=== PATIENT | female | born 1955 | race Caucasian/White ===

== ENCOUNTER 2019-01-05 09:36 | Inpatient (IN) ==
[2019-01-05] MEDS ORDERED: Naloxone 0.4 MG/ML INJ IVP PRN (15:04)
[2019-01-05] MEDS ORDERED: *HR* HYDROcodone/Acet 5/325 mg TABLET PO PRN (15:04)
[2019-01-05] MEDS ORDERED: Ondansetron 4 MG/2 ML VIAL IVP PRN (15:04)
[2019-01-05] MEDS ORDERED: Acetaminophen 325 MG TABLET PO PRN (15:04)
[2019-01-05] MEDS ORDERED: *HR* OxyCODONE Immed Rel 5 MG TABLET PO PRN (15:04)
[2019-01-05] MEDS ORDERED: *HR* Dextrose 50 % in Water (Syg) 50 ML SYRINGE IVP PRN (15:11)
[2019-01-05] MEDS ORDERED: D5% in Water 1,000 ML IVC PRN (15:11)
[2019-01-05] MEDS ORDERED: Dextrose Gel 15 GM/37.5 ML TUBE PO PRN ×2 (15:11)
[2019-01-05] MEDS ORDERED: NON-FORMULARY MEDICATION 1 EACH EACH (Alendronate Sodium 70 MG) PO SCH (15:15)
[2019-01-05] MEDS ORDERED: levoFLOXacin 750 MG/150 ML 750 MG/150 ML BAG IVPB SCH (15:15)
[2019-01-05] MEDS: Ipratropium/Albuterol Neb 3 ML IH SCH ×3 (15:49→23:47)
--- NOTE | 2019-01-05 16:02 | Internal Med History&Physical ---
Date of Encounter: 01/05/19 Time of Encounter: 15:56 Internal Medicine - H&P: HPI Chief complaint: Shortness of breath, cough with expectoration Admitted From: Home Plans for Post Hospital Care: Home History of present illness: Ms. Vicente is a 63 year old female with a known past medical history of COPD, chronic hypoxic respiratory failure on 2 lit home oxygen, hypertension, hyperlipidemia, diabetes type II and chronic tobacco dependence patient who has been having lung issues for a while follows with Dr. العراقي, now she was sent to our hospital as direct admission from pumonology office since pt has been having progressively worsening shortness of breath and cough with expectoration. Her CT scan of the chest showed small loculated right pleural effusion, consolidation in the right upper lobe. Right middle lobe lung nodule. Small to moderate pericardial effusion. Patient was sent to our hospital for further evaluation by aircraft tool maker for possible bronchoscope and Patient stated she has been having progressively worsening shortness of breath last couple of weeks. She visited ER 2-3 times so far. She denied any chest pain. She does have cough with greenish expectoration. Off note: Pt stated , she is afraid of needles and she does not want her blood to be drawn and does not want any IV medication. Past Med Surg Social Fam HX - Past Medical History Medical history: arthritis, asthma, COPD, diabetes, hyperlipidemia, hypertension, other Additional medical history: NEUROPATHY Psychiatric history: depression - Past Surgical History Surgical History: , hysterectomy Additional surgical history: Brain aneurysm removed; lung surgery; Bladder Surgery - Social History Smoking Status: Current every day smoker Smokeless Tobacco Status: No Alcohol use: none Drug use: none - Family History Mother Hx Family Cardiac Disorders: Yes Father Hx Family Cardiac Disorders: Yes Hx Family Respiratory Disorders: Yes Internal Medicine - H&P: Meds Albuterol Sulfate [Albuterol Inhaler] 2 puff IH Q4HR 02/21/15 [History] Gabapentin [Neurontin] 300 mg PO QID 02/21/15 [History] Sitagliptin Phos/Metformin HCl [Janumet 50-1,000 mg Tablet] 1 tab PO BID [History] Albuterol Sulfate [Proventil Inhaler] 2 puff IH Q6H #1 puff 04/16/15 [Rx] Aspirin [Ecotrin] 325 mg PO DAILY 04/26/18 [History] Alendronate Sodium 70 mg PO QWEEK 05/31/18 [History] Diclofenac Sodium [Voltaren] 50 mg PO TID 05/31/18 [History] Insulin Glargine,Hum.rec.anlog [Basaglar Kwikpen U-100] 20 unit SQ 05/31/18 [History] Montelukast [Singulair] 10 mg PO DAILY 05/31/18 [History] Oxybutynin [Ditropan] 5 mg PO BID 05/31/18 [History] Pioglitazone [Actos] mg PO DAILY 05/31/18 [History] predniSONE [Prednisone] 10 mg PO DAILY 06/14/18 [History] Acetaminophen [Tylenol] 650 mg PO Q6HR tablet 06/28/18 [Rx] Atorvastatin [Lipitor] 80 mg PO HS #60 tablet 06/28/18 [Rx] Azithromycin [Zithromax] 250 mg PO DAILY #3 tablet 06/28/18 [Rx] Budesonide/Formoterol 160/4.5 [Symbicort 160/4.5] 2 puff IH BIDR #1 inh 06/28/18 [Rx] Cefuroxime PO [Ceftin] 500 mg PO Q12HR #6 tablet 06/28/18 [Rx] DULoxetine [Cymbalta] 60 mg PO DAILY #60 capsule. 06/28/18 [Rx] GlipiZIDE [Glipizide Xl] 5 mg PO BID #60 tab.er.24 06/28/18 [Rx] Lactobacillus [Culturelle] 1 each PO BID #6 cap.sprink 06/28/18 [Rx] Lidocaine Patch [Lidoderm 5% patch] 1 each TP DAILY #7 adh..patch 06/28/18 [Rx] Methyl Salicylate/Menthol [Bengay] 1 appl TP DAILY tube 06/28/18 [Rx] Tiotropium [Spiriva] 18 mcg IH DAILY@0700 #30 inh 06/28/18 [Rx] levoFLOXacin [Levaquin] 750 mg PO ONCE #5 tablet 12/22/18 [Rx] Allergy/AdvReac Type Severity Reaction Status Date / Time codeine Allergy Hives Verified 06/25/18 17:05 propoxyphene [From Darvon] Allergy Hives Verified 06/25/18 17:05 All Systems PM: A 10-system review of systems was performed and is negative for pertinent findings except as documented above in the HPI. Review of systems: All the systems are reviewed everything is benign except the systems and symptoms I mentioned in the history of present illness - Constitutional Vitals: Temp Pulse Resp BP Pulse Ox 98.7 F 104 16 123/86 96 01/05/19 15:03 01/05/19 15:03 01/05/19 15:50 01/05/19 15:03 01/05/19 15:50 General appearance: Present: cooperative, A&O X 3, no acute distress, answers questions appropriately Exam: a - Head Head exam: Present: atraumatic, normal inspection - Neck Neck exam general surgery: Present: supple - Respiratory Respiratory exam: Present: decreased breath sounds, rhonchi (ronchi+), wheezes (moderate). Absent: rales, respiratory distress - Cardiovascular Cardiovascular exam: Present: RRR, +S1, +S2. Absent: tachycardia - GI/Abdominal GI/Abdominal exam: Present: normal bowel sounds, soft. Absent: rebound, rigid, tenderness - Extremities Exam Extremities exam: Present: normal inspection. Absent: calf tenderness, pedal edema, tenderness - Back Exam Back exam: Absent: CVA tenderness (L), CVA tenderness (R) - Neurological Exam Neurological exam: Present: alert, oriented X3 - Psychiatric Psychiatric exam: Present: normal affect, normal mood - Skin Skin exam: Absent: rash - Assessment and Plan (1) COPD exacerbation Current Visit: Yes Status: Acute Assessment and plan: Place the pt into tele for observation started her on systemic steroids Also placed her on frequent bronchodilator therapy cont O2 started her on empirical abx Levaquin (2) Pneumonia Current Visit: Yes Status: Acute Assessment and plan: Mostly bacterial will check step pneumonia, Legionella, respiratory viral panel and sputum culture started her on empirical abx Levaquin for now Qualifiers: Pneumonia type: due to unspecified organism Laterality: right Lung location: upper lobe of lung Qualified Code(s): J18.1 - Lobar pneumonia, unspecified organism (3) Pleural effusion Current Visit: No Status: Acute Assessment and plan: Consulted pulmonary possible throacocentesis in AM NPO after mid night since she does have moderate pericardial effusion, will check 2 D Echo too (4) Lung nodule Current Visit: Yes Status: Acute Assessment and plan: RML nodule noticed on CT of Chest Pulmonary on board counseled to quit smoking (5) Chronic respiratory failure with hypoxia Current Visit: Yes Status: Acute Assessment and plan: at baseline (6) DM type 2 (diabetes mellitus, type 2) Current Visit: No Status: Chronic Assessment and plan: on ADA diet on ISS @ medium Qualifiers: Diabetes mellitus vermin exterminator insulin use: with vermin exterminator use Diabetes mellitus complication status: with neurologic complications Diabetes mellitus complication detail: with polyneuropathy Qualified Code(s): 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 diabetes mellitus with diabetic polyneuropathy; Z79.4 - [facility] (current) use of insulin (7) Hyperlipidemia Current Visit: No Status: Chronic Assessment and plan: Continue home medication Qualifiers: Hyperlipidemia type: unspecified Qualified Code(s): E78.5 - Hyperlipidemia, unspecified (8) Hypertension Current Visit: No Status: Chronic Assessment and plan: Resumed all home medications Qualifiers: Hypertension type: essential hypertension Qualified Code(s): I10 - Essential (primary) hypertension (9) Tobacco dependence Current Visit: Yes Status: Chronic Assessment and plan: Counseled to quit smoking placed on nicotine patch - Time Spent With Patient Total time spent is greater than 50% in coordination of care (as documented) at patient's floor/unit and/or counseling patient:
[2019-01-05] MEDS: Gabapentin 300 MG CAPSULE PO SCH ×2 (16:31→21:28)
[2019-01-05] MEDS: levoFLOXacin 750 MG TABLET PO SCH (16:31)
[2019-01-05] MEDS: Insulin LISPRO 300 UNITS/3 ML VIAL SQ SCH (16:32)
[2019-01-05] MEDS: predniSONE 20 MG TABLET PO SCH (17:55)
[2019-01-05 18:44] LABS: Adenovirus Not Detected (Not Detect); Bordetella Pertussis Not Detected (Not Detect); Chlamydophila pneumoniae Not Detected (Not Detect); Coronavirus 229E Not Detected (Not Detect); Coronavirus HKU1 Not Detected (Not Detect); Coronavirus NL63 Not Detected (Not Detect); Coronavirus OC43 Not Detected (Not Detect); Human Metapneumovirus Not Detected (Not Detect); Human Rhinovirus/Enterovirus Not Detected (Not Detect); Influenza A Subtype 2009 H1 Not Detected (Not Detect); Influenza A Untypeable Not Detected (Not Detect); Influenza B Not Detected (Not Detect); Mycoplasma pneumoniae Not Detected (Not Detect); Parainfluenza Virus 1 Not Detected (Not Detect); Parainfluenza Virus 2 Not Detected (Not Detect); Parainfluenza Virus 3 Not Detected (Not Detect); Parainfluenza Virus 4 Not Detected (Not Detect); Respiratory Syncytial Virus Not Detected (Not Detect)
[2019-01-05] MEDS: Budesonide/Formoterol 160/4.5 1 PUFF INH IH SCH (20:23)
[2019-01-05] MEDS ORDERED: Insulin LISPRO 300 UNITS/3 ML VIAL SQ SCH (21:00)
[2019-01-06] MEDS: Ipratropium/Albuterol Neb 3 ML IH SCH ×6 (04:47→23:04)
[2019-01-06] MEDS ORDERED: *HR* Propofol 200 MG/20 ML VIAL IVP ONE (07:49)
[2019-01-06] MEDS ORDERED: Propofol 500 MG/50 ML INFUS..BTL ONE (07:50)
[2019-01-06] MEDS ORDERED: Lidocaine -MPF 2% 2 ML VIAL ONE (07:53)
[2019-01-06] MEDS ORDERED: Dexamethasone 4 MG/ML VIAL ONE (07:53)
[2019-01-06] MEDS ORDERED: Ondansetron 4 MG/2 ML VIAL ONE (07:53)
[2019-01-06] MEDS ORDERED: *HR* Succinylcholine 200 MG/10 ML VIAL IVP ONE (07:53)
[2019-01-06] MEDS: Insulin LISPRO 300 UNITS/3 ML VIAL SQ SCH ×4 (08:08→23:29)
[2019-01-06] MEDS: levoFLOXacin 750 MG TABLET PO SCH (08:08)
[2019-01-06] MEDS: Aspirin Enteric Coated 325 MG Tablet PO SCH (08:08)
[2019-01-06] MEDS: predniSONE 20 MG TABLET PO SCH (08:08)
[2019-01-06] MEDS: Gabapentin 300 MG CAPSULE PO SCH ×4 (08:09→21:14)
--- NOTE | 2019-01-06 08:13 | Pulmonology Consult Note ---
<DioLisdenys M - Last Filed: 01/06/19 16:00> Date of Encounter: 01/06/19 Medications and Allergies Aspirin [Ecotrin] 325 mg PO DAILY 04/26/18 [History] Pioglitazone [Actos] 30 mg PO DAILY 05/31/18 [History] Albuterol Sulfate 5 mg PO TID PRN 01/06/19 [History] Alendronate Sodium [Fosamax] 70 mg PO TH 01/06/19 [History] Calcium Carbonate/Vitamin D3 [Calcium 500 + Vit D Caplet] 1 tab PO DAILY 01/06/19 [History] Fluticasone/Salmeterol [Airduo Respiclick 232-14 Mcg] 1 puff PO BID 01/06/19 [History] Loratadine/Pseudoephedrine [Allergy Relief D-24Hr Tablet] 1 tab PO DAILY PRN 01/06/19 [History] Metformin HCl 500 mg PO BID 01/06/19 [History] Pregabalin [Lyrica] 150 mg PO DAILY 01/06/19 [History] Tramadol HCl [Ultram] 50 mg PO BID PRN 01/06/19 [History] Allergy/AdvReac Type Severity Reaction Status Date / Time codeine Allergy Hives Verified 01/06/19 13:41 propoxyphene [From Darvon] Allergy Hives Verified 01/06/19 13:41 All Systems: The remainder of the systems were reviewed and are negative Physical Examination Vital Signs: Vital Signs, Last 4 Hours Temp Pulse Resp BP Pulse Ox 01/06/19 15:45 17 91 01/06/19 15:20 97.9 F 118 17 109/70 91 Results - Laboratory Findings CBC and BMP: 01/06/19 09:25 01/06/19 09:25 Abnormal lab findings: Abnormal lab results MCH 27.7 pg (28.0-33.3) L 01/06/19 09:25 MPV 12.5 fL (9.4-12.4) H 01/06/19 09:25 Sodium 133 mEq/L (136-145) L 01/06/19 09:25 Chloride 95 mEq/L (98-107) L 01/06/19 09:25 Est GFR (Non-Af Amer) 56 (> 60) L 01/06/19 09:25 Glucose 553 mg/dL (70-105) H* 01/06/19 09:25 Hemoglobin A1c 14.6 % (-5.6) H 01/06/19 09:25 Calculated Osmolality 303 (280-300) H 01/06/19 09:25 Magnesium 1.5 mg/dL (1.6-2.6) L 01/06/19 09:25 - Microbiology Findings Microbiology Findings: Microbiology, Last 48 Hours 01/05/19 17:56 Legionella Antigen - Final Urine,Clean Catch Streptococcus pneumoniae Antigen (M - Final - Clinical Findings Intake & Output: Intake & Output 01/06/19 01/06/19 01/06/19 07:59 15:59 23:59 Intake Total 0 / 240 240 / 240 Output Total 300 / 300 Balance -300 / -60 240 / -60 Weight 61.5 kg Consult Discharge Plan - Plan Referrals: NONE,PCP [Primary Care Provider] - - Attending Attestation I examined this patient and my medical decision-making was reviewed with the Resident Physician. I agree with the documented findings, disposition and treatment plan as described except to the extent set forth below. Patient seen and examined. Labs, radiology, chart personally reviewed. 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 Extensive discussion with the patient regarding her CT chest finding and the fact that she continued to smoke tobacco that is making her underlying disease worsen and I have told her she absolutely has to quit smoking to feeling better and refer her to [place] if needed after pulmonary rehabilitation for evaluation of lung transplant. I have explained that all the risks, alternative benefits of bronchoscopy and there is some improvement in the right middle lobe. Patient will be treated for COPD exacerbation what makes it more complicated that patient cannot tolerate or she is very scared of needles. I have explained to her that pleural effusion is very small and loculated and no need for any thoracentesis. A bronchoscopy is recommended. The procedure , risks, benefits, complications, and expected outcomes have been reviewed. Benefits of diagnosis, as well as risks to include bleeding, infection, pneumothorax which may require surgical intervention, and in a small population. The patient is aware that sometimes test is nondiagnostic. Discussed with patient and agrees to proceed. Cardiovascular: stable GI: Nutrition per dietary and GI prophylaxis per routine Heme: DVT prophylaxis per routine ID: Continue antibiotics and plan to de-escalation Renal; urine out put and renal function reviewed Endorcine: blood glucose is monitored Lines: all lines checked and no evidence of infections Skin: skin care to prevent pressure ulcers per nursing routine care Dispo: 3B and hopefully can be discharged home in next 1-2 days. Code: Full. Prognosis. Poor if continues smoking <Leroy Atkins Shyann - Last Filed: 01/06/19 23:00> Date of Encounter: 01/06/19 Time of Encounter: 10:30 Assessment and Plan (1) Pneumonia Current Visit: Yes Status: Acute Presented complaining of increased productive cough with green sputum Pt has been afebrile, and with normal WBC Currently only requiring 2lpm O2 which is the patient's home script Treatment is complicated by patient's fear of needles Continue po glucocorticoids and Levaquin Continue scheduled Duonebs Recommend bronchoscopy. Dr Wharton discussed with patient and plan for bronchoscopy later today Qualifiers: Pneumonia type: due to unspecified organism Laterality: right Lung location: upper lobe of lung Qualified Code(s): J18.1 - Lobar pneumonia, unspecified organism (2) COPD exacerbation Current Visit: Yes Status: Acute Complicated by pt's fear of needles Plan as above with continuing po glucocorticoids, po Levaquin, and scheduled bronchodilators Also stressed the importance of smoking cessation (3) Pleural effusion Current Visit: Yes Status: Acute Small right loculated effusion noted on CT No need for thoracentesis at this time (4) Lung nodule Current Visit: Yes Status: Acute A nodular opacity in the right middle lobe measuring approximately 7mm in diameter was seen on chest CT Pt will require outpatient followup after discharge (5) Chronic respiratory failure with hypoxia Current Visit: Yes Status: Chronic As above Continue supplemental O2 which is currently at pt's baseline of 2lpm (6) Tobacco dependence Current Visit: Yes Status: Chronic Discussed the importance of smoking cessation Continue nicotine patch History of Present Illness Consult date: 01/06/19 Reason for consult: dyspnea, cough, COPD Chief complaint: SOB History of present illness: Ms Vicente is a 63F with PMH of arthritis, COPD on 2lpm home O2, diabetes, HLD, HTN, tobacco abuse, and depression. She was admitted on 01/05/19 from the pulmonology office for complaints of worsening shortness of breath and productive cough which has been worsening over the past 2-3 weeks. Reports she is producing green sputum. A CT of the chest was obtained which showed a small loculated right pleural effusion, severe emphysema, and a nodular opacity in the right middle lobe measuring approximately 7mm in diameter. She was started on po steroids and empiric Levaquin. Pulmonology was consulted for COPD exacerbation and evaluation for possible bronchoscopy. Pt seen and examined at bedside. Pt reports she is very afraid of needles and wants to avoid them at all costs. Past Med Surg Social Fam HX - Past Medical History Medical history: arthritis, asthma, COPD, diabetes, hyperlipidemia, hypertension, other Additional medical history: NEUROPATHY Psychiatric history: depression - Past Surgical History Surgical History: , hysterectomy Additional surgical history: Brain aneurysm removed; lung surgery; Bladder Surgery - Social History Smoking Status: Current every day smoker Smokeless Tobacco Status: No Alcohol use: none Drug use: none - Family History Mother Hx Family Cardiac Disorders: Yes Father Hx Family Cardiac Disorders: Yes Hx Family Respiratory Disorders: Yes All Systems: The remainder of the systems were reviewed and are negative - Constitutional Constitutional: no chills, no fever(s) - Cardiovascular Cardiovascular: dyspnea, no chest pain - Respiratory Respiratory: cough, dyspnea, chest congestion, excessive phlegm production, change in phlegm color, no hemoptysis Physical Examination Vital Signs: Vital Signs, Last 4 Hours Temp Pulse Resp BP Pulse Ox 01/06/19 07:15 98.4 F 115 16 130/75 92 01/06/19 05:03 18 88 General appearance: no acute distress, alert Eyes: nonicteric Effort: normal Inspection: normal Auscultation: bilateral: diminished breath sounds, wheezes (scattered ) Cardiovascular: regular rate and rhythm Gastrointestinal: soft, non-tender, non-distended Integumentary: normal Extremities: no cyanosis, no edema, no clubbing, pink and warm, pulses normal, no ischemia or petechiae Musculoskeletal: no deformities normal mental status, non-focal exam, pupils equal and round mood appropriate, affect normal Results - Laboratory Findings CBC and BMP: 01/06/19 09:25 01/06/19 09:25 - Microbiology Findings Microbiology Findings: Microbiology, Last 48 Hours 01/05/19 17:56 Legionella Antigen - Final Urine,Clean Catch Streptococcus pneumoniae Antigen (M - Final - Diagnostic Findings CT scan - chest: report reviewed, image reviewed - Clinical Findings Intake & Output: Intake & Output 01/05/19 01/06/19 01/06/19 23:59 07:59 15:59 Intake Total 240 / 240 0 / 0 Output Total 240 / 640 300 / 300 Balance 0 / -400 -300 / -300 Weight 61.235 kg 61.5 kg
[2019-01-06] MEDS ORDERED: Lidocaine -MPF 4% 5 ML AMPUL ONE (08:29)
[2019-01-06] MEDS ORDERED: Lidocaine Viscous Oral Soln 15 ML SOLUTION ONE (08:34)
--- NOTE | 2019-01-06 08:35 | Anesthesia Evaluation PreOp ---
Date of Encounter: 01/06/19 Time of Encounter: 08:33 - Past History Planned Operation: Bronchoscopy Cardiac History: HTN, Hyperlipidemia Pulmonary History: Smoker (49 years), Asthma, COPD (home O2 at 2L continuously) CLINICAL RESOURCE MANAGER History: Other (brain aneurysm) Other Medical History: Diabetes Type II, GERD Anesthesia History: Past Anesthesia, Problems (Patient with intense fear of needles. Prior anesthesia consisted of PO anxiolytic and inhalation induction. Will proceed with inhalation induction and start peripheral IV after induction.) Alcohol Use: none Drug use: none Medications and Allergies Albuterol Sulfate [Albuterol Inhaler] 2 puff IH Q4HR 02/21/15 [History] Gabapentin [Neurontin] 300 mg PO QID 02/21/15 [History] Sitagliptin Phos/Metformin HCl [Janumet 50-1,000 mg Tablet] 1 tab PO BID 02/21/15 [History] Albuterol Sulfate [Proventil Inhaler] 2 puff IH Q6H #1 puff 04/16/15 [Rx] Aspirin [Ecotrin] 325 mg PO DAILY 04/26/18 [History] Alendronate Sodium 70 mg PO QWEEK 05/31/18 [History] Diclofenac Sodium [Voltaren] 50 mg PO TID 05/31/18 [History] Insulin Glargine,Hum.rec.anlog [Basaglar Kwikpen U-100] 20 unit SQ 05/31/18 [History] Montelukast [Singulair] 10 mg PO DAILY 05/31/18 [History] Oxybutynin [Ditropan] 5 mg PO BID 05/31/18 [History] Pioglitazone [Actos] mg PO DAILY 05/31/18 [History] predniSONE [Prednisone] 10 mg PO DAILY 06/14/18 [History] Acetaminophen [Tylenol] 650 mg PO Q6HR tablet 06/28/18 [Rx] Atorvastatin [Lipitor] 80 mg PO HS #60 tablet 06/28/18 [Rx] Azithromycin [Zithromax] 250 mg PO DAILY #3 tablet 06/28/18 [Rx] Budesonide/Formoterol 160/4.5 [Symbicort 160/4.5] 2 puff IH BIDR #1 inh 06/28/18 [Rx] Cefuroxime PO [Ceftin] 500 mg PO Q12HR #6 tablet 06/28/18 [Rx] DULoxetine [Cymbalta] 60 mg PO DAILY #60 capsule.dr 06/28/18 [Rx] GlipiZIDE [Glipizide Xl] 5 mg PO BID #60 tab.er.24 06/28/18 [Rx] Lactobacillus [Culturelle] 1 each PO BID #6 cap.sprink 06/28/18 [Rx] Lidocaine Patch [Lidoderm 5% patch] 1 each TP DAILY #7 adh..patch 06/28/18 [Rx] Methyl Salicylate/Menthol [Bengay] 1 appl TP DAILY tube 06/28/18 [Rx] Tiotropium [Spiriva] 18 mcg IH DAILY@0700 #30 inh 06/28/18 [Rx] levoFLOXacin [Levaquin] 750 mg PO ONCE #5 tablet 12/22/18 [Rx] Allergy/AdvReac Type Severity Reaction Status Date / Time codeine Allergy Hives Verified 06/25/18 17:05 propoxyphene [From Darvon] Allergy Hives Verified 06/25/18 17:05 - Meds/Allergy Pre-op Review Medications Reviewed: Yes Allergies Reviewed: Yes Beta Blockers on Current Med List: No Anesthesia Results - Labs Laboratory Tests 04/26/18 01/01/19 01/01/19 17:51 11:59 11:59 WBC 8.8 Hgb 14.5 Hct 45.4 H Plt Count 220 PT 13.3 H INR 1.2 APTT 35.6 Sodium 135 L Potassium 4.5 BUN 10 Creatinine 0.81 - Imaging EKG: report reviewed (01/01/2019 Sinus tachycardia Ventricular premature complex Consider right atrial enlargement Borderline right axis deviation) Chest x-ray: report reviewed (01/01/2019 IMPRESSION: Small to moderate right pleural effusion with interstitial pulmonary edema and mild cardiomegaly suggesting CHF. Right basilar opacity may represent atelectasis although underlying consolidation cannot be completely excluded.) Additional studies: 09/16/2018 Echo Impressions: LVEF 45-50%. Not all the LV segments were well visualized. Recommend limited study with imaging enchancement Mild concentric left ventricular hypertrophy. Normal left ventricular diastolic function. Normal right ventricular structure and function. Unable to estimate RVSP due to lack of TR jet. There is a trivial to small pericardial effusion present.There is no echocardiographic evidence of tamponade. Anesthesia Exam Vital Signs/O2 Sat, Most Current Temp Pulse Resp BP Pulse Ox 99 F 118 20 129/85 97 01/06/19 08:24 01/06/19 08:24 01/06/19 08:24 01/06/19 08:24 01/06/19 08:24 Height: 5'2''/1.57m Weight: 135 lbs/61.5 kg NPO (# of Hours): 8 Pain Scale: 0 Pain Scale Used: Numeric (1 - 10) - HEENT Pupil (Motor): EOMI Mallampati: II Teeth: Edentulous Oral Opening: Greater than 3 - CLINICAL RESOURCE MANAGER LOC: Oriented CLINICAL RESOURCE MANAGER Motor: Normal RUE, Normal LUE, Normal RLE, Normal LLE, Normal Face CLINICAL RESOURCE MANAGER Sensory: Normal: RUE, LUE, RLE, LLE, Face - Cardiac Rhythm: Regular Murmur: None - Pulmonary Breath Sounds: bilateral Rhonchi Respiratory Effort: Symmetrical Anesthesia Assess/Plan ASA Score: 3 Level of consciousness: Cooperative, Oriented, Tranquil Anesthetic Plan: General Monitoring Plan: Standard Monitors Recovery Plan: PACU
[2019-01-06 09:45] LABS: Basophils % 0.2 %; Eosinophils % 0.1 %; Hematocrit 39.2 % (35.3-44.9); Immature Granulocytes % 0.4 % (0-4); Lymphocytes # 0.9 K/mcL (0.6-4.6); Lymphocytes % 10.7 %; Mean Corpuscular HGB Conc 31.9 g/dL (31.6-35.5); Mean Corpuscular Hemoglobin 27.7 pg (28.0-33.3); Mean Corpuscular Volume 86.9 fL (83.0-100.0); Mean Platelet Volume 12.5 fL (9.4-12.4); Monocytes # 0.4 K/mcL (0.0-1.3); Monocytes % 5.2 %; Neutrophils # 7.1 K/mcL (1.6-8.9); Platelet Count 199 K/mcL (140-400); Red Blood Count 4.51 M/mcL (3.82-4.97); Red Cell Distribution Width 13.6 % (11.5-14.5); Segmented Neutrophils % 83.4 %; White Blood Count 8.5 K/mcL (4.3-11.1)
[2019-01-06 09:47] LABS: Hemoglobin 12.5 g/dL (11.5-15.4)
[2019-01-06 09:52] LABS: Estimated Average Glucose 372 mg/dl
[2019-01-06 10:14] LABS: BUN/Creatinine Ratio 18 (6-26); Blood Urea Nitrogen 18 mg/dL (8-23); Carbon Dioxide 28 mEq/L (23-29); Chloride 95 mEq/L (98-107); Glucose 553 mg/dL (70-105); Magnesium 1.5 mg/dL (1.6-2.6); Osmolality,Calculated 303 (280-300); Sodium 133 mEq/L (136-145); eGFR For African Americans > 60 (> 60); eGFR For Non-African Americans 56 (> 60)
[2019-01-06] MEDS: Budesonide/Formoterol 160/4.5 1 PUFF INH IH SCH ×2 (11:21→20:51)
[2019-01-06] MEDS ORDERED: Insulin Regular, Human 100 UNIT/ML SQ ONE (11:35)
[2019-01-06] MEDS ORDERED: Insulin LISPRO 300 UNITS/3 ML VIAL SQ ONE ×2 (11:40→14:41)
--- NOTE | 2019-01-06 12:11 | Internal Med Progress Note ---
Hospitalist Progress Note - Encounter Date of Encounter: 01/06/19 Time of Encounter: 12:09 - Subjective Interval History: Ms. Vicente is a 63 year old female with a known past medical history of COPD, chronic hypoxic respiratory failure on 2 lit home oxygen, hypertension, hyperlipidemia, diabetes type II and chronic tobacco dependence patient who has been having lung issues for a while follows with Dr. العراقي, now she was sent to our hospital as direct admission from pumonology office since pt has been having progressively worsening shortness of breath and cough with expectoration. Her CT scan of the chest showed small loculated right pleural effusion, consolidation in the right upper lobe. Right middle lobe lung nodule. Small to moderate pericardial effusion. Patient was sent to our hospital for further evaluation by real estate investor for possible bronchoscope and Patient stated she has been having progressively worsening shortness of breath last couple of weeks. She visited ER 2-3 times so far. She denied any chest pain. She does have cough with greenish expectoration. She was admitted in the hospital and placed her on PO steroids and empirical abx Levaquin. Pt was seen by Pulmonary who did bronchoscope this morning. Currently pt is on 2 lit O2.. Denied any CP. Her sugars are not well controlled. - Exam Vitals: Temp Pulse Resp BP Pulse Ox 97.9 F 75 21 131/80 93 01/06/19 11:15 01/06/19 11:15 01/06/19 11:24 01/06/19 11:15 01/06/19 11:24 Exam: Gen: Alert, awake, Oriented to time,place and person Chest: Diminished breath sounds B/L, Moderate wheezing, No crackles, No rales Heart: S1S2+ RRR No murmurs Abd: Soft, NT, BS +, No organomegaly Ext: No edema, pulses are palpable, No calf tenderness Neuro : No acute focal neuro deficits noticed Skin: No rash. - Assessment and Plan (1) COPD exacerbation Current Visit: Yes Status: Acute Assessment and Plan: Improving start tapering systemic steroids cont frequent broncho dilator therapy cont on o2 cont symbicort (2) Pneumonia Current Visit: Yes Status: Acute Assessment and Plan: Mostly bacterial Strep pneumonia, Legionella, and respiratory viral panel were negative cont on empirical abx Levaquin s/p bronchoscope will f/u on BAL fluid Gram staining and cx appreciate pulmonary recommendations (3) Pleural effusion Current Visit: No Status: Acute Assessment and Plan: Lasix PRN 2D Echo - P (4) Lung nodule Current Visit: Yes Status: Acute Assessment and Plan: RML nodule noticed on CT of Chest Pulmonary on board counseled to quit smoking (5) Chronic respiratory failure with hypoxia Current Visit: Yes Status: Acute Assessment and Plan: at baseline (6) DM type 2 (diabetes mellitus, type 2) Current Visit: No Status: Chronic Assessment and Plan: on ADA diet HbA1C 14.6 Uncontrolled BS, since pt refused to take insulin since y/d I educated the pt and counseled her about the importance of Insulin to control her severe hyperglycemia resumed home PO meds Metformin + Added Glipizide changed ISS @ high (7) Hyperlipidemia Current Visit: No Status: Chronic Assessment and Plan: Continue home medication (8) Hypertension Current Visit: No Status: Chronic Assessment and Plan: Resumed all home medications (9) Tobacco dependence Current Visit: Yes Status: Chronic Assessment and Plan: Counseled to quit smoking placed on nicotine patch - Time Spent with Patient Total time spent is greater than 50% in coordination of care (as documented) at patient's floor/unit and/or counseling patient: Internal Medicine: Result - Labs CBC & Chem 7: 01/06/19 09:25 01/06/19 09:25 Labs: Short CBC 01/06/19 Range/Units 09:25 WBC 8.5 (4.3-11.1) K/mcL Hgb 12.5 D (11.5-15.4) g/dL Hct 39.2 (35.3-44.9) % Plt Count 199 (140-400) K/mcL Neutrophils # 7.1 (1.6-8.9) K/mcL BMP 01/06/19 09:25 Sodium 133 L Potassium 5.0 Chloride 95 L Carbon Dioxide 28 BUN 18 Creatinine 1.01 Glucose 553 H* Calcium 9.0 Consult Discharge Plan - Plan Referrals: NONE,PCP [Primary Care Provider] - (2) Pneumonia Qualifiers: Pneumonia type: due to unspecified organism Laterality: right Lung location: upper lobe of lung Qualified Code(s): J18.1 - Lobar pneumonia, unspecified organism (6) DM type 2 (diabetes mellitus, type 2) Qualifiers: Diabetes mellitus halfway insulin use: with extermination inspector use Diabetes mellitus complication status: with neurologic complications Diabetes mellitus complication detail: with polyneuropathy Qualified Code(s): 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 diabetes mellitus with diabetic polyneuropathy; Z79.4 - custodial (current) use of insulin (7) Hyperlipidemia Qualifiers: Hyperlipidemia type: unspecified Qualified Code(s): E78.5 - Hyperlipidemia, unspecified (8) Hypertension Qualifiers: Hypertension type: essential hypertension Qualified Code(s): I10 - Essential (primary) hypertension
[2019-01-06] MEDS: *HR* Pioglitazone 30 MG TABLET PO SCH ×2 (13:47→15:47)
[2019-01-06] MEDS ORDERED: Insulin DETEMIR 100 UNIT/ML X5UNITS SQ ONE (14:40)
[2019-01-06] MEDS ORDERED: *HR* LORazepam 2 MG/ML VIAL IVP PRN (16:49)
[2019-01-06 17:19] LABS: Appearance of Body Fluid Slightly Hazy (Clear)
[2019-01-06 17:20] LABS: Volume of Body Fluid 11 mL
[2019-01-06 17:24] LABS: Appearance of Body Fluid Hazy (Clear); Volume of Body Fluid 21 mL
[2019-01-06] MEDS: *HR* SitaGLIPtin 25 MG TABLET PO SCH (21:14)
[2019-01-06] MEDS: *HR* GlipiZIDE XL (24 HR) 2.5 MG TABLET PO SCH (21:14)
[2019-01-06] MEDS: *HR* Metformin 500 MG TABLET PO SCH (21:15)
[2019-01-06] MEDS: Insulin DETEMIR 100 UNIT/ML X5UNITS SQ SCH (23:30)
[2019-01-07] MEDS: Ipratropium/Albuterol Neb 3 ML IH SCH ×2 (03:52→07:18)
--- NOTE | 2019-01-07 06:43 | Event Note ---
Date of Encounter: 01/06/19 Time of Encounter: 21:51 Alerted by patient's nurse OLEKSANDR Yun that patient had a blood sugar of 5 6618:48. Patient refusing to be "poked anymore" , including labs. Patient stated she only took her by mouth pills and was not wanting Accu-Cheks done or insulin. Nurse tried to educate patient that metformin would not control her high glucose at this time. Patient also requesting her tramadol and Lyrica. Went to see patient who is resting in bed and appeared anxious. Current BG 576. I explained to the pt. that her BG had to be brought down with insulin. Pt. began to cry and stated she wanted to go home over and over. Pt. stated her BG had been much higher than this. I stated this was not normal. I stated that she would not be going home with BG this high. I stated that unless she allowed us to administer the needed insulin and continue checking her BG levels, she would continue to be here. Pt. agreed. 20 units of Levemir administered along w/HS SS coverage. Nurse instructed to monitor BG Q2HR. Alerted at 01:51 that BG was now 441. Will continue to monitor closely.
[2019-01-07] MEDS: Budesonide/Formoterol 160/4.5 1 PUFF INH IH SCH ×2 (07:19→22:11)
[2019-01-07] MEDS ORDERED: Insulin LISPRO 300 UNITS/3 ML VIAL SQ SCH (08:00)
--- NOTE | 2019-01-07 08:13 | Pulmonology Progress Note ---
<Leroy Atkins - Last Filed: 01/07/19 10:30> Date of Encounter: 01/07/19 Time of Encounter: 09:30 Assessment and Plan (1) Pneumonia Current Visit: Yes Status: Acute Presented complaining of increased productive cough with green sputum Pt has been afebrile, and with normal WBC Currently only requiring 2lpm O2 which is the patient's home script Underwent bronchoscopy on 01/06/19 which showed mucus plugging in the right upper lobe, right middle lobe, and left lower lobe. Urine strep and legionella antigens are negative Treatment is complicated by patient's fear of needles Continue po glucocorticoids and Levaquin Continue scheduled Duonebs Await BAL cultures - preliminary growth of Gram + cocci seen in the right middle lobe sample Qualifiers: Pneumonia type: due to unspecified organism Laterality: right Lung location: upper lobe of lung Qualified Code(s): J18.1 - Lobar pneumonia, unspecified organism (2) COPD exacerbation Current Visit: Yes Status: Acute Complicated by pt's fear of needles Plan as above with continuing po glucocorticoids, po Levaquin, and scheduled bronchodilators Also stressed the importance of smoking cessation (3) Pleural effusion Current Visit: Yes Status: Acute Small right loculated effusion noted on CT No need for thoracentesis at this time (4) Lung nodule Current Visit: Yes Status: Acute A nodular opacity in the right middle lobe measuring approximately 7mm in diameter was seen on chest CT Pt will require outpatient followup after discharge (5) Chronic respiratory failure with hypoxia Current Visit: Yes Status: Chronic As above Continue supplemental O2 which is currently at pt's baseline of 2lpm (6) Tobacco dependence Current Visit: Yes Status: Chronic Discussed the importance of smoking cessation Continue nicotine patch (7) DM type 2 (diabetes mellitus, type 2) Current Visit: Yes Status: Chronic Hyperglycemic exacerbated by glucocorticoids SSI per primary team Qualifiers: Diabetes mellitus senior care insulin use: with watermaster use Diabetes mellitus complication status: with neurologic complications Diabetes mellitus complication detail: with polyneuropathy Qualified Code(s): 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 diabetes mellitus with diabetic polyneuropathy; Z79.4 - intermediate accountant (current) use of insulin Subjective Principal diagnosis: COPD exacerbation Interval history: Pt seen and examined at bedside. States her shortness of breath is grossly unchanged. Does report decreased cough and no further sputum production. Reports she does not feel well enough to be discharged today. Objective PUL Vital signs: Last Vital Signs Temp 97.8 F 01/07/19 07:28 Pulse 112 01/07/19 07:28 Resp 18 01/07/19 07:28 BP 125/86 01/07/19 07:28 Pulse Ox 95 01/07/19 07:28 General appearance: no acute distress, alert Eyes: nonicteric ENT: oropharynx moist Neck: supple, no JVD Effort: normal Auscultation: bilateral: wheezes (diffuse expiratory ) Cardiovascular: regular rate and rhythm Gastrointestinal: soft, non-tender, non-distended Integumentary: normal Extremities: no cyanosis, no edema, no clubbing, pink and warm, pulses normal, no ischemia or petechiae Musculoskeletal: no deformities normal mental status, non-focal exam, pupils equal and round anxious, tearful Results - Laboratory Findings CBC and BMP: 01/06/19 09:25 01/06/19 09:25 Abnormal lab findings: Abnormal lab results MCH 27.7 pg (28.0-33.3) L 01/06/19 09:25 MPV 12.5 fL (9.4-12.4) H 01/06/19 09:25 Sodium 133 mEq/L (136-145) L 01/06/19 09:25 Chloride 95 mEq/L (98-107) L 01/06/19 09:25 Est GFR (Non-Af Amer) 56 (> 60) L 01/06/19 09:25 Glucose 553 mg/dL (70-105) H* 01/06/19 09:25 POC Glucose 441 mg/dL (70-99) H* 01/07/19 01:31 Hemoglobin A1c 14.6 % (-5.6) H 01/06/19 09:25 Calculated Osmolality 303 (280-300) H 01/06/19 09:25 Magnesium 1.5 mg/dL (1.6-2.6) L 01/06/19 09:25 Fluid Appearance Hazy (Clear) A 01/06/19 09:17 Fluid Appearance Slightly Hazy (Clear) A 01/06/19 09:17 - Microbiology Findings Microbiology Findings: Microbiology, Last 48 Hours 01/06/19 09:17 Respiratory Culture - Preliminary Right Middle Lobe Lung 01/06/19 09:17 Respiratory Culture - Preliminary Right Middle Lobe Lung 01/06/19 09:17 Respiratory Culture - Preliminary Right Upper Lobe Lung 01/05/19 17:56 Legionella Antigen - Final Urine,Clean Catch Streptococcus pneumoniae Antigen (M - Final - Clinical Findings Intake & Output: Intake & Output 01/06/19 01/07/19 01/07/19 23:59 07:59 15:59 Output Total 0 / 0 Balance 0 / 0 Weight 62.3 kg Consult Discharge Plan - Plan Referrals: Yara Murphy CNP [Advanced Practice Nurse] - 01/12/19 1:15 pm <Aaron Wharton M - Last Filed: 01/09/19 01:13> Date of Encounter: 01/07/19 Objective PUL Vital signs: Last Vital Signs Temp 97.7 F 01/07/19 17:00 Pulse 112 01/07/19 17:00 Resp 21 01/07/19 17:00 BP 117/72 01/07/19 17:00 Pulse Ox 95 01/07/19 17:00 Results - Laboratory Findings CBC and BMP: 01/06/19 09:25 01/06/19 09:25 Abnormal lab findings: Abnormal lab results MCH 27.7 pg (28.0-33.3) L 01/06/19 09:25 MPV 12.5 fL (9.4-12.4) H 01/06/19 09:25 Sodium 133 mEq/L (136-145) L 01/06/19 09:25 Chloride 95 mEq/L (98-107) L 01/06/19 09:25 Est GFR (Non-Af Amer) 56 (> 60) L 01/06/19 09:25 Glucose 553 mg/dL (70-105) H* 01/06/19 09:25 POC Glucose 340 mg/dL (70-99) H 01/07/19 05:47 Hemoglobin A1c 14.6 % (-5.6) H 01/06/19 09:25 Calculated Osmolality 303 (280-300) H 01/06/19 09:25 Magnesium 1.5 mg/dL (1.6-2.6) L 01/06/19 09:25 Fluid Appearance Hazy (Clear) A 01/06/19 09:17 Fluid Appearance Slightly Hazy (Clear) A 01/06/19 09:17 - Microbiology Findings Microbiology Findings: Microbiology, Last 48 Hours 01/06/19 09:17 Fungal Culture - Preliminary Right Middle Lobe Lung Culture is incubating. 01/06/19 09:17 Fungal Culture - Preliminary Right Upper Lobe Lung Culture is incubating. 01/06/19 09:17 Fungal Culture - Preliminary Right Middle Lobe Lung Culture is incubating. 01/06/19 09:17 Respiratory Culture - Preliminary Right Middle Lobe Lung 01/06/19 09:17 Respiratory Culture - Preliminary Right Middle Lobe Lung 01/06/19 09:17 Respiratory Culture - Preliminary Right Upper Lobe Lung 01/05/19 17:56 Legionella Antigen - Final Urine,Clean Catch Streptococcus pneumoniae Antigen (M - Final - Clinical Findings Intake & Output: Intake & Output 01/07/19 01/07/19 01/07/19 07:59 15:59 23:59 Intake Total 360 / 360 Output Total 0 / 350 350 / 350 Balance 0 / 10 10 Weight 62.3 kg - Attending Attestation I examined this patient and my medical decision-making was reviewed with the Resident Physician. I agree with the documented findings, disposition and treatment plan as described except to the extent set forth below. Patient seen and examined. Labs, radiology, chart personally reviewed. 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 Patient feels if she can stay for treatment, that will help her and that is reasonable because my concern she will go home and start smoking and her condition will worsen. I have explained to her that she needs to quit smoking completely for at least 6 months and if she still having problems, then she can be referred for lung transplant evaluation. Cardiovascular: stable Dispo: 3B and hopefully home in 1-2 days Code: Full. Prognosis.If she doesn't quit smoking, it is poor.
[2019-01-07] MEDS ORDERED: Ipratropium/Albuterol Neb 3 ML IH PRN (08:49)
[2019-01-07] MEDS ORDERED: predniSONE 20 MG TABLET PO SCH (09:00)
[2019-01-07] MEDS: *HR* Metformin 500 MG TABLET PO SCH ×2 (09:06→22:51)
[2019-01-07] MEDS: *HR* GlipiZIDE XL (24 HR) 2.5 MG TABLET PO SCH ×2 (09:06→22:52)
[2019-01-07] MEDS: Aspirin Enteric Coated 325 MG Tablet PO SCH (09:06)
[2019-01-07] MEDS: levoFLOXacin 750 MG TABLET PO SCH (09:07)
[2019-01-07] MEDS: *HR* Pioglitazone 30 MG TABLET PO SCH (09:07)
[2019-01-07] MEDS: Gabapentin 300 MG CAPSULE PO SCH ×4 (09:07→22:52)
[2019-01-07] MEDS: *HR* SitaGLIPtin 25 MG TABLET PO SCH ×2 (09:07→22:52)
[2019-01-07] MEDS: Insulin LISPRO 300 UNITS/3 ML VIAL SQ SCH ×4 (09:10→21:40)
[2019-01-07] MEDS: Insulin DETEMIR 100 UNIT/ML X5UNITS SQ SCH ×2 (09:11→21:40)
--- NOTE | 2019-01-07 11:31 | Internal Med Progress Note ---
Hospitalist Progress Note - Encounter Date of Encounter: 01/07/19 Time of Encounter: 09:30 - Subjective Interval History: Pt was seen and exmained at bed side. Pt stated she is not feeling well. She is c.o worsening SOB and MARTINEZ today.. She does have worsening , diffuse wheezing.. Y/d all day her blood sugars were uncontrolled due to her non compliance with Insulin - Exam Vitals: Temp Pulse Resp BP Pulse Ox 97.8 F 112 18 125/86 95 01/07/19 07:28 01/07/19 07:28 01/07/19 07:28 01/07/19 07:28 01/07/19 07:28 Exam: Gen: Alert, awake, Oriented to time,place and person Chest: Diminished breath sounds B/L, Moderate to severe audible wheezing, No crackles, No rales Heart: S1S2+ RRR No murmurs Abd: Soft, NT, BS +, No organomegaly Ext: No edema, pulses are palpable, No calf tenderness Neuro : No acute focal neuro deficits noticed Skin: No rash. - Assessment and Plan (1) COPD exacerbation Current Visit: Yes Status: Acute Assessment and Plan: Worsening Inc her steroids dose and frequency to Prednisone 40 mg TID cont frequent broncho dilator therapy cont on o2 cont symbicort Patient does need to stay in the hospital more than 2 midnights due to her complex medical problems with COPD exacerbation, uncontrolled BS and resp distress. So we will change her to full admission today. I did review my H & P including HPI, PMH, PSH, FH, SH, and ROS no changes noticed (2) Pneumonia Current Visit: Yes Status: Acute Assessment and Plan: Mostly bacterial Strep pneumonia, Legionella, and respiratory viral panel were negative cont on empirical abx Levaquin s/p bronchoscope will f/u on BAL fluid Gram staining and cx appreciate pulmonary recommendations (3) Systolic CHF, acute on chronic Current Visit: Yes Status: Acute Assessment and Plan: She does have mild exacerbation pt refused to take IV meds Will try with PO Lasix for now (4) DM type 2 (diabetes mellitus, type 2) Current Visit: Yes Status: Chronic Assessment and Plan: on ADA diet HbA1C 14.6 Uncontrolled BS, since pt refused to take insulin since y/d Her blood sugars seems to be little better this morning Resumed all her home PO meds + Cont Levemir ( changed the dose to 30 U BID ) + ISS d/c Lispro TID with each meal I educated the pt and counseled her about the importance of Insulin to control her severe hyperglycemia (5) Pleural effusion Current Visit: Yes Status: Acute Assessment and Plan: Started on scheduled Lasix PO now Pt is refusing IV medications Her 2 D Echo from 09/08 showed LVEF 45-50% (6) Lung nodule Current Visit: Yes Status: Acute Assessment and Plan: RML nodule noticed on CT of Chest Pulmonary on board counseled to quit smoking (7) Chronic respiratory failure with hypoxia Current Visit: Yes Status: Chronic Assessment and Plan: at baseline (8) Tobacco dependence Current Visit: Yes Status: Chronic Assessment and Plan: Counseled to quit smoking placed on nicotine patch - Time Spent with Patient Total time spent is greater than 50% in coordination of care (as documented) at patient's floor/unit and/or counseling patient: Internal Medicine: Result - Labs CBC & Chem 7: 01/06/19 09:25 01/06/19 09:25 Consult Discharge Plan - Plan Referrals: Yara Murphy CNP [Advanced Practice Nurse] - 01/12/19 1:15 pm (2) Pneumonia Qualifiers: Pneumonia type: due to unspecified organism Laterality: right Lung location: upper lobe of lung Qualified Code(s): J18.1 - Lobar pneumonia, unspecified organism (4) DM type 2 (diabetes mellitus, type 2) Qualifiers: Diabetes mellitus instrument designer insulin use: with senior living use Diabetes mellitus complication status: with neurologic complications Diabetes mellitus complication detail: with polyneuropathy Qualified Code(s): 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
[2019-01-07] MEDS: Furosemide 20 MG/2 ML VIAL IVP SCH ×2 (14:45→16:02)
[2019-01-07] MEDS: *HR* Heparin 5,000 UNIT/ML VIAL SQ SCH (16:02)
[2019-01-07] MEDS: MethylPREDNISolone 40 MG/ML VIAL IVP SCH ×2 (16:39→22:52)
[2019-01-07] MEDS ORDERED: *HR* Promethazine 25 MG/ML VIAL IVP PRN (21:17)
[2019-01-08] MEDS: *HR* Heparin 5,000 UNIT/ML VIAL SQ SCH ×2 (04:09→17:29)
[2019-01-08] MEDS: Budesonide/Formoterol 160/4.5 1 PUFF INH IH SCH ×2 (08:01→19:50)
[2019-01-08] MEDS: *HR* SitaGLIPtin 25 MG TABLET PO SCH ×2 (08:27→21:39)
[2019-01-08] MEDS: *HR* Metformin 500 MG TABLET PO SCH ×2 (08:28→21:39)
[2019-01-08] MEDS: *HR* Pioglitazone 30 MG TABLET PO SCH (08:28)
[2019-01-08] MEDS: Gabapentin 300 MG CAPSULE PO SCH ×4 (08:28→21:39)
[2019-01-08] MEDS: *HR* GlipiZIDE XL (24 HR) 2.5 MG TABLET PO SCH ×2 (08:28→21:40)
[2019-01-08] MEDS: Aspirin Enteric Coated 325 MG Tablet PO SCH (08:28)
[2019-01-08] MEDS: levoFLOXacin 750 MG TABLET PO SCH (08:28)
[2019-01-08] MEDS: MethylPREDNISolone 40 MG/ML VIAL IVP SCH ×2 (08:30→17:34)
[2019-01-08] MEDS: Furosemide 20 MG/2 ML VIAL IVP SCH (08:30)
[2019-01-08] MEDS: Insulin DETEMIR 100 UNIT/ML X5UNITS SQ SCH ×2 (08:34→21:41)
[2019-01-08] MEDS: Insulin LISPRO 300 UNITS/3 ML VIAL SQ SCH ×4 (08:35→21:40)
--- NOTE | 2019-01-08 12:55 | Internal Med Progress Note ---
Hospitalist Progress Note - Encounter Date of Encounter: 01/08/19 Time of Encounter: 09:00 - Subjective Interval History: Ms. Vicente is a 63 year old female with a known past medical history of COPD, chronic hypoxic respiratory failure on 2 lit home oxygen, hypertension, hyperlipidemia, diabetes type II and chronic tobacco dependence patient who has been having lung issues for a while follows with Dr. العراقي, now she was sent to our hospital as direct admission from pumonology office since pt has been having progressively worsening shortness of breath and cough with expectoration. Her CT scan of the chest showed small loculated right pleural effusion, consolidation in the right upper lobe. Right middle lobe lung nodule. Small to moderate pericardial effusion. Patient was sent to our hospital for further evaluation by event representative for possible bronchoscope and Patient stated she has been having progressively worsening shortness of breath last couple of weeks. She visited ER 2-3 times so far. She denied any chest pain. She does have cough with greenish expectoration. She was admitted in the hospital and placed her on PO steroids and empirical abx Levaquin. Pt was seen by Pulmonary who did bronchoscope. Currently pt is on 2 lit O2.. Denied any CP. Pt stated she is still feeling very sick, lethargic and SOB. She did c/o moderate to severe MARTINEZ. She is still refusing to have blood work drawn. - Exam Vitals: Temp Pulse Resp BP Pulse Ox 97.9 F 114 20 101/62 98 01/08/19 11:58 01/08/19 11:58 01/08/19 11:58 01/08/19 11:58 01/08/19 11:58 Exam: Gen: Alert, awake, Oriented to time,place and person Chest: Diminished breath sounds B/L, Moderate audible wheezing, No crackles, No rales Heart: S1S2+ RRR No murmurs Abd: Soft, NT, BS +, No organomegaly Ext: No edema, pulses are palpable, No calf tenderness Neuro : No acute focal neuro deficits noticed Skin: No rash. - Assessment and Plan (1) COPD exacerbation Current Visit: Yes Status: Acute Assessment and Plan: slowly improving still has diffuse wheezing Cont Steroids IV solumedrol 40mg Q8H cont frequent broncho dilator therapy cont on o2 cont symbicort (2) Pneumonia Current Visit: Yes Status: Acute Assessment and Plan: Mostly bacterial Strep pneumonia, Legionella, and respiratory viral panel were negative cont on empirical abx Levaquin s/p bronchoscope will f/u on BAL fluid Gram staining and cx - still pending appreciate pulmonary recommendations (3) Systolic CHF, acute on chronic Current Visit: Yes Status: Acute Assessment and Plan: She does have mild exacerbation She did receive 3 doses of Iv lasix.. Since pt is refusing for her lab work, I am unable to monitor her electrolytes so will switch to PO Lasix for now (4) DM type 2 (diabetes mellitus, type 2) Current Visit: Yes Status: Chronic Assessment and Plan: on ADA diet HbA1C 14.6 Her blood sugars seems to be little better no Resumed all her home PO meds + Cont Levemir ( changed the dose to 20 U BID ) + ISS d/c Lispro TID with each meal I educated the pt and counseled her about the importance of Insulin to control her severe hyperglycemia (5) Pleural effusion Current Visit: Yes Status: Acute Assessment and Plan: Her 2 D Echo from 09/08 showed LVEF 45-50% Cont Lasix (6) Lung nodule Current Visit: Yes Status: Acute Assessment and Plan: RML nodule noticed on CT of Chest Pulmonary on board counseled to quit smoking (7) Chronic respiratory failure with hypoxia Current Visit: Yes Status: Chronic Assessment and Plan: at baseline (8) Tobacco dependence Current Visit: Yes Status: Chronic Assessment and Plan: Counseled to quit smoking placed on nicotine patch - Time Spent with Patient Total time spent is greater than 50% in coordination of care (as documented) at patient's floor/unit and/or counseling patient: Internal Medicine: Result - Labs CBC & Chem 7: 01/06/19 09:25 01/06/19 09:25 Consult Discharge Plan - Plan Referrals: Yara Murphy, ANDREAS [Advanced Practice Nurse] - 01/12/19 1:15 pm (2) Pneumonia Qualifiers: Pneumonia type: due to unspecified organism Laterality: right Lung location: upper lobe of lung Qualified Code(s): J18.1 - Lobar pneumonia, unspecified organism (4) DM type 2 (diabetes mellitus, type 2) Qualifiers: Diabetes mellitus manager terminal insulin use: with manager terminal use Diabetes mellitus complication status: with neurologic complications Diabetes mellitus complication detail: with polyneuropathy Qualified Code(s): 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 diabetes mellitus with diabetic polyneuropathy; Z79.4 - assisted (current) use of insulin
[2019-01-09] MEDS ORDERED: Insulin DETEMIR 100 UNIT/ML X5UNITS SQ ONE (00:51)
[2019-01-09] MEDS: *HR* Heparin 5,000 UNIT/ML VIAL SQ SCH (04:32)
[2019-01-09 07:12] LABS: Hematocrit 44.2 % (35.3-44.9); Mean Corpuscular HGB Conc 32.4 g/dL (31.6-35.5); Mean Corpuscular Hemoglobin 28.3 pg (28.0-33.3); Mean Corpuscular Volume 87.5 fL (83.0-100.0); Platelet Count 188 K/mcL (140-400); Red Blood Count 5.05 M/mcL (3.82-4.97); Red Cell Distribution Width 14.2 % (11.5-14.5)
[2019-01-09 07:15] LABS: Hemoglobin 14.3 g/dL (11.5-15.4); White Blood Count 12.9 K/mcL (4.3-11.1)
[2019-01-09 07:22] LABS: BUN/Creatinine Ratio 30 (6-26); Blood Urea Nitrogen 28 mg/dL (8-23); Calcium 9.2 mg/dL (8.6-10.3); Carbon Dioxide 27 mEq/L (23-29); Chloride 99 mEq/L (98-107); Glucose 247 mg/dL (70-105); Potassium 4.3 mEq/L (3.5-5.1); eGFR For African Americans > 60 (> 60); eGFR For Non-African Americans > 60 (> 60)
[2019-01-09 07:47] LABS: Osmolality,Calculated 300 (280-300); Sodium 138 mEq/L (136-145)
[2019-01-09] MEDS ORDERED: predniSONE 10 MG TABLET PO SCH (08:00)
[2019-01-09] MEDS: Budesonide/Formoterol 160/4.5 1 PUFF INH IH SCH (08:19)
[2019-01-09] MEDS ORDERED: Furosemide 20 MG TABLET PO SCH (09:00)
[2019-01-09] MEDS: Aspirin Enteric Coated 325 MG Tablet PO SCH (09:02)
[2019-01-09] MEDS: *HR* Metformin 500 MG TABLET PO SCH (09:02)
[2019-01-09] MEDS: *HR* GlipiZIDE XL (24 HR) 2.5 MG TABLET PO SCH (09:02)
[2019-01-09] MEDS: Insulin DETEMIR 100 UNIT/ML X5UNITS SQ SCH (09:02)
[2019-01-09] MEDS: *HR* SitaGLIPtin 25 MG TABLET PO SCH (09:02)
[2019-01-09] MEDS: Gabapentin 300 MG CAPSULE PO SCH ×2 (09:02→14:06)
[2019-01-09] MEDS: Insulin LISPRO 300 UNITS/3 ML VIAL SQ SCH ×2 (09:03→12:39)
[2019-01-09] MEDS: levoFLOXacin 750 MG TABLET PO SCH (09:03)
[2019-01-09] MEDS: *HR* Pioglitazone 30 MG TABLET PO SCH (09:03)
--- NOTE | 2019-01-09 11:19 | Discharge Summary ---
Date of Encounter: 01/09/19 Time of Encounter: 09:00 - Discharge Diagnosis (1) COPD exacerbation Priority: Primary Status: Acute Assessment and Plan: 63 year old female with a known past medical history of COPD, chronic hypoxic respiratory failure on 2 lit home oxygen, hypertension, hyperlipidemia, diabetes type II and chronic tobacco dependence patient who has been having lung issues for a while follows with Dr. العراقي, now she was sent to our hospital as direct admission from pumonology office since pt has been having progressively worsening shortness of breath and cough with expectoration. Her CT scan of the chest showed small loculated right pleural effusion, consolidation in the right upper lobe. Right middle lobe lung nodule. Small to moderate pericardial effusion. Patient was sent to our hospital for further evaluation by developmental electronics assembler for possible bronchoscope and Patient stated she has been having progressively worsening shortness of breath last couple of weeks. She visited ER 2-3 times so far. She denied any chest pain. She does have cough with greenish expectoration. She was assessed with acute on chrnic respiratory failure likely secondary to acute COPd exacerbation and acute worseing of chronic systolic and diastolic CHF. She was noted to have right middle lobe atelectasis on chest CT and had a bronchsocopy done by pulmonary showing mucous plugging. Prelim BAL per pulmonary growing gram positive cocci. She has improved on diuresis with lasix, nebs, steroids and antibiotics. She will complete a 5 day course of prednisone and levaquin and follow up outpatient with pulmonary Her A1c was also noted to be 14 and she is being discharged on short and long acting insulin. 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 helper termite insulin use: with fci use Diabetes mellitus complication status: with neurologic complications Diabetes mellitus complication detail: with polyneuropathy Qualified Code(s): 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 diabetes mellitus with diabetic polyneuropathy; Z79.4 - termite inspector (current) use of insulin (4) Pleural effusion Priority: Primary Status: Inactive (5) Pneumonia Priority: Primary Status: Acute Qualifiers: Pneumonia type: due to unspecified organism Laterality: right Lung location: upper lobe of lung Qualified Code(s): J18.1 - Lobar pneumonia, unspecified organism (6) Chronic respiratory failure with hypoxia Priority: Primary Status: Chronic (7) Tobacco dependence Priority: Primary Status: Chronic (8) Systolic CHF, acute on chronic Priority: Primary Status: Acute Assessment and Plan: She does have mild exacerbation She did receive 3 doses of Iv lasix.. Since pt is refusing for her lab work, I am unable to monitor her electrolytes so will switch to PO Lasix for now Hospital course: Ms. Vicente is a 63 year old female - Time Spent with Patient Total time spent providing and/or coordinating discharge services: - Discharge Medications Prescriptions: New levoFLOXacin [Levaquin] 750 mg PO DAILY #5 tablet Furosemide [Lasix] 20 mg PO DAILY #30 tablet Insulin DETEMIR [Levemir] 25 unit SQ HS 30 Days #30 [id number] Insulin LISPRO [HumaLOG] 7 units SQ TIDWM 30 Days #300 vial predniSONE [PredniSONE] 40 mg PO DAILY 5 Days #20 tablet Continued Albuterol Sulfate 5 mg PO TID PRN PRN Reason: Shortness Of Breath Alendronate Sodium [Fosamax] 70 mg PO TH Calcium Carbonate/Vitamin D3 [Calcium 500 + Vit D Caplet] 1 tab PO DAILY Fluticasone/Salmeterol [Airduo Respiclick 232-14 Mcg] 1 puff PO BID Loratadine/Pseudoephedrine [Allergy Relief D-24Hr Tablet] 1 tab PO DAILY PRN PRN Reason: Congestion Metformin HCl 500 mg PO BID Tramadol HCl [Ultram] 50 mg PO BID PRN PRN Reason: Pain Pregabalin [Lyrica] 150 mg PO DAILY Aspirin [Ecotrin] 325 mg PO DAILY Discontinued Pioglitazone [Actos] 30 mg PO DAILY Home Medications: Aspirin [Ecotrin] 325 mg PO DAILY 04/26/18 [History] Albuterol Sulfate 5 mg PO TID PRN 01/06/19 [History] Alendronate Sodium [Fosamax] 70 mg PO TH 01/06/19 [History] Calcium Carbonate/Vitamin D3 [Calcium 500 + Vit D Caplet] 1 tab PO DAILY 01/06/19 [History] Fluticasone/Salmeterol [Airduo Respiclick 232-14 Mcg] 1 puff PO BID 01/06/19 [History] Loratadine/Pseudoephedrine [Allergy Relief D-24Hr Tablet] 1 tab PO DAILY PRN 01/06/19 [History] Metformin HCl 500 mg PO BID 01/06/19 [History] Pregabalin [Lyrica] 150 mg PO DAILY 01/06/19 [History] Tramadol HCl [Ultram] 50 mg PO BID PRN 01/06/19 [History] Furosemide [Lasix] 20 mg PO DAILY #30 tablet 01/09/19 [Rx] Insulin DETEMIR [Levemir] 25 unit SQ HS 30 Days #30 [id number] 01/09/19 [Rx] Insulin LISPRO [HumaLOG] 7 units SQ TIDWM 30 Days #300 vial 01/09/19 [Rx] levoFLOXacin [Levaquin] 750 mg PO DAILY #5 tablet 01/09/19 [Rx] predniSONE [PredniSONE] 40 mg PO DAILY 5 Days #20 tablet 01/09/19 [Rx] Allergies/Adverse Reactions: Allergy/AdvReac Type Severity Reaction Status Date / Time codeine Allergy Hives Verified 01/06/19 13:41 propoxyphene [From Darvon] Allergy Hives Verified 01/06/19 13:41 Date of admission: 01/07/19 13:34 Primary care physician: PCP NONE Consults: 01/05/19 15:48 Consult to Pulmonology [CONS] Routine Consulting Provider: [facility] Reason for Consult: pleural effusion Time Notified: 15:48 Call Completed: Yes 01/06/19 12:44 Consult to Nurse Navigator [CONS] Routine Comment: COPD, PN - Constitutional Vitals: Temp Pulse Resp BP Pulse Ox 98.6 F 115 20 116/86 95 01/09/19 07:18 01/09/19 07:18 01/09/19 08:23 01/09/19 07:18 01/09/19 08:23 General appearance: Present: cooperative, A&O X 3, no acute distress, answers questions appropriately Exam: Gen: Alert, awake, Oriented to time,place and person Chest: Diminished breath sounds B/L, Mild wheezes, No crackles, No rales Heart: S1S2+ RRR No murmurs Abd: Soft, NT, BS +, No organomegaly Ext: No edema, pulses are palpable, No calf tenderness Neuro : No acute focal neuro deficits noticed Skin: No rash. - Patient Status Disposition: Home, Self-Care Condition: Good - Discharge Instructions Follow Up With: Yara Murphy CNP [Advanced Practice Nurse] - 01/12/19 1:15 pm
[2019-01-09 11:50] VITALS: BP 106/70
--- NOTE | 2019-01-11 09:40 | Physician Discharge Referral ---
Home Health/Hosp Referral Info Transfer to: Home Health - Diagnosis (1) COPD exacerbation Priority: Primary Status: Acute (2) Lung nodule Priority: Primary Status: Acute (3) DM type 2 (diabetes mellitus, type 2) Priority: Primary Status: Chronic (4) Pneumonia Status: Acute (5) Pleural effusion Priority: Primary Status: Inactive (6) Chronic respiratory failure with hypoxia Priority: Primary Status: Chronic (7) Tobacco dependence Priority: Primary Status: Chronic (8) Systolic CHF, acute on chronic Status: Acute - Respiratory Orders Smoking Cessation: Smoking cessation has been advised. For more information, call the [place] Tobacco Quit Line at 9-953-ZDLQ-NOW. - Activity Activity Orders: Ambulate - Services Needed Following services are medically necessary services: Nursing, Home Health Aide, Physical Therapy - Transfer Medications Prescriptions: Insulin LISPRO [HumaLOG] 7 units SQ TIDWM 30 Days #300 vial Furosemide [Lasix] 20 mg PO DAILY #30 tablet levoFLOXacin [Levaquin] 750 mg PO DAILY #5 tablet Insulin DETEMIR [Levemir] 25 unit SQ HS 30 Days #30 [id number] predniSONE [PredniSONE] 40 mg PO DAILY 5 Days #20 tablet Home Medications: Aspirin [Ecotrin] 325 mg PO DAILY 04/26/18 [History] Albuterol Sulfate 5 mg PO TID PRN 01/06/19 [History] Alendronate Sodium [Fosamax] 70 mg PO TH 01/06/19 [History] Calcium Carbonate/Vitamin D3 [Calcium 500 + Vit D Caplet] 1 tab PO DAILY 01/06/19 [History] Fluticasone/Salmeterol [Airduo Respiclick 232-14 Mcg] 1 puff PO BID 01/06/19 [History] Loratadine/Pseudoephedrine [Allergy Relief D-24Hr Tablet] 1 tab PO DAILY PRN 01/06/19 [History] Metformin HCl 500 mg PO BID 01/06/19 [History] Pregabalin [Lyrica] 150 mg PO DAILY 01/06/19 [History] Tramadol HCl [Ultram] 50 mg PO BID PRN 01/06/19 [History] Furosemide [Lasix] 20 mg PO DAILY #30 tablet 01/09/19 [Rx] Insulin DETEMIR [Levemir] 25 unit SQ HS 30 Days #30 [id number] 01/09/19 [Rx] Insulin LISPRO [HumaLOG] 7 units SQ TIDWM 30 Days #300 vial 01/09/19 [Rx] levoFLOXacin [Levaquin] 750 mg PO DAILY #5 tablet 01/09/19 [Rx] predniSONE [PredniSONE] 40 mg PO DAILY 5 Days #20 tablet 01/09/19 [Rx] Allergies/Adverse Reactions: Allergy/AdvReac Type Severity Reaction Status Date / Time codeine Allergy Hives Verified 01/06/19 13:41 propoxyphene [From Darvon] Allergy Hives Verified 01/06/19 13:41 Certification: Further, I certify that my clinical findings support that this patient is h omebound (i.e. absences from home require considerable and taxing effort and are for medical reasons or roman catholic services or infrequently or short duration when for other reasons) because: Homebound Reason: Patient requires assistance of a person or device to safely leave home Attestation: My signature below is to certify that this patient is under my care and that I, or nurse practitioner, or a physician's membership assistant working with me, has a [id number] encounter with this patient.
== END 2019-01-09 15:10 | disposition home or self-care (01) | DRG 194 ==
LOC: 3BNU → SUATTDRO 14:28
PROVIDERS: ADMIT Internal Medicine; ATTEND Family Medicine

== ENCOUNTER 2019-01-14 13:49 | Inpatient (IN) ==
[2019-01-14] MEDS ORDERED: Ipratropium/Albuterol Neb 3 ML IH ONE (13:56)
--- NOTE | 2019-01-14 14:18 | Emergency Department Note ---
Disposition Clinical Impression: Acute exacerbation of chronic obstructive airways disease Congestive heart failure Qualifiers: Heart failure type: unspecified Heart failure chronicity: acute on chronic Qualified Code(s): I50.9 - Heart failure, unspecified Disposition: Admitted As Inpatient Condition: Fair Time of Disposition: 21:36 General Adult HPI - General Chief complaint: ED Shortness of Breath/Dyspnea Stated complaint: SOB Time Seen by Provider: 01/14/19 13:56 Source: patient, EMS Limitations: no limitations Nursing Notes Reviewed: Yes Vital Signs Reviewed: Yes - History of Present Illness Pain Scale: 0 - Related Data Home Medications Medication Instructions Recorded Confirmed Tramadol HCl [Ultram] 100 mg PO Q6HR PRN 01/06/19 01/14/19 Albuterol Sulfate [Proair Hfa] 2 puff IH Q4HR PRN 01/14/19 01/14/19 Alendronate Sodium [Fosamax] 70 mg PO QWEEK 01/14/19 01/14/19 Aspirin [Lo-Dose Aspirin EC] 81 mg PO DAILY 01/14/19 01/14/19 Canagliflozin [Invokana] 300 mg PO DAILY 01/14/19 01/14/19 DULoxetine [Cymbalta] 30 mg PO DAILY 01/14/19 01/14/19 Diclofenac Sodium [Voltaren] 50 mg PO TID PRN 01/14/19 01/14/19 Fluticasone/Salmeterol [Airduo 1 each IH BID 01/14/19 01/14/19 Respiclick 55-14 Mcg] Gabapentin [Neurontin] 600 mg PO TID 01/14/19 01/14/19 Insulin DETEMIR [Levemir] 20 unit SQ HS 01/14/19 01/14/19 Metformin HCl [Fortamet] 2,000 mg PO DAILY 01/14/19 01/14/19 Montelukast [Singulair] 10 mg PO DAILY 01/14/19 01/14/19 Roflumilast [Daliresp] 500 mcg PO DAILY 01/14/19 01/14/19 Simvastatin [Zocor] 40 mg PO HS 01/14/19 01/14/19 Umeclidinium [place] [Incruse 62.5 mcg IH DAILY 01/14/19 01/14/19 Ellipta] buPROPion HCl [Zyban] 150 mg PO DAILY 01/14/19 01/14/19 Previous Rx's Medication Instructions Recorded Insulin LISPRO [HumaLOG] 7 units SQ TIDWM 30 Days #300 vial 01/09/19 Allergies Allergy/AdvReac Type Severity Reaction Status Date / Time codeine Allergy Hives Verified 01/06/19 13:41 propoxyphene [From Darvon] Allergy Hives Verified 01/06/19 13:41 Past Medical History - Past Medical History Medical history: Reports: arthritis, asthma, COPD, diabetes, hyperlipidemia, hyp ertension, other Surgical history: Reports: , hysterectomy Psychiatric history: Reports: depression 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 history - Social History Smoking Status: Current every day smoker Smokeless Tobacco Status: No Alcohol use: Reports: none Drug use: Reports: none Physical Exam - General Limitations: no limitations General appearance: alert, in no apparent distress Course Vital Signs Temperature 98.5 F 01/14/19 13:53 Pulse Rate 110 01/14/19 13:53 Respiratory Rate 18 01/14/19 13:53 Blood Pressure 170/118 01/14/19 13:53 O2 Sat by Pulse Oximetry 97 01/14/19 13:53 Temperature 98.5 F 01/14/19 13:53 Pulse Rate 117 01/14/19 21:31 Respiratory Rate 17 01/14/19 21:31 Blood Pressure 113/74 01/14/19 21:31 O2 Sat by Pulse Oximetry 97 01/14/19 21:31 Oxygen Delivery Oxygen Delivery Nasal Cannula Medical Decision Making - [facility] Narrative Medical decision making narrative: 1600 hrs.: After speaking with family and her she is agreed to have lab work drawn. Chest X-Ray 01/14/19 13:57 IMPRESSION: Findings of interstitial pulmonary edema. Trace pleural effusions. D/ / 01/14/2019 14:41:47 Kareem Pink MD / [facility] Interpreting Provider: Kareem Pink MD 1 hrs.: Patient's BNP is also elevated with her chest x-ray finding of pulmonary edema were in a bring her into the hospital. 2135 hrs.: Patient is admitted to the hospitalist as accepted. - Lab Data Result diagrams: 01/14/19 17:37 01/14/19 17:37 Lab Results 01/14/19 01/14/19 01/14/19 Range/Units 17:37 17:37 17:37 WBC 10.7 (4.3-11.1) K/mcL RBC 4.67 (3.82-4.97) M/mcL Hgb 13.0 (11.5-15.4) g/dL Hct 42.1 (35.3-44.9) % MCV 90.1 (83.0-100.0) fL MCH 27.8 L (28.0-33.3) pg MCHC 30.9 L (31.6-35.5) g/dL RDW 13.8 (11.5-14.5) % Plt Count 150 (140-400) K/mcL MPV 11.8 (9.4-12.4) fL Immature Gran % 0.4 (0-4) % Seg Neutrophils % 74.0 % Lymphocytes % 14.1 % Monocytes % 7.9 % Eosinophils % 3.1 % Basophils % 0.5 % Neutrophils # 7.9 (1.6-8.9) K/mcL Lymphocytes # 1.5 (0.6-4.6) K/mcL Monocytes # 0.8 (0.0-1.3) K/mcL Eosinophils # 0.3 (0.0-0.6) K/mcL Basophils # 0.1 (0.0-0.2) K/mcL Sodium 143 (136-145) mEq/L Potassium 4.0 (3.5-5.1) mEq/L Chloride 101 (98-107) mEq/L Carbon Dioxide 31 H (23-29) mEq/L BUN 13 (8-23) mg/dL Creatinine 0.76 (0.60-1.20) mg/dL Est GFR ( Amer) > 60 (> 60) Est GFR (Non-Af Amer) > 60 (> 60) BUN/Creatinine Ratio 17 (6-26) Glucose 277 H (70-105) mg/dL Calculated Osmolality 306 H (280-300) Calcium 8.8 (8.6-10.3) mg/dL Magnesium 1.5 L (1.6-2.6) mg/dL Troponin I < 0.03 (< 0.04) ng/mL B-Natriuretic Peptide 1484 H (Less than 100) pg/mL Attestation Statement - Attestation Attestation: This documentation is done with the assistance of Dragon dictation. Despite efforts made to ensure accuracy, there may be inaccuracies in armed security officer or spelling and typographical errors. I examined this patient and my medical decision-making was reviewed with the Resident Physician. I agree with the documented findings, disposition and treatment plan as described except to the extent set forth below. Patient was seen and evaluated by Dr. Arnold, I agree with their evaluation and management plan, I supervised care the patient's stay. Patient presents with EMS due to dyspnea and COPD. Patient has a long history of this in the past. She is on oxygen at home. But has been off her oxygen today due to walking on the hospital bathroom. She denies any chest pain. She has a deep fear of needles and refused any needles by squad and also does that here. She has had the same thing happened in the past. And has had a sign out AMA before. Here she is talking in full sentences she does appear anxious. She has some wheezing in her chest. She is on oxygen her sats are 96%. Rented a breathing treatment chest x-ray EKG and some prednisone and then we will reassess. She is adamantly refusing any lab work or IVs. At this time. And she understands reason we want to do these and the risks and benefits of doing testing versus not. I reviewed the residents documentation and agree with the residents assessment and plan of care. I have personally had face to face time with the patient. (Brief History, Brief Exam, and MDM) I personally supervised and was present for the greco/critical portions of the following procedures completed by the resident: EKG was interpreted by the resident under my supervision, I agree with their interpretation.
--- NOTE | 2019-01-14 15:00 | Emergency Department Note ---
Disposition Clinical Impression: Acute exacerbation of chronic obstructive airways disease Congestive heart failure Qualifiers: Heart failure type: unspecified Heart failure chronicity: acute on chronic Qualified Code(s): I50.9 - Heart failure, unspecified Disposition: Admitted As Inpatient Condition: Fair Time of Disposition: 21:57 General Adult HPI - General Stated complaint: SOB Time Seen by Provider: 01/14/19 13:56 Source: patient, EMS Mode of arrival: EMS Limitations: no limitations Nursing Notes Reviewed: Yes Vital Signs Reviewed: Yes - History of Present Illness HPI Narrative: 63-year-old female with past medical history of COPD, currently smoking, is deadly afraid of needles and will not allow any labs to be drawn. Patient is reporting shortness of breath that began today, states that she cannot get any air in. When patient is distracted she is able to talk in full sentences. - Related Data Home Medications Medication Instructions Recorded Confirmed Tramadol HCl [Ultram] 100 mg PO Q6HR PRN 01/06/19 01/14/19 Albuterol Sulfate [Proair Hfa] 2 puff IH Q4HR PRN 01/14/19 01/14/19 Alendronate Sodium [Fosamax] 70 mg PO QWEEK 01/14/19 01/14/19 Aspirin [Lo-Dose Aspirin EC] 81 mg PO DAILY 01/14/19 01/14/19 Canagliflozin [Invokana] 300 mg PO DAILY 01/14/19 01/14/19 DULoxetine [Cymbalta] 30 mg PO DAILY 01/14/19 01/14/19 Diclofenac Sodium [Voltaren] 50 mg PO TID PRN 01/14/19 01/14/19 Fluticasone/Salmeterol [Airduo 1 each IH BID 01/14/19 01/14/19 Respiclick 55-14 Mcg] Gabapentin [Neurontin] 600 mg PO TID 01/14/19 01/14/19 Insulin DETEMIR [Levemir] 20 unit SQ HS 01/14/19 01/14/19 Metformin HCl [Fortamet] 2,000 mg PO DAILY 01/14/19 01/14/19 Montelukast [Singulair] 10 mg PO DAILY 01/14/19 01/14/19 Roflumilast [Daliresp] 500 mcg PO DAILY 01/14/19 01/14/19 Simvastatin [Zocor] 40 mg PO HS 01/14/19 01/14/19 Umeclidinium [place] [Incruse 62.5 mcg IH DAILY 01/14/19 01/14/19 Ellipta] buPROPion HCl [Zyban] 150 mg PO DAILY 01/14/19 01/14/19 Previous Rx's Medication Instructions Recorded Insulin LISPRO [HumaLOG] 7 units SQ TIDWM 30 Days #300 vial 01/09/19 Allergies Allergy/AdvReac Type Severity Reaction Status Date / Time codeine Allergy Hives Verified 01/06/19 13:41 propoxyphene [From Darvon] Allergy Hives Verified 01/06/19 13:41 Past Medical History - Past Medical History Medical history: Reports: arthritis, asthma, COPD, diabetes, hyperlipidemia, hypertension, other Surgical history: Reports: , hysterectomy Psychiatric history: Reports: depression 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 Chest X-Ray 01/14/19 13:57 IMPRESSION: Findings of interstitial pulmonary edema. Trace pleural effusions. D/ / 01/14/2019 14:41:47 Kareem Pink MD / [facility] Interpreting Provider: Kareem Pink MD - EKG Data EKG #1 EKG attestation: Yes I reviewed and interpreted this EKG. EKG results narrative: Heart rate 108, rhythm sinus, axis normal. ND <.2, QRS 93, Qtc 452. No ST segment elevation or depression, but baseline wander in leads V5-V6 limit interpretation. When compared to study dated 01/01/19 there are no significant changes. Despite machine interpretation of atrial flutter, I do not believe this is the underlying rhythm.
[2019-01-14] MEDS ORDERED: *HR* LORazepam 1 MG TABLET PO ONE (15:24)
[2019-01-14 17:59] LABS: Basophils # 0.1 K/mcL (0.0-0.2); Basophils % 0.5 %; Eosinophils # 0.3 K/mcL (0.0-0.6); Eosinophils % 3.1 %; Hematocrit 42.1 % (35.3-44.9); Immature Granulocytes % 0.4 % (0-4); Lymphocytes # 1.5 K/mcL (0.6-4.6); Lymphocytes % 14.1 %; Mean Corpuscular HGB Conc 30.9 g/dL (31.6-35.5); Mean Corpuscular Hemoglobin 27.8 pg (28.0-33.3); Mean Corpuscular Volume 90.1 fL (83.0-100.0); Mean Platelet Volume 11.8 fL (9.4-12.4); Monocytes # 0.8 K/mcL (0.0-1.3); Monocytes % 7.9 %; Neutrophils # 7.9 K/mcL (1.6-8.9); Platelet Count 150 K/mcL (140-400); Red Blood Count 4.67 M/mcL (3.82-4.97); Red Cell Distribution Width 13.8 % (11.5-14.5); White Blood Count 10.7 K/mcL (4.3-11.1)
[2019-01-14 18:20] LABS: BUN/Creatinine Ratio 17 (6-26); Blood Urea Nitrogen 13 mg/dL (8-23); Calcium 8.8 mg/dL (8.6-10.3); Carbon Dioxide 31 mEq/L (23-29); Chloride 101 mEq/L (98-107); Glucose 277 mg/dL (70-105); Magnesium 1.5 mg/dL (1.6-2.6); Osmolality,Calculated 306 (280-300); Sodium 143 mEq/L (136-145); Troponin I < 0.03 ng/mL (< 0.04); eGFR For African Americans > 60 (> 60); eGFR For Non-African Americans > 60 (> 60)
[2019-01-14] MEDS ORDERED: Furosemide 20 MG/2 ML VIAL IVP ONE (19:13)
[2019-01-14] MEDS ORDERED: Insulin Regular, Human 100 UNIT/ML SQ ONE (19:26)
[2019-01-15] MEDS ORDERED: Dextrose Gel 15 GM/37.5 ML TUBE PO PRN ×2 (01:35)
[2019-01-15] MEDS ORDERED: D5% in Water 1,000 ML IVC PRN (01:35)
[2019-01-15] MEDS ORDERED: *HR* Dextrose 50 % in Water (Syg) 50 ML SYRINGE IVP PRN (01:35)
[2019-01-15] MEDS ORDERED: Naloxone 0.4 MG/ML INJ IVP PRN (03:24)
--- NOTE | 2019-01-15 03:48 | Internal Med History&Physical ---
Date of Encounter: 01/15/19 Time of Encounter: 03:12 Internal Medicine - H&P: HPI Chief complaint: CHF exacerbation Admitted From: Emergency Dept Plans for Post Hospital Care: Home History of present illness: Ms. Vicente is a 63 year old female Patient presented to the emergency department with shortness of breath. She is not cooperative with exam and while at the emergency department initially would not allow any labs to be drawn. She would not answer my questions, but would follow some commands. She is resting comfortably in the hospital bed in no acute distress. She has a history of COPD, nicotine use, diabetes and congestive heart failure. In the emergency department patient's vital signs: Temperature 98.5, pulse 110, respiratory rate 18, blood pressure 119/84, O2 saturation 98% on 2 L. She initially would not allow labs to be drawn however she was later convinced. CBC: Within normal limits BMP: Notable for a glucose of 277 Magnesium 1.5 Troponin undetectable BNP 1484 Chest x-ray was performed that showed interstitial pulmonary edema and trace pleural effusions. EKG: Sinus tach with a rate of 108. QTC 452. No ischemic changes. In the emergency department patient received 20 mg of Lasix, 7 units of subcutaneous insulin, breathing treatments and Ativan 1 mg. She was admitted to the hospital for CHF exacerbation. Upon my evaluation, patient is resting comfortably in hospital bed in no acute distress. She would not answer my questions and would follow some of my commands. Prior to my arrival, patient's blood sugar did drop upon arrival to the floor to 33. She was given orange juice and other food. Her blood sugar improved to 108, she also became hypothermic with a rectal temperature of 95.8. This also improved with the application of several warm blankets to 97.9. I did ask her about her CODE STATUS, she stated she would not want to be resuscitated and would not want to be intubated if required. She is DNR/DNI. Past Med Surg Social Fam HX - Past Medical History Medical history: arthritis, asthma, COPD, diabetes, hyperlipidemia, hypertension, other Additional medical history: NEUROPATHY Psychiatric history: depression - Past Surgical History Surgical History: , hysterectomy Additional surgical history: Brain aneurysm removed; lung surgery; Bladder Surgery - Social History Smoking Status: Former smoker Smokeless Tobacco Status: No Alcohol use: none Drug use: none - Family History Mother Hx Family Cardiac Disorders: Yes Father Hx Family Cardiac Disorders: Yes Hx Family Respiratory Disorders: Yes Internal Medicine - H&P: Meds Tramadol HCl [Ultram] 100 mg PO Q6HR PRN 01/06/19 [History] Insulin LISPRO [HumaLOG] 7 units SQ TIDWM 30 Days #300 vial 01/09/19 [Rx] Albuterol Sulfate [Proair Hfa] 2 puff IH Q4HR PRN 01/14/19 [History] Alendronate Sodium [Fosamax] 70 mg PO QWEEK 01/14/19 [History] Aspirin [Lo-Dose Aspirin EC] 81 mg PO DAILY 01/14/19 [History] Canagliflozin [Invokana] 300 mg PO DAILY 01/14/19 [History] DULoxetine [Cymbalta] 30 mg PO DAILY 01/14/19 [History] Diclofenac Sodium [Voltaren] 50 mg PO TID PRN 01/14/19 [History] Fluticasone/Salmeterol [Airduo Respiclick 55-14 Mcg] 1 each IH BID 01/14/19 [History] Gabapentin [Neurontin] 600 mg PO TID 01/14/19 [History] Insulin DETEMIR [Levemir] 20 unit SQ HS 01/14/19 [History] Metformin HCl [Fortamet] 2,000 mg PO DAILY 01/14/19 [History] Montelukast [Singulair] 10 mg PO DAILY 01/14/19 [History] Roflumilast [Daliresp] 500 mcg PO DAILY 01/14/19 [History] Simvastatin [Zocor] 40 mg PO HS 01/14/19 [History] Umeclidinium [place] [Incruse Ellipta] 62.5 mcg IH DAILY 01/14/19 [History] buPROPion HCl [Zyban] 150 mg PO DAILY 01/14/19 [History] Allergy/AdvReac Type Severity Reaction Status Date / Time codeine Allergy Hives Verified 01/06/19 13:41 propoxyphene [From Darvon] Allergy Hives Verified 01/06/19 13:41 ROS unobtainable: due to mental status All Systems PM: A 10-system review of systems was performed and is negative for pertinent findings except as documented above in the HPI. - Constitutional Vitals: Temp Pulse Resp BP Pulse Ox 97.9 F 108 16 103/49 98 01/15/19 03:15 01/15/19 03:15 01/15/19 03:15 01/15/19 03:15 01/15/19 03:15 General appearance: Absent: cooperative, answers questions appropriately Exam: - - Head Head exam: Present: normal inspection - Eye Additional comments: Would not open eyes - Respiratory Respiratory exam: Present: rales. Absent: decreased breath sounds, CTAB, respiratory distress, wheezes - Cardiovascular Cardiovascular exam: Present: RRR. Absent: diastolic murmur, systolic murmur - GI/Abdominal GI/Abdominal exam: Present: normal bowel sounds, soft. Absent: tenderness - Extremities Exam Extremities exam: Present: warm, radial pulses palpable and symmetrical. Absent: pedal edema, tenderness - Neurological Exam Additional comments: Unable to assess - Skin Skin exam: Present: dry, normal color, warm Internal Med - H&P Results - Labs CBC & Chem 7: 01/14/19 17:37 01/14/19 17:37 Labs: Short CBC 01/14/19 Range/Units 17:37 WBC 10.7 (4.3-11.1) K/mcL Hgb 13.0 (11.5-15.4) g/dL Hct 42.1 (35.3-44.9) % Plt Count 150 (140-400) K/mcL Neutrophils # 7.9 (1.6-8.9) K/mcL BMP 01/14/19 17:37 Sodium 143 Potassium 4.0 Chloride 101 Carbon Dioxide 31 H BUN 13 Creatinine 0.76 Glucose 277 H Calcium 8.8 Cardiac Enzymes 01/14/19 Range/Units 17:37 Troponin I < 0.03 (< 0.04) ng/mL - Impressions ITS Impressions Chest X-Ray 01/14/19 13:57 IMPRESSION: Findings of interstitial pulmonary edema. Trace pleural effusions. D/ : / 01/14/2019 14:41:47 Kareem Pink MD / earnold Interpreting Provider: Kareem Pink MD - Assessment and Plan (1) Congestive heart failure Current Visit: Yes Status: Acute Assessment and plan: Patient had an echocardiogram performed earlier this year: Impressions: LVEF 45-50%. Not all the LV segments were well visualized. Recommend limited study with imaging enchancement Mild concentric left ventricular hypertrophy. Normal left ventricular diastolic function. Normal right ventricular structure and function. Unable to estimate RVSP due to lack of TR jet. There is a trivial to small pericardial effusion present.There is no echocardiographic evidence of tamponade. She received 20 milligrams of Lasix in the emergency department. Repeat limited echocardiogram Continue IV Lasix Strict I's and O's Daily weights Oxygen supplementation as needed Diabetic diet with fluid restriction Qualifiers: Heart failure type: unspecified Heart failure chronicity: acute on chronic Qualified Code(s): I50.9 - Heart failure, unspecified (2) Shortness of breath Current Visit: Yes Status: Acute Assessment and plan: Secondary to CHF, as seen on chest x-ray. Management as above (3) DM type 2 (diabetes mellitus, type 2) Current Visit: No Status: Chronic Assessment and plan: Patient is an insulin dependent diabetic. Did go hypoglycemic upon arrival to the floor after getting 7 units of insulin in the emergency department. Blood sugars have now improved. Monitor sugars ACHS Diabetic diet Low dose insulin sliding scale as needed Hold home meds. Qualifiers: Diabetes mellitus tank terminal gauger insulin use: with tank terminal gauger use Diabetes mellitus complication status: with neurologic complications Diabetes mellitus complication detail: with polyneuropathy Qualified Code(s): 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 diabetes mellitus with diabetic polyneuropathy; Z79.4 - long term care phlebotomist (current) use of insulin (4) Hypomagnesemia Current Visit: Yes Status: Acute Assessment and plan: Magnesium 1.5 in the emergency department. Oral supplementation Repeat labs in the morning (5) Hypothermia Current Visit: Yes Status: Acute Assessment and plan: Likely secondary to hypoglycemia secondary to receiving 7 units of subcutaneous insulin in the emergency department. Blood sugar and body temperature have since returned to normal. Continue to monitor vitals Monitoring blood sugars as above Qualifiers: Encounter type: initial encounter Qualified Code(s): T68.XXXA - Hypothermia, initial encounter (6) DVT prophylaxis Current Visit: Yes Status: Acute Assessment and plan: Subcutaneous heparin - Time Spent With Patient Total time spent is greater than 50% in coordination of care (as documented) at patient's floor/unit and/or counseling patient: Greater than 35 minutes
[2019-01-15] MEDS: Magnesium Oxide 400 MG TABLET PO SCH (04:37)
[2019-01-15] MEDS: *HR* Heparin 5,000 UNIT/ML VIAL SQ SCH ×2 (04:37→17:02)
[2019-01-15] MEDS: Insulin LISPRO 300 UNITS/3 ML VIAL SQ SCH ×3 (07:30→16:53)
[2019-01-15 08:39] LABS: Hematocrit 42.5 % (35.3-44.9); Hemoglobin 13.4 g/dL (11.5-15.4); Mean Corpuscular HGB Conc 31.5 g/dL (31.6-35.5); Mean Corpuscular Hemoglobin 27.7 pg (28.0-33.3); Mean Corpuscular Volume 87.8 fL (83.0-100.0); Platelet Count 162 K/mcL (140-400); Red Blood Count 4.84 M/mcL (3.82-4.97); Red Cell Distribution Width 13.9 % (11.5-14.5); White Blood Count 10.3 K/mcL (4.3-11.1)
[2019-01-15] MEDS ORDERED: Furosemide 20 MG/2 ML VIAL IVP SCH (09:00)
[2019-01-15] MEDS ORDERED: Magnesium Oxide 400 MG TABLET PO SCH (09:00)
[2019-01-15 09:02] LABS: BUN/Creatinine Ratio 17 (6-26); Blood Urea Nitrogen 13 mg/dL (8-23); Calcium 9.1 mg/dL (8.6-10.3); Carbon Dioxide 32 mEq/L (23-29); Chloride 102 mEq/L (98-107); Glucose 221 mg/dL (70-105); Magnesium 1.5 mg/dL (1.6-2.6); Osmolality,Calculated 301 (280-300); Potassium 3.9 mEq/L (3.5-5.1); Sodium 142 mEq/L (136-145); eGFR For African Americans > 60 (> 60); eGFR For Non-African Americans > 60 (> 60)
[2019-01-15 11:11] LABS: Estimated Average Glucose 361 mg/dl
--- NOTE | 2019-01-15 12:40 | Electrocardiograph Report ---
[place] [facility] Test Date: 2019-01-14 Pat Name: Mildred Vicente Department: [id number] Room: 2A13 Gender: F Virtualization Consultant: : [id number] Requested By: Josefina Giraldo Order Number: [id number] Reading MD: Nando Lock Measurements Intervals [place] Rate: 108 P: [place]: QRS: 65 QRSD: 93 T: 117 QT: 337 QTc: 452 Interpretive Statements sinus tachycardia, Anteroseptal infarct, old Nonspecific T abnormalities, lateral leads Electronically Signed On 01-15-2019 12:38:53 EDT by Nando Lock
[2019-01-15] MEDS ORDERED: Azithromycin 500 MG in D5% in Water 250 ML IVPB SCH (14:00)
--- NOTE | 2019-01-15 14:00 | Event Note ---
Date of Encounter: 01/15/19 Time of Encounter: 13:58 I have seen and evaluated the patient at bedside. H&P, labs, image studies and vitals reviewed. Patient clinically stable. Medications adjusted. will continue monitoring.
[2019-01-15] MEDS: MethylPREDNISolone 40 MG/ML VIAL IVP SCH ×2 (15:06→17:02)
[2019-01-15] MEDS: Ipratropium/Albuterol Neb 3 ML IH SCH ×2 (15:25→19:58)
[2019-01-15] MEDS: Furosemide 20 MG/2 ML VIAL IVP SCH (17:01)
[2019-01-15] MEDS ORDERED: Insulin LISPRO 300 UNITS/3 ML VIAL SQ SCH (21:00)
[2019-01-16] MEDS: Ipratropium/Albuterol Neb 3 ML IH SCH ×7 (00:07→23:44)
[2019-01-16] MEDS: *HR* Heparin 5,000 UNIT/ML VIAL SQ SCH ×2 (05:36→16:50)
[2019-01-16] MEDS: Insulin LISPRO 300 UNITS/3 ML VIAL SQ SCH ×5 (07:37→20:48)
[2019-01-16] MEDS: Magnesium Oxide 400 MG TABLET PO SCH (07:42)
[2019-01-16] MEDS: Aspirin Enteric Coated 81 MG Tablet PO SCH (07:42)
[2019-01-16] MEDS: BuPROPion SR (12 HR) 150 MG TABLET PO SCH (07:42)
[2019-01-16] MEDS ORDERED: predniSONE 20 MG TABLET PO SCH (08:00)
[2019-01-16] MEDS: predniSONE 20 MG TABLET PO SCH (08:33)
[2019-01-16] MEDS: Furosemide 20 MG/2 ML VIAL IVP SCH ×2 (09:43→16:50)
[2019-01-16] MEDS ORDERED: Perflutren Lipid Microsphere 1.3 ML in 0.9 % Sodium Chloride 8.7 ML IVP ONE (10:06)
--- NOTE | 2019-01-16 10:35 | Internal Med Progress Note ---
Hospitalist Progress Note - Encounter Date of Encounter: 01/16/19 Time of Encounter: 10:33 - Subjective Interval History: I have seen and evaluated the patient at bedside. Patient reported improvement in her shortness of breath, denied chest pain, nausea or vomiting. Denies abdominal pain. - Exam Vitals: Temp Pulse Resp BP Pulse Ox 98.4 F 96 18 115/81 98 01/16/19 06:54 01/16/19 06:54 01/16/19 06:54 01/16/19 06:54 01/16/19 06:54 Exam: Vitals: Reviewed. General: Alert and oriented 4. In mild distress due to shortness of breath. Cardiovascular: RRR, normal S1 & S2, no rubs, murmurs or gallops. Lungs: Mild scattered bilateral expiratory wheezes, crackles at the base R>L. Abdomen: Soft, non-tender, no rigidity. Extremities: No edema Neurological: No focal neurological abnormalities Rest of the physical exam is non contributory - - Assessment and Plan (1) Congestive heart failure Current Visit: Yes Status: Acute Assessment and Plan: Patient may crackles at the bases bilaterally. Negative fluid balance of 1.2 L Plan: Continue furosemide 20 mg IV twice a day. On a beta oksana. Lisinopril 2.5 mg added. Continue fluid restrictive strategies to 1.5 L a day. (2) DM type 2 (diabetes mellitus, type 2) Current Visit: No Status: Chronic Assessment and Plan: Blood sugars suboptimally controlled. Possible secondary to steroids. Continue carbs controlled diet, plus low-dose lispro before meals sliding scale. Levemir 5 units twice a day added. will monitor and adjust if needed. (3) Hypomagnesemia Current Visit: Yes Status: Resolved (4) COPD (chronic obstructive pulmonary disease) Current Visit: No Status: Acute Assessment and Plan: Patient with mild bilateral expiratory wheezing. Plan: Continue prednisone milligram by mouth daily, plus azithromycin found to milligram by mouth daily. On bronchodilators and Singulair. Incentive spirometry. DVT Prophylaxis: On heparin subcutaneous. - Summary of Assessment and Plan Summary of Assessment and Plan: Patient to remain in the hospital due to CHF exacerbation, on IV diuresis.. - Time Spent with Patient Total time spent is greater than 50% in coordination of care (as documented) at patient's floor/unit and/or counseling patient: Greater than 35 minutes (40) Plan of Care Discussed with: patient (and the nurse.) Internal Medicine: Result - Labs CBC & Chem 7: 01/15/19 08:25 01/15/19 08:25 - Impressions Impressions Chest X-Ray 01/14/19 13:57 IMPRESSION: Findings of interstitial pulmonary edema. Trace pleural effusions. D/ / 01/14/2019 14:41:47 Kareem Pink MD / [email or web address] Interpreting Provider: Kareem Pink MD Consult Discharge Plan - Plan Referrals: Court Stoner CNP [Primary Care Provider] - (1) Congestive heart failure Qualifiers: Heart failure type: unspecified Heart failure chronicity: acute on chronic Qualified Code(s): I50.9 - Heart failure, unspecified (2) DM type 2 (diabetes mellitus, type 2) Qualifiers: Diabetes mellitus vermin exterminator insulin use: with vermin exterminator use Diabetes mellitus complication status: with neurologic complications Diabetes mellitus complication detail: with polyneuropathy Qualified Code(s): 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 diabetes mellitus with diabetic polyneuropathy; Z79.4 - detention (current) use of insulin (4) COPD (chronic obstructive pulmonary disease) Qualifiers: COPD type: COPD with acute exacerbation Qualified Code(s): J44.1 - Chronic obstructive pulmonary disease with (acute) exacerbation
[2019-01-16] MEDS ORDERED: Insulin LISPRO 300 UNITS/3 ML VIAL SQ SCH (16:35)
[2019-01-16] MEDS: Azithromycin 250 MG TABLET PO SCH (20:47)
[2019-01-16] MEDS: Insulin DETEMIR 100 UNIT/ML X5UNITS SQ SCH (20:48)
[2019-01-17] MEDS: *HR* Heparin 5,000 UNIT/ML VIAL SQ SCH ×2 (03:05→17:13)
[2019-01-17] MEDS: Ipratropium/Albuterol Neb 3 ML IH SCH ×6 (03:45→23:19)
[2019-01-17] MEDS: BuPROPion SR (12 HR) 150 MG TABLET PO SCH (08:45)
[2019-01-17] MEDS: predniSONE 20 MG TABLET PO SCH (08:45)
[2019-01-17] MEDS: Aspirin Enteric Coated 81 MG Tablet PO SCH (08:45)
[2019-01-17] MEDS: Magnesium Oxide 400 MG TABLET PO SCH (08:45)
[2019-01-17] MEDS: Insulin LISPRO 300 UNITS/3 ML VIAL SQ SCH ×6 (08:46→19:30)
[2019-01-17] MEDS: Insulin DETEMIR 100 UNIT/ML X5UNITS SQ SCH ×2 (08:46→19:42)
[2019-01-17] MEDS: Furosemide 20 MG/2 ML VIAL IVP SCH ×2 (08:47→17:12)
--- NOTE | 2019-01-17 10:24 | Internal Med Progress Note ---
Hospitalist Progress Note - Encounter Date of Encounter: 01/17/19 Time of Encounter: 10:22 - Subjective Interval History: I have seen and evaluated the patient at bedside. patient reports her breathing continues to improve. denies chest pain, nausea, vomiting of abdominal pain. patient refused morning labs. - Exam Vitals: Temp Pulse Resp BP Pulse Ox 97.8 F 100 20 112/75 97 01/17/19 07:34 01/17/19 07:34 01/17/19 07:34 01/17/19 07:34 01/17/19 07:34 Exam: Vitals: Reviewed. General: Alert and oriented 4. In no distress Cardiovascular: RRR, normal S1 & S2, no rubs, murmurs or gallops. Lungs: scattered bilateral expiratory wheezes, no crackles. Abdomen: Soft, non-tender, no rigidity. NABS in all 4 quadrants Extremities: No edema Neurological: No focal neurological abnormalities Rest of the physical exam is non contributory - - Assessment and Plan (1) Congestive heart failure Current Visit: Yes Status: Acute Assessment and Plan: HFrEF chest with scattered expiratory wheezing on auscultation Negative fluid balance of 3.4 L Limited 2-D Echo LVEF 35%. Moderate global LV systolic dysfunction with possible basal-mid inferior wall hypokinesis. Mildly dilated left ventricle. Definity echo contrast was used. There is no LV thrombus. Mitral leaflets are apically displaced. Normal right ventricular structure and function. Plan: on furosemide 20 mg IV twice a day. continue carvedilol 12.5mg/PO BID Lisinopril 2.5 mg Continue fluid restrictive strategies to 1.5 L a day. daily weight and strict intake and output (2) DM type 2 (diabetes mellitus, type 2) Current Visit: No Status: Chronic Assessment and Plan: Blood sugars suboptimally controlled. Plan: - increase levemir to 10 units BID - Lispro 4 units ac added - continue lispro medium dose sliding scale ac - carbs controlled diet (3) COPD (chronic obstructive pulmonary disease) Current Visit: No Status: Acute Assessment and Plan: patient with scattered b/l expiratory wheezing. in no distress. Plan - on bronchodilators Q4RT scheduled - empirically on azithromycin 500mg/PO daily - on singular - incentive spirometry - patient on her home dose of O2 by nasal cannula - Prednisone 40 mg by mouth daily. DVT Prophylaxis: On heparin subq - Summary of Assessment and Plan Summary of Assessment and Plan: Patient to remain in the hospital for the next 24 hours to continue IV diuresis. potential discharge tomorrow - Time Spent with Patient Total time spent is greater than 50% in coordination of care (as documented) at patient's floor/unit and/or counseling patient: Greater than 35 minutes (45) Plan of Care Discussed with: patient (and the nurse.) Internal Medicine: Result - Labs CBC & Chem 7: 01/15/19 08:25 01/15/19 08:25 Consult Discharge Plan - Plan Referrals: Court Stoner CNP [Primary Care Provider] - (1) Congestive heart failure Qualifiers: Heart failure type: systolic Heart failure chronicity: acute Qualified Code(s): I50.21 - Acute systolic (congestive) heart failure (2) DM type 2 (diabetes mellitus, type 2) Qualifiers: Diabetes mellitus nursing home insulin use: with nursing home use Diabetes mellitus complication status: with neurologic complications Diabetes mellitus complication detail: with polyneuropathy Qualified Code(s): 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 diabetes mellitus with diabetic polyneuropathy; Z79.4 - shuttle filler (current) use of insulin (3) COPD (chronic obstructive pulmonary disease) Qualifiers: COPD type: COPD with acute exacerbation Qualified Code(s): J44.1 - Chronic obstructive pulmonary disease with (acute) exacerbation
[2019-01-17] MEDS: Azithromycin 250 MG TABLET PO SCH (19:30)
[2019-01-18] MEDS: *HR* Heparin 5,000 UNIT/ML VIAL SQ SCH (04:03)
[2019-01-18] MEDS: Ipratropium/Albuterol Neb 3 ML IH SCH ×3 (04:04→11:28)
[2019-01-18 07:15] VITALS: BP 99/72
[2019-01-18] MEDS: Magnesium Oxide 400 MG TABLET PO SCH (07:53)
[2019-01-18] MEDS: Aspirin Enteric Coated 81 MG Tablet PO SCH (07:53)
[2019-01-18] MEDS: predniSONE 20 MG TABLET PO SCH (07:54)
[2019-01-18] MEDS: Furosemide 20 MG/2 ML VIAL IVP SCH (07:54)
[2019-01-18] MEDS: Insulin LISPRO 300 UNITS/3 ML VIAL SQ SCH ×2 (07:54)
[2019-01-18] MEDS: BuPROPion SR (12 HR) 150 MG TABLET PO SCH (07:54)
[2019-01-18] MEDS: Insulin DETEMIR 100 UNIT/ML X5UNITS SQ SCH (07:55)
--- NOTE | 2019-01-18 09:27 | Discharge Summary ---
Date of Encounter: 01/18/19 Time of Encounter: 09:21 - Discharge Diagnosis (1) Congestive heart failure Priority: Primary Status: Resolved Qualifiers: Heart failure type: systolic Heart failure chronicity: acute Qualified Code(s): I50.21 - Acute systolic (congestive) heart failure (2) DM type 2 (diabetes mellitus, type 2) Priority: Secondary Status: Chronic Qualifiers: Diabetes mellitus fci insulin use: with intermodal truck driver use Diabetes mellitus complication status: with neurologic complications Diabetes mellitus complication detail: with polyneuropathy Qualified Code(s): 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 diabetes mellitus with diabetic polyneuropathy; Z79.4 - residential (current) use of insulin (3) COPD (chronic obstructive pulmonary disease) Priority: Secondary Status: Acute Qualifiers: COPD type: COPD with acute exacerbation Qualified Code(s): J44.1 - Chronic obstructive pulmonary disease with (acute) exacerbation Hospital course: Ms. Vicente is a 63 year old female PMH of Arthritis, asthma, COPD, diabetes, hyperlipidemia, hypertension and HFrEF. Patient presented to the ED due to shortness of breath. Patient admitted to the hospital due to Acute HFrEF, COPD exacerbation. patient was managed with IV steroids and IV diuretics with resolution of her acute symptoms. TTE done: LVEF 35%. Moderate global LV systolic dysfunction with possible basal-mid inferior wall hypokinesis. Mildly dilated left ventricle. Definity echo contrast was used. There is no LV thrombus. Mitral leaflets are apically displaced. Normal right ventricular structure and function. Patient is hemodynamically stable to be discharged home. Recommended to follow-up with a pressure test operator within a week of hospital discharge. - Time Spent with Patient Total time spent providing and/or coordinating discharge services: Time spent: Greater than 30 minutes (40) - Discharge Medications Prescriptions: New Carvedilol [Coreg] 12.5 mg PO BIDWM 30 Days #60 tablet Lisinopril [Zestril] 2.5 mg PO DAILY 30 Days #30 tablet Azithromycin [Zithromax] 500 mg PO DAILY@2100 5 Days #5 tablet Continued Alendronate Sodium [Fosamax] 70 mg PO QWEEK Aspirin [Lo-Dose Aspirin EC] 81 mg PO DAILY Umeclidinium [place] [Incruse Ellipta] 62.5 mcg IH DAILY Fluticasone/Salmeterol [Airduo Respiclick 55-14 Mcg] 1 each IH BID Albuterol Sulfate [Proair Hfa] 2 puff IH Q4HR PRN PRN Reason: Shortness Of Breath Albuterol Sulfate 5 mg PO TID PRN PRN Reason: Shortness Of Breath Calcium Carbonate/Vitamin D3 [Calcium 500 + Vit D Caplet] 1 tab PO DAILY Furosemide [Lasix] 20 mg PO DAILY Insulin Glargine,Hum.rec.anlog [Basaglar Kwikpen U-100] 20 units SQ HS Insulin LISPRO [Admelog Solostar] 7 units SQ TIDWM Loratadine/Pseudoephedrine [Allergy Relief D-24Hr Tablet] 1 tab PO DAILY Metformin HCl 1,000 mg PO BID Home Medications: Albuterol Sulfate [Proair Hfa] 2 puff IH Q4HR PRN 01/14/19 [History] Alendronate Sodium [Fosamax] 70 mg PO QWEEK 01/14/19 [History] Aspirin [Lo-Dose Aspirin EC] 81 mg PO DAILY 01/14/19 [History] Fluticasone/Salmeterol [Airduo Respiclick 55-14 Mcg] 1 each IH BID 01/14/19 [History] Umeclidinium [place] [Incruse Ellipta] 62.5 mcg IH DAILY 01/14/19 [History] Albuterol Sulfate 5 mg PO TID PRN 01/15/19 [History] Calcium Carbonate/Vitamin D3 [Calcium 500 + Vit D Caplet] 1 tab PO DAILY 01/15/19 [History] Furosemide [Lasix] 20 mg PO DAILY 01/15/19 [History] Insulin Glargine,Hum.rec.anlog [Basaglar Kwikpen U-100] 20 units SQ HS 01/15/19 [History] Insulin LISPRO [Admelog Solostar] 7 units SQ TIDWM 01/15/19 [History] Loratadine/Pseudoephedrine [Allergy Relief D-24Hr Tablet] 1 tab PO DAILY 01/15/19 [History] Metformin HCl 1,000 mg PO BID 01/15/19 [History] Azithromycin [Zithromax] 500 mg PO DAILY@2100 5 Days #5 tablet 01/18/19 [Rx] Carvedilol [Coreg] 12.5 mg PO BIDWM 30 Days #60 tablet 01/18/19 [Rx] Lisinopril [Zestril] 2.5 mg PO DAILY 30 Days #30 tablet 01/18/19 [Rx] Allergies/Adverse Reactions: Allergy/AdvReac Type Severity Reaction Status Date / Time codeine Allergy Hives Verified 01/15/19 19:12 propoxyphene [From Darvon] Allergy Hives Verified 01/15/19 19:12 Date of admission: 01/17/19 17:52 Primary care physician: Court Stoner Consults: 01/15/19 14:45 Consult to Nurse Navigator [CONS] Routine Comment: chf - Constitutional Vitals: Temp Pulse Resp BP Pulse Ox 97.8 F 93 18 99/72 90 01/18/19 07:07 01/18/19 07:07 01/18/19 07:07 01/18/19 07:07 01/18/19 07:40 General appearance: Absent: cooperative, answers questions appropriately Exam: Vitals: Reviewed. General: Alert and oriented 4. In no distress Cardiovascular: RRR, normal S1 & S2, no rubs, murmurs or gallops. Lungs: Clear to auscultation bilaterally, no crackles. Abdomen: Soft, non-tender, no rigidity. NABS in all 4 quadrants Extremities: No edema Neurological: No focal neurological abnormalities Rest of the physical exam is non contributory - - Patient Status Disposition: Home, Self-Care Condition: Good Functional capacity at discharge: independent ambulation Overall status at discharge: patient is back to baseline - Discharge Instructions Follow Up With: Court Stoner, ANDREAS [Primary Care Provider] - - Diet and Activity Activity: resume usual activities as tolerated, wear oxygen at all times (2 litter) Diet: diabetic diet
== END 2019-01-18 11:37 | disposition home or self-care (01) | DRG 194 ==
LOC: 2ANU 13:49 → EMEROOARM 13:49 → SUATTDRO 21:31 → 2ANU 21:47
PROVIDERS: ADMIT Family Medicine; ATTEND Internal Medicine

== ENCOUNTER 2019-02-06 13:03 | Inpatient (IN) ==
[2019-02-06] MEDS ORDERED: Ipratropium/Albuterol Neb 3 ML IH ONE (13:33)
[2019-02-06] MEDS ORDERED: predniSONE 20 MG TABLET PO ONE (13:34)
--- NOTE | 2019-02-06 13:58 | Emergency Department Note ---
Disposition Clinical Impression: Hospital acquired PNA COPD (chronic obstructive pulmonary disease) Qualifiers: COPD type: COPD with acute exacerbation Qualified Code(s): J44.1 - Chronic obstructive pulmonary disease with (acute) exacerbation Right middle lobe pneumonia Qualifiers: Pneumonia type: due to unspecified organism Qualified Code(s): J18.1 - Lobar pneumonia, unspecified organism Disposition: Admitted As Inpatient Condition: Fair Referrals: Court Stoner CNP [Primary Care Provider] - Forms: ED Satisfaction Letter Time of Disposition: 17:23 SOB HPI - General Chief Complaint: ED Shortness of Breath/Dyspnea Stated Complaint: JANI/pneumonia Time Seen by Provider: 02/06/19 13:07 Source: patient Limitations: no limitations - History of Present Illness Ms. Levy is a 63 y/o female with a past medical history of COPD dependent on 2 L, asthma, anxiety, and diabetes who presented to the ED with for shortness of breath who was previously seen at urgent care earlier today and diagnosed with pneumonia. Patient states that she was hospitalized 3 weeks ago for pneumonia at [facility]. She is found to have a right loculated pleural effusion and bronchoscopy was performed by Dr. Rangel which did not show any malignancy but did show a mucus plug. Patient states that after she left the hospital she began having shortness of breath 2 weeks ago. She states that she has increased her oxygen up to 3 L a couple times. She has been using her nebulizer every 4 hours since hospital discharge and previously was only using her nebulizer twice a day. She states that yesterday she has some chest pain that resolved and is currently not having chest pain. Patient states that she has not had any fevers, coughing, dizziness, nausea, vomiting. She does admit to urinary incontinence that began 2 weeks ago. She quit smoking 2.5 months ago. Patient presented to urgent care earlier today, and chest x-ray showed right middle lobe pneumonia with bilateral pleural effusions. - Related Data Home Medications Medication Instructions Recorded Confirmed Albuterol Sulfate [Proair Hfa] 2 puff IH Q4HR PRN 01/14/19 02/06/19 Alendronate Sodium [Fosamax] 70 mg PO QWEEK 01/14/19 02/06/19 Aspirin [Lo-Dose Aspirin EC] 81 mg PO DAILY 01/14/19 02/06/19 Umeclidinium [place] [Incruse 62.5 mcg IH DAILY 01/14/19 02/06/19 Ellipta] Calcium Carbonate/Vitamin D3 1 tab PO DAILY 01/15/19 02/06/19 [Calcium 500 + Vit D Caplet] Furosemide [Lasix] 20 mg PO DAILY 01/15/19 02/06/19 Loratadine/Pseudoephedrine 1 tab PO DAILY 01/15/19 02/06/19 [Allergy Relief D-24Hr Tablet] Metformin HCl 1,000 mg PO BID 01/15/19 02/06/19 Albuterol Neb [Proventil Neb] 2.5 mg IH TID PRN 02/06/19 02/06/19 Fluticasone/Salmeterol [Airduo 1 each IH BID 02/06/19 02/06/19 Respiclick 232-14 Mcg] Insulin Glargine,Hum.rec.anlog 10 unit SQ HS 02/06/19 02/06/19 [Basaglar Kwikpen U-100] Insulin LISPRO [Admelog] 7 unit SQ TIDWM 02/06/19 02/06/19 Tramadol HCl [Ultram] 100 mg PO QID PRN 02/06/19 02/06/19 Previous Rx's Medication Instructions Recorded Carvedilol [Coreg] 12.5 mg PO BIDWM 30 Days #60 tablet 01/18/19 Lisinopril [Zestril] 2.5 mg PO DAILY 30 Days #30 tablet 01/18/19 Allergies Allergy/AdvReac Type Severity Reaction Status Date / Time codeine Allergy Hives Verified 01/15/19 19:12 propoxyphene [From Darvon] Allergy Hives Verified 01/15/19 19:12 All systems ED: reviewed and negative except as stated. 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 Extremities: Edema + 2, capillary refill <2sec. Skin: Skin warm and dry, no lesions, no rashes, no jaundice Psych: Cooperative with exam, good eye contact, cognitive function intact - General Limitations: no limitations General appearance: alert Course Course Narrative: Upon initial evaluation, patient has increased work of breathing but is able to converse and is without confusion. She states that that would like non-needle interventions as she has an extreme fear of needles. She would not let the nurse get labs. We will start with triple DuoNeb treatment and steroids to help with shortness of breath. Discussed with patient that we will hold off on labs until we see how she responds to treatment. Her CURB-65 Score = 0-1, therefore she is low risk. Due to recent hospitalization 3 weeks ago patient was diagnosed with hospital acquired pneumonia. - Reevaluation(s) Reevaluation #1: Upon evaluation of patient after triple DuoNeb treatment she has not had subjective improvement of symptoms. She states it is still difficult for her to breathe. She still has increase work of breathing. In reviewing medical records, patient's last echo showed an EF of 35%. Patient has bilateral lower extremity edema that she states that is similar to baseline. Patient states that she does not walk at baseline she has a bedside commode and her sister brings her food. She states that this is due to shortness of breath whenever she walks. Due to continued increase work of breathing and no improvement from DuoNeb will discuss admission with hospitalist. Will obtain BMP, CBC and give 1 dose of Zosyn and vancomycin for hospital-acquired pneumonia. EKG showed sinus tachycardia T-wave abnormalities seen in previous EKG from 01/14/19. Qtc and CA interval normal. [place] normal. UA showed elevated specific gravity and glucose therefore will give a 500ml bolus of NS. Time: 15:19 Reevaluation #2: Labs showed elevated glucose, calcium, and creatinine. Calcium previously normal 1 year ago. Creatinine previously elevated but worsened. Discussed case with hospitalist Dr. Hugo who accepted the patient for COPD exacerbation secondary to hospital acquired pneumonia, KAILEY and hypercalemia. Vital Signs Temperature 97.5 F L 08/17/19 13:06 Pulse Rate 121 02/06/19 13:06 Respiratory Rate 22 02/06/19 13:06 Blood Pressure 120/82 02/06/19 13:06 O2 Sat by Pulse Oximetry 92 02/06/19 13:06 Temperature 97.5 F L 02/06/19 13:13 Pulse Rate 119 02/06/19 14:19 Respiratory Rate 24 02/06/19 14:19 Blood Pressure 134/86 02/06/19 14:19 O2 Sat by Pulse Oximetry 96 02/06/19 14:19 Oxygen Delivery Oxygen Delivery Nasal Cannula Shortness of Breath/Dyspnea - Medical Records Medical records reviewed: Yes I reviewed the patient's medical records. - Lab Data Lab results reviewed: Yes I reviewed the patient's lab results. Lab Results 02/06/19 Range/Units 14:00 Urine Color Yellow (Yellow) Urine Clarity Clear (Clear) Urine pH 5.5 (5.0-8.0) pH Units Ur Specific [place] > 1.030 H (1.010-1.025) Urine Protein Negative (Neg-Trace) mg/dL Urine Glucose (UA) >=1000 H (Normal) mg/dL Urine Ketones Trace H (Negative) mg/dL Urine Blood Negative (Negative) Urine Nitrite Negative (Negative) Urine Bilirubin Negative (Negative) Urine Urobilinogen Normal (Normal) mg/dL Ur Leukocyte Esterase Negative (Negative) Ur Culture Indicated? NO (NO) - Radiology Data Radiology results reviewed: Yes I reviewed the patient's radiology results. - EKG Data EKG attestation: Yes I reviewed and interpreted this EKG.
[2019-02-06] MEDS ORDERED: *HR* LORazepam 0.5 MG TABLET PO ONE (14:01)
--- NOTE | 2019-02-06 14:02 | Emergency Department Note ---
Disposition Clinical Impression: COPD (chronic obstructive pulmonary disease) Qualifiers: COPD type: COPD with acute exacerbation Qualified Code(s): J44.1 - Chronic obstructive pulmonary disease with (acute) exacerbation Right middle lobe pneumonia Qualifiers: Pneumonia type: due to unspecified organism Qualified Code(s): J18.1 - Lobar pneumonia, unspecified organism Disposition: Still a Patient Referrals: Court Stoner CNP [Primary Care Provider] - Time of Disposition: 14:09 General Adult HPI - General Chief complaint: ED Shortness of Breath/Dyspnea Stated complaint: JANI/pneumonia Time Seen by Provider: 02/06/19 13:07 Source: patient Mode of arrival: wheelchair Limitations: no limitations Nursing Notes Reviewed: Yes Vital Signs Reviewed: Yes - History of Present Illness HPI Narrative: Attestation note: Patient was seen with the family practice resident: Dr. Elif Holloway. I was present for the significant portions of the performance and interpretation of procedures and EKGs. I have personally performed a face to face evaluation on this patient. I have reviewed and agree with history and physical examination patient management and disposition. Briefly: 63-year-old female end-stage COPD under the care of the [facility] pulmonology Dr. BRYAN. Patient has received 5 bronchoscopies due to mucus plugging and other conditions since May. last one was in October. She was recently admitted to the hospital 2 weeks ago with pneumonia and discharge home. About a week or so of increasing shortness breath cough and weakness she was seen at a local urgent care center chest x-ray was read by radiology as right middle lobe pneumonia. And was sent here for further evaluation. Patient is very averse to getting needles, IVs and blood draws. She wanted EMLA cream used which is being applied. Patient sepsis screen came up positive because for heart rate of 122 and respiratory rate of 22 satting 92% on supplemental oxygen she uses an oxygen concentrator at home. This been no recent Ill contacts exotic food or recent travel. She does have some mild rhonchi when she coughs especially on the right we said that we will be noninvasive initially and we will do triple DuoNeb and 60 mg of oral steroids. We will then reassess and road test her. If the patient is feeling better and wishes to go home we will do risk-benefit chair decision analysis and discussion with her and we can make up her mind. I told the patient that if at any time prior to her finishing her breathing treatment and getting road tested if she feels that she really needs to stay in the hospital she is not feeling well enough we will proceed with the IVs blood draws IV antibiotics and admission for healthcare acquired pneumonia. Patient is agreeable to this plan. Providing 45 minutes critical care service with this patient. Of note patient is being referred to the [facility] for pulmonology evaluation for the purpose of being put on the lung transplant list. Currently she is NOT on the lung transplant list. Pain Scale: 0 - Related Data Home Medications Medication Instructions Recorded Confirmed Albuterol Sulfate [Proair Hfa] 2 puff IH Q4HR PRN 01/14/19 01/15/19 Alendronate Sodium [Fosamax] 70 mg PO QWEEK 01/14/19 01/15/19 Aspirin [Lo-Dose Aspirin EC] 81 mg PO DAILY 01/14/19 01/15/19 Fluticasone/Salmeterol [Airduo 1 each IH BID 01/14/19 01/15/19 Respiclick 55-14 Mcg] Umeclidinium [place] [Incruse 62.5 mcg IH DAILY 01/14/19 01/15/19 Ellipta] Albuterol Sulfate 5 mg PO TID PRN 01/15/19 01/15/19 Calcium Carbonate/Vitamin D3 1 tab PO DAILY 01/15/19 01/15/19 [Calcium 500 + Vit D Caplet] Furosemide [Lasix] 20 mg PO DAILY 01/15/19 01/15/19 Insulin Glargine,Hum.rec.anlog 20 units SQ HS 01/15/19 01/15/19 [Basaglar Kwikpen U-100] Insulin LISPRO [Admelog Solostar] 7 units SQ TIDWM 01/15/19 01/15/19 Loratadine/Pseudoephedrine 1 tab PO DAILY 01/15/19 01/15/19 [Allergy Relief D-24Hr Tablet] Metformin HCl 1,000 mg PO BID 01/15/19 01/15/19 Previous Rx's Medication Instructions Recorded Azithromycin [Zithromax] 500 mg PO DAILY@2100 5 Days #5 01/18/19 tablet Carvedilol [Coreg] 12.5 mg PO BIDWM 30 Days #60 tablet 01/18/19 Lisinopril [Zestril] 2.5 mg PO DAILY 30 Days #30 tablet 01/18/19 Allergies Allergy/AdvReac Type Severity Reaction Status Date / Time codeine Allergy Hives Verified 01/15/19 19:12 propoxyphene [From Darvon] Allergy Hives Verified 01/15/19 19:12 Past Medical History - Past Medical History Medical history: Reports: arthritis, asthma, COPD, diabetes, hyperlipidemia, hypertension, other Surgical history: Reports: , hysterectomy Psychiatric history: Reports: depression 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 history - Social History Smoking Status: Former smoker Smokeless Tobacco Status: No Alcohol use: Reports: none Drug use: Reports: none Physical Exam - General Limitations: no limitations General appearance: alert Course Vital Signs Temperature 97.5 F L 02/06/19 13:06 Pulse Rate 121 02/06/19 13:06 Respiratory Rate 22 02/06/19 13:06 Blood Pressure 120/82 02/06/19 13:06 O2 Sat by Pulse Oximetry 92 02/06/19 13:06 Temperature 97.5 F L 02/06/19 13:13 Pulse Rate 116 02/06/19 13:40 Respiratory Rate 20 02/06/19 13:40 Blood Pressure 123/83 02/06/19 13:40 O2 Sat by Pulse Oximetry 97 02/06/19 13:40 Oxygen Delivery Oxygen Delivery Nasal Cannula
[2019-02-06 14:17] LABS: Bilirubin,Urine Negative (Negative); Blood,Urine Negative (Negative); Clarity,Urine Clear (Clear); Color,Urine Yellow (Yellow); Glucose,Urine (UA) >=1000 mg/dL (Normal); Ketones,Urine Trace mg/dL (Negative); Leukocyte Esterase,Urine Negative (Negative); Nitrite,Urine Negative (Negative); PH,Urine 5.5 pH Units (5.0-8.0); Protein,Urine Negative (Neg-Trace); Specific Gravity,Urine > 1.030 (1.010-1.025); Urobilinogen,Urine Normal (Normal)
[2019-02-06] MEDS ORDERED: Piperacillin/Tazobactam 3.375 GM in 0.9 % Sodium Chloride Mini Bag 100 ML IVPB ONE (15:14)
[2019-02-06] MEDS ORDERED: 0.9 % Sodium Chloride 500 ML IVC ONE (15:25)
[2019-02-06 15:50] LABS: Basophils % 0.3 %; Eosinophils # 0.2 K/mcL (0.0-0.6); Eosinophils % 2.4 %; Hematocrit 41.9 % (35.3-44.9); Hemoglobin 13.5 g/dL (11.5-15.4); Immature Granulocytes % 0.4 % (0-4); Lymphocytes # 1.1 K/mcL (0.6-4.6); Lymphocytes % 14.2 %; Mean Corpuscular HGB Conc 32.2 g/dL (31.6-35.5); Mean Corpuscular Hemoglobin 28.1 pg (28.0-33.3); Mean Corpuscular Volume 87.1 fL (83.0-100.0); Mean Platelet Volume 11.5 fL (9.4-12.4); Monocytes # 0.3 K/mcL (0.0-1.3); Monocytes % 4.5 %; Neutrophils # 5.8 K/mcL (1.6-8.9); Platelet Count 203 K/mcL (140-400); Red Blood Count 4.81 M/mcL (3.82-4.97); Red Cell Distribution Width 14.7 % (11.5-14.5); Segmented Neutrophils % 78.2 %; White Blood Count 7.4 K/mcL (4.3-11.1)
[2019-02-06 16:10] LABS: BUN/Creatinine Ratio 21 (6-26); Blood Urea Nitrogen 15 mg/dL (8-23); Calcium 9.4 mg/dL (8.6-10.3); Carbon Dioxide 26 mEq/L (23-29); Chloride 99 mEq/L (98-107); Glucose 425 mg/dL (70-105); Osmolality,Calculated 301 (280-300); Potassium 4.4 mEq/L (3.5-5.1); Sodium 136 mEq/L (136-145); eGFR For African Americans > 60 (> 60); eGFR For Non-African Americans > 60 (> 60)
[2019-02-06] MEDS ORDERED: Fluconazole 400 MG/200 ML 400 MG/200 ML BAG IVPB SCH (18:00)
[2019-02-06] MEDS ORDERED: traMADol 50 MG TABLET PO PRN (18:08)
[2019-02-06] MEDS ORDERED: Acetaminophen 325 MG TABLET PO PRN (18:08)
[2019-02-06] MEDS ORDERED: Naloxone 0.4 MG/ML INJ IVP PRN (18:08)
[2019-02-06] MEDS ORDERED: *HR* Dextrose 50 % in Water (Syg) 50 ML SYRINGE IVP PRN (18:13)
[2019-02-06] MEDS ORDERED: D5% in Water 1,000 ML IVC PRN (18:13)
[2019-02-06] MEDS ORDERED: Dextrose Gel 15 GM/37.5 ML TUBE PO PRN ×2 (18:13)
--- NOTE | 2019-02-06 18:21 | Internal Med History&Physical ---
Date of Encounter: 02/06/19 Time of Encounter: 17:35 Internal Medicine - H&P: HPI Chief complaint: Shortness of breath Admitted From: Emergency Dept Plans for Post Hospital Care: Home History of present illness: Ms. Vicente is a 63 year old female with history of COPD asthma chronic respiratory failure on 2 liters of nasal cannula oxygen diabetes hypertension and osteoarthritis. She stated that she recently was hospitalized about 3 weeks ago for pneumonia and was sent home on antibiotics, oral corticosteroids and she took the medication as prescribed but never felt really better. She does admit to be compliant with her COPD medications including her nebulizer medications and chronic inhalers. She reports continued shortness of breath and cough which she describes as dry. She said also that she was told to reduce her water intake as she does admit to be dehydrated. She finally sought care at the urgent care and was diagnosed with pneumonia. According to the x-ray dated 02/06/2019 from the urgent care right middle lobe pneumonia with bilateral pleural effusion was noted. Echocardiogram reports from January 16 2019 patient's EF is 35%. Upon review of her microbiology reports from prior hospitalization respiratory culture was negative for any bacteria including acid-fast stain and Gram stain however both the right middle lobe culture and a right upper lobe culture both revealed Lizabeth albicans. She denies any sick contacts, or ever been told she was immunocompromised although she does admit to chronic intermittent steroid therapy Past Med Surg Social Fam HX - Past Medical History Medical history: arthritis, asthma, COPD, diabetes, hyperlipidemia, hypertension, other Additional medical history: NEUROPATHY Psychiatric history: depression - Past Surgical History Surgical History: , hysterectomy Additional surgical history: Brain aneurysm removed; lung surgery; Bladder Surgery - Social History Smoking Status: Former smoker Smokeless Tobacco Status: No Alcohol use: none Drug use: none - Family History Mother Hx Family Cardiac Disorders: Yes Father Hx Family Cardiac Disorders: Yes Hx Family Respiratory Disorders: Yes Internal Medicine - H&P: Meds Albuterol Sulfate [Proair Hfa] 2 puff IH Q4HR PRN 01/14/19 [History] Alendronate Sodium [Fosamax] 70 mg PO QWEEK 01/14/19 [History] Aspirin [Lo-Dose Aspirin EC] 81 mg PO DAILY 01/14/19 [History] Umeclidinium [place] [Incruse Ellipta] 62.5 mcg IH DAILY 01/14/19 [History] Calcium Carbonate/Vitamin D3 [Calcium 500 + Vit D Caplet] 1 tab PO DAILY 01/15/19 [History] Furosemide [Lasix] 20 mg PO DAILY 01/15/19 [History] Loratadine/Pseudoephedrine [Allergy Relief D-24Hr Tablet] 1 tab PO DAILY 01/15/19 [History] Metformin HCl 1,000 mg PO BID 01/15/19 [History] Carvedilol [Coreg] 12.5 mg PO BIDWM 30 Days #60 tablet 01/18/19 [Rx] Lisinopril [Zestril] 2.5 mg PO DAILY 30 Days #30 tablet 01/18/19 [Rx] Albuterol Neb [Proventil Neb] 2.5 mg IH TID PRN 02/06/19 [History] Fluticasone/Salmeterol [Airduo Respiclick 232-14 Mcg] 1 each IH BID 02/06/19 [History] Insulin Glargine,Hum.rec.anlog [Basaglar Kwikpen U-100] 10 unit SQ HS 02/06/19 [History] Insulin LISPRO [Admelog] 7 unit SQ TIDWM 02/06/19 [History] Tramadol HCl [Ultram] 100 mg PO QID PRN 02/06/19 [History] Allergy/AdvReac Type Severity Reaction Status Date / Time codeine Allergy Hives Verified 01/15/19 19:12 propoxyphene [From Darvon] Allergy Hives Verified 01/15/19 19:12 All Systems PM: A 10-system review of systems was performed and is negative for pertinent f indings except as documented above in the HPI. Review of systems: GENERAL: Denies fever, chills, reports generalized malaise and fatigue DERMATOLOGIC: Denies itch, rash or lesions HEENT: Denies headache, blurriness, diplopia or decreased visual acuity, ear pain, tinnitus, rhinorrhea, sinus tenderness or sore throat RESPIRATORY: Reports SOB, cough, and pleuritic chest pain with denies hemoptysis CARDIOVASCULAR: Denies chest pain, LE edema, palpitation or syncope GASTRO INTESTINAL: Denies cramps, nausea/vomiting, diarrhea or constipation, melena MUSCULOSKELATAL: Denies muscle pain/weakness, joint tenderness/pain or swelling PSYCH: Denies worsening anxiety, or depression NEURO: Denies vertigo, dizziness, or ataxia GENITURINARY: Denies dysuria, nocturia or urinary incontinence - Constitutional Vitals: Temp Pulse Resp BP Pulse Ox 97.5 F L 121 24 110/84 94 02/06/19 13:13 02/06/19 17:07 02/06/19 17:07 02/06/19 17:07 02/06/19 17:07 Exam: GENERAL: NAD, A&O x3, pleasant and conversant, although noted to have conversational dyspnea SKIN: No skin lesions or rashes, non-jaundiced EYES: EOMI, PERRLA, no sclera icterus HENT: Head atraumatic, no facial asymmetry, frontal and maxillary sinus non- tender, normal hearing, oropharynx and mucosa dry and without any exudates NECK: No cervical lymphadenopathy, trachea midline, thyroid is palpable does not appear enlarged LUNGS: Diminished with coarse breath sounds minimal wheeze fine crackles, slightly labored HEART: Normal rate and rhythm but tachycardic no murmurs or rubs ABDOMEN: soft, non-tender, non-distended, bowel sounds x 4 normoactive EXTRMITIES: No LE asymmetry, No LE edema, pedal pulses 1+ and radial pulses 2 + and equal bilaterally NEURO: Speech and comprehension appears intact. PSYCH: Cooperative, mood and affect is appropriate Internal Med - H&P Results - Labs CBC & Chem 7: 02/06/19 15:35 02/06/19 15:35 Labs: Short CBC 02/06/19 Range/Units 15:35 WBC 7.4 (4.3-11.1) K/mcL Hgb 13.5 (11.5-15.4) g/dL Hct 41.9 (35.3-44.9) % Plt Count 203 (140-400) K/mcL Neutrophils # 5.8 (1.6-8.9) K/mcL BMP 02/06/19 15:35 Sodium 136 Potassium 4.4 Chloride 99 Carbon Dioxide 26 BUN 15 Creatinine 0.71 Glucose 425 H Calcium 9.4 Urine 02/06/19 Range/Units 14:00 Urine Color Yellow (Yellow) Urine Clarity Clear (Clear) Urine pH 5.5 (5.0-8.0) pH Units Ur Specific [place] > 1.030 H (1.010-1.025) Urine Protein Negative (Neg-Trace) mg/dL Urine Glucose (UA) >=1000 H (Normal) mg/dL - Assessment and Plan (1) Sepsis Current Visit: Yes Status: Acute Assessment and plan: Blood cultures are pending likely secondary to pneumonia see plan below. We will limited with volume resuscitation given a recent EF of 35% noted on limited echo from December 2018 clinically correlate Qualifiers: Sepsis type: sepsis due to unspecified organism Severe sepsis shock status: without septic shock Qualified Code(s): A41.9 - Sepsis, unspecified organism; R65.20 - Severe sepsis without septic shock (2) Right middle lobe pneumonia Current Visit: Yes Status: Acute Assessment and plan: recent hospitalization for pneumonia, loculated pleural effusion status post bronchoscopy-in December 2018 cultures were negative however both right upper and middle lobe did grow Lizabeth albicans likely contamination however given the rec urrent nature and persistent pneumonia will empirically treat for presumed Lizabeth albicans pneumonia although rare given the persistent nature would like to cover for that organism. We will also empirically cover with vancomycin and Zosyn. We will attempt to obtain a sputum culture, check procalcitonin Qualifiers: Pneumonia type: due to unspecified organism Qualified Code(s): J18.1 - Lobar pneumonia, unspecified organism (3) Acute exacerbation of chronic obstructive airways disease Current Visit: Yes Status: Acute Assessment and plan: due to pneumonia will treat with DuoNeb and intravenous Solu Medrol (4) DM type 2 (diabetes mellitus, type 2) Current Visit: Yes Status: Chronic Assessment and plan: UA does reveal glucosuria will check A1c insulin per protocol and hold her antidiabetic medications Qualifiers: Diabetes mellitus manager intermediate insulin use: with manager intermediate use Diabetes mellitus complication status: with neurologic complications Diabetes mellitus complication detail: with polyneuropathy Qualified Code(s): 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 diabetes mellitus with diabetic polyneuropathy; Z79.4 - MCC (current) use of insulin (5) Hypertension Current Visit: Yes Status: Chronic Assessment and plan: Given that she is meeting criteria for sepsis, she may become hypotensive, will monitor closely Qualifiers: Hypertension type: essential hypertension Qualified Code(s): I10 - Es sential (primary) hypertension (6) Congestive heart failure Current Visit: Yes Status: Resolved Assessment and plan: The limited echo from December EF 35%, she does not be to be CHF exacerbation, but rather dehydrated, evident on exam and UA with specific gravity greater than 1.03. has received 0.85 L, will monitor clinically correlate with hold Lasix for now Qualifiers: Heart failure type: systolic Heart failure chronicity: acute Qualified Code(s): I50.21 - Acute systolic (congestive) heart failure (7) DVT prophylaxis Current Visit: Yes Status: Acute Assessment and plan: Heparin per protocol - Time Spent With Patient Total time spent is greater than 50% in coordination of care (as documented) at patient's floor/unit and/or counseling patient:
[2019-02-06] MEDS: Fluconazole 400 MG/200 ML 400 MG/200 ML BAG IVPB SCH ×2 (18:32→22:41)
[2019-02-06] MEDS: Insulin LISPRO 300 UNITS/3 ML VIAL SQ SCH (21:41)
[2019-02-06] MEDS: Lidocaine 4% CREAM (LMX) 5 GM TP PRN (21:50)
[2019-02-06] MEDS: Ipratropium/Albuterol Neb 3 ML IH SCH (22:12)
[2019-02-06] MEDS ORDERED: Insulin DETEMIR 100 UNIT/ML X5UNITS SQ ONE (22:26)
[2019-02-06] MEDS ORDERED: *HR* LORazepam 2 MG/ML VIAL IVP ONE (22:41)
[2019-02-06] MEDS: *HR* Heparin 5,000 UNIT/ML VIAL SQ SCH (22:42)
[2019-02-07] MEDS: Piperacillin/Tazobactam 3.375 GM in 0.9 % Sodium Chloride Mini Bag 100 ML IVPB SCH ×3 (00:59→16:48)
[2019-02-07] MEDS ORDERED: Insulin DETEMIR 100 UNIT/ML X5UNITS SQ ONE (03:43)
[2019-02-07] MEDS ORDERED: *HR* LORazepam 2 MG/ML VIAL IVP ONE (03:44)
[2019-02-07] MEDS: Ipratropium/Albuterol Neb 3 ML IH SCH ×4 (03:46→22:38)
--- NOTE | 2019-02-07 04:09 | Event Note ---
Date of Encounter: 02/06/19 Time of Encounter: 22:03 Alerted by patient's nurse Uzma that patient had no when necessary orders for anxiety but is increasingly anxious and becoming short of breath. Went to see patient who was refusing IV access due to not wanting to be stuck with needles. I explained that patient needed IV access for medications. Patient agreed if we can apply lidocaine prior to having IV started. Patient is admitted with COPD and is clearly dyspneic on exam. One-time order of IVP Ativan ordered. Patient's glucose continues to run high as well. Alerted 22:23 the patient's glucose was 558. 20 units of Levemir ordered with instructions to check BG hourly. Nurse instructed to change NC to Oxymask. SpO2 low 90s. Nurse instructed to continue monitoring pt. very closely and alert me immediately of adverse changes. Alerted at 01:34 that pt. was again anxious and stating she could not breathe. Stat ABG ordered which the patient refused due to needlestick. RT consulted to place BiPAP on patient which they did. Nurse instructed to page me if patient took BiPAP off. Alerted 03:16 the patient's glucose was now 589. Additional one-time order of Levemir 20 units ordered as well as one-time dose of Ativan 1 mg IV push. Nurse instructed to continue monitoring the patient very closely and alert me immediately of any adverse changes or noncompliance.
[2019-02-07] MEDS: *HR* Heparin 5,000 UNIT/ML VIAL SQ SCH ×3 (05:32→21:48)
[2019-02-07] MEDS ORDERED: MethylPREDNISolone 40 MG/ML VIAL IVP SCH (06:00)
[2019-02-07] MEDS ORDERED: methylPREDNISolone 125 MG/2 ML VIAL IVP STA (06:16)
[2019-02-07] MEDS ORDERED: MethylPREDNISolone 40 MG/ML VIAL ONE (06:33)
[2019-02-07 06:37] LABS: Basophils % 0.2 %; Eosinophils # 0.1 K/mcL (0.0-0.6); Eosinophils % 0.8 %; Hematocrit 44.2 % (35.3-44.9); Immature Granulocytes % 0.4 % (0-4); Lymphocytes # 1.3 K/mcL (0.6-4.6); Mean Corpuscular HGB Conc 31.7 g/dL (31.6-35.5); Mean Corpuscular Hemoglobin 28.3 pg (28.0-33.3); Mean Corpuscular Volume 89.3 fL (83.0-100.0); Mean Platelet Volume 11.6 fL (9.4-12.4); Monocytes # 0.5 K/mcL (0.0-1.3); Monocytes % 4.9 %; Neutrophils # 8.2 K/mcL (1.6-8.9); Platelet Count 241 K/mcL (140-400); Red Blood Count 4.95 M/mcL (3.82-4.97); Red Cell Distribution Width 14.9 % (11.5-14.5); Segmented Neutrophils % 80.7 %; White Blood Count 10.1 K/mcL (4.3-11.1)
[2019-02-07 06:45] LABS: Estimated Average Glucose 335 mg/dl
[2019-02-07 07:02] LABS: BUN/Creatinine Ratio 27 (6-26); Blood Urea Nitrogen 22 mg/dL (8-23); Calcium 8.9 mg/dL (8.6-10.3); Carbon Dioxide 26 mEq/L (23-29); Chloride 101 mEq/L (98-107); Glucose 399 mg/dL (70-105); Osmolality,Calculated 302 (280-300); Potassium 4.4 mEq/L (3.5-5.1); Sodium 136 mEq/L (136-145); eGFR For African Americans > 60 (> 60); eGFR For Non-African Americans > 60 (> 60)
[2019-02-07 07:11] LABS: Thyroid Stimulating Hormone 1.648 mcIU/mL (0.340-5.600)
[2019-02-07] MEDS ORDERED: *HR* Metoprolol 5 MG/5 ML VIAL IVP ONE (07:39)
[2019-02-07] MEDS ORDERED: Insulin DETEMIR 100 UNIT/ML X5UNITS SQ STA (08:20)
[2019-02-07] MEDS: Insulin LISPRO 300 UNITS/3 ML VIAL SQ SCH ×4 (08:39→22:01)
[2019-02-07] MEDS: Aspirin 81 MG TAB.CHEW PO SCH (08:40)
[2019-02-07] MEDS ORDERED: NON-FORMULARY MEDICATION 1 EACH EACH (Alendronate Sodium [Fosamax] 70 MG) PO SCH (09:30)
--- NOTE | 2019-02-07 09:33 | Internal Med Progress Note ---
Hospitalist Progress Note - Encounter Date of Encounter: 02/07/19 Time of Encounter: 07:41 - Subjective Interval History: Was notified by nursing staff to come evaluate patient for acute respiratory distress. She stated the patient has been refusing care overnight-insulin despite blood sugar in the 400s, refusing her oxygenation therapy as well as BiPAP despite complaining of sob. According to the event note from last night patient wants extremely agitated and was noted by the night team to be anxious as such IV lorazepam was ordered for the patient. She also received additional dose of 60 mg of IV Solu Medrol due to her complaints of worsening shortness of breath. During my encounter with the patient she complained of not able to breathe she said "I am suffocating", bedside pulse oximetry initially was not recording due to her agitation and restlessness. A finger probe pulse ox reduced at 76% on nasal oxygen but improved with nonrebreather to 100%. As such the nonrebreather was subsequently discontinued given the patient's likely have advance COPD as such higher levels of PO2 would suppress respiratory drive. Notified staff that the goal pulse ox is 92-94%. Patient was also noted to be acute cardiac with heart rate as high as 144 as such she was administered 5 mg of metoprolol IV which brought her down to low 100s. A stat EKG and chest x-ray was ordered as well as repeat VBG. Of note her am labs were unremarkable except for blood glucose of 492 and A1c of 13.3-indicative of her noncompliance to diabetic regimen. Her EKG reveals sinus tachycardia, poor R-wave progression, stat chest x-ray reveals pulmonary edema. One-time dose of Lasix has been ordered. Patient did receive fluid boluses at the ED because she appeared dehydrated evident and a specific gravity of greater than 1. 03, she is +1.6 L we will monitor I's and O's Goals of care discussion was had with her sister at her bedside and her nurse. Sister can be reached at cell phone [phone], and HOME PHONE [phone], she stated that the patient does not have a POA and she does have children. Updated sister Ira about the treatment plan and patient's request of being left alone. Discussed with patient at palliative care as an option however in her current state of mind with hypoxia she is not deemed fit or medically competent to make these decisions, also explained to the patient and his sister that she has a treatable infection although in the setting of advanced likely end-stage COPD that she might need if you days of antimicrobial therapy and conservative treatment measures if she does not improve then we can reconsider palliative care discussion. Patient maintains that she does not want to be on life support she does not want to be intubated and giving her likely advanced COPD this is a reasonable choice because chances of her getting off the vent might be slim. Given that patient does not want to be intubated educated patient and her sister that the use of benzodiazepines could suppress her respiratory drive, as such might not be the ideal treatment for high restlessness and agitation which is likely secondary to combination of advanced COPD air hungar, and high-dose steroids which are known to cause agitation. On the interim discussed with nurse that we could try some Seroquel low dose, that patient on buspirone 5 mg 3 times a day and mid dose SSRI sertraline 50 mg for presumed anxiety - Exam Vitals: Temp Pulse Resp BP Pulse Ox 97.8 F 124 24 129/85 98 02/07/19 07:00 02/07/19 07:00 02/07/19 07:00 02/07/19 07:00 02/07/19 07:00 Exam: GEN: Distress female-sitting on her bed mouth breathing but with nasal cannula oxygen, restless A&Ox3, SKIN: Pale, cool acyanotic not jaundice HEART: RRR but tachycardic, no murmurs LUNGS: Diminished with minimal wheezing diffuse crackles labored respiration pulse lip breathing, no appreciable use of respiratory muscles of inspiration ABDOMEN; Soft, non tender or distended, BS x 4 normactive EXT: No LE edema, Pedal pulses 1+, radial pulses 2+ PSYCH: Mood anxious affect labile - Assessment and Plan (1) Acute respiratory distress Current Visit: Yes Status: Acute Assessment and Plan: Patient was having acute respiratory distress due to agitation she refused oxygen therapy which could have helped, likely exacerbated by underlying a dvanced COPD, pneumonia and high-dose steroids which made her agitated. During the encounter oxygenation improved with a nonrebreather mask although due to concerns for respiratory depression with high oxygenation, she was transitioned back to face mask. Of note patient is a mouth breather with pulse breathing as such not really a candidate for nasal cannula oxygenation. Goals of care discussion was made with the patient's sister Ira Cage she can be reached at [phone] cell phone; and her home phone [phone]. Please see the interval or history subjective info section above as per our conversation. (2) Sepsis Current Visit: Yes Status: Acute Assessment and Plan: Blood cultures are pending likely secondary to pneumonia see plan below. Overall she does not appear to be acutely ill riather chronically ill-she has no leukocytosis is afebrile and had tachycardia could be explained by agitation from high-dose steroid therapy in comanagement with her anxiety and air hunger. We will continue antibiotics as well as antifungal treatment for her recurrent pneumonia. limited with volume resuscitation given a recent EF of 35% noted on limited echo from December 2018 clinically correlate (3) Right middle lobe pneumonia Current Visit: Yes Status: Acute Assessment and Plan: recent hospitalization for pneumonia, loculated pleural effusion status post bronchoscopy-in December 2018 cultures were negative however both right upper and middle lobe did grow Lizabeth albicans likely contamination however given the recurrent nature and persistent pneumonia will empirically treat for presumed Lizabeth albicans pneumonia although rare given the persistent nature would like to cover for that organism. We will also empirically cover with vancomycin and Zosyn. We will attempt to obtain a sputum culture, check procalcitonin-was <0.02 really indicative of no pneumonia we will keep antimicrobial therapy for now given her worsening dyspnea today however stat CXR reveal pulmonary edema as such we will treat with Lasix and once she is can tolerate being supine we will order the CT scan chest. (4) Acute exacerbation of chronic obstructive airways disease Current Visit: Yes Status: Acute Assessment and Plan: due to pneumonia will treat with DuoNeb and intravenous Solu Medrol, however stat chest x-ray during her respiratory distress is suggestive of pulmonary edema would initiate diuresis with Lasix (5) DM type 2 (diabetes mellitus, type 2) Current Visit: Yes Status: Chronic Assessment and Plan: UA does reveal glucosuria will check A1c -13.3 indicative of a poorly controlled diabetic. wiil at basal insulin in addition to short acting insulin and hold her antidiabetic medications (6) Hypertension Current Visit: Yes Status: Chronic Assessment and Plan: Given that she is meeting criteria for sepsis, she may become hypotensive, will monitor closely (7) Congestive heart failure Current Visit: Yes Status: Resolved Assessment and Plan: The limited echo from December EF 35%, she does not be to be CHF exacerbation, but rather dehydrated, evident on exam and UA with specific gravity greater than 1.03. has received 0.85 L, will monitor clinically correlate with hold Lasix for now, however this morning patient became respiratory distress chest x-rays that revealed pulmonary edema would give one-time dose of Lasix IV and monitor strict I's and O's (8) DVT prophylaxis Current Visit: Yes Status: Acute - Time Spent with Patient Total time spent is greater than 50% in coordination of care (as documented) at patient's floor/unit and/or counseling patient: Internal Medicine: Result - Labs CBC & Chem 7: 02/07/19 06:22 02/07/19 06:22 Labs: Short CBC 02/06/19 02/07/19 Range/Units 15:35 06:22 WBC 7.4 10.1 (4.3-11.1) K/mcL Hgb 13.5 14.0 (11.5-15.4) g/dL Hct 41.9 44.2 (35.3-44.9) % Plt Count 203 241 (140-400) K/mcL Neutrophils # 5.8 8.2 (1.6-8.9) K/mcL BMP 02/06/19 02/07/19 15:35 06:22 Sodium 136 136 Potassium 4.4 4.4 Chloride 99 101 Carbon Dioxide 26 26 BUN 15 22 Creatinine 0.71 0.82 Glucose 425 H 399 H Calcium 9.4 8.9 Urine 02/06/19 Range/Units 14:00 Urine Color Yellow (Yellow) Urine Clarity Clear (Clear) Urine pH 5.5 (5.0-8.0) pH Units Ur Specific [place] > 1.030 H (1.010-1.025) Urine Protein Negative (Neg-Trace) mg/dL Urine Glucose (UA) >=1000 H (Normal) mg/dL - Impressions Impressions Chest X-Ray 02/07/19 07:46 IMPRESSION: Mild worsening of CHF/pulmonary edema. 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
[2019-02-07] MEDS ORDERED: Furosemide 40 MG/4 ML VIAL IVP ONE (09:49)
[2019-02-07] MEDS ORDERED: Furosemide 40 MG/4 ML VIAL ONE (09:53)
[2019-02-07] MEDS: Fluconazole 400 MG/200 ML 400 MG/200 ML BAG IVPB SCH (18:29)
[2019-02-07] MEDS ORDERED: Insulin DETEMIR 100 UNIT/ML X5UNITS SQ SCH (21:00)
[2019-02-07] MEDS: Pregabalin 50 MG CAPSULE PO SCH (21:48)
[2019-02-08] MEDS: Piperacillin/Tazobactam 3.375 GM in 0.9 % Sodium Chloride Mini Bag 100 ML IVPB SCH ×2 (00:33→13:43)
[2019-02-08 04:02] LABS: Basophils % 0.1 %; Hematocrit 40.6 % (35.3-44.9); Immature Granulocytes % 0.4 % (0-4); Lymphocytes # 0.9 K/mcL (0.6-4.6); Lymphocytes % 7.7 %; Mean Corpuscular Hemoglobin 28.2 pg (28.0-33.3); Mean Corpuscular Volume 88.1 fL (83.0-100.0); Mean Platelet Volume 11.7 fL (9.4-12.4); Monocytes # 0.5 K/mcL (0.0-1.3); Monocytes % 4.4 %; Neutrophils # 10.7 K/mcL (1.6-8.9); Platelet Count 208 K/mcL (140-400); Red Blood Count 4.61 M/mcL (3.82-4.97); Red Cell Distribution Width 15.2 % (11.5-14.5); Segmented Neutrophils % 87.4 %; White Blood Count 12.2 K/mcL (4.3-11.1)
[2019-02-08 04:03] LABS: VBG HCO3 32 mEq/L (21-27); VBG PCO2 64 mmHg (41-51); VBG PO2 55 mmHg (25-50)
[2019-02-08] MEDS: Ipratropium/Albuterol Neb 3 ML IH SCH ×4 (04:14→21:45)
[2019-02-08] MEDS: Lidocaine 4% CREAM (LMX) 5 GM TP PRN (04:21)
[2019-02-08 04:24] LABS: BUN/Creatinine Ratio 28 (6-26); Blood Urea Nitrogen 22 mg/dL (8-23); Calcium 8.7 mg/dL (8.6-10.3); Carbon Dioxide 32 mEq/L (23-29); Chloride 106 mEq/L (98-107); Glucose 78 mg/dL (70-105); Magnesium 1.8 mg/dL (1.6-2.6); Osmolality,Calculated 302 (280-300); Potassium 4.2 mEq/L (3.5-5.1); Sodium 145 mEq/L (136-145); eGFR For African Americans > 60 (> 60); eGFR For Non-African Americans > 60 (> 60)
[2019-02-08] MEDS: Ondansetron 4 MG/2 ML VIAL IVP PRN (05:32)
[2019-02-08] MEDS: *HR* Heparin 5,000 UNIT/ML VIAL SQ SCH ×3 (05:35→21:29)
[2019-02-08] MEDS ORDERED: Aminoglycoside Consult 1 EACH MC ONE (07:54)
[2019-02-08] MEDS ORDERED: Furosemide 20 MG TABLET PO SCH (09:00)
--- NOTE | 2019-02-08 09:05 | Internal Med Progress Note ---
Hospitalist Progress Note - Encounter Date of Encounter: 02/08/19 Time of Encounter: 08:00 - Subjective Interval History: Mrs. Vicente slept mostly yesterday after her acute respiratory distress which was estimated to primary edema. She is more awake and alert this morning she has no recollection of the events that occurred yesterday. Her daughter Yudi can be reached at [phone] was at the bedside. She does admit quitting tobacco use GEN: Denies fever, chills or malaise HEENT: Denies headache blurriness, or dysphagia RESP: reports slight improved SOB and persisted cough CV: Denies chest pain or palpitations GI: Reports Nausea, denies vomiting, diarrhea or constipation Reviewed current in hospital medications with modifications see orders Reviewed Routine labs - Exam Vitals: Temp Pulse Resp BP Pulse Ox 97.4 F L 92 18 103/72 96 02/08/19 07:41 02/08/19 07:41 02/08/19 07:41 02/08/19 07:41 02/08/19 07:41 Exam: GEN: No acute distress sitting comfortably in bed, A&O 3, daughter at bedside SKIN: [place], warm acyanotic not jaundice HEART: RRR but tachycardic, no murmurs LUNGS: Diminished with diffuse crackles mild wheeze ABDOMEN; Soft, non tender or distended, BS x 4 normactive EXT: No LE edema, Pedal pulses 1+, radial pulses 2+ PSYCH: Mood and affect is appropriate - Assessment and Plan (1) Acute respiratory distress Current Visit: Yes Status: Acute Assessment and Plan: Resolved although still guarded would obtain CT of the chest without contrast today to better delinate lung pathology Patient yesterday had acute respiratory distress due to agitation she refused oxygen therapy which could have helped, likely exacerbated by underlying advanced COPD, pneumonia and high-dose steroids which made her agitated. During the encounter oxygenation improved with a nonrebreather mask although due to concerns for respiratory depression with high oxygenation, she was transitioned back to face mask. Of note patient is a mouth breather with pulse breathing as such not really a candidate for nasal cannula oxygenation. Goals of care discussion was made with the patient's sister Ira Cage she can be reached at [phone] cell phone; and her home phone [phone]. Please see the interval or history subjective info section above as per our conversation. (2) Sepsis Current Visit: Yes Status: Acute Assessment and Plan: questionable if she was septic on presentation, was sent from urgent care due to pneumonia diagnosis was tachycardic and tachypneic but never had any leukocytosis on presentation. Leukocytosis today could be secondary to high- dose steroids. Continue to monitor clinically correlate. She is on empiric antimicrobial therapy with vancomycin, Zosyn and fluconazole was added on admission due to prior bronchoscopy BAL culture report revealed Lizabeth albicans. Although rare cause of pneumonia patient will be considered immunocompromised given her chronic history of prednisone use (3) Right middle lobe pneumonia Current Visit: Yes Status: Acute Assessment and Plan: recent hospitalization for pneumonia, loculated pleural effusion status post bronchoscopy-in December 2018 cultures were negative however both right upper and middle lobe did grow Lizabeth albicans likely contamination however given the recurrent nature and persistent pneumonia will empirically treat for presumed Lizabeth albicans pneumonia although rare given the persistent nature would like to cover for that organism. We will also empirically cover with vancomycin and Zosyn. We will attempt to obtain a sputum culture, check procalcitonin-was <0.02 really indicative of no pneumonia we will keep antimicrobial therapy for now given her worsening dyspnea today however stat CXR reveal pulmonary edema as such we will treat with Lasix. she can tolerate being supine we will order the CT scan chest today (4) Acute exacerbation of chronic obstructive airways disease Current Visit: Yes Status: Acute Assessment and Plan: likely secondary to pneumonia will treat with DuoNeb. She became quite agitated with intravenous Solu Medrol, would treat with prednisone 20 mg orally (5) DM type 2 (diabetes mellitus, type 2) Current Visit: Yes Status: Chronic Assessment and Plan: UA does reveal glucosuria on admission A1c -13.3 indicative of a poorly controlled diabetic, Although this am she claims she is compliant with her insulin regimen, her hx of intermittent chronic steroid therapy does complicate her glycemic control. We will need both basal insulin in addition to short act ing insulin and hold her antidiabetic medications (6) Hypertension Current Visit: Yes Status: Chronic Assessment and Plan: Normotensive (7) Congestive heart failure Current Visit: Yes Status: Resolved Assessment and Plan: The limited echo from December EF 35%, she does not be to be CHF exacerbation, but rather dehydrated, evident on exam and UA with specific gravity greater than 1.03. has received 0.85 L, although after receiving 1.6 L of fluid patient went into acute pulmonary edema she was treated with one-time dose of IV Lasix which improved acute respiratory distress. Of note patient has HFrEF which places her at increased risk for pulmonary edema would not consider her to be acute decompensated heart failure but rather chronic (8) DVT prophylaxis Current Visit: Yes Status: Acute Assessment and Plan: Heparin per protocol - Time Spent with Patient Total time spent is greater than 50% in coordination of care (as documented) at patient's floor/unit and/or counseling patient: Internal Medicine: Result - Labs CBC & Chem 7: 02/08/19 03:46 02/08/19 03:46 Labs: Short CBC 02/08/19 Range/Units 03:46 WBC 12.2 H (4.3-11.1) K/mcL Hgb 13.0 (11.5-15.4) g/dL Hct 40.6 (35.3-44.9) % Plt Count 208 (140-400) K/mcL Neutrophils # 10.7 H (1.6-8.9) K/mcL BMP 02/08/19 03:46 Sodium 145 D Potassium 4.2 Chloride 106 Carbon Dioxide 32 H BUN 22 Creatinine 0.79 Glucose 78 Calcium 8.7 Consult Discharge Plan - Plan Referrals: Court Stoner, VIDEO TECHNICIAN [Primary Care Provider] - (2) Sepsis Qualifiers: Sepsis type: sepsis due to unspecified organism Severe sepsis shock status: without septic shock (3) Right middle lobe pneumonia Qualifiers: Pneumonia type: due to unspecified organism Qualified Code(s): J18.1 - Lobar pneumonia, unspecified organism (5) DM type 2 (diabetes mellitus, type 2) Qualifiers: Diabetes mellitus terminal gauger supervisor insulin use: with detention use Diabetes mellitus complication status: with neurologic complications Diabetes mellitus complication detail: with polyneuropathy Qualified Code(s): 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 diabetes mellitus with diabetic polyneuropathy; Z79.4 - intermodal truck driver (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
[2019-02-08] MEDS ORDERED: Insulin DETEMIR 100 UNIT/ML X5UNITS SQ SCH (09:15)
[2019-02-08] MEDS: Insulin LISPRO 300 UNITS/3 ML VIAL SQ SCH ×3 (09:48→16:50)
[2019-02-08] MEDS: Pregabalin 50 MG CAPSULE PO SCH ×2 (10:01→21:29)
[2019-02-08] MEDS: Cholecalciferol (D-3) 1,000 UNIT (25MCG) TABLET PO SCH (10:01)
[2019-02-08] MEDS: Aspirin 81 MG TAB.CHEW PO SCH (10:02)
[2019-02-08] MEDS: predniSONE 20 MG TABLET PO SCH (10:02)
[2019-02-08] MEDS: Furosemide 40 MG TABLET PO SCH (10:02)
[2019-02-08] MEDS ORDERED: Piperacillin/Tazobactam 3.375 GM in 0.9 % Sodium Chloride Mini Bag 100 ML IVPB SCH (12:00)
--- NOTE | 2019-02-08 17:34 | Electrocardiograph Report ---
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
[2019-02-08] MEDS: Fluconazole 400 MG/200 ML 400 MG/200 ML BAG IVPB SCH (17:53)
[2019-02-08] MEDS: Budesonide Neb 0.5 MG/2 ML IH SCH ×2 (20:56→21:45)
[2019-02-09] MEDS: Piperacillin/Tazobactam 3.375 GM in 0.9 % Sodium Chloride Mini Bag 100 ML IVPB SCH ×2 (00:07→08:30)
[2019-02-09] MEDS: Ondansetron 4 MG/2 ML VIAL IVP PRN ×2 (03:28→08:30)
[2019-02-09 03:50] LABS: Basophils % 0.2 %; Eosinophils # 0.1 K/mcL (0.0-0.6); Eosinophils % 0.7 %; Hematocrit 41.9 % (35.3-44.9); Hemoglobin 12.8 g/dL (11.5-15.4); Immature Granulocytes % 0.4 % (0-4); Lymphocytes # 1.9 K/mcL (0.6-4.6); Lymphocytes % 17.4 %; Mean Corpuscular HGB Conc 30.5 g/dL (31.6-35.5); Mean Corpuscular Hemoglobin 28.7 pg (28.0-33.3); Mean Corpuscular Volume 93.9 fL (83.0-100.0); Mean Platelet Volume 12.1 fL (9.4-12.4); Monocytes # 0.6 K/mcL (0.0-1.3); Monocytes % 5.9 %; Neutrophils # 8.1 K/mcL (1.6-8.9); Platelet Count 190 K/mcL (140-400); Red Blood Count 4.46 M/mcL (3.82-4.97); Red Cell Distribution Width 15.6 % (11.5-14.5); Segmented Neutrophils % 75.4 %; White Blood Count 10.7 K/mcL (4.3-11.1)
[2019-02-09] MEDS: Ipratropium/Albuterol Neb 3 ML IH SCH ×4 (04:08→21:28)
[2019-02-09] MEDS: *HR* Heparin 5,000 UNIT/ML VIAL SQ SCH ×3 (04:51→21:02)
[2019-02-09 05:06] LABS: BUN/Creatinine Ratio 30 (6-26); Blood Urea Nitrogen 30 mg/dL (8-23); Calcium 8.4 mg/dL (8.6-10.3); Carbon Dioxide 32 mEq/L (23-29); Chloride 105 mEq/L (98-107); Glucose 286 mg/dL (70-105); Magnesium 1.7 mg/dL (1.6-2.6); Osmolality,Calculated 307 (280-300); Potassium 4.3 mEq/L (3.5-5.1); Sodium 140 mEq/L (136-145); eGFR For African Americans > 60 (> 60); eGFR For Non-African Americans 56 (> 60)
[2019-02-09] MEDS: Aspirin 81 MG TAB.CHEW PO SCH (08:32)
[2019-02-09] MEDS: Cholecalciferol (D-3) 1,000 UNIT (25MCG) TABLET PO SCH (08:32)
[2019-02-09] MEDS: Pregabalin 50 MG CAPSULE PO SCH ×2 (08:32→21:02)
[2019-02-09] MEDS: predniSONE 20 MG TABLET PO SCH (08:32)
[2019-02-09] MEDS: Insulin DETEMIR 100 UNIT/ML X5UNITS SQ SCH (08:33)
[2019-02-09] MEDS: Insulin LISPRO 300 UNITS/3 ML VIAL SQ SCH ×3 (08:34→16:54)
[2019-02-09] MEDS: Budesonide Neb 0.5 MG/2 ML IH SCH ×2 (09:59→21:28)
--- NOTE | 2019-02-09 12:54 | Internal Med Progress Note ---
Hospitalist Progress Note - Encounter Date of Encounter: 02/09/19 Time of Encounter: 10:00 - Subjective Interval History: Ms. Vicente continues to complain of dyspnea. Per nursing staff she was hypotensive as such we held her oral Lasix. Patient continues to complain of dyspnea despite saturating at 95% on 4 L explained to her sense of dyspnea is likely from her poor cardiac output with an EF of 35% based on last echo month ago. Discussed with her that her medical management has been optimized and that this does not appear to be bacterial pneumonia given that she has no leukocytosis afebrile and procal was normal. He does appear to have also a dvanced COPD as such she is exhibiting shunt physiology. On option will be lung volume reduction surgery which she might not considered a candidate for given extensive ischemic cardio myopathy. We will continue to optimize airway clearance she is maximized her medical management with regard to not able to tolerate diuresis likely not a candidate for spironolactone either. Discussed with patient she might benefit from digoxin GEN: Denies fever, chills or malaise HEENT: Denies headache blurriness, or dysphagia RESP: Admits to persistent dyspnea and SOB CV: Denies chest pain or palpitations GI: Denies Nausea, vomiting, diarrhea or constipation Reviewed current in hospital medications with modifications see orders Reviewed Routine labs - Exam Vitals: Temp Pulse Resp BP Pulse Ox 98.0 F 92 19 96/61 95 02/09/19 11:46 02/09/19 11:46 02/09/19 11:46 02/09/19 11:46 02/09/19 10:01 Exam: GEN: No acute distress sitting comfortably in bed, A&O 3, SKIN: [place], warm acyanotic not jaundice HEART: RRR no murmurs LUNGS: Diminished with diffuse crackles mild wheeze, nonlabored respiration ABDOMEN; Soft, non tender or distended, BS x 4 normactive EXT: No LE edema, Pedal pulses 1+, radial pulses 2+ PSYCH: Mood and affect is appropriate given the circumstance - Assessment and Plan (1) Acute respiratory distress Current Visit: Yes Status: Acute Assessment and Plan: CT of the chest without contrast revealed interstitial pulmonary edema and small bilateral pleural effusion passive atelectasis and bilateral lower lobe, new partial collapsed right middle lobe but similar to prior studies from December 2018. Discussed with patient that her sense of dyspnea stems from her extensive COPD coupled with her ischemic cardiomyopathy with an EF of 35% based on last echo. She reports being dyspneic but noted to be satting 95% on 4 L. Discussed possible options with the patient including long volume reduction surgery although she is approximately physical candidate given her ischemic cardio myopathy. Low threshold for these being bacterial pneumonia but rather atelectasis and physical deconditioning. We have maximized her respiratory management from a medication standpoint we have included air way clearance management. Budesonide neb was added, at this point would likely benefit from addition of digoxin to help with ischemic cardiomyopathy-heart failure with reduced ejection fraction. Patient yesterday had acute respiratory distress due to agitation she refused oxygen therapy which could have helped, likely exacerbated by underlying advanced COPD, pneumonia and high-dose steroids which made her agitated. During the encounter oxygenation improved with a nonrebreather mask although due to concerns for respiratory depression with high oxygenation, she was transitioned back to face mask. Of note patient is a mouth breather with pulse breathing as such not really a candidate for nasal cannula oxygenation. Goals of care discussion was made with the patient's sister Ira Cage she can be reached at [phone] cell phone; and her home phone [phone]. Please see the interval or history subjective info section above as per our conversation. (2) Sepsis Current Visit: Yes Status: Acute Assessment and Plan: See aforementioned plan of respiratory distress, patient likely not septic but rather decompensated heart failure and advanced likely end-stage COPD questionable if she was septic on presentation, was sent from urgent care due to pneumonia diagnosis was tachycardic and tachypneic but never had any leukocytosis on presentation. Leukocytosis today could be secondary to high- dose steroids. Continue to monitor clinically correlate. She is on empiric antimicrobial therapy with vancomycin, Zosyn and fluconazole was added on admission due to prior bronchoscopy BAL culture report revealed Lizabeth albicans. Although rare cause of pneumonia patient will be considered immunocompromised given her chronic history of prednisone use (3) Right middle lobe pneumonia Current Visit: Yes Status: Acute Assessment and Plan: Very unlikely to be bacterial pneumonia procal was negative. She is afebrile amaya s no leukocytosis was likely advanced slightly end-stage COPD. Will keep fluconazole for now and treat for a total of 7 days and DC Zosyn, vancomycin was DC'd yesterday. CT of the chest without contrast revealed interstitial pulmonary edema and small bilateral pleural effusion passive atelectasis and bilateral lower lobe, new partial collapsed right middle lobe but similar to prior studies from December 2018. Discussed with patient that her sense of dyspnea stems from her extensive COPD coupled with her ischemic cardiomyopathy with an EF of 35% based on last echo. She reports being dyspneic but noted to be satting 95% on 4 L. Discussed possible options with the patient including long volume reduction surgery although she is approximately physical candidate given her ischemic cardio myopathy. Low threshold for these being bacterial pneumonia but rather atelectasis and physical deconditioning. We have maximized her respiratory management from a medication standpoint we have included air way clearance management. Budesonide neb was added, at this point would likely benefit from addition of digoxin to help with ischemic cardiomyopathy-heart failure with reduced ejection fraction. recent hospitalization for pneumonia, loculated pleural effusion status post bronchoscopy-in December 2018 cultures were negative however both right upper and middle lobe did grow Lizabeth albicans likely contamination however given the recurrent nature and persistent pneumonia will empirically treat for presumed Lizabeth albicans pneumonia although rare given the persistent nature would like to cover for that organism. We will also empirically cover with vancomycin and Zosyn. We will attempt to obtain a sputum culture, check procalcitonin-was <0.02 really indicative of no pneumonia we will keep antimicrobial therapy for now given her worsening dyspnea today however stat CXR reveal pulmonary edema as such we will treat with Lasix. (4) Acute exacerbation of chronic obstructive airways disease Current Visit: Yes Status: Acute Assessment and Plan: patient's exacerbation is likely stems from her cardiac standpoint, pulmonary edema coupled with some anxiety and air hunger (5) DM type 2 (diabetes mellitus, type 2) Current Visit: Yes Status: Chronic Assessment and Plan: UA does reveal glucosuria on admission A1c -13.3 indicative of a poorly controlled diabetic, Although this am she claims she is compliant with her insulin regimen, her hx of intermittent chronic steroid therapy does complicate her glycemic control. We will need both basal insulin in addition to short acting insulin and hold her antidiabetic medications, POC is today ranges from 75-243 continue insulin therapy she is a poor diabetic and May have elements of brittle diabetes too (6) Hypertension Current Visit: Yes Status: Chronic Assessment and Plan: Patient was hypotensive today as such Lasix was held, Coreg twice a day but was also tachycardic yesterday as such will be hesitant in reducing Coreg dose (7) Congestive heart failure Current Visit: Yes Status: Resolved Assessment and Plan: The limited echo from December EF 35%, she does not be to be CHF exacerbation, but rather dehydrated, evident on exam and UA with specific gravity greater than 1.03. has received 0.85 L, although after receiving 1.6 L of fluid patient went into acute pulmonary edema she was treated with one-time dose of IV Lasix which improved acute respiratory distress. Of note patient has HFrEF which places her at increased risk for pulmonary edema would not consider her to be acute decompensated heart failure but rather chronic. Patient is unable to tolerate diuresis today and is very likely that her dyspnea is from poor cardiac output we cannot initiate spironolactone neither can we maximize her cardiovascular medications. She is an ideal candidate for digoxin to help with quality of life and a sense of being dyspneic, serum creatinine has been 0.71-1.0, we will initiate digoxin low-dose (8) DVT prophylaxis Current Visit: Yes Status: Acute Assessment and Plan: Heparin per protocol - Time Spent with Patient Total time spent is greater than 50% in coordination of care (as documented) at patient's floor/unit and/or counseling patient: Internal Medicine: Result - Labs CBC & Chem 7: 02/09/19 03:30 02/09/19 04:27 Labs: Short CBC 02/09/19 Range/Units 03:30 WBC 10.7 (4.3-11.1) K/mcL Hgb 12.8 (11.5-15.4) g/dL Hct 41.9 (35.3-44.9) % Plt Count 190 (140-400) K/mcL Neutrophils # 8.1 (1.6-8.9) K/mcL BMP 02/09/19 04:27 Sodium 140 Potassium 4.3 Chloride 105 Carbon Dioxide 32 H BUN 30 H Creatinine 1.00 Glucose 286 H Calcium 8.4 L Consult Discharge Plan - Plan Referrals: Court Stoner, ANDREAS [Primary Care Provider] - (2) Sepsis Qualifiers: Sepsis type: sepsis due to unspecified organism Severe sepsis shock status: without septic shock (3) Right middle lobe pneumonia Qualifiers: Pneumonia type: due to unspecified organism Qualified Code(s): J18.1 - Lobar pneumonia, unspecified organism (5) DM type 2 (diabetes mellitus, type 2) Qualifiers: Diabetes mellitus knitted cloth examiner insulin use: with retirement use Diabetes mellitus complication status: with neurologic complications Diabetes mellitus complication detail: with polyneuropathy Qualified Code(s): 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 diabetes mellitus with diabetic polyneuropathy; Z79.4 - outside sales executive (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
[2019-02-09] MEDS: *HR* Digoxin 0.125 MG TABLET PO SCH (14:06)
[2019-02-09] MEDS: Fluconazole 100 MG TABLET PO SCH (16:54)
[2019-02-09] MEDS ORDERED: Fluconazole 100 MG TABLET PO SCH ×4 (17:00)
[2019-02-10] MEDS: Ipratropium/Albuterol Neb 3 ML IH SCH ×4 (03:56→22:13)
[2019-02-10] MEDS: *HR* Heparin 5,000 UNIT/ML VIAL SQ SCH ×3 (06:07→20:10)
[2019-02-10 06:25] LABS: Basophils % 0.2 %; Eosinophils # 0.1 K/mcL (0.0-0.6); Eosinophils % 1.6 %; Hematocrit 41.6 % (35.3-44.9); Hemoglobin 12.4 g/dL (11.5-15.4); Immature Granulocytes % 0.4 % (0-4); Lymphocytes # 2.1 K/mcL (0.6-4.6); Lymphocytes % 24.6 %; Mean Corpuscular HGB Conc 29.8 g/dL (31.6-35.5); Mean Corpuscular Hemoglobin 28.6 pg (28.0-33.3); Mean Corpuscular Volume 95.9 fL (83.0-100.0); Mean Platelet Volume 11.7 fL (9.4-12.4); Monocytes # 0.7 K/mcL (0.0-1.3); Neutrophils # 5.5 K/mcL (1.6-8.9); Platelet Count 203 K/mcL (140-400); Red Blood Count 4.34 M/mcL (3.82-4.97); Red Cell Distribution Width 15.3 % (11.5-14.5); Segmented Neutrophils % 65.2 %; White Blood Count 8.4 K/mcL (4.3-11.1)
[2019-02-10 06:53] LABS: Calcium 9.2 mg/dL (8.6-10.3); Potassium 4.9 mEq/L (3.5-5.1)
--- NOTE | 2019-02-10 08:36 | Electrocardiograph Report ---
[place] [facility] Test Date: 2019-02-06 Pat Name: Mildred Vicente Department: EXAM12 Room: 2A34 Gender: F Production Floater: : 1955 Requested By: Bj Connor Order Number: [id number] Reading MD: Ceferino Cole Measurements Intervals [place] Rate: 120 P: 65 NH: 159 QRS: 84 QRSD: 98 T: 148 QT: 331 QTc: 468 Interpretive Statements Sinus tachycardia Consider right atrial enlargement Borderline right axis deviation Nonspecific T abnormalities, lateral leads Electronically Signed On 02-10-2019 8:35:13 EDT by Ceferino Cole
[2019-02-10] MEDS: predniSONE 20 MG TABLET PO SCH (08:56)
[2019-02-10] MEDS: Aspirin 81 MG TAB.CHEW PO SCH (08:56)
[2019-02-10] MEDS: Cholecalciferol (D-3) 1,000 UNIT (25MCG) TABLET PO SCH (08:56)
[2019-02-10] MEDS: Pregabalin 50 MG CAPSULE PO SCH ×2 (08:56→20:09)
[2019-02-10] MEDS: Fluconazole 100 MG TABLET PO SCH (08:56)
[2019-02-10] MEDS: *HR* Digoxin 0.125 MG TABLET PO SCH (08:57)
[2019-02-10] MEDS: Insulin LISPRO 300 UNITS/3 ML VIAL SQ SCH ×7 (08:58→20:10)
[2019-02-10] MEDS: Budesonide Neb 0.5 MG/2 ML IH SCH ×2 (09:51→22:13)
[2019-02-10] MEDS: Insulin DETEMIR 100 UNIT/ML X5UNITS SQ SCH (10:06)
--- NOTE | 2019-02-10 14:39 | Internal Med Progress Note ---
Hospitalist Progress Note - Encounter Date of Encounter: 02/10/19 Time of Encounter: 14:27 - Subjective Interval History: Patient continues to have shortness of breath. Remains on 4 L O2 supplementation via nasal cannula. Denies any chest pain. No fever reported overnight. No nausea or vomiting. Tolerating diet well. - Exam Vitals: Temp Pulse Resp BP Pulse Ox 97.9 F 98 19 105/69 99 02/10/19 11:32 02/10/19 11:32 02/10/19 11:32 02/10/19 11:32 02/10/19 09:51 Exam: General: Patient is alert, moderate distress, oriented x 3 Respiratory: Patient using accessory muscles. Diminished breath sounds bilaterally. End expiratory wheezing present Cardiovascular: Regular rate and rhythm. s1 and s2 normal No clicks, rubs, gallops, or murmurs. No pedal edema Abdomen: Abdomen is soft, nontender. Bowel sounds are present Musculoskeletal: Spontaneously moving all extremities Skin: warm, dry, intact. Neuro: Alert oriented x 3 normal cranial nerves, no focal deficits - Assessment and Plan (1) Acute exacerbation of chronic obstructive airways disease Current Visit: Yes Status: Acute (2) Hypertension Current Visit: Yes Status: Chronic (3) DM type 2 (diabetes mellitus, type 2) Current Visit: Yes Status: Chronic (4) Congestive heart failure Current Visit: Yes Status: Chronic (5) Right middle lobe pneumonia Current Visit: Yes Status: Acute (6) Sepsis Current Visit: Yes Status: Acute (7) DVT prophylaxis Current Visit: Yes Status: Acute (8) Acute respiratory distress Current Visit: Yes Status: Acute (9) Chronic respiratory failure with hypoxia Current Visit: Yes Status: Chronic DVT Prophylaxis: On subcutaneous heparin - Summary of Assessment and Plan Summary of Assessment and Plan: Acute on chronic hypoxic respiratory failure: Continue O2 supplementation. Continue to treat underlying COPD and pneumonia. Sepsis and right middle lobe Pneumonia: Likely fungal etiology based on prior BAL. On fluconazole. COPD exacerbation: Continue prednisone taper, bronchodilators and O2 supplementation. Chronic systolic congestive heart failure: Not in acute exacerbation. Creatinine worsened today. We will hold Lasix. Diabetes mellitus type 2: Blood sugars are uncontrolled. Will increase insulin regimen. Essential hypertension: Blood pressure is well controlled. Goals of care: Patient is DNR/DNI. Discussed palliative care and possible hospice with patient and family. Not considering hospice at this time. - Time Spent with Patient Total time spent is greater than 50% in coordination of care (as documented) at patient's floor/unit and/or counseling patient: Internal Medicine: Result - Labs CBC & Chem 7: 02/10/19 06:00 02/10/19 06:00 Labs: Short CBC 02/10/19 Range/Units 06:00 WBC 8.4 (4.3-11.1) K/mcL Hgb 12.4 (11.5-15.4) g/dL Hct 41.6 (35.3-44.9) % Plt Count 203 (140-400) K/mcL Neutrophils # 5.5 (1.6-8.9) K/mcL BMP 02/10/19 06:00 Sodium 142 Potassium 4.9 Chloride 102 Carbon Dioxide 36 H BUN 28 H Creatinine 1.23 H Glucose 383 H Calcium 9.2 Consult Discharge Plan - Plan Referrals: Court Stoner, SPINDLE SETTER [Primary Care Provider] - ____ (2) Hypertension Qualifiers: Hypertension type: essential hypertension Qualified Code(s): I10 - Essential (primary) hypertension (3) DM type 2 (diabetes mellitus, type 2) Qualifiers: Diabetes mellitus terminal press operator insulin use: with group home use Diabetes mellitus complication status: with neurologic complications Diabetes mellitus complication detail: with polyneuropathy Qualified Code(s): 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 diabetes mellitus with diabetic polyneuropathy; Z79.4 - halfway (current) use of insulin (4) Congestive heart failure Qualifiers: Heart failure type: systolic Heart failure chronicity: acute Qualified Code(s): I50.21 - Acute systolic (congestive) heart failure (5) Right middle lobe pneumonia Qualifiers: Pneumonia type: due to unspecified organism Qualified Code(s): J18.1 - Lobar pneumonia, unspecified organism (6) Sepsis Qualifiers: Sepsis type: sepsis due to unspecified organism Severe sepsis shock status: w ithout septic shock
[2019-02-11] MEDS: Ipratropium/Albuterol Neb 3 ML IH SCH ×4 (04:05→23:04)
[2019-02-11] MEDS: *HR* Heparin 5,000 UNIT/ML VIAL SQ SCH ×3 (05:04→21:06)
[2019-02-11 06:35] LABS: BUN/Creatinine Ratio 29 (6-26); Blood Urea Nitrogen 25 mg/dL (8-23); Carbon Dioxide 37 mEq/L (23-29); Chloride 99 mEq/L (98-107); Glucose 313 mg/dL (70-105); Osmolality,Calculated 308 (280-300); Potassium 4.9 mEq/L (3.5-5.1); Sodium 141 mEq/L (136-145); eGFR For African Americans > 60 (> 60); eGFR For Non-African Americans > 60 (> 60)
[2019-02-11] MEDS: Insulin LISPRO 300 UNITS/3 ML VIAL SQ SCH ×7 (09:13→21:11)
[2019-02-11] MEDS: *HR* Digoxin 0.125 MG TABLET PO SCH (09:15)
[2019-02-11] MEDS: Fluconazole 100 MG TABLET PO SCH (09:15)
[2019-02-11] MEDS: predniSONE 20 MG TABLET PO SCH (09:15)
[2019-02-11] MEDS: Pregabalin 50 MG CAPSULE PO SCH ×2 (09:16→21:05)
[2019-02-11] MEDS: Cholecalciferol (D-3) 1,000 UNIT (25MCG) TABLET PO SCH (09:16)
[2019-02-11] MEDS: Aspirin 81 MG TAB.CHEW PO SCH (09:16)
[2019-02-11] MEDS: Budesonide Neb 0.5 MG/2 ML IH SCH ×2 (09:59→23:04)
[2019-02-11] MEDS: Insulin DETEMIR 100 UNIT/ML X5UNITS SQ SCH ×2 (12:44→21:05)
--- NOTE | 2019-02-11 14:37 | Internal Med Progress Note ---
Hospitalist Progress Note - Encounter Date of Encounter: 02/11/19 Time of Encounter: 10:50 - Subjective Interval History: Patient lying down in bed. Remained stable. Complaints of nausea today. No fevers or chills reported overnight. No chest pain. Shortness of breath is stable. - Exam Vitals: Temp Pulse Resp BP Pulse Ox 97.9 F 88 18 105/71 93 02/11/19 11:26 02/11/19 11:26 02/11/19 11:26 02/11/19 11:26 02/11/19 11:26 Exam: General: Patient is alert, mild distress, oriented x 3 Respiratory: Bilateral end expiratory wheezing and prolonged expiratory phase Cardiovascular: Regular rate and rhythm. s1 and s2 normal No clicks, rubs, gallops, or murmurs. No pedal edema Abdomen: Abdomen is soft, nontender. Bowel sounds are present Musculoskeletal: Spontaneously moving all extremities Skin: warm, dry, intact. Neuro: Alert oriented x 3 normal cranial nerves, no focal deficits - Assessment and Plan (1) Acute exacerbation of chronic obstructive airways disease Current Visit: Yes Status: Acute (2) Hypertension Current Visit: Yes Status: Chronic (3) DM type 2 (diabetes mellitus, type 2) Current Visit: Yes Status: Chronic (4) Congestive heart failure Current Visit: Yes Status: Chronic (5) Right middle lobe pneumonia Current Visit: Yes Status: Acute (6) Sepsis Current Visit: Yes Status: Acute (7) DVT prophylaxis Current Visit: Yes Status: Acute (8) Acute respiratory distress Current Visit: Yes Status: Acute (9) Chronic respiratory failure with hypoxia Current Visit: Yes Status: Chronic DVT Prophylaxis: On subcutaneous heparin - Summary of Assessment and Plan Summary of Assessment and Plan: Acute on chronic hypoxic respiratory failure: Continue O2 supplementation. Patient requiring between 2-4 L O2 supplementation. Continue to treat un derlying COPD and pneumonia. Sepsis and right middle lobe Pneumonia: Continue fluconazole. Will transition to oral dose COPD exacerbation: Continue prednisone taper, bronchodilators and O2 suppleme ntation. Chronic systolic congestive heart failure: Not in acute exacerbation. Continue to hold Lasix. Creatinine normalized now. Acute kidney injury: Improved. Creatinine normal Diabetes mellitus type 2: Improved control. But remain elevated. Will increase Levemir to 10 units twice a day. Essential hypertension: Blood pressure remains well controlled. Goals of care: Patient is DNR/DNI. Discussed palliative care and possible hospice with patient and family. Not considering hospice at this time. - Time Spent with Patient Total time spent is greater than 50% in coordination of care (as documented) at patient's floor/unit and/or counseling patient: Internal Medicine: Result - Labs CBC & Chem 7: 02/10/19 06:00 02/11/19 05:05 Labs: BMP 02/11/19 05:05 Sodium 141 Potassium 4.9 Chloride 99 Carbon Dioxide 37 H BUN 25 H Creatinine 0.85 Glucose 313 H Calcium 9.0 Consult Discharge Plan - Plan Referrals: Court Stoner CNP [Primary Care Provider] - (2) Hypertension Qualifiers: Hypertension type: essential hypertension Qualified Code(s): I10 - Essential (primary) hypertension (3) DM type 2 (diabetes mellitus, type 2) Qualifiers: Diabetes mellitus termite exterminator insulin use: with termite exterminator use Diabetes mellitus complication status: with neurologic complications Diabetes mellitus complication detail: with polyneuropathy Qualified Code(s): 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 diabetes mellitus with diabetic polyneuropathy; Z79.4 - intermediate (current) use of insulin (4) Congestive heart failure Qualifiers: Heart failure type: systolic Heart failure chronicity: acute Qualified Code(s): I50.21 - Acute systolic (congestive) heart failure (5) Right middle lobe pneumonia Qualifiers: Pneumonia type: due to unspecified organism Qualified Code(s): J18.1 - Lobar pneumonia, unspecified organism (6) Sepsis Qualifiers: Sepsis type: sepsis due to unspecified organism Severe sepsis shock status: without septic shock
[2019-02-12] MEDS: Ipratropium/Albuterol Neb 3 ML IH SCH ×4 (04:13→22:07)
[2019-02-12] MEDS: *HR* Heparin 5,000 UNIT/ML VIAL SQ SCH ×3 (04:55→21:22)
[2019-02-12 05:10] LABS: Hematocrit 41.4 % (35.3-44.9); Hemoglobin 12.7 g/dL (11.5-15.4); Mean Corpuscular HGB Conc 30.7 g/dL (31.6-35.5); Mean Corpuscular Hemoglobin 28.3 pg (28.0-33.3); Mean Corpuscular Volume 92.2 fL (83.0-100.0); Mean Platelet Volume 11.8 fL (9.4-12.4); Platelet Count 184 K/mcL (140-400); Red Blood Count 4.49 M/mcL (3.82-4.97); Red Cell Distribution Width 14.8 % (11.5-14.5); White Blood Count 7.5 K/mcL (4.3-11.1)
[2019-02-12 05:35] LABS: BUN/Creatinine Ratio 26 (6-26); Blood Urea Nitrogen 20 mg/dL (8-23); Calcium 9.3 mg/dL (8.6-10.3); Carbon Dioxide 42 mEq/L (23-29); Chloride 97 mEq/L (98-107); Glucose 226 mg/dL (70-105); Osmolality,Calculated 302 (280-300); Potassium 4.8 mEq/L (3.5-5.1); Sodium 141 mEq/L (136-145); eGFR For African Americans > 60 (> 60); eGFR For Non-African Americans > 60 (> 60)
[2019-02-12] MEDS: Budesonide Neb 0.5 MG/2 ML IH SCH ×2 (09:36→22:07)
[2019-02-12] MEDS: Insulin LISPRO 300 UNITS/3 ML VIAL SQ SCH ×6 (09:41→23:02)
[2019-02-12] MEDS: Fluconazole 100 MG TABLET PO SCH (09:42)
[2019-02-12] MEDS: Pregabalin 50 MG CAPSULE PO SCH ×2 (09:42→21:21)
[2019-02-12] MEDS: Cholecalciferol (D-3) 1,000 UNIT (25MCG) TABLET PO SCH (09:42)
[2019-02-12] MEDS: predniSONE 20 MG TABLET PO SCH (09:42)
[2019-02-12] MEDS: *HR* Digoxin 0.125 MG TABLET PO SCH (09:42)
[2019-02-12] MEDS: Aspirin 81 MG TAB.CHEW PO SCH (09:43)
[2019-02-12] MEDS: Insulin DETEMIR 100 UNIT/ML X5UNITS SQ SCH ×2 (09:47→21:22)
--- NOTE | 2019-02-12 14:08 | Internal Med Progress Note ---
Hospitalist Progress Note - Encounter Date of Encounter: 02/12/19 Time of Encounter: 14:06 - Subjective Interval History: Evaluated patient earlier today. Lying down in bed. Comfortable denies any chest pain or palpitations. Nausea improved. Shortness of breath is stable. - Exam Vitals: Temp Pulse Resp BP Pulse Ox 97.4 F L 73 16 102/62 93 02/12/19 12:28 02/12/19 12:28 02/12/19 12:28 02/12/19 12:28 02/12/19 12:28 Exam: General: Patient is alert, mild distress, oriented x 3 Respiratory: Improved air entry bilaterally. Minimal wheezing Cardiovascular: Regular rate and rhythm. s1 and s2 normal No clicks, rubs, gallops, or murmurs. No pedal edema Abdomen: Abdomen is soft, nontender. Bowel sounds are present Musculoskeletal: Spontaneously moving all extremities Skin: warm, dry, intact. Neuro: Alert oriented x 3 normal cranial nerves, no focal deficits - Assessment and Plan (1) Acute exacerbation of chronic obstructive airways disease Current Visit: Yes Status: Acute (2) Hypertension Current Visit: Yes Status: Chronic (3) DM type 2 (diabetes mellitus, type 2) Current Visit: Yes Status: Chronic (4) Congestive heart failure Current Visit: Yes Status: Chronic (5) Right middle lobe pneumonia Current Visit: Yes Status: Acute (6) Sepsis Current Visit: Yes Status: Acute (7) DVT prophylaxis Current Visit: Yes Status: Acute (8) Acute respiratory distress Current Visit: Yes Status: Acute (9) Chronic respiratory failure with hypoxia Current Visit: Yes Status: Chronic DVT Prophylaxis: On subcutaneous heparin - Summary of Assessment and Plan Summary of Assessment and Plan: Acute on chronic hypoxic/hypercapnic respiratory failure: Continue O2 s upplementation. Stable. On 3 L nasal cannulae tolerating well. Sepsis and right middle lobe Pneumonia: Most likely fungal based on prior BAL cultures. Completed course of fluconazole today. COPD exacerbation: Continue bronchodilators and O2 supplementation. Prednisone course completed. Chronic systolic congestive heart failure: Will resume Lasix as creatinine normal. Metabolic alkalosis: Likely chronic due to underlying COPD and hypercapnia Acute kidney injury: Resolved. Diabetes mellitus type 2: Improved but patient had a blood glucose of 66 this afternoon. Will decrease long-acting insulin dosage and also stop additional nutritional coverage. Continue sliding scale coverage. Essential hypertension: Blood pressure remains well controlled. Goals of care: Patient is DNR/DNI. Awaiting placement. - Time Spent with Patient Total time spent is greater than 50% in coordination of care (as documented) at patient's floor/unit and/or counseling patient: Internal Medicine: Result - Labs CBC & Chem 7: 02/12/19 04:50 02/12/19 04:50 Labs: Short CBC 02/12/19 Range/Units 04:50 WBC 7.5 (4.3-11.1) K/mcL Hgb 12.7 (11.5-15.4) g/dL Hct 41.4 (35.3-44.9) % Plt Count 184 (140-400) K/mcL BMP 02/12/19 04:50 Sodium 141 Potassium 4.8 Chloride 97 L Carbon Dioxide 42 H* BUN 20 Creatinine 0.77 Glucose 226 H Calcium 9.3 Consult Discharge Plan - Plan Referrals: Court Stoner, MAIL PROCESSOR [Primary Care Provider] - (2) Hypertension Qualifiers: Hypertension type: essential hypertension Qualified Code(s): I10 - Essential (primary) hypertension (3) DM type 2 (diabetes mellitus, type 2) Qualifiers: Diabetes mellitus exterminator helper termite insulin use: with exterminator helper termite use Diabetes mellitus complication status: with neurologic complications Diabetes mellitus complication detail: with polyneuropathy Qualified Code(s): 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 diabetes mellitus with diabetic polyneuropathy; Z79.4 - residential (current) use of insulin (4) Congestive heart failure Qualifiers: Heart failure type: systolic Heart failure chronicity: acute Qualified Code(s): I50.21 - Acute systolic (congestive) heart failure (5) Right middle lobe pneumonia Qualifiers: Pneumonia type: due to unspecified organism Qualified Code(s): J18.1 - Lobar pneumonia, unspecified organism (6) Sepsis Qualifiers: Sepsis type: sepsis due to unspecified organism Severe sepsis shock status: without septic shock
[2019-02-13] MEDS: Ipratropium/Albuterol Neb 3 ML IH SCH ×4 (04:07→22:26)
[2019-02-13 05:32] LABS: Hematocrit 40.7 % (35.3-44.9); Hemoglobin 12.6 g/dL (11.5-15.4); Mean Corpuscular Volume 90.4 fL (83.0-100.0); Mean Platelet Volume 11.6 fL (9.4-12.4); Platelet Count 191 K/mcL (140-400); Red Cell Distribution Width 14.8 % (11.5-14.5); White Blood Count 7.4 K/mcL (4.3-11.1)
[2019-02-13] MEDS: *HR* Heparin 5,000 UNIT/ML VIAL SQ SCH ×3 (05:45→21:10)
[2019-02-13 05:52] LABS: BUN/Creatinine Ratio 28 (6-26); Blood Urea Nitrogen 24 mg/dL (8-23); Carbon Dioxide 41 mEq/L (23-29); Chloride 97 mEq/L (98-107); Glucose 270 mg/dL (70-105); Osmolality,Calculated 308 (280-300); Potassium 4.5 mEq/L (3.5-5.1); Sodium 142 mEq/L (136-145); eGFR For African Americans > 60 (> 60); eGFR For Non-African Americans > 60 (> 60)
[2019-02-13] MEDS: Insulin LISPRO 300 UNITS/3 ML VIAL SQ SCH ×4 (08:22→20:51)
[2019-02-13] MEDS: Furosemide 40 MG TABLET PO SCH (08:22)
[2019-02-13] MEDS: Cholecalciferol (D-3) 1,000 UNIT (25MCG) TABLET PO SCH (08:22)
[2019-02-13] MEDS: predniSONE 20 MG TABLET PO SCH (08:22)
[2019-02-13] MEDS: Pregabalin 50 MG CAPSULE PO SCH ×2 (08:23→20:50)
[2019-02-13] MEDS: *HR* Digoxin 0.125 MG TABLET PO SCH (08:23)
[2019-02-13] MEDS: Aspirin 81 MG TAB.CHEW PO SCH (08:23)
[2019-02-13] MEDS: Insulin DETEMIR 100 UNIT/ML X5UNITS SQ SCH ×2 (08:31→20:51)
[2019-02-13] MEDS: Budesonide Neb 0.5 MG/2 ML IH SCH ×2 (10:41→22:26)
--- NOTE | 2019-02-13 11:23 | Internal Med Progress Note ---
Hospitalist Progress Note - Encounter Date of Encounter: 02/13/19 Time of Encounter: 11:20 - Subjective Interval History: Patient is awake and alert. Comfortable. Denies any new complaints. She states that she would like to take a walk on the unit with help he had no chest pain or palpitations. No significant shortness of breath - Exam Vitals: Temp Pulse Resp BP Pulse Ox 97.9 F 78 16 119/77 92 02/13/19 07:34 02/13/19 07:34 02/13/19 10:42 02/13/19 07:34 02/13/19 10:42 Exam: General: Patient is alert, mild distress, oriented x 3 Respiratory: Prolonged expiratory phase, mild bilateral wheezing Cardiovascular: Regular rate and rhythm. s1 and s2 normal No clicks, rubs, gallops, or murmurs. No pedal edema Abdomen: Abdomen is soft, nontender. Bowel sounds are present Musculoskeletal: Spontaneously moving all extremities Skin: warm, dry, intact. Neuro: Alert oriented x 3 normal cranial nerves, no focal deficits - Assessment and Plan (1) Acute exacerbation of chronic obstructive airways disease Current Visit: Yes Status: Acute (2) Hypertension Current Visit: Yes Status: Chronic (3) DM type 2 (diabetes mellitus, type 2) Current Visit: Yes Status: Chronic (4) Congestive heart failure Current Visit: Yes Status: Chronic (5) Right middle lobe pneumonia Current Visit: Yes Status: Acute (6) Sepsis Current Visit: Yes Status: Acute (7) DVT prophylaxis Current Visit: Yes Status: Acute (8) Acute respiratory distress Current Visit: Yes Status: Resolved (9) Chronic respiratory failure with hypoxia Current Visit: Yes Status: Chronic DVT Prophylaxis: On subcutaneous heparin - Summary of Assessment and Plan Summary of Assessment and Plan: Acute on chronic hypoxic/hypercapnic respiratory failure: Stable. Doing well overall. Continue 3 L O2 supplementation. Sepsis and right middle lobe Pneumonia: Patient has completed course of fluconazole. COPD exacerbation: Continue bronchodilators and O2 supplementation. Exacerbation appears to have resolved now. Chronic systolic congestive heart failure: Resume Lasix. Metabolic alkalosis: Likely chronic due to underlying COPD and hypercapnia Acute kidney injury: Resolved. Diabetes mellitus type 2: No further episodes of hypoglycemia. Blood sugars are elevated today. Continue current insulin regimen for now. We will reevaluate later today and adjust insulin regimen further. Essential hypertension: Blood pressure remains well controlled. Goals of care: Patient is DNR/DNI. Awaiting placement. - Time Spent with Patient Total time spent is greater than 50% in coordination of care (as documented) at patient's floor/unit and/or counseling patient: Internal Medicine: Result - Labs CBC & Chem 7: 02/13/19 05:10 02/13/19 05:10 Labs: Short CBC 02/13/19 Range/Units 05:10 WBC 7.4 (4.3-11.1) K/mcL Hgb 12.6 (11.5-15.4) g/dL Hct 40.7 (35.3-44.9) % Plt Count 191 (140-400) K/mcL BMP 02/13/19 05:10 Sodium 142 Potassium 4.5 Chloride 97 L Carbon Dioxide 41 H* BUN 24 H Creatinine 0.85 Glucose 270 H Calcium 9.0 Consult Discharge Plan - Plan Referrals: Court Stoner, [employer] [Primary Care Provider] - (2) Hypertension Qualifiers: Hypertension type: essential hypertension Qualified Code(s): I10 - Essential (primary) hypertension (3) DM type 2 (diabetes mellitus, type 2) Qualifiers: Diabetes mellitus custodial insulin use: with custodial use Diabetes mellitus complication status: with neurologic complications Diabetes mellitus complication detail: with polyneuropathy Qualified Code(s): 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 diabetes mellitus with diabetic polyneuropathy; Z79.4 - nursing home (current) use of 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
[2019-02-14] MEDS: Ipratropium/Albuterol Neb 3 ML IH SCH ×4 (04:05→22:10)
[2019-02-14] MEDS: *HR* Heparin 5,000 UNIT/ML VIAL SQ SCH ×3 (06:33→22:56)
[2019-02-14 06:34] LABS: Hematocrit 41.6 % (35.3-44.9); Hemoglobin 13.3 g/dL (11.5-15.4); Mean Corpuscular Hemoglobin 28.8 pg (28.0-33.3); Mean Platelet Volume 11.7 fL (9.4-12.4); Platelet Count 197 K/mcL (140-400); Red Blood Count 4.62 M/mcL (3.82-4.97); White Blood Count 7.9 K/mcL (4.3-11.1)
[2019-02-14 07:02] LABS: BUN/Creatinine Ratio 29 (6-26); Blood Urea Nitrogen 22 mg/dL (8-23); Calcium 8.9 mg/dL (8.6-10.3); Carbon Dioxide 42 mEq/L (23-29); Chloride 95 mEq/L (98-107); Glucose 234 mg/dL (70-105); Osmolality,Calculated 307 (280-300); Sodium 143 mEq/L (136-145); eGFR For African Americans > 60 (> 60); eGFR For Non-African Americans > 60 (> 60)
[2019-02-14] MEDS: Cholecalciferol (D-3) 1,000 UNIT (25MCG) TABLET PO SCH (09:34)
[2019-02-14] MEDS: predniSONE 20 MG TABLET PO SCH (09:34)
[2019-02-14] MEDS: Pregabalin 50 MG CAPSULE PO SCH ×2 (09:35→22:56)
[2019-02-14] MEDS: Aspirin 81 MG TAB.CHEW PO SCH (09:35)
[2019-02-14] MEDS: Furosemide 40 MG TABLET PO SCH (09:35)
[2019-02-14] MEDS: *HR* Digoxin 0.125 MG TABLET PO SCH (09:35)
[2019-02-14] MEDS: Insulin DETEMIR 100 UNIT/ML X5UNITS SQ SCH ×2 (09:36→22:56)
[2019-02-14] MEDS: Insulin LISPRO 300 UNITS/3 ML VIAL SQ SCH ×4 (09:37→22:55)
[2019-02-14] MEDS: Budesonide Neb 0.5 MG/2 ML IH SCH ×2 (11:12→22:10)
--- NOTE | 2019-02-14 13:20 | Internal Med Progress Note ---
Hospitalist Progress Note - Encounter Date of Encounter: 02/14/19 Time of Encounter: 10:30 - Subjective Interval History: Patient is awake and alert. Denies any new complaints. No acute issues overnight. No chest pain or palpitations. Shortness of breath improved. - Exam Vitals: Temp Pulse Resp BP Pulse Ox 98.6 F 83 16 101/65 91 02/14/19 12:00 02/14/19 12:00 02/14/19 12:00 02/14/19 12:00 02/14/19 12:00 Exam: General: Patient is alert, no acute distress, oriented x 3 Respiratory: Improved air entry bilaterally. Minimal bilateral wheezing. Prolonged expiratory phase Cardiovascular: Regular rate and rhythm. s1 and s2 normal No clicks, rubs, gallops, or murmurs. No pedal edema Abdomen: Abdomen is soft, nontender. Bowel sounds are present Musculoskeletal: Spontaneously moving all extremities Skin: warm, dry, intact. Neuro: Alert oriented x 3 normal cranial nerves, no focal deficits - Assessment and Plan (1) Acute exacerbation of chronic obstructive airways disease Current Visit: Yes Status: Acute (2) Hypertension Current Visit: Yes Status: Chronic (3) DM type 2 (diabetes mellitus, type 2) Current Visit: Yes Status: Chronic (4) Congestive heart failure Current Visit: Yes Status: Chronic (5) Right middle lobe pneumonia Current Visit: Yes Status: Acute (6) Sepsis Current Visit: Yes Status: Acute (7) DVT prophylaxis Current Visit: Yes Status: Acute (8) Acute respiratory distress Current Visit: Yes Status: Resolved (9) Chronic respiratory failure with hypoxia Current Visit: Yes Status: Chronic DVT Prophylaxis: On subcutaneous heparin - Summary of Assessment and Plan Summary of Assessment and Plan: Acute on chronic hypoxic/hypercapnic respiratory failure: Stable. Doing well overall. Continue 3 L O2 supplementation. Awaiting placement. Sepsis and right middle lobe Pneumonia: Possibly candidal pneumonia. Completed fluconazole course. COPD exacerbation: Continue bronchodilators and O2 supplementation. Exacerbation appears to have resolved now. Prednisone course completed. Chronic systolic congestive heart failure: Resume Lasix. Not in acute exacerbation. Metabolic alkalosis: Likely chronic due to underlying COPD and hypercapnia Acute kidney injury: Resolved. Diabetes mellitus type 2: Blood sugars remain elevated. We will increase long- acting insulin coverage. Continue current sliding scale. Essential hypertension: Blood pressure remains well controlled. Goals of care: Patient is DNR/DNI. Awaiting placement. - Time Spent with Patient Total time spent is greater than 50% in coordination of care (as documented) at patient's floor/unit and/or counseling patient: Internal Medicine: Result - Labs CBC & Chem 7: 02/14/19 04:00 02/14/19 04:00 Labs: Short CBC 02/14/19 Range/Units 04:00 WBC 7.9 (4.3-11.1) K/mcL Hgb 13.3 (11.5-15.4) g/dL Hct 41.6 (35.3-44.9) % Plt Count 197 (140-400) K/mcL BMP 02/14/19 04:00 Sodium 143 Potassium 4.0 Chloride 95 L Carbon Dioxide 42 H* BUN 22 Creatinine 0.76 Glucose 234 H Calcium 8.9 Consult Discharge Plan - Plan Referrals: Court Stoner CNP [Primary Care Provider] - __ (2) Hypertension Qualifiers: Hypertension type: essential hypertension Qualified Code(s): I10 - Essential (primary) hypertension (3) DM type 2 (diabetes mellitus, type 2) Qualifiers: 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 insulin use: with jail use Diabetes mellitus complication status: with neurologic complications Diabetes mellitus complication detail: with polyneuropathy Qualified Code(s): 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 diabetes mellitus with diabetic polyneuropathy; 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
[2019-02-15] MEDS: Ipratropium/Albuterol Neb 3 ML IH SCH ×4 (03:37→21:45)
[2019-02-15] MEDS: Insulin DETEMIR 100 UNIT/ML X5UNITS SQ SCH ×2 (08:42→22:18)
[2019-02-15] MEDS: Cholecalciferol (D-3) 1,000 UNIT (25MCG) TABLET PO SCH (08:42)
[2019-02-15] MEDS: Aspirin 81 MG TAB.CHEW PO SCH (08:42)
[2019-02-15] MEDS: predniSONE 20 MG TABLET PO SCH (08:42)
[2019-02-15] MEDS: Furosemide 40 MG TABLET PO SCH (08:43)
[2019-02-15] MEDS: Pregabalin 50 MG CAPSULE PO SCH ×2 (08:43→22:19)
[2019-02-15] MEDS: *HR* Digoxin 0.125 MG TABLET PO SCH (08:43)
[2019-02-15] MEDS: *HR* Heparin 5,000 UNIT/ML VIAL SQ SCH ×3 (08:44→22:19)
[2019-02-15] MEDS: Insulin LISPRO 300 UNITS/3 ML VIAL SQ SCH ×6 (08:45→22:18)
[2019-02-15] MEDS: Budesonide Neb 0.5 MG/2 ML IH SCH ×2 (10:09→21:45)
--- NOTE | 2019-02-15 10:58 | Internal Med Progress Note ---
<[email or web address] - Last Filed: 02/15/19 13:48> Hospitalist Progress Note - Encounter Date of Encounter: 02/15/19 Time of Encounter: 13:50 - Exam Vitals: Temp Pulse Resp BP Pulse Ox 97.7 F 80 17 93/57 90 02/15/19 11:38 02/15/19 11:38 02/15/19 11:38 02/15/19 11:38 02/15/19 04:21 - Assessment and Plan (1) Acute exacerbation of chronic obstructive airways disease Current Visit: Yes Status: Acute (2) Hypertension Current Visit: Yes Status: Chronic (3) DM type 2 (diabetes mellitus, type 2) Current Visit: Yes Status: Chronic (4) Congestive heart failure Current Visit: Yes Status: Chronic (5) Right middle lobe pneumonia Current Visit: Yes Status: Acute (6) Sepsis Current Visit: Yes Status: Acute (7) DVT prophylaxis Current Visit: Yes Status: Acute (8) Acute respiratory distress Current Visit: Yes Status: Resolved (9) Chronic respiratory failure with hypoxia Current Visit: Yes Status: Chronic - Time Spent with Patient Total time spent is greater than 50% in coordination of care (as documented) at patient's floor/unit and/or counseling patient: Internal Medicine: Result - Labs CBC & Chem 7: 02/14/19 04:00 02/14/19 04:00 Consult Discharge Plan - Plan Referrals: Court Stoner CNP [Primary Care Provider] - - Attending Attestation I saw evaluated and examined this patient and reviewed objective data including labs and my medical decision-making was reviewed with the Resident Physician, Yu Cote. I agree with the documented findings, disposition and treatment plan as described except to any changes set forth below. We independently had [id number] contact with the patient. Patient remains stable. Shortness of breath is improved. Denies any chest pain or palpitations. Awaiting placement. Blood sugars are still elevated. We will increase insulin regimen further. Stable for discharge from medical standpoint. boning room worker working on placement. <Yu Cote - Last Filed: 02/15/19 14:14> Hospitalist Progress Note - Encounter Date of Encounter: 02/15/19 - Subjective Interval History: [place] 63-year-old female initially admitted for pneumonia as well as sepsis. Recent hospital sensation around 3 weeks ago for pneumonia chest x-ray on February 06 showed right middle lobe pneumonia with bilateral pleural effusions, echocardiogram on January 16 showed EF 35%. Previous microbiology showed a negative respiratory panel with right middle lobe and right upper lobe merritt albicans. Patient suspected history of COPD, asthma, panic respiratory failure on 2 L oxygen at home, diabetes, hypertension. Today patient was seen and examined at bedside and is in no acute distress. We are waiting placement at skilled facility. - Exam Vitals: Temp Pulse Resp BP Pulse Ox 98.1 F 82 18 127/76 90 02/15/19 07:17 02/15/19 07:17 02/15/19 04:21 02/15/19 07:17 02/15/19 04:21 Exam: General: Alert awake and oriented, no acute distress Head: normocephalic, atraumatic Eyes: FIONA, no icterus Cardio: RRR, no murmurs, rubs, or gallops Respiratory: Decreased breath sounds right lower lobe, no wheezing, rhonchi, rales Abd: normal bowel sounds, no gaurding or rigidity Extremties: no pedal edema, pulses equal bilaterally, warm Skin: warm, dry, intact - Assessment and Plan (1) Acute exacerbation of chronic obstructive airways disease Current Visit: Yes Status: Acute Assessment and Plan: Likely secondary to candidal pneumonia Patient has completed a round of fluconazole as well as prednisone course Patient is still needing 3 L of oxygen is set up her baseline 2 Patient is to be discharged for further physical therapy as well as skilled medical needs (2) Acute respiratory distress Current Visit: Yes Status: Resolved Assessment and Plan: Acute respiratory distress is resolved Likely secondary to COPD exacerbation as well as right middle lobe pneumonia Patient is still currently needing 3 L of oxygen set at her baseline 2 L but is doing well at this time. (3) Hypertension Current Visit: Yes Status: Chronic Assessment and Plan: Currently well controlled on current medications Continue current medication regimen (4) DM type 2 (diabetes mellitus, type 2) Current Visit: Yes Status: Chronic Assessment and Plan: Patient continues to have glucose levels in excess of 200 Increase Levemir to 14 units twice a day 4 units 3 times a day with meals of Humalog before meal coverage Continue to monitor blood glucose levels (5) Chronic respiratory failure with hypoxia Current Visit: Yes Status: Chronic Assessment and Plan: Patient has chronic use of 2 L at home Patient continues to use 3 L of oxygen here Continue to monitor (6) Congestive heart failure Current Visit: Yes Status: Chronic Assessment and Plan: Resume home dose of Lasix Currently not in acute exacerbation of CHF (7) Right middle lobe pneumonia Current Visit: Yes Status: Acute Assessment and Plan: Likely secondary to merritt albicans Patient is completed around fluconazole Patient is now on 3 L of oxygen and stable on this, patient was on 2 L at home. Continue to monitor for further signs of infection (8) Sepsis Current Visit: Yes Status: Resolved Assessment and Plan: Sirs criteria met with respiratory rate 22, pulse rate 119, source of infection pneumonia Likely secondary to merritt albicans pneumonia Patient has finished fluconazole course Resolved (9) DVT prophylaxis Current Visit: Yes Status: Acute Assessment and Plan: Subcutaneous heparin DVT Prophylaxis: On subcutaneous heparin - Time Spent with Patient Total time spent is greater than 50% in coordination of care (as documented) at patient's floor/unit and/or counseling patient: Plan of Care Discussed with: patient Internal Medicine: Result - Labs CBC & Chem 7: 02/14/19 04:00 02/14/19 04:00 <Vicki Madison - Last Filed: 02/15/19 13:48> (2) Hypertension Qualifiers: Hypertension type: essential hypertension Qualified Code(s): I10 - Essential (primary) hypertension (3) DM type 2 (diabetes mellitus, type 2) Qualifiers: Diabetes mellitus 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 headgate 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 insulin use: with group home use Diabetes mellitus complication status: with neurologic complications Diabetes mellitus complication detail: with polyneuropathy Qualified Code(s): 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 diabetes mellitus with diabetic polyneuropathy; Z79.4 - assisted (current) use of 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 <RocaelYu E - Last Filed: 02/15/19 14:14> (3) Hypertension Qualifiers: Hypertension type: essential hypertension Qualified Code(s): I10 - Essential (primary) hypertension (4) DM type 2 (diabetes mellitus, type 2) Qualifiers: Diabetes mellitus group home insulin use: with longwall headgate operator use Diabetes mellitus complication status: with neurologic complications Diabetes mellitus complicat ion detail: with polyneuropathy Qualified Code(s): 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 diabetes mellitus with diabetic polyneuropathy; 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
[2019-02-15] MEDS ORDERED: Dextrose Gel 15 GM/37.5 ML TUBE PO PRN ×2 (11:41)
[2019-02-15] MEDS ORDERED: *HR* Dextrose 50 % in Water (Syg) 50 ML SYRINGE IVP PRN (11:41)
[2019-02-15] MEDS ORDERED: D5% in Water 1,000 ML IVC PRN (11:41)
[2019-02-16] MEDS: Ipratropium/Albuterol Neb 3 ML IH SCH ×4 (03:56→21:53)
[2019-02-16] MEDS: *HR* Heparin 5,000 UNIT/ML VIAL SQ SCH ×3 (07:51→21:11)
[2019-02-16] MEDS: Cholecalciferol (D-3) 1,000 UNIT (25MCG) TABLET PO SCH (08:58)
[2019-02-16] MEDS: *HR* Digoxin 0.125 MG TABLET PO SCH (08:58)
[2019-02-16] MEDS: Pregabalin 50 MG CAPSULE PO SCH ×2 (08:58→21:10)
[2019-02-16] MEDS: Insulin DETEMIR 100 UNIT/ML X5UNITS SQ SCH ×2 (08:59→21:04)
[2019-02-16] MEDS: Furosemide 40 MG TABLET PO SCH (08:59)
[2019-02-16] MEDS: Aspirin 81 MG TAB.CHEW PO SCH (08:59)
[2019-02-16] MEDS: Insulin LISPRO 300 UNITS/3 ML VIAL SQ SCH ×7 (09:00→21:02)
[2019-02-16 09:23] LABS: Hematocrit 42.8 % (35.3-44.9); Hemoglobin 13.7 g/dL (11.5-15.4); Mean Corpuscular Hemoglobin 28.4 pg (28.0-33.3); Mean Corpuscular Volume 88.6 fL (83.0-100.0); Mean Platelet Volume 11.5 fL (9.4-12.4); Platelet Count 193 K/mcL (140-400); Red Blood Count 4.83 M/mcL (3.82-4.97); Red Cell Distribution Width 15.2 % (11.5-14.5); White Blood Count 9.7 K/mcL (4.3-11.1)
[2019-02-16 09:32] LABS: BUN/Creatinine Ratio 39 (6-26); Blood Urea Nitrogen 33 mg/dL (8-23); Calcium 8.9 mg/dL (8.6-10.3); Carbon Dioxide 39 mEq/L (23-29); Chloride 95 mEq/L (98-107); Glucose 268 mg/dL (70-105); Osmolality,Calculated 307 (280-300); Potassium 4.2 mEq/L (3.5-5.1); Sodium 140 mEq/L (136-145); eGFR For African Americans > 60 (> 60); eGFR For Non-African Americans > 60 (> 60)
[2019-02-16] MEDS: Budesonide Neb 0.5 MG/2 ML IH SCH ×2 (09:58→21:53)
--- NOTE | 2019-02-16 11:41 | Internal Med Progress Note ---
<RocaelYu E - Last Filed: 02/16/19 11:39> Hospitalist Progress Note - Encounter Date of Encounter: 02/16/19 Time of Encounter: 09:00 - Subjective Interval History: Ms. Vicetne 63-year-old female initially admitted for pneumonia as well as sepsis. Recent hospital sensation around 3 weeks ago for pneumonia chest x-ray on February 06 showed right middle lobe pneumonia with bilateral pleural effusions, echocardiogram on January 16 showed EF 35%. Previous microbiology showed a negative respiratory panel with right middle lobe and right upper lobe merritt albicans. Patient suspected history of COPD, asthma, panic respiratory failure on 2 L oxygen at home, diabetes, hypertension. Today patient was seen and examined at bedside and is in no acute distress. We are waiting placement at skilled facility. Patient denies any chest pain, shortness of breath, abdominal pain, n/v/d, weakness. - Exam Vitals: Temp Pulse Resp BP Pulse Ox 97.4 F L 80 20 91/57 92 02/16/19 10:57 02/16/19 10:57 02/16/19 10:57 02/16/19 10:57 02/16/19 10:57 Exam: General: Alert awake and oriented, no acute distress Head: normocephalic, atraumatic Eyes: FIONA, no icterus Cardio: RRR, no murmurs, rubs, or gallops Respiratory: Decreased breath sounds right lower lobe, no wheezing, rhonchi, rales Abd: normal bowel sounds, no guarding or rigidity Extremities: no pedal edema, pulses equal bilaterally, warm Skin: warm, dry, intact - Assessment and Plan (1) Acute exacerbation of chronic obstructive airways disease Current Visit: Yes Status: Acute Assessment and Plan: Likely secondary to candidal pneumonia Patient has completed a round of fluconazole as well as prednisone course Patient is still needing 3 L of oxygen is set up her baseline 2 Patient is to be discharged for further physical therapy as well as skilled medical needs (2) Acute respiratory distress Current Visit: Yes Status: Resolved Assessment and Plan: Acute respiratory distress is resolved Likely secondary to COPD exacerbation as well as right middle lobe pneumonia Patient is still currently needing 3 L of oxygen set at her baseline 2 L but is doing well at this time. (3) Hypertension Current Visit: Yes Status: Chronic Assessment and Plan: Currently well controlled on current medications Continue current medication regimen (4) DM type 2 (diabetes mellitus, type 2) Current Visit: Yes Status: Chronic Assessment and Plan: Patient's monring blood glucose 150's continue Levemir to 14 units twice a day 4 units 3 times a day with meals of Humalog before meal coverage Continue to monitor blood glucose levels and adjust as necessary (5) Chronic respiratory failure with hypoxia Current Visit: Yes Status: Chronic Assessment and Plan: Patient has chronic use of 2 L at home Patient continues to use 3 L of oxygen here Continue to monitor (6) Congestive heart failure Current Visit: Yes Status: Chronic Assessment and Plan: Resume home dose of Lasix Currently not in acute exacerbation of CHF (7) Right middle lobe pneumonia Current Visit: Yes Status: Acute Assessment and Plan: Likely secondary to merritt albicans Patient is completed a round fluconazole while here in hospital Patient is now on 3 L of oxygen and stable on this, patient was on 2 L at home. Continue to monitor for further signs of infection (8) Sepsis Current Visit: Yes Status: Resolved Assessment and Plan: Sirs criteria met with respiratory rate 22, pulse rate 119, source of infection pneumonia Now respiratory rate and heart rate within normal limits Likely secondary to merritt albicans pneumonia Patient has finished fluconazole course Resolved (9) DVT prophylaxis Current Visit: Yes Status: Acute Assessment and Plan: subcutaneous heparin DVT Prophylaxis: On subcutaneous heparin - Time Spent with Patient Total time spent is greater than 50% in coordination of care (as documented) at patient's floor/unit and/or counseling patient: Internal Medicine: Result - Labs CBC & Chem 7: 02/16/19 08:56 02/16/19 08:56 Labs: Short CBC 02/16/19 Range/Units 08:56 WBC 9.7 (4.3-11.1) K/mcL Hgb 13.7 (11.5-15.4) g/dL Hct 42.8 (35.3-44.9) % Plt Count 193 (140-400) K/mcL BMP 02/16/19 08:56 Sodium 140 Potassium 4.2 Chloride 95 L Carbon Dioxide 39 H BUN 33 H Creatinine 0.84 Glucose 268 H Calcium 8.9 Consult Discharge Plan - Plan Referrals: Court Stoner, ANDREAS [Primary Care Provider] - <Vicki Madison - Last Filed: 02/16/19 12:39> Hospitalist Progress Note - Encounter Date of Encounter: 02/16/19 Time of Encounter: 10:15 - Exam Vitals: Temp Pulse Resp BP Pulse Ox 97.4 F L 80 20 91/57 92 02/16/19 10:57 02/16/19 10:57 02/16/19 10:57 02/16/19 10:57 02/16/19 10:57 - Assessment and Plan (1) Acute exacerbation of chronic obstructive airways disease Current Visit: Yes Status: Acute (2) Hypertension Current Visit: Yes Status: Chronic (3) DM type 2 (diabetes mellitus, type 2) Current Visit: Yes Status: Chronic (4) Congestive heart failure Current Visit: Yes Status: Chronic (5) Right middle lobe pneumonia Current Visit: Yes Status: Acute (6) Sepsis Current Visit: Yes Status: Resolved (7) DVT prophylaxis Current Visit: Yes Status: Acute (8) Acute respiratory distress Current Visit: Yes Status: Resolved (9) Chronic respiratory failure with hypoxia Current Visit: Yes Status: Chronic - Time Spent with Patient Total time spent is greater than 50% in coordination of care (as documented) at patient's floor/unit and/or counseling patient: Internal Medicine: Result - Labs CBC & Chem 7: 02/16/19 08:56 02/16/19 08:56 Labs: Short CBC 02/16/19 Range/Units 08:56 WBC 9.7 (4.3-11.1) K/mcL Hgb 13.7 (11.5-15.4) g/dL Hct 42.8 (35.3-44.9) % Plt Count 193 (140-400) K/mcL BMP 02/16/19 08:56 Sodium 140 Potassium 4.2 Chloride 95 L Carbon Dioxide 39 H BUN 33 H Creatinine 0.84 Glucose 268 H Calcium 8.9 - Attending Attestation I saw evaluated and examined this patient and reviewed objective data including labs and my medical decision-making was reviewed with the Resident Physician, Yu Cote. I agree with the documented findings, disposition and treatment plan as described except to any changes set forth below. We independently had [id number] contact with the patient. No acute issues reported overnight. Doing well. Blood sugars are better controlled today. Continue current insulin regimen. Awaiting placement to skilled rehabilitation. embroidery worker working on this. Continue O2 supplementation. Steroid course and fluconazole course have been completed. <RocaelYu Jazmine - Last Filed: 02/16/19 11:39> (3) Hypertension Qualifiers: Hypertension type: essential hypertension Qualified Code(s): I10 - Essential (primary) hypertension (4) DM type 2 (diabetes mellitus, type 2) Qualifiers: Diabetes mellitus jail insulin use: with technician terminal and repeater use Diabetes mellitus complication status: with neurologic complications Diabetes mellitus comp lication detail: with polyneuropathy Qualified Code(s): 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 diabetes mellitus with diabetic polyneuropathy; Z79.4 - intermediate project manager (current) use of insulin (6) Congestive heart failure Qualifiers: Heart failure type: systolic Heart failure chronicity: acute Qualified Code(s): I50.21 - Acute systolic (congestive) heart failure (7) Right middle lobe pneumonia Qualifiers: Pneumonia type: due to unspecified organism Qualified Code(s): J18.1 - Lobar pneumonia, unspecified organism (8) Sepsis Qualifiers: Sepsis type: sepsis due to unspecified organism Sepsis acute organ dysfunction status: without acute organ dysfunction Qualified Code(s): A41.9 - Sepsis, unspecified organism <Vicki Madison - Last Filed: 02/16/19 12:39> (2) Hypertension Qualifiers: Hypertension type: essential hypertension Qualified Code(s): I10 - Essential (primary) hypertension (3) DM type 2 (diabetes mellitus, type 2) Qualifiers: Diabetes mellitus jail insulin use: with jail use Diabetes mellitus complication status: with neurologic complications Diabetes mellitus complication detail: with polyneuropathy Qualified Code(s): 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 diabetes mellitus with diabetic polyneuropathy; Z79.4 - intermediate project manager (current) use of 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
[2019-02-17] MEDS: Ipratropium/Albuterol Neb 3 ML IH SCH ×4 (04:03→21:48)
[2019-02-17] MEDS: *HR* Heparin 5,000 UNIT/ML VIAL SQ SCH ×3 (05:21→21:00)
--- NOTE | 2019-02-17 08:35 | Internal Med Progress Note ---
<Leroy Atkins - Last Filed: 02/17/19 15:11> Hospitalist Progress Note - Encounter Date of Encounter: 02/17/19 Time of Encounter: 09:15 - Subjective Interval History: Pt seen and examined at bedside. Denies any new or acute complaints. Stable shortness of breath. Denies any fever, chills, chest pain, abdominal pain, nausea, or vomiting. - Exam Vitals: Temp Pulse Resp BP Pulse Ox 98.4 F 82 17 118/69 98 02/17/19 07:20 02/17/19 07:20 02/17/19 07:20 02/17/19 07:20 02/17/19 05:27 Exam: General: well developed female in no acute distress Head: NCAT Eyes: PERRL, EOMI, sclera anicteric Neck: supple, trachea midline Lungs: grossly diminished breath sounds with faint wheezes in the upper lobes. No rales or rhonchi. Non-labored breathing Heart: RRR +s1 +s2 No murmurs, clicks, or rubs GI: abdomen soft, non-tender, non-distended Extremities: warm, peripheral pulses palpable and symmetrical. No edema, cyanosis, or calf tenderness Neuro: A&Ox3. no focal deficits. no speech difficulty or abnormality Skin: warm, dry, intact - Assessment and Plan (1) Right middle lobe pneumonia Current Visit: Yes Status: Acute Assessment and Plan: Likely secondary to merritt albicans Patient is completed a round fluconazole while here in hospital Patient is now on 3 L of oxygen and stable on this, patient was on 2 L at home. Continue to monitor for further signs of infection (2) Acute exacerbation of chronic obstructive airways disease Current Visit: Yes Status: Acute Assessment and Plan: Likely secondary to candidal pneumonia Patient has completed a round of fluconazole as well as prednisone course Patient is still needing 3 L of oxygen is set up her baseline 2 Patient is to be discharged for further physical therapy as well as skilled medical needs (3) Hypertension Current Visit: Yes Status: Chronic Assessment and Plan: Currently well controlled on current medications Continue current medication regimen (4) DM type 2 (diabetes mellitus, type 2) Current Visit: Yes Status: Chronic Assessment and Plan: continue Levemir to 14 units twice a day 4 units 3 times a day with meals of Humalog before meal coverage Continue to monitor blood glucose levels and adjust as necessary (5) Congestive heart failure Current Visit: Yes Status: Chronic Assessment and Plan: Resume home dose of Lasix Currently not in acute exacerbation of CHF (6) Sepsis Current Visit: Yes Status: Resolved Assessment and Plan: Sirs criteria met with respiratory rate 22, pulse rate 119, source of infection pneumonia Now respiratory rate and heart rate within normal limits Likely secondary to merritt albicans pneumonia Patient has finished fluconazole course Resolved DVT Prophylaxis: subcutaneous heparin - Summary of Assessment and Plan Summary of Assessment and Plan: Awaiting placement to skilled rehabilitation. emergency worker working on this. - Time Spent with Patient Total time spent is greater than 50% in coordination of care (as documented) at patient's floor/unit and/or counseling patient: Internal Medicine: Result - Labs CBC & Chem 7: 02/16/19 08:56 02/16/19 08:56 Labs: Short CBC 02/16/19 Range/Units 08:56 WBC 9.7 (4.3-11.1) K/mcL Hgb 13.7 (11.5-15.4) g/dL Hct 42.8 (35.3-44.9) % Plt Count 193 (140-400) K/mcL BMP 02/16/19 08:56 Sodium 140 Potassium 4.2 Chloride 95 L Carbon Dioxide 39 H BUN 33 H Creatinine 0.84 Glucose 268 H Calcium 8.9 Consult Discharge Plan - Plan Referrals: Court Stoner, ANDREAS [Primary Care Provider] - <Margaret Willson - Last Filed: 02/17/19 20:24> Hospitalist Progress Note - Encounter Date of Encounter: 02/17/19 - Exam Vitals: Temp Pulse Resp BP Pulse Ox 98.7 F 93 22 98/62 96 02/17/19 17:58 02/17/19 17:58 02/17/19 17:58 02/17/19 17:58 02/17/19 17:58 - Assessment and Plan (1) Hypertension Current Visit: Yes Status: Chronic (2) DM type 2 (diabetes mellitus, type 2) Current Visit: Yes Status: Chronic (3) Acute exacerbation of chronic obstructive airways disease Current Visit: Yes Status: Acute (4) Congestive heart failure Current Visit: Yes Status: Chronic (5) Right middle lobe pneumonia Current Visit: Yes Status: Acute (6) Sepsis Current Visit: Yes Status: Resolved - Time Spent with Patient Total time spent is greater than 50% in coordination of care (as documented) at patient's floor/unit and/or counseling patient: Internal Medicine: Result - Labs CBC & Chem 7: 02/16/19 08:56 02/16/19 08:56 - Attending Attestation I saw evaluated and examined this patient and reviewed objective data including labs and my medical decision-making was reviewed with the Resident Physician. I agree with the documented findings, disposition and treatment plan as described except to any changes set forth below. We independently had [id number] contact with the patient. No acute events. Breathing near baseline. VS: Reviewed, labs: reviewed. Continue current management. Awaiting placement. <Leroy Atkins - Last Filed: 02/17/19 15:11> (1) Right middle lobe pneumonia Qualifiers: Pneumonia type: due to unspecified organism Qualified Code(s): J18.1 - Lobar pneumonia, unspecified organism (3) Hypertension Qualifiers: Hypertension type: essential hypertension Qualified Code(s): I10 - Essential (primary) hypertension (4) DM type 2 (diabetes mellitus, type 2) Qualifiers: Diabetes mellitus ferry terminal agent insulin use: with ferry terminal agent use Diabetes mellitus complication status: with neurologic complications Diabetes mellitus complication detail: with polyneuropathy Qualified Code(s): 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 diabetes mellitus with diabetic polyneuropathy; Z79.4 - long term care administrator (current) use of insulin (5) Congestive heart failure Qualifiers: Heart failure type: systolic Heart failure chronicity: acute Qualified Code(s): I50.21 - Acute systolic (congestive) heart failure (6) Sepsis Qualifiers: Sepsis type: sepsis due to unspecified organism Sepsis acute organ dysfunction status: without acute organ dysfunction Qualified Code(s): A41.9 - Sepsis, unspecified organism <Ghanem,Zelalem Rheem - Last Filed: 02/17/19 20:24> (1) Hypertension Qualifiers: Hypertension type: essential hypertension Qualified Code(s): I10 - Essential (primary) hypertension (2) DM type 2 (diabetes mellitus, type 2) Qualifiers: Diabetes mellitus care home insulin use: with ferry terminal agent use Diabetes mellitus complication status: with neurologic complications Diabetes mellitus complication detail: with polyneuropathy Qualified Code(s): 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 diabetes mellitus with diabetic polyneuropathy; Z79.4 - long term care administrator (current) use of insulin (4) Congestive heart failure Qualifiers: Heart failure type: systolic Heart failure chronicity: acute Qualified Code(s): I50.21 - Acute systolic (congestive) heart failure (5) Right middle lobe pneumonia Qualifiers: Pneumonia type: due to unspecified organism Qualified Code(s): J18.1 - Lobar pneumonia, unspecified organism (6) Sepsis Qualifiers: Sepsis type: sepsis due to unspecified organism Sepsis acute organ dysfunc tion status: without acute organ dysfunction Qualified Code(s): A41.9 - Sepsis, unspecified organism
[2019-02-17] MEDS: Furosemide 40 MG TABLET PO SCH (08:50)
[2019-02-17] MEDS: Aspirin 81 MG TAB.CHEW PO SCH (08:50)
[2019-02-17] MEDS: Pregabalin 50 MG CAPSULE PO SCH ×2 (08:50→21:01)
[2019-02-17] MEDS: *HR* Digoxin 0.125 MG TABLET PO SCH (08:50)
[2019-02-17] MEDS: Cholecalciferol (D-3) 1,000 UNIT (25MCG) TABLET PO SCH (08:50)
[2019-02-17] MEDS: Insulin LISPRO 300 UNITS/3 ML VIAL SQ SCH ×7 (08:51→21:02)
[2019-02-17] MEDS: Insulin DETEMIR 100 UNIT/ML X5UNITS SQ SCH ×2 (08:54→21:01)
[2019-02-17] MEDS: Budesonide Neb 0.5 MG/2 ML IH SCH ×2 (09:57→21:48)
[2019-02-18] MEDS: Ipratropium/Albuterol Neb 3 ML IH SCH ×4 (04:03→22:26)
[2019-02-18] MEDS: *HR* Heparin 5,000 UNIT/ML VIAL SQ SCH ×2 (05:50→12:07)
[2019-02-18] MEDS: Cholecalciferol (D-3) 1,000 UNIT (25MCG) TABLET PO SCH (08:04)
[2019-02-18] MEDS: *HR* Digoxin 0.125 MG TABLET PO SCH (08:05)
[2019-02-18] MEDS: Aspirin 81 MG TAB.CHEW PO SCH (08:05)
[2019-02-18] MEDS: Pregabalin 50 MG CAPSULE PO SCH ×2 (08:05→20:44)
[2019-02-18] MEDS: Furosemide 40 MG TABLET PO SCH (08:05)
[2019-02-18] MEDS: Insulin LISPRO 300 UNITS/3 ML VIAL SQ SCH ×7 (08:08→20:44)
[2019-02-18] MEDS: Insulin DETEMIR 100 UNIT/ML X5UNITS SQ SCH ×2 (09:43→20:44)
--- NOTE | 2019-02-18 10:25 | Discharge Summary ---
<HarshshanstevenYu E - Last Filed: 02/18/19 13:41> Orders not resulted at time of discharge: Pending orders 02/06/19 18:50 Culture,Sputum with Gram Stain [RM] Routine Date of Encounter: 02/18/19 Time of Encounter: 09:00 - Discharge Diagnosis (1) Acute exacerbation of chronic obstructive airways disease Priority: Primary Status: Acute Assessment and Plan: Likely secondary to candidal pneumonia Patient has completed a round of fluconazole as well as prednisone course Patient is still needing 3 L of oxygen is set up her baseline 2 Patient is to be discharged for further physical therapy as well as skilled medical needs (2) Acute respiratory distress Priority: Primary Status: Resolved Assessment and Plan: Acute respiratory distress is resolved Likely secondary to COPD exacerbation as well as right middle lobe pneumonia Patient is still currently needing 3 L of oxygen set at her baseline 2 L but is doing well at this time. (3) Hypertension Priority: Secondary Status: Chronic Assessment and Plan: Currently well controlled on current medications Continue current medication regimen Qualifiers: Hypertension type: essential hypertension Qualified Code(s): I10 - Essential (primary) hypertension (4) DM type 2 (diabetes mellitus, type 2) Priority: Secondary Status: Chronic Assessment and Plan: Patient continues to have glucose levels in excess of 200 Increase Levemir to 14 units twice a day 4 units 3 times a day with meals of Humalog before meal coverage Continue to monitor blood glucose levels Qualifiers: Diabetes mellitus fpc insulin use: with manager intermediate use Diabetes mellitus complication status: with neurologic complications Diabetes mellitus complication detail: with polyneuropathy Qualified Code(s): 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 diabetes mellitus with diabetic polyneuropathy; Z79.4 - half-way (current) use of insulin (5) Chronic respiratory failure with hypoxia Priority: Secondary Status: Chronic Assessment and Plan: Patient has chronic use of 2 L at home Patient continues to use 3 L of oxygen here Continue to monitor (6) Congestive heart failure Priority: Secondary Status: Chronic Assessment and Plan: Resume home dose of Lasix Currently not in acute exacerbation of CHF Qualifiers: Heart failure type: systolic Heart failure chronicity: acute Qualified Code(s): I50.21 - Acute systolic (congestive) heart failure (7) Right middle lobe pneumonia Priority: Primary Status: Acute Assessment and Plan: Likely secondary to merritt albicans Patient is completed around fluconazole Patient is now on 3 L of oxygen and stable on this, patient was on 2 L at home. Continue to monitor for further signs of infection Qualifiers: Pneumonia type: due to unspecified organism Qualified Code(s): J18.1 - Lobar pneumonia, unspecified organism (8) Sepsis Priority: Primary Status: Resolved Assessment and Plan: Sirs criteria met with respiratory rate 22, pulse rate 119, source of infection pneumonia Likely secondary to merritt albicans pneumonia Patient has finished fluconazole course Resolved Qualifiers: Sepsis type: sepsis due to unspecified organism Sepsis acute organ dysfunction status: without acute organ dysfunction Qualified Code(s): A41.9 - Sepsis, unspecified organism (9) DVT prophylaxis Priority: Secondary Status: Acute Assessment and Plan: subcutaneous heparin Hospital course: Ms. Vicente is a 63 year old female with history of COPD asthma chronic respir atory failure on 2 L oxygen by nasal cannula, diabetes, hypertension, osteoarthritis. Recently hospitalized [facility] 3 weeks ago for pneumonia syndrome on antibiotics and oral corticosteroids he did not significantly better. She had an echo in December that showed EF of 35%. Previous microbiology showed respiratory culture negative. The right middle lobe and right upper lobe culture revealed Merritt. Patient completed around fluconazole as well as prednisone on this admission and is still requiring 3 L of oxygen. Respiratory distress is resolved, diabetes was controlled with Levemir 14 units twice a day and 4 units 3 times a day of Humalog before meals. Patient met surgical criteria on admission with respiratory rate of 22, pulse rate of 119 and a source of infection, respiratory rate and heart rate are now within normal limits and sepsis is no longer active. Discharge discussed with: patient - Time Spent with Patient Total time spent providing and/or coordinating discharge services: - Discharge Medications Prescriptions: New Buspirone HCl [Buspar] 5 mg PO TID #30 tablet Digoxin [Lanoxin] 0.125 mg PO DAILY #14 tablet Sertraline [Zoloft] 50 mg PO DAILY #30 tablet Continued Alendronate Sodium [Fosamax] 70 mg PO QWEEK Aspirin [Lo-Dose Aspirin EC] 81 mg PO DAILY Umeclidinium [place] [Incruse Ellipta] 62.5 mcg IH DAILY Albuterol Sulfate [Proair Hfa] 2 puff IH Q4HR PRN PRN Reason: Shortness Of Breath Calcium Carbonate/Vitamin D3 [Calcium 500 + Vit D Caplet] 1 tab PO DAILY Furosemide [Lasix] 20 mg PO DAILY Loratadine/Pseudoephedrine [Allergy Relief D-24Hr Tablet] 1 tab PO DAILY Metformin HCl 1,000 mg PO BID Carvedilol [Coreg] 12.5 mg PO BIDWM 30 Days #60 tablet Lisinopril [Zestril] 2.5 mg PO DAILY 30 Days #30 tablet Albuterol Neb [Proventil Neb] 2.5 mg IH TID PRN PRN Reason: SOB/WHEEZING Fluticasone/Salmeterol [Airduo Respiclick [id number] Mcg] 1 each IH BID Insulin Glargine,Hum.rec.anlog [Basaglar Kwikpen U-100] 10 unit SQ HS Insulin LISPRO [Admelog] 7 unit SQ TIDWM Tramadol HCl [Ultram] 100 mg PO QID PRN PRN Reason: FOOT PAIN Pregabalin [Lyrica] 100 mg PO BID Home Medications: Albuterol Sulfate [Proair Hfa] 2 puff IH Q4HR PRN 01/14/19 [History] Alendronate Sodium [Fosamax] 70 mg PO QWEEK 01/14/19 [History] Aspirin [Lo-Dose Aspirin EC] 81 mg PO DAILY 01/14/19 [History] Umeclidinium [place] [Incruse Ellipta] 62.5 mcg IH DAILY 01/14/19 [History] Calcium Carbonate/Vitamin D3 [Calcium 500 + Vit D Caplet] 1 tab PO DAILY 01/15/19 [History] Furosemide [Lasix] 20 mg PO DAILY 01/15/19 [History] Loratadine/Pseudoephedrine [Allergy Relief D-24Hr Tablet] 1 tab PO DAILY 01/15/19 [History] Metformin HCl 1,000 mg PO BID 01/15/19 [History] Carvedilol [Coreg] 12.5 mg PO BIDWM 30 Days #60 tablet 01/18/19 [Rx] Lisinopril [Zestril] 2.5 mg PO DAILY 30 Days #30 tablet 01/18/19 [Rx] Albuterol Neb [Proventil Neb] 2.5 mg IH TID PRN 02/06/19 [History] Fluticasone/Salmeterol [Airduo Respiclick [id number] Mcg] 1 each IH BID 02/06/19 [History] Insulin Glargine,Hum.rec.anlog [Basaglar Kwikpen U-100] 10 unit SQ HS 02/06/19 [History] Insulin LISPRO [Admelog] 7 unit SQ TIDWM 02/06/19 [History] Pregabalin [Lyrica] 100 mg PO BID 02/06/19 [History] Tramadol HCl [Ultram] 100 mg PO QID PRN 02/06/19 [History] Buspirone HCl [Buspar] 5 mg PO TID #30 tablet 02/18/19 [Rx] Digoxin [Lanoxin] 0.125 mg PO DAILY #14 tablet 02/18/19 [Rx] Sertraline [Zoloft] 50 mg PO DAILY #30 tablet 02/18/19 [Rx] Allergies/Adverse Reactions: Allergy/AdvReac Type Severity Reaction Status Date / Time codeine Allergy Hives Verified 01/15/19 19:12 propoxyphene [From Darvon] Allergy Hives Verified 01/15/19 19:12 Date of admission: 02/07/19 09:43 Primary care physician: Court Stoner Consults: 02/06/19 18:30 Consult to Nutrition [CONS] Routine Comment: Consulting Provider: NUTRITION Reason for Dietary Consult: MST Score 02/07/19 01:40 Consult to Respiratory Therapy [CONS] Stat Reason for Consult: FOR ABG Call Completed: Yes 02/08/19 14:18 Consult to Occupational Therapy [CONS] Routine Comment: Evaluate, develop and implement POC Reason for Consult: eval for poss ECF, bmat 2, needs pre cert Does patient have active BEDREST order?: No Is patient medically & hemodynamically stable?: Yes Patient assessed for mobility or mobilized this visit?: Yes Consult to Physical Therapy [CONS] Routine Comment: Evaluate, develop and implement POC Reason for Consult: eval for poss ecf, bmat 2, needs pre cert Does patient have active BEDREST order?: No Is patient medically & hemodynamically stable?: Yes Patient assessed for mobility or mobilized this visit?: Yes 02/08/19 14:20 Consult to Nurse Navigator [CONS] Routine Comment: copd 02/08/19 17:23 Consult to Respiratory Therapy [CONS] Routine Reason for Consult: airway management- mechanical Call Completed: No 02/10/19 11:42 Consult to Information And Referral Director [CONS] Routine Reason for SW Consult: pt needs ecf Discharging clinician: Margaret Willson Anticipated date of discharge: 02/18/19 - Constitutional Vitals: Temp Pulse Resp BP Pulse Ox 98.1 F 76 17 109/73 94 02/18/19 07:24 02/18/19 07:24 02/18/19 07:24 02/18/19 07:24 02/18/19 07:24 Exam: General: AAO 3, answers questions appropriately, no acute distress Head: normocephalic, atraumatic Eyes: FIONA, no icterus Cardio: RRR, no murmurs, rubs, or gallops Respiratory: Decreased breath sounds bilateral lower lobes, no wheezing, rhonchi, rales Abd: normal bowel sounds, no guarding or rigidity Extremities: no peda edema, pulses equal bilaterally, warm Skin: warm, dry, intact - Patient Status Disposition: Transfer LTC Condition: Good Functional capacity at discharge: independent ambulation Overall status at discharge: patient is back to baseline - Discharge Instructions Follow Up With: Court Stoner CNP [Primary Care Provider] - - Diet and Activity Activity: as per physical therapy Diet: advance to your usual diet <Margaret Willson - Last Filed: 02/18/19 17:02> Orders not resulted at time of discharge: Pending orders 02/06/19 18:50 Culture,Sputum with Gram Stain [RM] Routine Date of Encounter: 02/18/19 - Discharge Diagnosis (1) Hypertension Status: Chronic Qualifiers: Hypertension type: essential hypertension Qualified Code(s): I10 - Essential (primary) hypertension (2) DM type 2 (diabetes mellitus, type 2) Status: Chronic Qualifiers: Diabetes mellitus manager intermediate insulin use: with fpc use Diabetes mellitus complication status: with neurologic complications Diabetes mellitus complication detail: with polyneuropathy Qualified Code(s): 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 diabetes mellitus with diabetic polyneuropathy; Z79.4 - half-way (current) use of insulin (3) Acute exacerbation of chronic obstructive airways disease Status: Acute (4) Congestive heart failure Status: Chronic Qualifiers: Heart failure type: systolic Heart failure chronicity: acute Qualified Code(s): I50.21 - Acute systolic (congestive) heart failure (5) Right middle lobe pneumonia Status: Acute Qualifiers: Pneumonia type: due to unspecified organism Qualified Code(s): J18.1 - Lobar pneumonia, unspecified organism (6) Sepsis Status: Resolved Qualifiers: Sepsis type: sepsis due to unspecified organism Sepsis acute organ dysfunction status: without acute organ dysfunction Qualified Code(s): A41.9 - Sepsis, unspecified organism Hospital course: Ms. Vicente is a 63 year old female - Time Spent with Patient Total time spent providing and/or coordinating discharge services: Date of admission: 02/07/19 09:43 Primary care physician: Court Stoner Consults: 02/06/19 18:30 Consult to Nutrition [CONS] Routine Comment: Consulting Provider: NUTRITION Reason for Dietary Consult: MST Score 02/07/19 01:40 Consult to Respiratory Therapy [CONS] Stat Reason for Consult: FOR ABG Call Completed: Yes 02/08/19 14:18 Consult to Occupational Therapy [CONS] Routine Comment: Evaluate, develop and implement POC Reason for Consult: eval for poss ECF, bmat 2, needs pre cert Does patient have active BEDREST order?: No Is patient medically & hemodynamically stable?: Yes Patient assessed for mobility or mobilized this visit?: Yes Consult to Physical Therapy [CONS] Routine Comment: Evaluate, develop and implement POC Reason for Consult: eval for poss ecf, bmat 2, needs pre cert Does patient have active BEDREST order?: No Is patient medically & hemodynamically stable?: Yes Patient assessed for mobility or mobilized this visit?: Yes 02/08/19 14:20 Consult to Nurse Navigator [CONS] Routine Comment: copd 02/08/19 17:23 Consult to Respiratory Therapy [CONS] Routine Reason for Consult: airway management- mechanical Call Completed: No 02/10/19 11:42 Consult to Information And Referral Director [CONS] Routine Reason for SW Consult: pt needs ecf - Constitutional Vitals: Temp Pulse Resp BP Pulse Ox 97.8 F 84 17 99/59 97 02/18/19 15:51 02/18/19 15:51 02/18/19 15:51 02/18/19 15:51 02/18/19 15:51 - Attending Attestation I saw evaluated and examined this patient and reviewed objective data including labs and my medical decision-making was reviewed with the Resident Physician. I agree with the documented findings, disposition and treatment plan as described except to any changes set forth below. We independently had agdg-ke-amil contact with the patient. 63 year old female with history of COPD, chronic respiratory failure, HF REF with EF 35% presented to ED for SOB. She had recent admission for pneumonia 3 weks ago. She had chest x-ray findings at an urgent care suggesting right middle lobe pneumonia and bilateral pleural effusion. She had sputum cultures positive for Merritt albicans. Hospitalization was complicated with patient at times refusing labwork and bipap and extreme agitation requiring IV Ativan. She was emperically treated for pneumonia, COPD exacerbation. She was treated for Candidal infection though likely contaminant, because of recurrence of symptoms. She completed a course of fluconazole. On admission was dehyrdated and got 1.6 L of fluids and appeared to be fluid overloaded and required IV Lasix briefly. She was unable to tolerate much diuresis and so she was started on Digoxin and tolerated without issue. Patient respiratory status improved, now on 3L O2 which is likely new baseline from 2 L O2 prior to admission. Patient discharged to SNF. discharge time 35 min.
[2019-02-18] MEDS: Budesonide Neb 0.5 MG/2 ML IH SCH ×2 (10:51→22:26)
[2019-02-19] MEDS: Ipratropium/Albuterol Neb 3 ML IH SCH ×2 (04:15→10:38)
[2019-02-19] MEDS: Budesonide Neb 0.5 MG/2 ML IH SCH (10:38)
[2019-02-19] MEDS: Pregabalin 50 MG CAPSULE PO SCH (10:48)
[2019-02-19] MEDS: Aspirin 81 MG TAB.CHEW PO SCH (10:48)
[2019-02-19] MEDS: *HR* Digoxin 0.125 MG TABLET PO SCH (10:48)
[2019-02-19] MEDS: Furosemide 40 MG TABLET PO SCH (10:48)
[2019-02-19] MEDS: Insulin DETEMIR 100 UNIT/ML X5UNITS SQ SCH (10:49)
[2019-02-19] MEDS: Cholecalciferol (D-3) 1,000 UNIT (25MCG) TABLET PO SCH (10:49)
[2019-02-19] MEDS: Insulin LISPRO 300 UNITS/3 ML VIAL SQ SCH ×4 (10:49→11:51)
[2019-02-19 11:42] VITALS: BP 115/72
--- NOTE | 2019-02-19 11:48 | Internal Med Progress Note ---
<Yu Cote E - Last Filed: 02/19/19 13:47> Hospitalist Progress Note - Encounter Date of Encounter: 02/19/19 Time of Encounter: 09:20 - Subjective Interval History: Is a 63-year-old female initially here for COPD exacerbation and right middle lobe pneumonia Patient was seen and examined at bedside today she denies any shortness of breath, chest pain, abdominal pain, nausea, vomiting, diarrhea, weakness. Patient states that she is just ready to go home and wishes to return home with home health. Patient will be discharged today following home health care set up - Exam Vitals: Temp Pulse Resp BP Pulse Ox 98.3 F 91 16 115/72 97 02/19/19 11:36 02/19/19 11:36 02/19/19 11:36 02/19/19 11:36 02/19/19 11:36 Exam: General: AAO 3, answers questions appropriately, no acute distress Head: normocephalic, atraumatic Eyes: FIONA, no icterus Cardio: RRR, no murmurs, rubs, or gallops Respiratory: Decreased breath sounds bilateral lower lobes, no wheezing, rhonchi, rales Abd: normal bowel sounds, no guarding or rigidity Extremities: no peda edema, pulses equal bilaterally, warm Skin: warm, dry, intact - Assessment and Plan (1) Acute exacerbation of chronic obstructive airways disease Current Visit: Yes Status: Acute Assessment and Plan: Likely secondary to candidal pneumonia Patient has completed a round of fluconazole as well as prednisone course Patient is still needing 3 L of oxygen is set up her baseline 2 Patient is to be discharged home with home healthcare services (2) Acute respiratory distress Current Visit: Yes Status: Resolved Assessment and Plan: Acute respiratory distress is resolved Likely secondary to COPD exacerbation as well as right middle lobe pneumonia Patient is still currently needing 3 L of oxygen set at her baseline 2 L but is doing well at this time. (3) Hypertension Current Visit: Yes Status: Chronic Assessment and Plan: Currently well controlled on current medications Continue current medication regimen (4) DM type 2 (diabetes mellitus, type 2) Current Visit: Yes Status: Chronic Assessment and Plan: Continue Levemir to 14 units twice a day 4 units 3 times a day with meals of Humalog before meal coverage Continue to monitor blood glucose levels (5) Chronic respiratory failure with hypoxia Current Visit: Yes Status: Chronic Assessment and Plan: Patient has chronic use of 2 L at home Patient continues to use 3 L of oxygen here Continue to monitor (6) Congestive heart failure Current Visit: Yes Status: Chronic Assessment and Plan: Resume home dose of Lasix Currently not in acute exacerbation of CHF (7) Right middle lobe pneumonia Current Visit: Yes Status: Acute Assessment and Plan: Likely secondary to merritt albicans Patient is completed around fluconazole Patient is now on 3 L of oxygen and stable on this, patient was on 2 L at home. Continue to monitor for further signs of infection (8) Sepsis Current Visit: Yes Status: Resolved Assessment and Plan: Sirs criteria met with respiratory rate 22, pulse rate 119, source of infection pneumonia Likely secondary to merritt albicans pneumonia Patient has finished fluconazole course Resolved (9) DVT prophylaxis Current Visit: Yes Status: Acute Assessment and Plan: subcutaneous heparin DVT Prophylaxis: subcutaneous heparin - Time Spent with Patient Total time spent is greater than 50% in coordination of care (as documented) at patient's floor/unit and/or counseling patient: Plan of Care Discussed with: patient Internal Medicine: Result - Labs CBC & Chem 7: 02/16/19 08:56 02/16/19 08:56 Consult Discharge Plan - Plan Instructions: Chronic Obstructive Pulmonary Disease (DC), Pneumonia (DC) Referrals: Court Stoner CNP [Primary Care Provider] - 03/04/19 9:15 am (Please follow up as schedule...) Prescriptions: Buspirone HCl [Buspar] 5 mg PO TID #30 tablet Digoxin [Lanoxin] 0.125 mg PO DAILY #14 tablet Sertraline [Zoloft] 50 mg PO DAILY #30 tablet <Margaret Willson - Last Filed: 02/19/19 14:50> Hospitalist Progress Note - Encounter Date of Encounter: 02/19/19 - Exam Vitals: Temp Pulse Resp BP Pulse Ox 98.3 F 91 16 115/72 95 02/19/19 11:36 02/19/19 11:36 02/19/19 11:36 02/19/19 11:36 02/19/19 11:55 - Assessment and Plan (1) Hypertension Current Visit: Yes Status: Chronic (2) DM type 2 (diabetes mellitus, type 2) Current Visit: Yes Status: Chronic (3) Acute exacerbation of chronic obstructive airways disease Current Visit: Yes Status: Acute (4) Congestive heart failure Current Visit: Yes Status: Chronic (5) Right middle lobe pneumonia Current Visit: Yes Status: Acute (6) Sepsis Current Visit: Yes Status: Resolved - Time Spent with Patient Total time spent is greater than 50% in coordination of care (as documented) at patient's floor/unit and/or counseling patient: Internal Medicine: Result - Labs CBC & Chem 7: 02/16/19 08:56 02/16/19 08:56 - Attending Attestation I saw evaluated and examined this patient and reviewed objective data including labs and my medical decision-making was reviewed with the Resident Physician. I agree with the documented findings, disposition and treatment plan as described except to any changes set forth below. We independently had [id number] contact with the patient. Patient was to be discharged to SNF but they refused as they believe she does n ot need it. So she will instead be set up with home health services. 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 (6) Congestive heart failure Qualifiers: Heart failure type: systolic Heart failure chronicity: acute Qualified Code(s): I50.21 - Acute systolic (congestive) heart failure (7) Right middle lobe pneumonia Qualifiers: Pneumonia type: due to unspecified organism Qualified Code(s): J18.1 - Lobar pneumonia, unspecified organism (8) Sepsis Qualifiers: Sepsis type: sepsis due to unspecified organism Sepsis acute organ dysfunction status: without acute organ dysfunction Qualified Code(s): A41.9 - Sepsis, unspecified organism <Margaret Willson - Last Filed: 02/19/19 14:50> (1) Hypertension Qualifiers: Hypertension type: essential hypertension Qualified Code(s): I10 - Essential (primary) hypertension (2) DM type 2 (diabetes mellitus, type 2) Qualifiers: Diabetes mellitus terminal press operator insulin use: with skilled nursing use Diabetes mellitus complication status: with neurologic complications Diabetes mellitus complication detail: with polyneuropathy Qualified Code(s): 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 diabetes mellitus with diabetic polyneuropathy; 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
--- NOTE | 2019-02-19 13:52 | Physician Discharge Referral ---
Home Health/Hosp Referral Info Transfer to: Home Health Provider in Charge Post Discharge: PCP - Diagnosis (1) Acute exacerbation of chronic obstructive airways disease Priority: Primary Status: Acute (2) Acute respiratory distress Priority: Primary Status: Resolved (3) Hypertension Priority: Secondary Status: Chronic (4) DM type 2 (diabetes mellitus, type 2) Priority: Secondary Status: Chronic (5) Chronic respiratory failure with hypoxia Priority: Primary Status: Chronic (6) Congestive heart failure Priority: Secondary Status: Chronic (7) Right middle lobe pneumonia Priority: Primary Status: Acute (8) Sepsis Priority: Primary Status: Resolved (9) DVT prophylaxis Priority: Secondary Status: Acute - Respiratory Orders Oxygen / L per min (constant 3 lpm titrate to O2 sat above 88%) Smoking Cessation: Smoking cessation has been advised. For more information, call the [employer] Tobacco Quit Line at 2-496-FEST-NOW. - Diet/Nutrition Diet/Nutrition Orders: Regular - Activity Activity Orders: Up ad shu - Services Needed Following services are medically necessary services: Nursing, Physical Therapy, Occupational Therapy - Transfer Medications Prescriptions: Buspirone HCl [Buspar] 5 mg PO TID #30 tablet Digoxin [Lanoxin] 0.125 mg PO DAILY #14 tablet Sertraline [Zoloft] 50 mg PO DAILY #30 tablet Home Medications: Albuterol Sulfate [Proair Hfa] 2 puff IH Q4HR PRN 01/14/19 [History] Alendronate Sodium [Fosamax] 70 mg PO QWEEK 01/14/19 [History] Aspirin [Lo-Dose Aspirin EC] 81 mg PO DAILY 01/14/19 [History] Umeclidinium [place] [Incruse Ellipta] 62.5 mcg IH DAILY 01/14/19 [History] Calcium Carbonate/Vitamin D3 [Calcium 500 + Vit D Caplet] 1 tab PO DAILY 01/15/19 [History] Furosemide [Lasix] 20 mg PO DAILY 01/15/19 [History] Loratadine/Pseudoephedrine [Allergy Relief D-24Hr Tablet] 1 tab PO DAILY 01/15/19 [History] Metformin HCl 1,000 mg PO BID 01/15/19 [History] Carvedilol [Coreg] 12.5 mg PO BIDWM 30 Days #60 tablet 01/18/19 [Rx] Lisinopril [Zestril] 2.5 mg PO DAILY 30 Days #30 tablet 01/18/19 [Rx] Albuterol Neb [Proventil Neb] 2.5 mg IH TID PRN 02/06/19 [History] Fluticasone/Salmeterol [Airduo Respiclick 232-14 Mcg] 1 each IH BID 02/06/19 [History] Insulin Glargine,Hum.rec.anlog [Basaglar Kwikpen U-100] 10 unit SQ HS 02/06/19 [History] Insulin LISPRO [Admelog] 7 unit SQ TIDWM 02/06/19 [History] Pregabalin [Lyrica] 100 mg PO BID 02/06/19 [History] Tramadol HCl [Ultram] 100 mg PO QID PRN 02/06/19 [History] Buspirone HCl [Buspar] 5 mg PO TID #30 tablet 02/18/19 [Rx] Digoxin [Lanoxin] 0.125 mg PO DAILY #14 tablet 02/18/19 [Rx] Sertraline [Zoloft] 50 mg PO DAILY #30 tablet 02/18/19 [Rx] Allergies/Adverse Reactions: Allergy/AdvReac Type Severity Reaction Status Date / Time codeine Allergy Hives Verified 01/15/19 19:12 propoxyphene [From Darvon] Allergy Hives Verified 01/15/19 19:12 Certification: Further, I certify that my clinical findings support that this patient is homebound (i.e. absences from home require considerable and taxing effort and are for medical reasons or gnosticism services or infrequently or short duration when for other reasons) because: Homebound Reason: Patient requires assistance of a person or device to safely leave home Attestation: My signature below is to certify that this patient is under my care and that I, or nurse practitioner, or a physician's legal support assistant working with me, has a [id number] encounter with this patient.
== END 2019-02-19 15:24 | DRG 720 ==
LOC: EMEROOARM 13:03 → 2ANU 13:03 → SUATTDRO 17:05 → 2ANU 18:13 → SUATTDRO 02-07 09:43
PROVIDERS: ADMIT Pharmacist; ATTEND Student in an Organized Health Care Education/Training Program

== ENCOUNTER 2019-03-08 02:45 | Inpatient (IN) ==
[2019-03-08] MEDS ORDERED: Dextrose Gel 15 GM/37.5 ML TUBE PO PRN ×2 (05:40)
[2019-03-08] MEDS ORDERED: *HR* Dextrose 50 % in Water (Syg) 50 ML SYRINGE IVP PRN (05:40)
[2019-03-08] MEDS: Ipratropium/Albuterol Neb 3 ML IH SCH ×6 (06:11→20:01)
--- NOTE | 2019-03-08 06:17 | Internal Med History&Physical ---
Date of Encounter: 03/08/19 Time of Encounter: 06:15 Internal Medicine - H&P: HPI Chief complaint: sob Admitted From: Hospital to Hospital Transfer Plans for Post Hospital Care: Home History of present illness: Mildred Vicente is a 63 year old woman with severe COPD with chronic hypoxic respiratory failure on home oxygen, hypertension, diabetes and heart failure with reduced ejection fraction (EF 35%) who was discharged from here about 2 weeks ago after presenting with acute respiratory distress and manage for middle lobe pneumonia. She went to [place] [facility] with complaints of shortness of breath. She says her shortness of breath has been present for a long time at baseline but in the last day she noticed a worsening of her symptoms. She denies associated chest pain, fever, chills and says her cough is dry. When she lays flat for prolonged periods of time she starts to feel short of breath, choking and cough. Appetite shows found hemodynamically stable. Lab work was grossly unremarkable except a BNP of 1611 and a troponin of 0.05. EKG shows sinus tachycardia and signs of an old anterior infarct. Chest x-ray done revealed signs of pulmonary vascular congestion. She was given 1 dose of furosemide prior to her transfer here. The time of my assessment she says that she feels short of breath and feels as though she needs a breathing treatment as it helped her previously. Vitals: Reviewed General: Well-appearing female lying in bed with notable respiratory discomfort. Skin: Warm and dry. HEENT: Moist mucous membranes. No conjunctivae pallor. Neck: No lymphadenopathy. No JVD. No carotid bruits. No palpable thyroid. Chest: Reduced thoracic expansion. Diminished but course breath sounds with diffuse wheezing in both lung dill. Heart: Tachycardic. Abdomen: Non-distended, soft and non-tender to palpation. No peritoneal reaction. Extremities: No clubbing, cyanosis or edema. No calf tenderness. Normal distal pulses. Neurological: Awake, alert and oriented to person, place and time. No focal deficits. Psych: Affect appropriate. Assessment/Plan 1. Acute respiratory distress: Seemingly multifactorial in etiology stemming from a CHF exacerbation leading to pulmonary edema as well as an exacerbation of her underlying COPD. These 2 entities will need to be treated in tandem. Continue oxygen at her home rate and increase if needed to sustain saturation above 92%. 2. COPD: We will place on standing nebulizer therapy today in conjunction with systemic steroids. She has no productive cough or other signs that would warrant antimicrobial therapy but if this changes, a short course of azithromycin should be considered. 3. CHF: She has signs of pulmonary vascular congestion. Will place on standing furosemide 40mg BID for preload reduction. Beta oksana, ACEI and other home meds should be resumed once reconciled. 4. Troponin elevation: Noted at 0.05. No clinical or electrocardiographic signs of ACS. Suspect it is secondary to dCHF. Will monitor trend. 5. Diabetes: Will continue basal insulin in conjunction with sliding scale. Past Med Surg Social Fam HX - Past Medical History Medical history: arthritis, asthma, COPD, diabetes, hyperlipidemia, hypertension, other Additional medical history: NEUROPATHY Psychiatric history: anxiety, depression - Past Surgical History Surgical History: , hysterectomy Additional surgical history: Brain aneurysm removed; lung surgery; Bladder Surgery - Social History Smoking Status: Former smoker Smokeless Tobacco Status: No Alcohol use: none Drug use: none - Family History Mother Hx Family Cardiac Disorders: Yes Father Hx Family Cardiac Disorders: Yes Hx Family Respiratory Disorders: Yes Internal Medicine - H&P: Meds Albuterol Sulfate [Proair Hfa] 2 puff IH Q4HR PRN 01/14/19 [History] Alendronate Sodium [Fosamax] 70 mg PO QWEEK 01/14/19 [History] Aspirin [Lo-Dose Aspirin EC] 81 mg PO DAILY 01/14/19 [History] Umeclidinium [place] [Incruse Ellipta] 62.5 mcg IH DAILY 01/14/19 [History] Calcium Carbonate/Vitamin D3 [Calcium 500 + Vit D Caplet] 1 tab PO DAILY 01/15/19 [History] Furosemide [Lasix] 20 mg PO DAILY 01/15/19 [History] Loratadine/Pseudoephedrine [Allergy Relief D-24Hr Tablet] 1 tab PO DAILY 01/15/19 [History] Metformin HCl 1,000 mg PO BID 01/15/19 [History] Carvedilol [Coreg] 12.5 mg PO BIDWM 30 Days #60 tablet 01/18/19 [Rx] Lisinopril [Zestril] 2.5 mg PO DAILY 30 Days #30 tablet 01/18/19 [Rx] Albuterol Neb [Proventil Neb] 2.5 mg IH TID PRN 02/06/19 [History] Fluticasone/Salmeterol [Airduo Respiclick 232-14 Mcg] 1 each IH BID 02/06/19 [History] Insulin Glargine,Hum.rec.anlog [Basaglar Kwikpen U-100] 10 unit SQ HS 02/06/19 [History] Insulin LISPRO [Admelog] 7 unit SQ TIDWM 02/06/19 [History] Pregabalin [Lyrica] 100 mg PO BID 02/06/19 [History] Tramadol HCl [Ultram] 100 mg PO QID PRN 02/06/19 [History] Buspirone HCl [Buspar] 5 mg PO TID #30 tablet 02/18/19 [Rx] Digoxin [Lanoxin] 0.125 mg PO DAILY #14 tablet 02/18/19 [Rx] Sertraline [Zoloft] 50 mg PO DAILY #30 tablet 02/18/19 [Rx] Allergy/AdvReac Type Severity Reaction Status Date / Time codeine Allergy Hives Verified 01/15/19 19:12 propoxyphene [From Darvon] Allergy Hives Verified 01/15/19 19:12 All Systems PM: A 10-system review of systems was performed and is negative for pertinent findings except as documented above in the HPI. - Constitutional Vitals: Temp Pulse Resp BP Pulse Ox 98.2 F 110 20 117/72 94 03/08/19 04:57 03/08/19 04:57 03/08/19 06:11 03/08/19 04:57 03/08/19 06:11 Exam: . - Time Spent With Patient Total time spent is greater than 50% in coordination of care (as documented) at patient's floor/unit and/or counseling patient:
[2019-03-08] MEDS ORDERED: D5% in Water 1,000 ML IVC PRN (08:23)
[2019-03-08] MEDS ORDERED: MethylPREDNISolone 40 MG/ML VIAL IVP SCH (09:00)
[2019-03-08] MEDS ORDERED: predniSONE 20 MG TABLET PO SCH (09:00)
[2019-03-08] MEDS ORDERED: Furosemide 40 MG/4 ML VIAL IVP SCH (09:00)
[2019-03-08] MEDS: Insulin LISPRO 300 UNITS/3 ML VIAL SQ SCH ×6 (09:17→21:14)
[2019-03-08] MEDS: MethylPREDNISolone 40 MG/ML VIAL IVP SCH ×2 (09:17→21:14)
--- NOTE | 2019-03-08 10:24 | Event Note ---
Date of Encounter: 03/08/19 Time of Encounter: 08:15 H&P reviewed. 63-year-old female with oxygen dependent COPD, heart failure with reduced EF, diabetes, was admitted overnight due to acute on chronic hypoxic respiratory failure secondary to decompensated heart failure and COPD exacerbation. Pt also had mild elevated troponin of 0.05 without EKG changes. Likely secondary to demand ischemia in the setting of acute on chronic respiratory failure; will obtain echo and continue to trend troponin till it peaks. Mild improvement in her clinical status noted after IV Solu-Medrol and Lasix, will continue for today and obtain respiratory viral panel. Wean O2 as tolerated
[2019-03-08] MEDS: Furosemide 40 MG/4 ML VIAL IVP SCH ×2 (10:37→16:31)
[2019-03-08 12:46] LABS: Adenovirus Not Detected (Not Detect); Bordetella Pertussis Not Detected (Not Detect); Chlamydophila pneumoniae Not Detected (Not Detect); Coronavirus 229E Not Detected (Not Detect); Coronavirus HKU1 Not Detected (Not Detect); Coronavirus NL63 Not Detected (Not Detect); Coronavirus OC43 Not Detected (Not Detect); Human Metapneumovirus Not Detected (Not Detect); Human Rhinovirus/Enterovirus DETECTED (Not Detect); Influenza A Subtype 2009 H1 Not Detected (Not Detect); Influenza A Untypeable Not Detected (Not Detect); Influenza B Not Detected (Not Detect); Mycoplasma pneumoniae Not Detected (Not Detect); Parainfluenza Virus 1 Not Detected (Not Detect); Parainfluenza Virus 2 Not Detected (Not Detect); Parainfluenza Virus 3 Not Detected (Not Detect); Parainfluenza Virus 4 Not Detected (Not Detect); Respiratory Syncytial Virus Not Detected (Not Detect)
[2019-03-08] MEDS ORDERED: Insulin DETEMIR 100 UNIT/ML X5UNITS SQ SCH (21:00)
[2019-03-08 23:25] LABS: Basophils % 0.4 %; Eosinophils # 0.1 K/mcL (0.0-0.6); Immature Granulocytes % 0.3 % (0-4); Lymphocytes # 0.7 K/mcL (0.6-4.6); Lymphocytes % 9.2 %; Mean Corpuscular HGB Conc 32.5 g/dL (31.6-35.5); Mean Corpuscular Hemoglobin 28.7 pg (28.0-33.3); Mean Corpuscular Volume 88.3 fL (83.0-100.0); Mean Platelet Volume 12.1 fL (9.4-12.4); Monocytes # 0.3 K/mcL (0.0-1.3); Monocytes % 4.3 %; Platelet Count 194 K/mcL (140-400); Red Blood Count 4.53 M/mcL (3.82-4.97); Red Cell Distribution Width 15.3 % (11.5-14.5); Segmented Neutrophils % 83.8 %; White Blood Count 7.2 K/mcL (4.3-11.1)
[2019-03-08 23:43] LABS: BUN/Creatinine Ratio 28 (6-26); Blood Urea Nitrogen 25 mg/dL (8-23); Calcium 8.5 mg/dL (8.6-10.3); Carbon Dioxide 27 mEq/L (23-29); Chloride 101 mEq/L (98-107); Glucose 314 mg/dL (70-105); Magnesium 1.4 mg/dL (1.6-2.6); Osmolality,Calculated 304 (280-300); Sodium 139 mEq/L (136-145); eGFR For African Americans > 60 (> 60); eGFR For Non-African Americans > 60 (> 60)
[2019-03-09] MEDS: Ipratropium/Albuterol Neb 3 ML IH SCH ×7 (00:01→23:57)
[2019-03-09] MEDS ORDERED: Insulin DETEMIR 100 UNIT/ML X5UNITS SQ ONE (08:02)
[2019-03-09] MEDS: Insulin LISPRO 300 UNITS/3 ML VIAL SQ SCH ×7 (08:21→20:14)
[2019-03-09] MEDS: Pregabalin 50 MG CAPSULE PO SCH ×2 (08:22→20:13)
[2019-03-09] MEDS: MethylPREDNISolone 40 MG/ML VIAL IVP SCH ×2 (08:22→20:13)
[2019-03-09] MEDS: Aspirin Enteric Coated 81 MG Tablet PO SCH (08:23)
[2019-03-09] MEDS: *HR* Digoxin 0.125 MG TABLET PO SCH (08:23)
[2019-03-09] MEDS: Furosemide 20 MG TABLET PO SCH (08:23)
[2019-03-09] MEDS ORDERED: NON-FORMULARY MEDICATION 1 EACH EACH (Umeclidinium Bromide [Incruse Ellipta] 62.5 MCG) IH SCH (09:00)
--- NOTE | 2019-03-09 09:52 | Internal Med Progress Note ---
Hospitalist Progress Note - Encounter Date of Encounter: 03/09/19 Time of Encounter: 08:15 - Subjective Interval History: states that her dyspnea is largely unchanged. Cough slightly improved however. Denies any chest pain, palpitation, or fever/chills - Exam Vitals: Temp Pulse Resp BP Pulse Ox 98.1 F 115 18 111/74 92 03/09/19 07:05 03/09/19 07:05 03/09/19 07:19 03/09/19 07:05 03/09/19 07:19 Exam: General: Alert and oriented, not in acute distress. Cardiovascular:Normal S1 & S2, No JVD. Pulse regular but tachycardic Lungs: Diffuse wheezing bilaterally Abdomen:Soft, non-tender, no rigidity. Extremities:No deformity or swelling Neurological:Normal cognition and motor skills. Non-focal - Assessment and Plan (1) Acute and chronic respiratory failure with hypoxia Current Visit: Yes Status: Acute Assessment and Plan: secondary to COPD Exacerbation due to viral infection Entero/rhinovirus positive No leukocytosis or evidence of PNA on CXR continue IV solumedrol, scheduled duoneb. Add macrolide for 5 days smoking cessation emphasized (2) Acute exacerbation of chronic obstructive airways disease Current Visit: Yes Status: Acute Assessment and Plan: due to viral infection, mx as above (3) Elevated troponin Current Visit: Yes Status: Acute Assessment and Plan: trop 0.05-0.07-0.04 in the setting of acute on chronic respiratory failure. Likely demand ischemia No signs and symptoms of angina, no ischemic changes noted on EKG Echocardiogram pending (4) Congestive heart failure Current Visit: Yes Status: Chronic Assessment and Plan: resume home dose of lasix (5) DM type 2 (diabetes mellitus, type 2) Current Visit: No Status: Chronic Assessment and Plan: increase basal insulin to 25 units at HS continue low dose sliding scale with prandial lispro DVT Prophylaxis: SQ hep - Time Spent with Patient Total time spent is greater than 50% in coordination of care (as documented) at patient's floor/unit and/or counseling patient: 25 - 35 minutes Plan of Care Discussed with: patient Internal Medicine: Result - Labs CBC & Chem 7: 03/08/19 22:57 03/08/19 22:57 Labs: Short CBC 03/08/19 Range/Units 22:57 WBC 7.2 (4.3-11.1) K/mcL Hgb 13.0 (11.5-15.4) g/dL Hct 40.0 (35.3-44.9) % Plt Count 194 (140-400) K/mcL Neutrophils # 6.0 (1.6-8.9) K/mcL BMP 03/08/19 22:57 Sodium 139 Potassium 4.0 Chloride 101 Carbon Dioxide 27 BUN 25 H Creatinine 0.90 Glucose 314 H Calcium 8.5 L Cardiac Enzymes 03/08/19 Range/Units 22:54 Troponin I 0.04 H* (< 0.04) ng/mL (4) Congestive heart failure Qualifiers: Heart failure type: systolic Heart failure chronicity: chronic Qualified Code(s): I50.22 - Chronic systolic (congestive) heart failure (5) DM type 2 (diabetes mellitus, type 2) Qualifiers: Diabetes mellitus snf insulin use: with snf use Diabetes mellitus complication status: with neurologic complications Diabetes mellitus complication detail: with polyneuropathy Qualified Code(s): 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 diabetes mellitus with diabetic polyneuropathy; Z79.4 - alf (current) use of insulin
[2019-03-09] MEDS: Azithromycin 250 MG TABLET PO SCH (10:47)
[2019-03-09] MEDS: Budesonide/Formoterol 160/4.5 1 PUFF INH IH SCH ×2 (11:14→20:25)
[2019-03-09] MEDS: *HR* Heparin 5,000 UNIT/ML VIAL SQ SCH (16:45)
[2019-03-09] MEDS: Acetaminophen 325 MG TABLET PO PRN (16:55)
[2019-03-09] MEDS ORDERED: Insulin DETEMIR 100 UNIT/ML X5UNITS SQ SCH (21:00)
[2019-03-10] MEDS: *HR* Heparin 5,000 UNIT/ML VIAL SQ SCH ×2 (03:34→16:07)
[2019-03-10] MEDS: Ipratropium/Albuterol Neb 3 ML IH SCH ×6 (04:43→23:33)
[2019-03-10] MEDS: Furosemide 20 MG TABLET PO SCH (07:53)
[2019-03-10] MEDS: Pregabalin 50 MG CAPSULE PO SCH ×2 (07:53→19:55)
[2019-03-10] MEDS: *HR* Digoxin 0.125 MG TABLET PO SCH (07:54)
[2019-03-10] MEDS: Aspirin Enteric Coated 81 MG Tablet PO SCH (07:54)
[2019-03-10] MEDS: Azithromycin 250 MG TABLET PO SCH (07:54)
[2019-03-10] MEDS: MethylPREDNISolone 40 MG/ML VIAL IVP SCH ×3 (07:57→23:49)
[2019-03-10] MEDS: Insulin LISPRO 300 UNITS/3 ML VIAL SQ SCH ×7 (08:04→19:55)
[2019-03-10 08:41] LABS: Hematocrit 40.3 % (35.3-44.9); Hemoglobin 13.1 g/dL (11.5-15.4); Mean Corpuscular HGB Conc 32.5 g/dL (31.6-35.5); Mean Corpuscular Hemoglobin 28.8 pg (28.0-33.3); Mean Corpuscular Volume 88.6 fL (83.0-100.0); Platelet Count 217 K/mcL (140-400); Red Blood Count 4.55 M/mcL (3.82-4.97); Red Cell Distribution Width 15.3 % (11.5-14.5); White Blood Count 10.7 K/mcL (4.3-11.1)
[2019-03-10 08:56] LABS: BUN/Creatinine Ratio 42 (6-26); Blood Urea Nitrogen 32 mg/dL (8-23); Calcium 8.6 mg/dL (8.6-10.3); Carbon Dioxide 26 mEq/L (23-29); Chloride 105 mEq/L (98-107); Glucose 368 mg/dL (70-105); Magnesium 1.9 mg/dL (1.6-2.6); Osmolality,Calculated 312 (280-300); Potassium 4.7 mEq/L (3.5-5.1); Sodium 140 mEq/L (136-145); eGFR For African Americans > 60 (> 60); eGFR For Non-African Americans > 60 (> 60)
[2019-03-10] MEDS: Budesonide/Formoterol 160/4.5 1 PUFF INH IH SCH ×2 (11:33→19:41)
--- NOTE | 2019-03-10 15:42 | Pulmonology Consult Note ---
Date of Encounter: 03/10/19 Time of Encounter: 15:42 Assessment and Plan (1) Acute exacerbation of chronic obstructive airways disease Current Visit: Yes Status: Acute It appears that this admission for Mildred is that she has unfortunately developed a viral infection causing exacerbation of COPD. Unfortunately there is not come to be any quick resolution to her symptoms given the severity of underlying airways disease. I agree with continuation of IV steroids in the short-term she will need frequent bronchodilator therapy would continue Symbicort I agree with macrolide for anti-inflammatory properties but outside this unfortunately time will be required until resolutions subside. Unfortunately I suspect some degree of steroid insensitivity which is complicating this picture. I doubt that pneumonia coinfection and so broadening her antibiotics at this point is not likely to be beneficial we may need to readdress this over the upcoming days. Continue supplemental oxygen Saturation around 89-92% where she currently resides. Clinically I doubt that a PEG would be useful except if she becomes somnolent to evaluate for hypercarbia BiPAP can be useful for work of breathing as an adjunctive therapy and a trial is worthwhile (2) Acute on chronic systolic heart failure Current Visit: Yes Status: Acute This is me that she has not had a cardiology evaluation of this point. She has ejection fraction 35% on last echocardiogram and I believe that this needs further evaluation as her underlying heart disease is likely contributing to her frequent readmissions to the hospital. It may not be directly related to this admission but there is no Dr. Talbot she will benefit from augmentation of her diuretic regimen switched from by mouth to IV formulation of Lasix over the next 24-48 hours. (3) Tobacco abuse Current Visit: Yes Status: Acute I counseled the patient that she needs to refrain from any amount of cigarette smoke Patient with a consultation pulmonary will continue to follow History of Present Illness Consult date: 03/10/19 Requesting physician: Damon Richards Reason for consult: COPD Chief complaint: Difficulty in breathing History of present illness: Ms Vicente is a 63-year-old woman well known to the pulmonary service which follows for COPD. Unfortunately she has had multiple hospitalizations over the last few months for COPD exacerbation and his return for shortness of breath today. Pulmonary consult for further evaluation of this patient. Patient has been admitted the hospital starting 01/05 on tell she was discharged on 01/11 and was readmitted on 725 discharged on 01/18 was readmitted on 02/06 discharged on 02/19 and then presented to the hospital on 03/07 and has been admitted since. Labs of this admission were notable for a BNP of 1611 modestly troponin elevation of 0.07 she is noted to have hyperglycemia without evidence of kidney injury there is no leukocytosis on admission but respiratory infection panel/PCR was positive for enteral/Rhino virus. She is currently on azithromycin Symbicort and 40 mg of IV Solu-Medrol every 8 hours. She is also getting scheduled duo nebs. Oxygen saturation has been in the low to mid 90s on 2-3 L nasal cannula. Which is about her baseline. Blood pressure is stable as has heart rate. Chest x-ray on the this admission was notable for a right middle lobe and medial basal segment of left lower lobe density congestive heart failure and cardiomegaly. CT scan was performed on 02/08 which was notable for chronic right middle lobe atelectasis. She also had evidence of hydrostatic pulmonary edema and some passive atelectasis of the lower lobes. Echocardiogram performed 01/07 was notable for ejection fraction of 35% with moderate global left ventricular systolic dysfunction and basal mid inferior wall hypokinesis along with a mildly dilated left ventricle. Today she tells me she does not feel well she is having difficulty breathing is noted to be having a significant coughing paroxysmal hours in the room. She has no history of known heart disease except for echocardiogram done at last admission she was scheduled to be seen by a plug machine operator in the outpatient setting but said she had wait until March of this year to be seen. She has had a cough productive of sputum denies any fevers or chills no hemoptysis diarrhea night sweats unintentional weight loss rash or neurological changes. She denies any chest pain today except with deep breathing. She states is not actively smoking on daily basis but has admitted to smoking around 2 cigarettes for the last 3 months Past Med Surg Social Fam HX - Past Medical History Medical history: arthritis, asthma, COPD, diabetes, hyperlipidemia, hypertension, other Additional medical history: NEUROPATHY Psychiatric history: anxiety, depression - Past Surgical History Surgical History: , hysterectomy Additional surgical history: Brain aneurysm removed; lung surgery; Bladder Surgery - Social History Smoking Status: Former smoker Smokeless Tobacco Status: No Alcohol use: none Drug use: none - Family History Mother Hx Family Cardiac Disorders: Yes Father Hx Family Cardiac Disorders: Yes Hx Family Respiratory Disorders: Yes Medications and Allergies Albuterol Sulfate [Proair Hfa] 2 puff IH Q4HR PRN 01/14/19 [History] Alendronate Sodium [Fosamax] 70 mg PO QWEEK 01/14/19 [History] Aspirin [Lo-Dose Aspirin EC] 81 mg PO DAILY 01/14/19 [History] Umeclidinium [place]yx [Incruse Ellipta] 62.5 mcg IH DAILY 01/14/19 [History] Calcium Carbonate/Vitamin D3 [Calcium 500 + Vit D Caplet] 1 tab PO DAILY 01/15/19 [History] Furosemide [Lasix] 20 mg PO DAILY 01/15/19 [History] Loratadine/Pseudoephedrine [Allergy Relief D-24Hr Tablet] 1 tab PO DAILY PRN 01/15/19 [History] Metformin HCl 1,000 mg PO BID 01/15/19 [History] Carvedilol [Coreg] 12.5 mg PO BIDWM 30 Days #60 tablet 01/18/19 [Rx] Lisinopril [Zestril] 2.5 mg PO DAILY 30 Days #30 tablet 01/18/19 [Rx] Albuterol Neb [Proventil Neb] 2.5 mg IH TID PRN 02/06/19 [History] Fluticasone/Salmeterol [Airduo Respiclick 232-14 Mcg] 1 puff IH BID 02/06/19 [History] Insulin Glargine,Hum.rec.anlog [Basaglar Kwikpen U-100] 10 unit SQ HS 02/06/19 [History] Insulin LISPRO [Admelog] 7 unit SQ TIDWM 02/06/19 [History] Pregabalin [Lyrica] 100 mg PO BID 02/06/19 [History] Buspirone HCl [Buspar] 5 mg PO TID #30 tablet 02/18/19 [Rx] Digoxin [Lanoxin] 0.125 mg PO DAILY #14 tablet 02/18/19 [Rx] Sertraline [Zoloft] 50 mg PO DAILY #30 tablet 02/18/19 [Rx] Tramadol HCl [Tramadol HCl ER] 100 mg PO Q6H PRN 03/08/19 [History] Allergy/AdvReac Type Severity Reaction Status Date / Time codeine Allergy Hives Verified 01/15/19 19:12 propoxyphene [From Darvon] Allergy Hives Verified 01/15/19 19:12 All Systems: The remainder of the systems were reviewed and are negative Physical Examination General appearance: appears uncomfortable Eyes: nonicteric ENT: oropharynx moist Neck: supple Effort: very labored Auscultation: bilateral: clear, wheezes, rhonchi Cardiovascular: other (Rapid rate regular rhythm) Gastrointestinal: normoactive bowel sounds, soft, non-tender Integumentary: normal Extremities: no cyanosis, edema Musculoskeletal: no deformities normal mental status, non-focal exam anxious Results - Laboratory Findings CBC and BMP: 03/10/19 08:12 03/10/19 08:12 Abnormal lab findings: Abnormal lab results RDW 15.3 % (11.5-14.5) H 03/10/19 08:12 BUN 32 mg/dL (8-23) H 03/10/19 08:12 BUN/Creatinine Ratio 42 (6-26) H 03/10/19 08:12 Glucose 368 mg/dL (70-105) H 03/10/19 08:12 POC Glucose 238 mg/dL (70-99) H 03/09/19 19:19 Calculated Osmolality 312 (280-300) H 03/10/19 08:12 Calcium 8.5 mg/dL (8.6-10.3) L 03/08/19 22:57 Magnesium 1.4 mg/dL (1.6-2.6) L 03/08/19 22:57 Troponin I 0.04 ng/mL (< 0.04) H* 03/08/19 22:54 Entero/Rhino (PCR) DETECTED (Not Detect) A 03/08/19 10:47 - Diagnostic Findings Chest x-ray: report reviewed, image reviewed CT scan - chest: report reviewed, image reviewed - Clinical Findings Intake & Output: Intake & Output 03/09/19 03/10/19 03/10/19 23:59 07:59 15:59 Intake Total 0 / 0 0 / 0 Output Total 0 / 0 Balance 0 / 0 0 / 0 Weight 66 kg Consult Discharge Plan - Plan Referrals: Court Stoner, ANTHROPOLOGY AND ARCHEOLOGY INSTRUCTOR [Primary Care Provider] -
--- NOTE | 2019-03-10 15:44 | Internal Med Progress Note ---
Hospitalist Progress Note - Encounter Date of Encounter: 03/10/19 Time of Encounter: 15:41 - Subjective Interval History: I have seen and evaluated the patient at bedside. patient reported feeling short of breath and wheezing. denies chest pain, nausea, abdominal pain or vomiting. - Exam Vitals: Temp Pulse Resp BP Pulse Ox 98.0 F 73 17 112/71 93 03/10/19 10:51 03/10/19 10:51 03/10/19 10:51 03/10/19 10:51 03/10/19 10:51 Exam: Vitals: Reviewed. General: Alert and oriented x4. In mild distress due to shortness of breath. Skin: Normal color, no rash, no lesions. HEENT: EOM, pupils equal, round and reactive. Cardiovascular: Tachycardic, normal S1 & S2, no rubs, murmurs or gallops. Lungs: Scattered bilateral expiratory and inspiratory wheezes, no rales or crackles. Abdomen: Soft, non-tender, no rigidity. Extremities: No deformity, no edema or tenderness, no joint swelling or clubbing. Neurological: Normal cognition and motor skills. Rest of the physical exam is non contributory - Assessment and Plan (1) Acute and chronic respiratory failure with hypoxia Current Visit: Yes Status: Acute Assessment and Plan: patient continues to have s/l scatter expiratory wheezing. On mild distress. Status post bronchoscopy on 01/06/19. Cytology negative for malignancy. Plan: increase methyl-solumedrol to 40mg/IV Q8HRs c/w scheduled bronchodilators. on symbicort incentive spirometry pulmonology called, recommendations appreciated. ABG ordered, patient refused. legionella, strep ordered sputum culture and gram stain (2) Acute exacerbation of chronic obstructive airways disease Current Visit: Yes Status: Acute Assessment and Plan: plan of care as above. (3) Elevated troponin Current Visit: Yes Status: Ruled-out (4) Congestive heart failure Current Visit: Yes Status: Chronic Assessment and Plan: patient is euvolemic. continue with furosemide 20mg/PO daily. fluids restriction to 1.5 litters a day. daily weight, plus strict intake and output. (5) DM type 2 (diabetes mellitus, type 2) Current Visit: No Status: Chronic Assessment and Plan: blood sugar sub-optimally controlled. increase levemir to 25 units BID, plus increase lispro to 10 units ac. carbs controlled diet. (6) Hypertension Current Visit: No Status: Chronic Assessment and Plan: Blood pressure is well controlled on furosemide, metoprolol and lisinopril. We will continue to monitor and adjust medication accordingly. DVT Prophylaxis: On heparin subcutaneous. - Summary of Assessment and Plan Summary of Assessment and Plan: Patient to remain in the hospital due to acute COPD exacerbation with high-dose IV steroids. - Time Spent with Patient Total time spent is greater than 50% in coordination of care (as documented) at patient's floor/unit and/or counseling patient: Greater than 35 minutes (40) Plan of Care Discussed with: patient (and the nurse.) Internal Medicine: Result - Labs CBC & Chem 7: 03/10/19 08:12 03/10/19 08:12 Labs: Short CBC 03/10/19 Range/Units 08:12 WBC 10.7 (4.3-11.1) K/mcL Hgb 13.1 (11.5-15.4) g/dL Hct 40.3 (35.3-44.9) % Plt Count 217 (140-400) K/mcL BMP 03/10/19 08:12 Sodium 140 Potassium 4.7 Chloride 105 Carbon Dioxide 26 BUN 32 H Creatinine 0.76 Glucose 368 H Calcium 8.6 Consult Discharge Plan - Plan Referrals: Court Stoner, ANDREAS [Primary Care Provider] - (4) Congestive heart failure Qualifiers: Heart failure type: systolic Heart failure chronicity: chronic Qualified Code(s): I50.22 - Chronic systolic (congestive) heart failure (5) DM type 2 (diabetes mellitus, type 2) Qualifiers: Diabetes mellitus terminal carman insulin use: with terminal carman use Diabetes mellitus complication status: with neurologic complications Diabetes mellitus complication detail: with polyneuropathy Qualified Code(s): 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 diabetes mellitus with diabetic polyneuropathy; Z79.4 - skilled nursing (current) use of insulin (6) Hypertension Qualifiers: Hypertension type: essential hypertension Qualified Code(s): I10 - Essential (primary) hypertension
[2019-03-10] MEDS ORDERED: Albuterol 2.5 MG/3 ML NEBULIZER ONE (16:31)
[2019-03-10] MEDS ORDERED: Albuterol 2.5 MG/3 ML NEBULIZER IH ONE (16:36)
[2019-03-10] MEDS: Insulin DETEMIR 100 UNIT/ML X5UNITS SQ SCH (19:55)
[2019-03-11] MEDS: Ipratropium/Albuterol Neb 3 ML IH SCH ×6 (03:27→23:55)
[2019-03-11] MEDS: *HR* Heparin 5,000 UNIT/ML VIAL SQ SCH ×2 (05:14→16:53)
[2019-03-11] MEDS: Budesonide/Formoterol 160/4.5 1 PUFF INH IH SCH ×2 (07:22→19:56)
[2019-03-11] MEDS: Azithromycin 250 MG TABLET PO SCH (09:33)
[2019-03-11] MEDS: *HR* Digoxin 0.125 MG TABLET PO SCH (09:33)
[2019-03-11] MEDS: Aspirin Enteric Coated 81 MG Tablet PO SCH (09:33)
[2019-03-11] MEDS: Insulin LISPRO 300 UNITS/3 ML VIAL SQ SCH ×7 (09:34→21:30)
[2019-03-11] MEDS: Furosemide 40 MG/4 ML VIAL IVP SCH (09:34)
[2019-03-11] MEDS: Insulin DETEMIR 100 UNIT/ML X5UNITS SQ SCH ×2 (09:34→21:30)
[2019-03-11] MEDS: Pregabalin 50 MG CAPSULE PO SCH ×2 (09:34→21:30)
[2019-03-11] MEDS: MethylPREDNISolone 40 MG/ML VIAL IVP SCH ×2 (09:34→16:20)
--- NOTE | 2019-03-11 10:49 | Internal Med Progress Note ---
Hospitalist Progress Note - Encounter Date of Encounter: 03/11/19 Time of Encounter: 10:47 - Subjective Interval History: I have seen and evaluated the patient at bedside. Patient reports still feeling short of breath, denies chest pain, nausea, vomiting or abdominal pain. - Exam Vitals: Temp Pulse Resp BP Pulse Ox 97.5 F L 108 18 124/79 99 03/11/19 10:00 03/11/19 10:00 03/11/19 10:00 03/11/19 10:00 03/11/19 10:00 Exam: Vitals: Reviewed. General: Alert and oriented x4. In mild distress due to shortness of breath. Cardiovascular: RRR, normal S1 & S2, no rubs, murmurs or gallops. Lungs: bilateral expiratory and inspiratory wheezes, no rales or crackles. Abdomen: Soft, non-tender, no rigidity. NABS in all 4 quadrants. Extremities: No edema. Neurological: No focal neurological abnormalities. Rest of the physical exam is non contributory - Assessment and Plan (1) Acute and chronic respiratory failure with hypoxia Current Visit: Yes Status: Acute Assessment and Plan: +ve Enter/Rhino virus. patient still requiring 5 litters of O2 to keep O2sat >90%. scattered b/l expiratory and inspiratory wheezing on auscultation. c/w high dose IV steroids at least for the next 24 hours, will titrate down based on clinical picture. Empirically on azithromycin 500 mg by mouth daily. Incentive spirometry. On Symbicort. Pulmonology recommendation appreciated. Bipap stand by. (2) Acute exacerbation of chronic obstructive airways disease Current Visit: Yes Status: Acute Assessment and Plan: plan of care as above. (3) Elevated troponin Current Visit: Yes Status: Ruled-out (4) Congestive heart failure Current Visit: Yes Status: Chronic Assessment and Plan: patient is euvolemic. Patient is on furosemide 40mg/PO daily. c/w bb and ACEs. Continue with fluids restriction to 1.5 litters a day. daily weight, plus strict intake and output. Cardiology consulted for possible ischemic work up due to worsening ejection fraction for the past 4 months (5) DM type 2 (diabetes mellitus, type 2) Current Visit: No Status: Chronic Assessment and Plan: Blood sugars suboptimally controlled. Levemir increased to 25 units twice a day, and lispro increased to 10 units before meals, continue carb controlled diet. (6) Hypertension Current Visit: No Status: Chronic Assessment and Plan: Blood pressures well controlled on furosemide, metoprolol and lisinopril. DVT Prophylaxis: Patient is on heparin subcutaneous. - Summary of Assessment and Plan Summary of Assessment and Plan: Patient to remain in the hospital due to COPD exacerbation, on high-dose IV steroids. - Time Spent with Patient Total time spent is greater than 50% in coordination of care (as documented) at patient's floor/unit and/or counseling patient: Greater than 35 minutes (45) Plan of Care Discussed with: patient (and the nurse.) Internal Medicine: Result - Labs CBC & Chem 7: 03/10/19 08:12 03/10/19 08:12 Consult Discharge Plan - Plan Referrals: Court Stoner CNP [Primary Care Provider] - (4) Congestive heart failure Qualifiers: Heart failure type: systolic Heart failure chronicity: chronic Qualified Code(s): I50.22 - Chronic systolic (congestive) heart failure (5) DM type 2 (diabetes mellitus, type 2) Qualifiers: Diabetes mellitus residential insulin use: with laborer marine terminal use Diabetes mellitus complication status: with neurologic complications Diabetes mellitus complication detail: with polyneuropathy Qualified Code(s): 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 diabetes mellitus with diabetic polyneuropathy; Z79.4 - assisted (current) use of insulin (6) Hypertension Qualifiers: Hypertension type: essential hypertension Qualified Code(s): I10 - Essential (primary) hypertension
--- NOTE | 2019-03-11 11:05 | Pulmonology Progress Note ---
<RudolphthaFermin holman W - Last Filed: 03/11/19 15:44> Date of Encounter: 03/11/19 Assessment and Plan (1) Acute exacerbation of chronic obstructive airways disease Current Visit: Yes Status: Acute (2) Acute on chronic systolic heart failure Current Visit: Yes Status: Acute (3) Tobacco abuse Current Visit: Yes Status: Acute Objective PUL Vital signs: Last Vital Signs Temp 98.1 F 03/11/19 11:08 Pulse 98 03/11/19 11:08 Resp 18 03/11/19 11:35 BP 127/79 03/11/19 11:08 Pulse Ox 97 03/11/19 11:35 Results - Laboratory Findings CBC and BMP: 03/10/19 08:12 03/10/19 08:12 Abnormal lab findings: Abnormal lab results RDW 15.3 % (11.5-14.5) H 03/10/19 08:12 BUN 32 mg/dL (8-23) H 03/10/19 08:12 BUN/Creatinine Ratio 42 (6-26) H 03/10/19 08:12 Glucose 368 mg/dL (70-105) H 03/10/19 08:12 POC Glucose 305 mg/dL (70-99) H 03/11/19 07:11 Calculated Osmolality 312 (280-300) H 03/10/19 08:12 Calcium 8.5 mg/dL (8.6-10.3) L 03/08/19 22:57 Magnesium 1.4 mg/dL (1.6-2.6) L 03/08/19 22:57 Troponin I 0.04 ng/mL (< 0.04) H* 03/08/19 22:54 Entero/Rhino (PCR) DETECTED (Not Detect) A 03/08/19 10:47 - Clinical Findings Intake & Output: Intake & Output 03/10/19 03/11/19 03/11/19 23:59 07:59 15:59 Intake Total 0 / 0 Balance 0 / 0 Weight 66.2 kg Consult Discharge Plan - Plan Referrals: Court Stoner, BANKING ANALYST [Primary Care Provider] - - Attending Attestation I examined this patient and my medical decision-making was reviewed with the Resident Physician. I agree with the documented findings, disposition and tr eatment plan as described except to the extent set forth below. We independently had [id number] contact with the patient Patient seen and examined at bedside Labs, radiology, chart personally reviewed. Impression/Recs: Condition about the same would continue current therapies. Add mucolytics. Appreciate cardiology recommendations. If no improvement over the next 48 hours will likely need to repeat patient's CT scan <Marisol,Tremaine Duncan - Last Filed: 03/11/19 16:50> Date of Encounter: 03/11/19 Time of Encounter: 09:00 Assessment and Plan (1) Acute and chronic respiratory failure with hypoxia Current Visit: Yes Status: Acute Patient has had multiple hospitalizations for the same in the past year Currently requiring 4L to maintain SpO2 greater than 92% Baseline O2 requirements are 2L chronically Etiology multifactorial: HFrEF, EF 35%, viral respiratory infection in addition to AECOPD Minimal improvement from yesterday Plan: -Continue steroids -Continue Bronchodilators -Will Add Acetylcysteine Q6hrs -Guaifenisin changed to Scheduled -May need rpt CT Chest if no improvement (2) Acute on chronic systolic heart failure Current Visit: Yes Status: Acute Known history of HFrEF Found to have mildly reduced EF 08/2018 at 45-50% In December EF reduced at 30-35% with global and basal to mid inferior hypokeneis Likely contributing to her SOB Cardiology consulted, appreciate Recs Continue Diuresis Monitor Kidney function LHC on hold pending poor respiratory status Will reconsider if symptomatically improved (3) COPD exacerbation Current Visit: No Status: Acute Diffuse wheeze on exam respiratory status complicated by rhino virus infection Multiple hospital admission in the past for the same Severe pulmonary architectural destruction contributing to lack of improvement Likely will require prolonged course of tx and hospital stay continue steroids continue bronchodilators will add mucolytics cont. supplemental O2 (4) Tobacco abuse Current Visit: Yes Status: Acute Subjective Interval history: Seen and examined at bedside. Patient currently on 4L and SpO2 is 97%, however her baseline home requirement is 2L and she generally has an SpO2 of roughly 9 0%, recommend titrating down O2 requirements to maintain SpO2 88%. Patient reports no symptomatic improvement since yesterday but does state that her breathing treatments do temporarily help with the wheezing. She refuses labwork even though she is aware her kidney function needs monitored secondary to diuresis. Patient does currently report good urine output. No new Complaints. Objective PUL Vital signs: Last Vital Signs Temp 97.5 F L 09/19/19 10:00 Pulse 108 03/11/19 10:00 Resp 18 03/11/19 10:00 BP 124/79 03/11/19 10:00 Pulse Ox 99 03/11/19 10:00 Gen: Alert and oriented, Mild respiratory distress. Vitals: Stable Eyes: anicteric, EOMI ENT: Mucous Membranes moist Neck: Trachea midline, no lymphadenopathy CV: RRR, no murmurs gallops rubs REsp: diffuse wheezing on exam, worse on expiration, no rales or rhonchi, mildly labored breathing noted aBd: Soft, nontender, nondistended Ext: no peripheral edema, no rash, no clubbing Results - Laboratory Findings CBC and BMP: 03/10/19 08:12 03/10/19 08:12 Abnormal lab findings: Abnormal lab results RDW 15.3 % (11.5-14.5) H 03/10/19 08:12 BUN 32 mg/dL (8-23) H 03/10/19 08:12 BUN/Creatinine Ratio 42 (6-26) H 03/10/19 08:12 Glucose 368 mg/dL (70-105) H 03/10/19 08:12 POC Glucose 305 mg/dL (70-99) H 03/11/19 07:11 Calculated Osmolality 312 (280-300) H 03/10/19 08:12 Calcium 8.5 mg/dL (8.6-10.3) L 03/08/19 22:57 Magnesium 1.4 mg/dL (1.6-2.6) L 03/08/19 22:57 Troponin I 0.04 ng/mL (< 0.04) H* 03/08/19 22:54 Entero/Rhino (PCR) DETECTED (Not Detect) A 03/08/19 10:47 - Clinical Findings Intake & Output: Intake & Output 03/10/19 03/11/19 03/11/19 23:59 07:59 15:59 Intake Total 0 / 0 Balance 0 / 0 Weight 66.2 kg
--- NOTE | 2019-03-11 14:53 | Cardiology Consult Note ---
<Mohsen Carrillo Seth - Last Filed: 03/11/19 15:25> Date of Encounter: 03/11/19 Time of Encounter: 14:48 Assessment and Plan (1) Systolic CHF, acute on chronic Current Visit: No Status: Acute Acute on chronic HFrEF. Found to have mildly reduced EF 08/2018 at 45-50% . In December EF reduced at 30-35% with global and basal to mid inferior hypokeneis. No prior evaluation by cardiology. SOB multi-factoral in setting of COPD exacerbation and rhino virus. CXR 03/08 shows PNA vs pulmonary edema. BNP 1611. Agree with IV lasix. Strict I&O and daily weights. CHF education reviewed. Low sodium diet. Ischemic evaluation recommended for declining EF. LHC R/B/A reviewed with patient. Patient declines LHC due to extreme fear of needles. Reassurance given and she is considering. Currently not a good candidate due to orthopnea and persistent cough. Can reconsider once stable. Repeat CXR in am for further lasix rec. Change metoprolol tartrate to metoprolol succinate and increase lisinopril as tolerated. Discussion w patient/family: The assessment and plan as outlined above was discussed with the patient and/or family members who expressed understanding and agreement. All questions were answered. Thank you for involving us in the care of your patient. Please call with any questions. History of Present Illness Consult date: 03/11/19 Requesting physician: Damon Richards Consult reason: CHF Chief complaint: SOB History of present illness: Ms. Vicente is a 63 year old female with past medical history of COPD on home O2, chronic hypoxic respiratory distress, prior tobacco use (quit in November), HTN, DM, and brain aneurysm s/p repair. She was also recently hospitalized for Respiratory failure and RML PNA. She presents with c/o increasing SOB and persistent moist cough. C/o orthopnea and PND. Reports weight loss and not weight gain. Denies edema. Admits to intermittent left sided chest pain at rest. She is found to have rhino virus with COPD exacerbation and acute on chronic CHF. Cardiology consulted for CHF. Noted to have newly reduced EF in December of thi s year and was awaiting out-pt evaluation. States she was told she had a mild heart attack in October. Denies prior evaluation by cardiology. Past Med Surg Social Fam HX - Past Medical History Medical history: arthritis, asthma, cardiomyopathy, COPD, diabetes, hyperlipidemia, hypertension, other Additional medical history: NEUROPATHY Psychiatric history: anxiety, depression - Past Surgical History Surgical History: , hysterectomy Additional surgical history: Brain aneurysm removed; lung surgery; Bladder Surg shay - Social History Smoking Status: Former smoker Smokeless Tobacco Status: No Alcohol use: none Drug use: none - Family History Mother Hx Family Cardiac Disorders: Yes Father Hx Family Cardiac Disorders: Yes Hx Family Respiratory Disorders: Yes Medications and Allergies Albuterol Sulfate [Proair Hfa] 2 puff IH Q4HR PRN 01/14/19 [History] Alendronate Sodium [Fosamax] 70 mg PO QWEEK 01/14/19 [History] Aspirin [Lo-Dose Aspirin EC] 81 mg PO DAILY 01/14/19 [History] Umeclidinium [place] [Incruse Ellipta] 62.5 mcg IH DAILY 01/14/19 [History] Calcium Carbonate/Vitamin D3 [Calcium 500 + Vit D Caplet] 1 tab PO DAILY 01/15/19 [History] Furosemide [Lasix] 20 mg PO DAILY 01/15/19 [History] Loratadine/Pseudoephedrine [Allergy Relief D-24Hr Tablet] 1 tab PO DAILY PRN 01/15/19 [History] Metformin HCl 1,000 mg PO BID 01/15/19 [History] Carvedilol [Coreg] 12.5 mg PO BIDWM 30 Days #60 tablet 01/18/19 [Rx] Lisinopril [Zestril] 2.5 mg PO DAILY 30 Days #30 tablet 01/18/19 [Rx] Albuterol Neb [Proventil Neb] 2.5 mg IH TID PRN 02/06/19 [History] Fluticasone/Salmeterol [Airduo Respiclick 232-14 Mcg] 1 puff IH BID 02/06/19 [History] Insulin Glargine,Hum.rec.anlog [Basaglar Kwikpen U-100] 10 unit SQ HS 02/06/19 [History] Insulin LISPRO [Admelog] 7 unit SQ TIDWM 02/06/19 [History] Pregabalin [Lyrica] 100 mg PO BID 02/06/19 [History] Buspirone HCl [Buspar] 5 mg PO TID #30 tablet 02/18/19 [Rx] Digoxin [Lanoxin] 0.125 mg PO DAILY #14 tablet 02/18/19 [Rx] Sertraline [Zoloft] 50 mg PO DAILY #30 tablet 02/18/19 [Rx] Tramadol HCl [Tramadol HCl ER] 100 mg PO Q6H PRN 03/08/19 [History] Allergy/AdvReac Type Severity Reaction Status Date / Time codeine Allergy Hives Verified 01/15/19 19:12 propoxyphene [From Darvon] Allergy Hives Verified 01/15/19 19:12 All Systems Review: The remainder of the systems were reviewed and are negative Physical Examination Vital Signs, Last 4 Hours Temp Pulse Resp BP Pulse Ox 03/11/19 11:35 18 97 03/11/19 11:08 98.1 F 98 16 127/79 96 General: Conversant, Other (Persistent cough limiting conversation) HEENT: Atraumatic, Normocephaly, Mucus Membranes Moist Neck: No JVD, Normal carotid pulses Cardiac: Reg Rate and Rhythm, Normal S1 and S2, No Murmur Lungs: Other (Course rhonci throughout.) Neuro: Alert and responsive, No focal deficits noted Abdomen: Soft, Non-Tender Skin: No rashes noted on visualized skin Musculoskeletal: No Chest Wall Tenderness Extremities: No Clubbing, No Cyanosis, No Edema, Normal Pulses Results 03/10/19 08:12 03/10/19 08:12 - Imaging and Cardiology Chest Xray: report reviewed Echo: report reviewed - EKG Interpretation EKG results cardiology: personally reviewed Consult Discharge Plan - Plan Referrals: Court Stoner CNP [Primary Care Provider] - [facility] - Classification Classification: Class 3 <Vasu Boswell - Last Filed: 03/11/19 16:16> Date of Encounter: 03/11/19 - Attending Attestation I have personally performed a face to face evaluation on this patient. I have reviewed and agree with the care plan. History and Exam by me shows: I have personally performed a face to face evaluation on this patient. I have reviewed and agree with the care plan. History and Exam by me shows: Acute respiratory illness. Noted to have cardiomyopathy. She is unsure if she wants further workup but should consider left heart cath when respiratory status improves. Assessment and Plan Discussion w patient/family: The assessment and plan as outlined above was discussed with the patient and/or family members who expressed understanding and agreement. All questions were answered. Thank you for involving us in the care of your patient. Please call with any questions. History of Present Illness History of present illness: Ms. Vicente is a 63 year old female All Systems Review: The remainder of the systems were reviewed and are negative Results 03/10/19 08:12 03/10/19 08:12
[2019-03-11] MEDS: Metoprolol XL (24 HR) Succ 25 MG TAB.ER.24H PO SCH (16:19)
[2019-03-11] MEDS: Acetaminophen 325 MG TABLET PO PRN (17:10)
[2019-03-11] MEDS ORDERED: Acetylcysteine 10% 2 ML INHSOL IH SCH (22:00)
[2019-03-12] MEDS: MethylPREDNISolone 40 MG/ML VIAL IVP SCH ×3 (00:16→20:49)
[2019-03-12] MEDS: Ipratropium/Albuterol Neb 3 ML IH SCH ×6 (03:48→23:02)
[2019-03-12] MEDS: Acetylcysteine 10% 2 ML INHSOL IH SCH ×6 (03:49→19:55)
[2019-03-12 04:26] LABS: Basophils % 0.2 %; Hematocrit 43.2 % (35.3-44.9); Hemoglobin 13.7 g/dL (11.5-15.4); Immature Granulocytes % 1.8 % (0-4); Lymphocytes # 0.9 K/mcL (0.6-4.6); Lymphocytes % 8.1 %; Mean Corpuscular HGB Conc 31.7 g/dL (31.6-35.5); Mean Corpuscular Hemoglobin 28.5 pg (28.0-33.3); Mean Corpuscular Volume 89.8 fL (83.0-100.0); Mean Platelet Volume 12.2 fL (9.4-12.4); Monocytes # 0.3 K/mcL (0.0-1.3); Monocytes % 2.9 %; Neutrophils # 9.3 K/mcL (1.6-8.9); Platelet Count 212 K/mcL (140-400); Red Blood Count 4.81 M/mcL (3.82-4.97); Red Cell Distribution Width 14.6 % (11.5-14.5); White Blood Count 10.7 K/mcL (4.3-11.1)
[2019-03-12 04:44] LABS: BUN/Creatinine Ratio 47 (6-26); Blood Urea Nitrogen 43 mg/dL (8-23); Calcium 9.2 mg/dL (8.6-10.3); Carbon Dioxide 30 mEq/L (23-29); Chloride 103 mEq/L (98-107); Glucose 354 mg/dL (70-105); Magnesium 1.9 mg/dL (1.6-2.6); Osmolality,Calculated 313 (280-300); Phosphorous 3.5 mg/dL (2.7-4.5); Potassium 5.2 mEq/L (3.5-5.1); Sodium 139 mEq/L (136-145); eGFR For African Americans > 60 (> 60); eGFR For Non-African Americans > 60 (> 60)
[2019-03-12] MEDS: *HR* Heparin 5,000 UNIT/ML VIAL SQ SCH ×2 (05:44→18:23)
[2019-03-12] MEDS: Budesonide/Formoterol 160/4.5 1 PUFF INH IH SCH ×2 (07:11→19:56)
[2019-03-12] MEDS: Insulin LISPRO 300 UNITS/3 ML VIAL SQ SCH ×7 (08:32→20:01)
[2019-03-12] MEDS: Furosemide 40 MG/4 ML VIAL IVP SCH (08:33)
[2019-03-12] MEDS: Pregabalin 50 MG CAPSULE PO SCH ×2 (08:34→20:42)
[2019-03-12] MEDS: Aspirin Enteric Coated 81 MG Tablet PO SCH (08:34)
[2019-03-12] MEDS: Azithromycin 250 MG TABLET PO SCH (08:34)
[2019-03-12] MEDS: *HR* Digoxin 0.125 MG TABLET PO SCH (08:34)
[2019-03-12] MEDS: Metoprolol XL (24 HR) Succ 25 MG TAB.ER.24H PO SCH (08:34)
--- NOTE | 2019-03-12 09:07 | Pulmonology Progress Note ---
Date of Encounter: 03/12/19 Time of Encounter: 09:07 Assessment and Plan (1) Acute exacerbation of chronic obstructive airways disease Current Visit: Yes Status: Acute Mildred has a recurrent COPD exacerbations and hospitalizations for respiratory failure. Appears that this one has been mediated by viral infection. She is improving with current regimen including additional mucolytic in the nebulizer which can be continued to the weekend. She go home with oral version of N- acetylcysteine and return to her home COPD regimen she will need a prolonged steroid taper over the next 6 weeks starting at 40 mg and decreasing by 10 mg weekly. I do agree with formal cardiology consultation appreciated recommendations and plan for left heart catheterization early next week as I feel that her cardiomyopathy is impacting her frequent exacerbations. She will benefit from 5 days total of macrolide therapy for anti-inflammatory properties given her COPD exacerbation the context of viral bronchitis. It is an absolute imperative that she stay away from all forms of tobacco/cigarette smoke. She will benefit from pulmonary rehabilitation in the outpatient setting Otherwise over the right recommendation from pulmonary this time. Please call with any questions otherwise I will sign off and we can follow up with Mildred in the clinic in the next 2-3 weeks at the time of discharge (2) Acute on chronic systolic heart failure Current Visit: Yes Status: Acute (3) Tobacco abuse Current Visit: Yes Status: Acute Subjective Principal diagnosis: Copd Exacerbation Interval history: Mildred says she is feeling woman admitted after additional mucolytic into her nebulized treatments Objective PUL Vital signs: Last Vital Signs Temp 98.1 F 03/12/19 06:58 Pulse 97 03/12/19 06:58 Resp 18 03/12/19 07:13 BP 134/80 03/12/19 06:58 Pulse Ox 96 03/12/19 07:13 General appearance: no acute distress Eyes: nonicteric ENT: oropharynx moist Auscultation: bilateral: wheezes, rhonchi Cardiovascular: regular rate and rhythm Gastrointestinal: normoactive bowel sounds, soft, non-tender Extremities: no cyanosis, no edema, no clubbing Musculoskeletal: no deformities normal mental status, non-focal exam mood appropriate Results - Laboratory Findings CBC and BMP: 03/12/19 04:05 03/12/19 04:05 Abnormal lab findings: Abnormal lab results RDW 14.6 % (11.5-14.5) H 03/12/19 04:05 Neutrophils # 9.3 K/mcL (1.6-8.9) H 03/12/19 04:05 Potassium 5.2 mEq/L (3.5-5.1) H 03/12/19 04:05 Carbon Dioxide 30 mEq/L (23-29) H 03/12/19 04:05 BUN 43 mg/dL (8-23) H 03/12/19 04:05 BUN/Creatinine Ratio 47 (6-26) H 03/12/19 04:05 Glucose 354 mg/dL (70-105) H 03/12/19 04:05 POC Glucose 223 mg/dL (70-99) H 03/11/19 19:35 Calculated Osmolality 313 (280-300) H 03/12/19 04:05 Calcium 8.5 mg/dL (8.6-10.3) L 03/08/19 22:57 Magnesium 1.4 mg/dL (1.6-2.6) L 03/08/19 22:57 Troponin I 0.04 ng/mL (< 0.04) H* 03/08/19 22:54 Entero/Rhino (PCR) DETECTED (Not Detect) A 03/08/19 10:47 - Clinical Findings Intake & Output: Intake & Output 03/11/19 03/12/19 03/12/19 23:59 07:59 15:59 Intake Total 237 / 237 Output Total 0 / 0 Balance 237 / 237 Weight 67.1 kg - VTE Documentation of Mechanical Device: Graduated compression elastic hosiery Consult Discharge Plan - Plan Referrals: Court Stoner, SELVAGE MACHINE OPERATOR [Primary Care Provider] -
--- NOTE | 2019-03-12 10:27 | Cardiology Progress Note ---
Date of Encounter: 03/12/19 Time of Encounter: 08:30 Assessment and Plan (1) Systolic CHF, acute on chronic Current Visit: No Status: Acute Acute on chronic HFrEF. Found to have mildly reduced EF 08/2018 at 45-50% . In December EF reduced at 30-35% with global and basal to mid inferior hypokeneis. No prior evaluation by cardiology. SOB multi-factoral in setting of COPD exacerbation and rhino virus. CXR 03/08 shows PNA vs pulmonary edema. BNP 1611. Agree with IV lasix. Cough improved with breathing treatments. Strict I&O and daily weights. CHF education reviewed. Low sodium diet. Ischemic evaluation recommended for declining EF. LHC R/B/A reviewed with patient. Patient considering LHC in future. Currently not a good candidate due to orthopnea and persistent cough. Can reconsider once stable. Repeat CXR pending for further lasix rec. Currently appears euvolemic on exam, no edema or abdominal bloating. No JVD. Positive 477 ml currently. Continue metoprolol succinate and lisinopril as tolerated. Discussion w patient/family: The assessment and plan as outlined above was discussed with the patient and/or family members who expressed understanding and agreement. All questions were answered. Thank you for involving us in the care of your patient. Please call with any questions. Subjective Principal diagnosis: Copd Exacerbation, CMP Interval history: Ms. Vicente states she is coughing less with breathing treatments. Contnues to have intermittent left sided chest pain with cough or at rest. Objective Vital Signs, Last 4 Hours Temp Pulse Resp BP Pulse Ox 03/12/19 07:13 18 96 03/12/19 06:58 98.1 F 97 17 134/80 98 General: Conversant, Other (Respirations labored with conversation) HEENT: Atraumatic, Normocephaly, Mucus Membranes Moist Neck: No JVD, Normal carotid pulses Cardiac: Reg Rate and Rhythm, Normal S1 and S2, No Murmur, Other (sinus tachycardia noted at times.) Lungs: Other (Course rhonci improved.) Neuro: Alert and responsive, No focal deficits noted Abdomen: Soft, Non-Tender Skin: No rashes noted on visualized skin Musculoskeletal: No Chest Wall Tenderness Extremities: No Clubbing, No Cyanosis, No Edema, Normal Pulses Results 03/12/19 04:05 03/12/19 04:05 Lab Results 03/12/19 03/12/19 04:05 04:05 WBC 10.7 Hgb 13.7 Hct 43.2 Plt Count 212 Sodium 139 Potassium 5.2 H Chloride 103 Carbon Dioxide 30 H BUN 43 H Creatinine 0.92 Glucose 354 H Calcium 9.2 Magnesium 1.9 - Imaging and Cardiology Echo: report reviewed - EKG Interpretation EKG results cardiology: personally reviewed - VTE Documentation of Mechanical Device: Graduated compression elastic hosiery Consult Discharge Plan - Plan Referrals: Court Stoner, RN PARALEGAL [Primary Care Provider] -
[2019-03-12] MEDS: Insulin DETEMIR 100 UNIT/ML X5UNITS SQ SCH ×2 (11:35→20:42)
--- NOTE | 2019-03-12 12:41 | Internal Med Progress Note ---
Hospitalist Progress Note - Encounter Date of Encounter: 03/12/19 Time of Encounter: 12:37 - Subjective Interval History: I have seen and evaluated the patient at bedside. Patient reported her breathing is improving, feels better today. denies chest pain, nausea, vomiting or abdominal pain. - Exam Vitals: Temp Pulse Resp BP Pulse Ox 98.1 F 95 18 115/76 100 03/12/19 11:03 03/12/19 11:03 03/12/19 11:03 03/12/19 11:03 03/12/19 11:03 Exam: Vitals: Reviewed. General: Alert and oriented x4. In no distress Cardiovascular: RRR, normal S1 & S2, no rubs, murmurs or gallops. Lungs: minimal bilateral expiratory wheezes, no rales or crackles. Abdomen: Soft, non-tender, no rigidity. NABS in all 4 quadrants. Extremities: No edema. Neurological: No focal neurological abnormalities. Rest of the physical exam is non contributory - Assessment and Plan (1) Acute and chronic respiratory failure with hypoxia Current Visit: Yes Status: Acute Assessment and Plan: +ve Enter/Rhino virus. Plan: O2 requirement down to 3 litters, titrate for O2sat >90%. decrease IV steroids to 40mg/IV BID. On Symbicort. On bronchodilators Q4RT scheduled N-acetylcysteine nebs added c/w azithromycin 500 mg by mouth daily to complete 5 days of treatment. Incentive spirometry. Pulmonology recommendation appreciated. Bipap stand by. (2) Acute exacerbation of chronic obstructive airways disease Current Visit: Yes Status: Acute Assessment and Plan: plan of care as above. (3) Congestive heart failure Current Visit: Yes Status: Chronic Assessment and Plan: patient euvolemic. cardiology consulted due to worsening E.F in the past couple of months. Plan Continue fluid restrictive strategies to 1.5 L a day. On a beta oksana and an KORY inhibitor. Continue furosemide 40 mg IV daily. Scheduled for [facility] when medically more stable from pulmonary stand point. cardiology recommendations appreciated. (4) DM type 2 (diabetes mellitus, type 2) Current Visit: No Status: Chronic Assessment and Plan: Blood sugar suboptimally controlled secondary to high dose IV steroids. Levemir increased to 30 units twice a day, and lispro increased to 12 units before meals. Continue carb controlled diet. (5) Hypertension Current Visit: No Status: Chronic Assessment and Plan: Blood pressures well controlled on furosemide. On metoprolol. (6) Hyperkalemia Current Visit: Yes Status: Acute Assessment and Plan: Kayexalate 15gmPO x1 ordered. will repeat BMP at 6pm. (7) Depression Current Visit: Yes Status: Chronic Assessment and Plan: Patient is on buspirone 5 mg by mouth 3 times a day. And Sertraline 50mg/PO daily (8) Tobacco abuse Current Visit: Yes Status: Chronic Assessment and Plan: more than 20 minute of the encounter was dedicated to smoking cessation education and counseling. DVT Prophylaxis: On heparin subcutaneous. - Summary of Assessment and Plan Summary of Assessment and Plan: She to remain in the hospital due to COPD exacerbation. On high-dose IV steroids. - Time Spent with Patient Total time spent is greater than 50% in coordination of care (as documented) at patient's floor/unit and/or counseling patient: Greater than 35 minutes (40) Plan of Care Discussed with: patient (and the nurse.) Internal Medicine: Result - Labs CBC & Chem 7: 03/12/19 04:05 03/12/19 04:05 Labs: Short CBC 03/12/19 Range/Units 04:05 WBC 10.7 (4.3-11.1) K/mcL Hgb 13.7 (11.5-15.4) g/dL Hct 43.2 (35.3-44.9) % Plt Count 212 (140-400) K/mcL Neutrophils # 9.3 H (1.6-8.9) K/mcL BMP 03/12/19 04:05 Sodium 139 Potassium 5.2 H Chloride 103 Carbon Dioxide 30 H BUN 43 H Creatinine 0.92 Glucose 354 H Calcium 9.2 - VTE Documentation of Mechanical Device: Graduated compression elastic hosiery Consult Discharge Plan - Plan Referrals: Court Stoner CNP [Primary Care Provider] - 03/18/19 1:45 pm (Please follow up as schedule...) Fermin Kendall MD [Partnered Physician] - (Web requested 03/12/2019) (3) Congestive heart failure Qualifiers: Heart failure type: systolic Heart failure chronicity: chronic Qualified Code(s): I50.22 - Chronic systolic (congestive) heart failure (4) DM type 2 (diabetes mellitus, type 2) Qualifiers: Diabetes mellitus ferry terminal supervisor insulin use: with ferry terminal supervisor use Diabetes mellitus complication status: with neurologic complications Diabetes mellitus complication detail: with polyneuropathy Qualified Code(s): 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 diabetes mellitus with diabetic polyneuropathy; Z79.4 - continuous churn buttermaker (current) use of insulin (5) Hypertension Qualifiers: Hypertension type: essential hypertension Qualified Code(s): I10 - Essential (primary) hypertension (7) Depression Qualifiers: Depression Type: unspecified Qualified Code(s): F32.9 - Major depressive disorder, single episode, unspecified
[2019-03-13] MEDS: Acetylcysteine 10% 2 ML INHSOL IH SCH ×4 (03:55→19:23)
[2019-03-13] MEDS: Ipratropium/Albuterol Neb 3 ML IH SCH ×6 (03:55→23:40)
[2019-03-13] MEDS: *HR* Heparin 5,000 UNIT/ML VIAL SQ SCH ×3 (05:50→16:52)
[2019-03-13] MEDS: Insulin LISPRO 300 UNITS/3 ML VIAL SQ SCH ×7 (07:45→20:08)
[2019-03-13] MEDS: Metoprolol XL (24 HR) Succ 25 MG TAB.ER.24H PO SCH (07:46)
[2019-03-13] MEDS: Insulin DETEMIR 100 UNIT/ML X5UNITS SQ SCH ×2 (07:46→20:05)
[2019-03-13] MEDS: MethylPREDNISolone 40 MG/ML VIAL IVP SCH ×2 (07:46→20:05)
[2019-03-13] MEDS: Pregabalin 50 MG CAPSULE PO SCH ×2 (07:47→20:04)
[2019-03-13] MEDS: *HR* Digoxin 0.125 MG TABLET PO SCH (07:47)
[2019-03-13] MEDS: Azithromycin 250 MG TABLET PO SCH (07:47)
[2019-03-13] MEDS: Furosemide 40 MG/4 ML VIAL IVP SCH (07:47)
[2019-03-13] MEDS: Aspirin Enteric Coated 81 MG Tablet PO SCH (07:47)
[2019-03-13] MEDS: Budesonide/Formoterol 160/4.5 1 PUFF INH IH SCH ×2 (08:00→19:23)
--- NOTE | 2019-03-13 12:48 | Internal Med Progress Note ---
Hospitalist Progress Note - Encounter Date of Encounter: 03/13/19 Time of Encounter: 12:45 - Subjective Interval History: I have seen and evaluated the patient at bedside. Patient reported wheezing and shortness of breath, stated she has improved but feels she is still far from her baseline. denies chest pain, nausea, vomiting or abdominal pain. - Exam Vitals: Temp Pulse Resp BP Pulse Ox 97.9 F 99 16 120/75 94 03/13/19 12:03/13/19 12:03/13/19 12:03/13/19 12:03/13/19 12:20 Exam: Vitals: Reviewed. General: Alert and oriented x4. In mild distress due to shortness of breath. Cardiovascular: RRR, normal S1 & S2, no rubs, murmurs or gallops. Lungs: bilateral expiratory wheezes, no rales or crackles. Abdomen: Soft, non-tender, no rigidity. NABS in all 4 quadrants. Extremities: No edema. Neurological: No focal neurological abnormalities. Rest of the physical exam is non contributory - Assessment and Plan (1) Acute and chronic respiratory failure with hypoxia Current Visit: Yes Status: Acute Assessment and Plan: +ve Enter/Rhino virus. Plan: c/w methyl-pednisolone 40mg/IV BID. On Symbicort. bronchodilators Q4RT scheduled and N-acetylcysteine nebs On azithromycin 500mg/PO daily. Incentive spirometry. Pulmonology recommendation appreciated. Bipap stand by. (2) Acute exacerbation of chronic obstructive airways disease Current Visit: Yes Status: Acute Assessment and Plan: plan of care as above. (3) Congestive heart failure Current Visit: Yes Status: Chronic Assessment and Plan: patient euvolemic. cardiology consulted due to worsening E.F in the past couple of months. Plan c/w fluid restrictive strategies to 1.5 L a day. On metoprolol 25mg/PO daily and lisinopril 5mg/PO daily. On furosemide 40 mg IV daily. LHC when medically more stable from pulmonary stand point. cardiology recommendations appreciated. (4) DM type 2 (diabetes mellitus, type 2) Current Visit: No Status: Chronic Assessment and Plan: Blood sugar suboptimally controlled secondary to high dose IV steroids. Levemir increased to 35 units twice a day, and lispro 12 units before meals. Continue carb controlled diet. (5) Hypertension Current Visit: No Status: Chronic Assessment and Plan: Blood pressures well controlled. c/w furosemide and metoprolol. (6) Hyperkalemia Current Visit: Yes Status: Acute Assessment and Plan: patient received Kayaxelate yesterday. refused labs due to being scared of needles (7) Depression Current Visit: Yes Status: Chronic Assessment and Plan: c/w buspirone 5 mg by mouth 3 times a day. And Sertraline 50mg/PO daily (8) Tobacco abuse Current Visit: Yes Status: Chronic Assessment and Plan: patient reenforced about the importance of smoking cessation. DVT Prophylaxis: On heparin subq - Summary of Assessment and Plan Summary of Assessment and Plan: To remain in the hospital due to COPD exacerbation. On high-dose IV steroids. Improving. will need C prior to dc. - Time Spent with Patient Total time spent is greater than 50% in coordination of care (as documented) at patient's floor/unit and/or counseling patient: Greater than 35 minutes (40) Plan of Care Discussed with: patient (and the nurse.) Internal Medicine: Result - Labs CBC & Chem 7: 03/12/19 04:05 03/12/19 04:05 - Impressions Impressions Chest X-Ray 03/12/19 13:13 IMPRESSION: Interval improvement in interstitial edema. D/ / Felicita Farrell MD / Felicita Farrell MD Interpreting Provider: Felicita Farrell MD - VTE Documentation of Mechanical Device: Graduated compression elastic hosiery Consult Discharge Plan - Plan Referrals: Court Stoner CNP [Primary Care Provider] - 03/18/19 1:45 pm (Please follow up as schedule...) Fermin Kendall MD [Partnered Physician] - (Web requested 03/12/2019) (3) Congestive heart failure Qualifiers: Heart failure type: systolic Heart failure chronicity: chronic Qualified Code(s): I50.22 - Chronic systolic (congestive) heart failure (4) DM type 2 (diabetes mellitus, type 2) Qualifiers: Diabetes mellitus fci insulin use: with fci use Diabetes mellitus complication status: with neurologic complications Diabetes mellitus complication detail: with polyneuropathy Qualified Code(s): 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 diabetes mellitus with diabetic polyneuropathy; Z79.4 - MCFP (current) use of insulin (5) Hypertension Qualifiers: Hypertension type: essential hypertension Qualified Code(s): I10 - Essential (primary) hypertension (7) Depression Qualifiers: Depression Type: unspecified Qualified Code(s): F32.9 - Major depressive disorder, single episode, unspecified
[2019-03-14] MEDS: Ipratropium/Albuterol Neb 3 ML IH SCH ×5 (04:19→19:45)
[2019-03-14] MEDS: Acetylcysteine 10% 2 ML INHSOL IH SCH ×4 (04:20→19:45)
[2019-03-14] MEDS: *HR* Heparin 5,000 UNIT/ML VIAL SQ SCH ×2 (05:25→17:05)
[2019-03-14] MEDS: Budesonide/Formoterol 160/4.5 1 PUFF INH IH SCH ×2 (07:15→19:45)
[2019-03-14] MEDS: *HR* Digoxin 0.125 MG TABLET PO SCH (08:48)
[2019-03-14] MEDS: Aspirin Enteric Coated 81 MG Tablet PO SCH (08:49)
[2019-03-14] MEDS: Pregabalin 50 MG CAPSULE PO SCH ×2 (08:49→20:57)
[2019-03-14] MEDS: Metoprolol XL (24 HR) Succ 25 MG TAB.ER.24H PO SCH (08:49)
[2019-03-14] MEDS: Insulin DETEMIR 100 UNIT/ML X5UNITS SQ SCH ×2 (08:50→20:57)
[2019-03-14] MEDS: Insulin LISPRO 300 UNITS/3 ML VIAL SQ SCH ×7 (08:50→20:59)
[2019-03-14] MEDS: MethylPREDNISolone 40 MG/ML VIAL IVP SCH (08:53)
[2019-03-14] MEDS: Furosemide 40 MG/4 ML VIAL IVP SCH (08:54)
[2019-03-14 10:14] LABS: BUN/Creatinine Ratio 57 (6-26); Blood Urea Nitrogen 45 mg/dL (8-23); Calcium 8.8 mg/dL (8.6-10.3); Carbon Dioxide 33 mEq/L (23-29); Chloride 101 mEq/L (98-107); Glucose 375 mg/dL (70-105); Magnesium 1.9 mg/dL (1.6-2.6); Osmolality,Calculated 311 (280-300); Phosphorous 3.7 mg/dL (2.7-4.5); Potassium 4.6 mEq/L (3.5-5.1); Sodium 137 mEq/L (136-145); eGFR For African Americans > 60 (> 60); eGFR For Non-African Americans > 60 (> 60)
--- NOTE | 2019-03-14 10:20 | Internal Med Progress Note ---
Hospitalist Progress Note - Encounter Date of Encounter: 03/14/19 Time of Encounter: 10:19 - Subjective Interval History: I have seen and evaluated the patient at bedside. Patient reported feeling better today, less short of breath and decreasing in her coughing spells. denies chest pain, nausea or vomiting. - Exam Vitals: Temp Pulse Resp BP Pulse Ox 98.2 F 93 18 127/80 97 03/14/19 07:09 03/14/19 07:09 03/14/19 07:17 03/14/19 07:09 03/14/19 07:17 Exam: Vitals: Reviewed. General: Alert and oriented x4. In no distress Cardiovascular: RRR, normal S1 & S2, no rubs, murmurs or gallops. Lungs: minimal bilateral expiratory wheezes, no rales or crackles. Abdomen: Soft, non-tender, no rigidity. NABS in all 4 quadrants. Extremities: No edema. Neurological: No focal neurological abnormalities. Rest of the physical exam is non contributory - Assessment and Plan (1) Acute and chronic respiratory failure with hypoxia Current Visit: Yes Status: Acute Assessment and Plan: Respiratory status continues to improve. minimal wheezing on auscultation. +ve Enter/Rhino virus. Plan: DC IV steroids. will start prednisone c/w Symbicort. plus bronchodilators Q4RT scheduled On N-acetylcysteine nebs Patient completed 5days of azithromycin 500mg/PO daily. Incentive spirometry. Pulmonology recommendation appreciated. Bipap stand by. (2) Acute exacerbation of chronic obstructive airways disease Current Visit: Yes Status: Acute Assessment and Plan: plan of care as above. (3) Congestive heart failure Current Visit: Yes Status: Chronic Assessment and Plan: patient euvolemic. On fluid restrictive strategies to 1.5 litters a day. c/w metoprolol 25mg/PO daily and lisinopril 5mg/PO daily. and furosemide 40 mg IV daily. LHC when medically more stable from pulmonary stand point. cardiology recommendations appreciated. (4) DM type 2 (diabetes mellitus, type 2) Current Visit: No Status: Chronic Assessment and Plan: Blood sugar suboptimally controlled secondary to high dose IV steroids. Levemir increased to 40 units twice a day c/w lispro 12 units before meals. On lispro high dose sliding scale ac carb controlled diet. (5) Hypertension Current Visit: No Status: Chronic Assessment and Plan: Blood pressures well controlled. patient is on frosemide and metoprolol. and lisinopril (6) Depression Current Visit: Yes Status: Chronic Assessment and Plan: On buspirone 5 mg by mouth 3 times a day. Sertraline 50mg/PO daily (7) Tobacco abuse Current Visit: Yes Status: Chronic DVT Prophylaxis: On heparin subq - Summary of Assessment and Plan Summary of Assessment and Plan: Patient to remain in the hospital due to copd exacerbation. chf, scheduled for [facility] potentially tomorrow. - Time Spent with Patient Total time spent is greater than 50% in coordination of care (as documented) at patient's floor/unit and/or counseling patient: Greater than 35 minutes (45) Plan of Care Discussed with: patient (and the nurse.) Internal Medicine: Result - Labs CBC & Chem 7: 03/12/19 04:05 03/14/19 08:45 Labs: BMP 03/14/19 08:45 Sodium 137 Potassium 4.6 Chloride 101 Carbon Dioxide 33 H BUN 45 H Creatinine 0.79 Glucose 375 H Calcium 8.8 - VTE Documentation of Mechanical Device: Graduated compression elastic hosiery Consult Discharge Plan - Plan Referrals: Court Stoner CNP [Primary Care Provider] - 03/18/19 1:45 pm (Please follow up as schedule...) Fermin Kendall MD [Partnered Physician] - (Web requested 03/12/2019) _ (3) Congestive heart failure Qualifiers: Heart failure type: systolic Heart failure chronicity: chronic Qualified Code(s): I50.22 - Chronic systolic (congestive) heart failure (4) DM type 2 (diabetes mellitus, type 2) Qualifiers: Diabetes mellitus tank terminal gauger insulin use: with mcfp use Diabetes mellitus complication status: with neurologic complications Diabetes mellitus complication detail: with polyneuropathy Qualified Code(s): 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 diabetes mellitus with diabetic polyneuropathy; Z79.4 - tank terminal gauger (current) use of insulin (5) Hypertension Qualifiers: Hypertension type: essential hypertension Qualified Code(s): I10 - Essential (primary) hypertension (6) Depression Qualifiers: Depression Type: unspecified Qualified Code(s): F32.9 - Major depressive dis order, single episode, unspecified
[2019-03-15] MEDS: Ipratropium/Albuterol Neb 3 ML IH SCH ×6 (00:02→20:09)
[2019-03-15] MEDS: Acetylcysteine 10% 2 ML INHSOL IH SCH ×4 (04:00→20:09)
[2019-03-15] MEDS: *HR* Heparin 5,000 UNIT/ML VIAL SQ SCH ×2 (05:51→17:05)
[2019-03-15] MEDS: Budesonide/Formoterol 160/4.5 1 PUFF INH IH SCH ×2 (07:18→20:09)
[2019-03-15] MEDS: Insulin LISPRO 300 UNITS/3 ML VIAL SQ SCH ×7 (07:21→21:51)
[2019-03-15] MEDS: Furosemide 40 MG/4 ML VIAL IVP SCH (07:31)
[2019-03-15] MEDS: Metoprolol XL (24 HR) Succ 25 MG TAB.ER.24H PO SCH (07:32)
[2019-03-15] MEDS: predniSONE 20 MG TABLET PO SCH (07:32)
[2019-03-15] MEDS: Aspirin Enteric Coated 81 MG Tablet PO SCH (07:32)
[2019-03-15] MEDS: Pregabalin 50 MG CAPSULE PO SCH ×2 (07:32→21:51)
[2019-03-15] MEDS: *HR* Digoxin 0.125 MG TABLET PO SCH (07:32)
[2019-03-15] MEDS: Insulin DETEMIR 100 UNIT/ML X5UNITS SQ SCH ×2 (07:33→22:08)
--- NOTE | 2019-03-15 10:13 | Cardiology Progress Note ---
Date of Encounter: 03/15/19 Time of Encounter: 08:00 Assessment and Plan (1) Systolic CHF, acute on chronic Current Visit: No Status: Acute Per cardiology: -Acute on chronic HFrEF. Found to have mildly reduced EF 08/2018 at 45-50% . In December EF reduced at 30-35% with global and basal to mid inferior hypokeneis. -No prior evaluation by cardiology. -SOB multi-factoral in setting of COPD exacerbation and rhino virus. CXR 03/08 shows PNA vs pulmonary edema. BNP 1611. Chest x-ray 03/12/19 with interval improvement of edema. -ON IV lasix, currently net positive I/Os. -Cough improved with breathing treatments. -Continue IV lasix. -Strict I&O and daily weights. CHF education reviewed. Low sodium diet. -Ischemic evaluation recommended for declining EF. LHC R/B/A reviewed with patient. -Patient considering LHC in future. Currently not a good candidate due to orthopnea and persistent cough. Can reconsider once stable. -Continue metoprolol succinate and lisinopril as tolerated. (2) Acute exacerbation of chronic obstructive airways disease Current Visit: Yes Status: Acute Per cardiology: -COPD exacerbation. -Management per primary service. Discussion w patient/family: The assessment and plan as outlined above was discussed with the patient who expressed understanding and agreement. All questions were answered. Thank you for involving us in the care of your patient. Please call with any questions. Discussed and reviewed with Subjective Principal diagnosis: Copd Exacerbation, CMP Interval history: Patient reports shortness of breath. Reports continued cough. Reports would not be able to lay flat today. Objective Vital Signs, Last 4 Hours Temp Pulse Resp BP Pulse Ox 03/15/19 07:18 18 94 03/15/19 07:08 97.4 F L 96 18 125/81 94 General: Conversant, No Apparent Distress HEENT: Atraumatic, Normocephaly, Mucus Membranes Moist Neck: No JVD, Normal carotid pulses Cardiac: Reg Rate and Rhythm, Normal S1 and S2, No Murmur Lungs: Other (Rhonchi, wheezes noted throughout. Cough noted. ) Neuro: Alert and responsive, No focal deficits noted Abdomen: Soft, Non-Tender Skin: No rashes noted on visualized skin Musculoskeletal: No Chest Wall Tenderness Extremities: No Clubbing, No Cyanosis, No Edema, Normal Pulses Results 03/12/19 04:05 03/14/19 08:45 Lab Results Active Medications Acetaminophen (Tylenol) 650 mg PO Q6H PRN PRN Reason: Mild Pain/Fever Stop: 09/07/19 05:41 Last Admin: 03/11/19 17:10 Dose: 650 mg Documented by: Acetylcysteine (Acetylcysteine 10%) 2 ml IH [id number] [facility] Stop: 09/11/19 01:46 Last Admin: 03/15/19 07:18 Dose: 2 ml Documented by: Albuterol/Ipratropium (Duoneb) 3 ml IH [id number] [facility] Stop: 09/07/19 08:01 Last Admin: 03/15/19 07:18 Dose: 3 ml Documented by: Aspirin (Aspirin Ec) 81 mg PO DAILY [facility] Stop: 09/08/19 09:01 Last Admin: 03/15/19 07:32 Dose: 81 mg Documented by: Budesonide/Formoterol Fumarate (Symbicort) 2 puff IH BIDR [facility] Stop: 09/08/19 10:01 Last Admin: 03/15/19 07:18 Dose: 2 puff Documented by: Buspirone HCl (Buspar) 5 mg PO TID [facility] Stop: 09/08/19 09:01 Last Admin: 03/15/19 07:32 Dose: 5 mg Documented by: Dextrose/Water (Dextrose 50% (Syg)) 25 ml IVP AD PRN PRN Reason: Hypoglycemia Stop: 09/07/19 05:41 Digoxin (Lanoxin) 0.125 mg PO DAILY [facility] Stop: 09/08/19 09:01 Last Admin: 03/15/19 07:32 Dose: 0.125 mg Documented by: Furosemide (Lasix) 40 mg IVP DAILY [facility] Stop: 09/10/19 09:01 Last Admin: 03/15/19 07:31 Dose: 40 mg Documented by: Glucagon (Glucagen) 1 mg IM ONCE PRN PRN Reason: Hypoglycemia Stop: 09/07/19 08:24 Glucose (Gluctose) 15 gm PO ONCE PRN PRN Reason: Hypoglycemia Stop: 09/07/19 05:41 Glucose (Gluctose) 30 gm PO ONCE PRN PRN Reason: Hypoglycemia Stop: 09/07/19 05:41 Guaifenesin (Mucinex) 600 mg PO BID [facility] Stop: 09/10/19 21:01 Last Admin: 03/15/19 07:32 Dose: 600 mg Documented by: Heparin Sodium (Porcine) (Heparin) 5,000 unit SQ Q12HCO [facility]; Protocol Stop: 09/08/19 18:01 Last Admin: 03/15/19 05:51 Dose: Not Given Documented by: Dextrose (Dextrose 5%) 1,000 mls @ 100 mls/hr IVC .Q10H PRN PRN Reason: HYPOGLYCEMIA Stop: 09/07/19 08:24 Insulin Detemir (Levemir) 40 unit SQ BID [facility] Stop: 09/13/19 21:01 Last Admin: 03/15/19 07:33 Dose: Not Given Documented by: Insulin Human Lispro (Humalog) 0 units SQ HS [facility]; Protocol Stop: 09/07/19 21:01 Last Admin: 03/14/19 20:59 Dose: Not Given Documented by: Insulin Human Lispro (Humalog) 0 units SQ TIDAC [facility]; Protocol Stop: 09/07/19 07:31 Last Admin: 03/15/19 07:21 Dose: Not Given Documented by: Insulin Human Lispro (Humalog) 12 units SQ TIDWM [facility] Stop: 09/11/19 08:01 Last Admin: 03/15/19 07:21 Dose: Not Given Documented by: Lisinopril (Zestril) 5 mg PO DAILY [facility]; Protocol Stop: 09/11/19 09:01 Last Admin: 03/15/19 07:32 Dose: 5 mg Documented by: Metoprolol Succinate (Toprol Xl) 25 mg PO DAILY [facility] Stop: 09/10/19 15:46 Last Admin: 03/15/19 07:32 Dose: 25 mg Documented by: Prednisone (Prednisone) 40 mg PO DAILY [facility] Stop: 09/14/19 09:01 Last Admin: 03/15/19 07:32 Dose: 40 mg Documented by: Pregabalin (Lyrica) 100 mg PO BID [facility] Stop: 09/08/19 09:01 Last Admin: 03/15/19 07:32 Dose: 100 mg Documented by: Sertraline HCl (Zoloft) 50 mg PO DAILY [facility] Stop: 09/08/19 09:01 Last Admin: 03/15/19 07:32 Dose: 50 mg Documented by: Laboratory Tests 03/14/19 08:45 Creatinine 0.79 - Imaging and Cardiology Chest Xray: report reviewed Echo: report reviewed - EKG Interpretation EKG results cardiology: other (Telemetry reviewed with average HR previous 12 hours noted to be 100, SR. PVCs, PACs noted.) - VTE Documentation of Mechanical Device: Graduated compression elastic hosiery Consult Discharge Plan - Plan Referrals: Court Stoner CNP [Primary Care Provider] - 03/18/19 1:45 pm (Please follow up as schedule...) Fermin Kendall MD [Partnered Physician] - (Web requested 03/12/2019)
--- NOTE | 2019-03-15 14:29 | Internal Med Progress Note ---
Hospitalist Progress Note - Encounter Date of Encounter: 03/15/19 Time of Encounter: 14:26 - Subjective Interval History: I have seen and evaluated the patient at bedside. patient reported shortness of breath and she feels like she is wheezing more today. denies chest pain, nausea or vomiting. denies abdominal pain. - Exam Vitals: Temp Pulse Resp BP Pulse Ox 97.7 F 105 18 110/71 90 03/15/19 12:18 03/15/19 12:18 03/15/19 12:18 03/15/19 12:18 03/15/19 12:18 Exam: Vitals: Reviewed. General: Alert and oriented x4. In no distress Cardiovascular: RRR, normal S1 & S2, no rubs, murmurs or gallops. Lungs: minimal scattered bilateral expiratory wheezes, no rales or crackles. Abdomen: Soft, non-tender, no rigidity. NABS in all 4 quadrants. Extremities: No edema. Neurological: No focal neurological abnormalities. Rest of the physical exam is non contributory - Assessment and Plan (1) Acute and chronic respiratory failure with hypoxia Current Visit: Yes Status: Acute Assessment and Plan: resolving copd exacerbation. minimal scattered wheezing on auscultation. +ve Enter/Rhino virus. Plan: c/w prednisone 40mg/PO daily On Symbicort. and bronchodilators Q4RT scheduled c/w N-acetylcysteine nebs Incentive spirometry. Pulmonology recommendation appreciated. Bipap stand by. (2) Acute exacerbation of chronic obstructive airways disease Current Visit: Yes Status: Acute Assessment and Plan: plan of care as above. (3) Congestive heart failure Current Visit: Yes Status: Chronic Assessment and Plan: patient euvolemic. On fluid restrictive strategies to 1.5 litters a day. on metoprolol 25mg/PO daily lisinopril 5mg/PO daily. furosemide 40 mg IV daily. LH prior to dc, medically more stable from pulmonary stand point. cardiology recommendations appreciated. (4) DM type 2 (diabetes mellitus, type 2) Current Visit: No Status: Chronic Assessment and Plan: blood sugar sub-optimally controlled. Levemir increased to 42units BID, lispro increased to 14 units ac. carbs controlled diet. (5) Hypertension Current Visit: No Status: Chronic Assessment and Plan: Blood pressures well controlled. Plan c/w frosemide, metoprolol. and lisinopril (6) Depression Current Visit: Yes Status: Chronic Assessment and Plan: patient is on buspirone 5 mg by mouth 3 times a day. Sertraline 50mg/PO daily (7) Tobacco abuse Current Visit: Yes Status: Chronic DVT Prophylaxis: On heparin subq - Summary of Assessment and Plan Summary of Assessment and Plan: Patient to remain in the hospital due to copd, chf. scheduled for [facility]. - Time Spent with Patient Total time spent is greater than 50% in coordination of care (as documented) at patient's floor/unit and/or counseling patient: Greater than 35 minutes (40) Plan of Care Discussed with: patient (and the nurse.) Internal Medicine: Result - Labs CBC & Chem 7: 03/12/19 04:05 03/14/19 08:45 - VTE Documentation of Mechanical Device: Graduated compression elastic hosiery Consult Discharge Plan - Plan Referrals: Court Stoner CNP [Primary Care Provider] - 03/18/19 1:45 pm (Please follow up as schedule...) Fermin Kendall MD [Partnered Physician] - (Web requested 03/12/2019) (3) Congestive heart failure Qualifiers: Heart failure type: systolic Heart failure chronicity: chronic Qualified Code(s): I50.22 - Chronic systolic (congestive) heart failure (4) DM type 2 (diabetes mellitus, type 2) Qualifiers: Diabetes mellitus cable mechanic insulin use: with cable mechanic use Diabetes mellitus complication status: with neurologic complications Diabetes mellitus complicati on detail: with polyneuropathy Qualified Code(s): 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 diabetes mellitus with diabetic polyneuropathy; Z79.4 - [facility] (current) use of insulin (5) Hypertension Qualifiers: Hypertension type: essential hypertension Qualified Code(s): I10 - Essential (primary) hypertension (6) Depression Qualifiers: Depression Type: unspecified Qualified Code(s): F32.9 - Major depressive disorder, single episode, unspecified
[2019-03-16] MEDS: Ipratropium/Albuterol Neb 3 ML IH SCH ×6 (00:09→15:42)
[2019-03-16] MEDS: Acetylcysteine 10% 2 ML INHSOL IH SCH ×4 (04:35→15:41)
[2019-03-16] MEDS: *HR* Heparin 5,000 UNIT/ML VIAL SQ SCH (05:41)
[2019-03-16 07:18] LABS: Basophils # 0.1 K/mcL (0.0-0.2); Basophils % 0.4 %; Eosinophils # 0.3 K/mcL (0.0-0.6); Eosinophils % 1.9 %; Hematocrit 39.1 % (35.3-44.9); Hemoglobin 12.9 g/dL (11.5-15.4); Immature Granulocytes % 2.4 % (0-4); Lymphocytes # 4.5 K/mcL (0.6-4.6); Lymphocytes % 32.5 %; Mean Corpuscular Hemoglobin 28.7 pg (28.0-33.3); Mean Corpuscular Volume 86.9 fL (83.0-100.0); Mean Platelet Volume 12.1 fL (9.4-12.4); Monocytes % 7.4 %; Neutrophils # 7.8 K/mcL (1.6-8.9); Platelet Count 228 K/mcL (140-400); Red Cell Distribution Width 14.8 % (11.5-14.5); Segmented Neutrophils % 55.4 %
[2019-03-16] MEDS ORDERED: Benzocaine/Menthol 56 GM AEROSOL SPRAY TP PRN (07:47)
[2019-03-16] MEDS: Budesonide/Formoterol 160/4.5 1 PUFF INH IH SCH (07:47)
[2019-03-16] MEDS: Insulin LISPRO 300 UNITS/3 ML VIAL SQ SCH ×3 (07:56→11:48)
[2019-03-16] MEDS: Insulin DETEMIR 100 UNIT/ML X5UNITS SQ SCH (07:56)
[2019-03-16] MEDS: Furosemide 40 MG/4 ML VIAL IVP SCH (07:57)
[2019-03-16] MEDS: predniSONE 20 MG TABLET PO SCH (07:58)
[2019-03-16] MEDS: Aspirin Enteric Coated 81 MG Tablet PO SCH (07:58)
[2019-03-16] MEDS: Metoprolol XL (24 HR) Succ 25 MG TAB.ER.24H PO SCH (07:58)
[2019-03-16] MEDS: *HR* Digoxin 0.125 MG TABLET PO SCH (07:58)
[2019-03-16] MEDS: Pregabalin 50 MG CAPSULE PO SCH (07:58)
[2019-03-16 08:47] LABS: BUN/Creatinine Ratio 69 (6-26); Blood Urea Nitrogen 45 mg/dL (8-23); Calcium 8.9 mg/dL (8.6-10.3); Carbon Dioxide 30 mEq/L (23-29); Chloride 105 mEq/L (98-107); Glucose 59 mg/dL (70-105); Osmolality,Calculated 297 (280-300); Phosphorous 3.2 mg/dL (2.7-4.5); Potassium 4.5 mEq/L (3.5-5.1); Sodium 139 mEq/L (136-145); eGFR For African Americans > 60 (> 60); eGFR For Non-African Americans > 60 (> 60)
--- NOTE | 2019-03-16 11:20 | Event Note ---
Date of Encounter: 03/16/19 Time of Encounter: 11:20 - Cardiology Event Note Plan was for LHC to evaluate patient's cardiomypathy. However, patient has now decided against LHC. Risks of no LHC explained to patient, who states understanding and is adament that she does not wish to proceed with LHC. Continue medical therapy with BB, dilan inhibitor. Will start oral lasix. CHF education reviewed with patient. Cardiology will sign off, will arrange close outpatient follow up.
--- NOTE | 2019-03-16 11:36 | Discharge Summary ---
Orders not resulted at time of discharge: Pending orders 03/10/19 12:59 Legionella Antigen [RM] Stat Sputum Culture [Culture,Sputum with Gram Stain] [RM] Stat Streptococcal pneumoniae urin antigen [S. Pneumoniae Antigen] [RM] Stat Date of Encounter: 03/16/19 Time of Encounter: 11:32 - Discharge Diagnosis (1) Acute and chronic respiratory failure with hypoxia Priority: Primary Status: Resolved (2) Acute exacerbation of chronic obstructive airways disease Priority: Secondary Status: Resolved (3) Congestive heart failure Priority: Secondary Status: Chronic Qualifiers: Heart failure type: systolic Heart failure chronicity: chronic Qualified Code(s): I50.22 - Chronic systolic (congestive) heart failure (4) DM type 2 (diabetes mellitus, type 2) Priority: Secondary Status: Chronic Qualifiers: Diabetes mellitus custodial insulin use: with terminal gauger use Diabetes mellitus complication status: with neurologic complications Diabetes mellitus complication detail: with polyneuropathy Qualified Code(s): 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 diabetes mellitus with diabetic polyneuropathy; Z79.4 - detention (current) use of insulin (5) Hypertension Priority: Secondary Status: Chronic Qualifiers: Hypertension type: essential hypertension Qualified Code(s): I10 - Essential (primary) hypertension (6) Depression Priority: Secondary Status: Chronic Qualifiers: Depression Type: unspecified Qualified Code(s): F32.9 - Major depressive disorder, single episode, unspecified (7) Tobacco abuse Priority: Secondary Status: Chronic Hospital course: Ms. Vicente is a 63 year old female PMH hypertension, diabetes and heart failure with reduced ejection fraction (EF 35%) who was discharged from here about 2 weeks ago after presenting with acute respiratory distress and manage for middle lobe pneumonia. Patient admitted to the hospital due to COPD exacerbation. Patient was managed with high-dose IV steroids,. Antibiotic coverage. Respiratory panel positive for rhinovirus. Due to patient worsening ejection fraction cardiology was consulted recommended LHC to evaluate patient's cardiomypathy. However, patient decided against LHC. Risks of no LHC explained to patient, who states understanding and is adamant that she does not wish to proceed with LHC. Patient acute symptoms on presentation have resolved, patient is stable to be discharged home. Patient discharged on 5 weeks prednisone taper, per pulmonology recommendation. Patient is very high risk for readmission, due to patient lack of understanding offered chronic respiratory failure secondary to severe COPD, current smoker. - Time Spent with Patient Total time spent providing and/or coordinating discharge services: Time spent: Greater than 30 minutes (35) - Discharge Medications Prescriptions: New GuaiFENesin ER [Mucinex] 600 mg PO BID 15 Days #30 tbbp.12hr Acetylcysteine [L-Btiido-c-Cysteine] 600 mg PO DAILY 30 Days #30 capsule Continued Alendronate Sodium [Fosamax] 70 mg PO QWEEK Aspirin [Lo-Dose Aspirin EC] 81 mg PO DAILY Umeclidinium [place] [Incruse Ellipta] 62.5 mcg IH DAILY Albuterol Sulfate [Proair Hfa] 2 puff IH Q4HR PRN PRN Reason: Shortness Of Breath Calcium Carbonate/Vitamin D3 [Calcium 500 + Vit D Caplet] 1 tab PO DAILY Furosemide [Lasix] 20 mg PO DAILY Loratadine/Pseudoephedrine [Allergy Relief D-24Hr Tablet] 1 tab PO DAILY PRN PRN Reason: Congestion Metformin HCl 1,000 mg PO BID Carvedilol [Coreg] 12.5 mg PO BIDWM 30 Days #60 tablet Lisinopril [Zestril] 2.5 mg PO DAILY 30 Days #30 tablet Albuterol Neb [Proventil Neb] 2.5 mg IH TID PRN PRN Reason: SOB/WHEEZING Fluticasone/Salmeterol [Airduo Respiclick 232-14 Mcg] 1 puff IH BID Insulin Glargine,Hum.rec.anlog [Basaglar Kwikpen U-100] 10 unit SQ HS Insulin LISPRO [Admelog] 7 unit SQ TIDWM Pregabalin [Lyrica] 100 mg PO BID Buspirone HCl [Buspar] 5 mg PO TID #30 tablet Digoxin [Lanoxin] 0.125 mg PO DAILY #14 tablet Sertraline [Zoloft] 50 mg PO DAILY #30 tablet Tramadol HCl [Tramadol HCl ER] 100 mg PO Q6H PRN PRN Reason: Pain Home Medications: Albuterol Sulfate [Proair Hfa] 2 puff IH Q4HR PRN 01/14/19 [History] Alendronate Sodium [Fosamax] 70 mg PO QWEEK 01/14/19 [History] Aspirin [Lo-Dose Aspirin EC] 81 mg PO DAILY 01/14/19 [History] Umeclidinium [place] [Incruse Ellipta] 62.5 mcg IH DAILY 01/14/19 [History] Calcium Carbonate/Vitamin D3 [Calcium 500 + Vit D Caplet] 1 tab PO DAILY 01/15/19 [History] Furosemide [Lasix] 20 mg PO DAILY 01/15/19 [History] Loratadine/Pseudoephedrine [Allergy Relief D-24Hr Tablet] 1 tab PO DAILY PRN 01/15/19 [History] Metformin HCl 1,000 mg PO BID 01/15/19 [History] Carvedilol [Coreg] 12.5 mg PO BIDWM 30 Days #60 tablet 01/18/19 [Rx] Lisinopril [Zestril] 2.5 mg PO DAILY 30 Days #30 tablet 01/18/19 [Rx] Albuterol Neb [Proventil Neb] 2.5 mg IH TID PRN 02/06/19 [History] Fluticasone/Salmeterol [Airduo Respiclick 232-14 Mcg] 1 puff IH BID 02/06/19 [History] Insulin Glargine,Hum.rec.anlog [Basaglar Kwikpen U-100] 10 unit SQ HS 02/06/19 [History] Insulin LISPRO [Admelog] 7 unit SQ TIDWM 02/06/19 [History] Pregabalin [Lyrica] 100 mg PO BID 02/06/19 [History] Buspirone HCl [Buspar] 5 mg PO TID #30 tablet 02/18/19 [Rx] Digoxin [Lanoxin] 0.125 mg PO DAILY #14 tablet 02/18/19 [Rx] Sertraline [Zoloft] 50 mg PO DAILY #30 tablet 02/18/19 [Rx] Tramadol HCl [Tramadol HCl ER] 100 mg PO Q6H PRN 03/08/19 [History] Acetylcysteine [X-Gplboh-l-Cysteine] 600 mg PO DAILY 30 Days #30 capsule 03/16/19 [Rx] GuaiFENesin ER [Mucinex] 600 mg PO BID 15 Days #30 tbbp.12hr 03/16/19 [Rx] Allergies/Adverse Reactions: Allergy/AdvReac Type Severity Reaction Status Date / Time codeine Allergy Hives Verified 01/15/19 19:12 propoxyphene [From Darvon] Allergy Hives Verified 01/15/19 19:12 Date of admission: 03/12/19 14:03 Primary care physician: Court Stoner Consults: 03/11/19 10:54 Consult to Cardiology [CONS] Routine Comment: Consulting Provider: Cardiology Nilda Reason for Consult: worsening CHF. E.F worsened from 45-50 to 35% in three mo [facility] Call Completed: No - Constitutional Vitals: Temp Pulse Resp BP Pulse Ox 98.3 F 102 16 113/75 90 03/16/19 07:16 03/16/19 07:16 03/16/19 10:56 03/16/19 07:16 03/16/19 10:56 Exam: Vitals: Reviewed. General: Alert and oriented x4. In no distress Cardiovascular: RRR, normal S1 & S2, no rubs, murmurs or gallops. Lungs: Clear to auscultation bilaterally, no rales or crackles. Abdomen: Soft, non-tender, no rigidity. NABS in all 4 quadrants. Extremities: No edema. Neurological: No focal neurological abnormalities. Rest of the physical exam is non contributory - Patient Status Disposition: Home Health Service Condition: Fair Functional capacity at discharge: independent ambulation Overall status at discharge: patient is back to baseline - Discharge Instructions Follow Up With: Court Stoner CNP [Primary Care Provider] - 03/18/19 1:45 pm (Please follow up as schedule...) Fermin Kendall MD [Partnered Physician] - (Web requested 03/12/2019) - Diet and Activity Activity: resume usual activities as tolerated Diet: diabetic diet, low salt diet - VTE Documentation of Mechanical Device: Graduated compression elastic hosiery
[2019-03-16 11:46] VITALS: BP 110/72
--- NOTE | 2019-03-16 11:50 | Physician Discharge Referral ---
Home Health/Hosp Referral Info Transfer to: Home Health - Diagnosis (1) Acute and chronic respiratory failure with hypoxia Priority: Primary Status: Resolved (2) Acute exacerbation of chronic obstructive airways disease Priority: Primary Status: Resolved (3) Congestive heart failure Priority: Secondary Status: Chronic (4) DM type 2 (diabetes mellitus, type 2) Priority: Secondary Status: Chronic (5) Hypertension Priority: Secondary Status: Chronic (6) Depression Priority: Secondary Status: Chronic (7) Tobacco abuse Priority: Secondary Status: Chronic - Respiratory Orders Oxygen / L per min (2 litters) Smoking Cessation: Smoking cessation has been advised. For more information, call the [place] Tobacco Quit Line at 4-251-VBGJ-NOW. - Diet/Nutrition Diet/Nutrition Orders: Regular - Activity Activity Orders: Ambulate - Services Needed Following services are medically necessary services: Nursing, Home Health Aide, Physical Therapy, Occupational Therapy - Transfer Medications Prescriptions: GuaiFENesin ER [Mucinex] 600 mg PO BID 15 Days #30 tbbp.12hr Transmission Status: Received by [facility] Acetylcysteine [Z-Qjmohm-x-Cysteine] 600 mg PO DAILY 30 Days #30 capsule Transmission Status: Received by [facility] Home Medications: Albuterol Sulfate [Proair Hfa] 2 puff IH Q4HR PRN 01/14/19 [History] Alendronate Sodium [Fosamax] 70 mg PO QWEEK 01/14/19 [History] Aspirin [Lo-Dose Aspirin EC] 81 mg PO DAILY 01/14/19 [History] Umeclidinium [place] [Incruse Ellipta] 62.5 mcg IH DAILY 01/14/19 [History] Calcium Carbonate/Vitamin D3 [Calcium 500 + Vit D Caplet] 1 tab PO DAILY 01/15 [History] Furosemide [Lasix] 20 mg PO DAILY 01/15/19 [History] Loratadine/Pseudoephedrine [Allergy Relief D-24Hr Tablet] 1 tab PO DAILY PRN 01/15/19 [History] Metformin HCl 1,000 mg PO BID 01/15/19 [History] Carvedilol [Coreg] 12.5 mg PO BIDWM 30 Days #60 tablet 01/18/19 [Rx] Lisinopril [Zestril] 2.5 mg PO DAILY 30 Days #30 tablet 01/18/19 [Rx] Albuterol Neb [Proventil Neb] 2.5 mg IH TID PRN 02/06/19 [History] Fluticasone/Salmeterol [Airduo Respiclick 232-14 Mcg] 1 puff IH BID 02/06/19 [History] Insulin Glargine,Hum.rec.anlog [Basaglar Kwikpen U-100] 10 unit SQ HS 02/06/19 [History] Insulin LISPRO [Admelog] 7 unit SQ TIDWM 02/06/19 [History] Pregabalin [Lyrica] 100 mg PO BID 02/06/19 [History] Buspirone HCl [Buspar] 5 mg PO TID #30 tablet 02/18/19 [Rx] Digoxin [Lanoxin] 0.125 mg PO DAILY #14 tablet 02/18/19 [Rx] Sertraline [Zoloft] 50 mg PO DAILY #30 tablet 02/18/19 [Rx] Tramadol HCl [Tramadol HCl ER] 100 mg PO Q6H PRN 03/08/19 [History] Acetylcysteine [W-Adwasq-s-Cysteine] 600 mg PO DAILY 30 Days #30 capsule 03/16/19 [Rx] GuaiFENesin ER [Mucinex] 600 mg PO BID 15 Days #30 tbbp.12hr 03/16/19 [Rx] Allergies/Adverse Reactions: Allergy/AdvReac Type Severity Reaction Status Date / Time codeine Allergy Hives Verified 01/15/19 19:12 propoxyphene [From Darvon] Allergy Hives Verified 01/15/19 19:12 Certification: Further, I certify that my clinical findings support that this patient is homebound (i.e. absences from home require considerable and taxing effort and are for medical reasons or oriental orthodox services or infrequently or short duration when for other reasons) because: Homebound Reason: Patient requires assistance of a person or device to safely leave home Attestation: My signature below is to certify that this patient is under my care and that I, or nurse practitioner, or a physician's senior it assistant working with me, has a [id number] encounter with this patient.
[2019-03-16] MEDS ORDERED: Insulin LISPRO 300 UNITS/3 ML VIAL SQ SCH (12:00)
[2019-03-16] MEDS ORDERED: Insulin DETEMIR 100 UNIT/ML X5UNITS SQ SCH (21:00)
[2019-03-17] MEDS ORDERED: Furosemide 40 MG TABLET PO SCH (09:00)
== END 2019-03-16 16:30 | disposition home health service (06) | DRG 140 ==
LOC: 2ANU → SUATTDRO 04:31
PROVIDERS: ADMIT Internal Medicine; ATTEND Internal Medicine

== ENCOUNTER 2019-03-22 02:15 | Observation (INO) ==
[2019-03-22] MEDS ORDERED: Ipratropium/Albuterol Neb 3 ML IH ONE (03:10)
[2019-03-22] MEDS ORDERED: levoFLOXacin 500 MG/100 ML 500 MG/100 ML BAG IVPB ONE (03:32)
[2019-03-22] MEDS ORDERED: Piperacillin/Tazobactam 4.5 GM in 0.9 % Sodium Chloride Mini Bag 100 ML IVPB ONE (03:32)
[2019-03-22] MEDS ORDERED: Insulin LISPRO 300 UNITS/3 ML VIAL SQ ONE (04:21)
[2019-03-22] MEDS ORDERED: Insulin Human Regular 10 UNIT in 0.9 % Sodium Chloride 10 ML IV ONE ×2 (04:35→05:22)
[2019-03-22] MEDS ORDERED: Furosemide 40 MG/4 ML VIAL IVP ONE (05:22)
[2019-03-22] MEDS ORDERED: Acetaminophen 325 MG TABLET PO PRN (05:57)
[2019-03-22] MEDS ORDERED: Dextrose Gel 15 GM/37.5 ML TUBE PO PRN ×2 (05:57)
[2019-03-22] MEDS ORDERED: *HR* Dextrose 50 % in Water (Syg) 50 ML SYRINGE IVP PRN (05:57)
[2019-03-22] MEDS ORDERED: Piperacillin/Tazobactam 3.375 GM in 0.9 % Sodium Chloride Mini Bag 100 ML IVPB ONE (06:00)
[2019-03-22] MEDS: *HR* Heparin 5,000 UNIT/ML VIAL SQ SCH ×2 (06:47→16:25)
[2019-03-22] MEDS ORDERED: Insulin DETEMIR 100 UNIT/ML X5UNITS SQ ONE (07:32)
[2019-03-22 08:53] LABS: Troponin I 0.29 ng/mL (< 0.04)
[2019-03-22] MEDS: Insulin LISPRO 300 UNITS/3 ML VIAL SQ SCH ×6 (08:59→17:35)
[2019-03-22] MEDS: *HR* Digoxin 0.125 MG TABLET PO SCH (08:59)
[2019-03-22] MEDS ORDERED: Furosemide 40 MG/4 ML VIAL IVP SCH (09:00)
[2019-03-22] MEDS: Aspirin Enteric Coated 81 MG Tablet PO SCH (09:00)
[2019-03-22 10:06] LABS: Digoxin 0.4 ng/mL (0.8-2.0)
[2019-03-22] MEDS: predniSONE 20 MG TABLET PO SCH (16:24)
[2019-03-22] MEDS ORDERED: Perflutren Lipid Microsphere 1.3 ML in 0.9 % Sodium Chloride 8.7 ML IVP ONE (17:03)
[2019-03-22] MEDS ORDERED: Insulin LISPRO 300 UNITS/3 ML VIAL SQ SCH (21:00)
[2019-03-22] MEDS ORDERED: Insulin DETEMIR 100 UNIT/ML X5UNITS SQ SCH ×2 (21:00)
[2019-03-22] MEDS: Ipratropium/Albuterol Neb 3 ML IH PRN (21:16)
[2019-03-22] MEDS: Budesonide/Formoterol 80/4.5 1 PUFF INH IH SCH (21:16)
[2019-03-23] MEDS ORDERED: Insulin DETEMIR 100 UNIT/ML X5UNITS SQ SCH ×2 (01:15→21:00)
[2019-03-23] MEDS: Ipratropium/Albuterol Neb 3 ML IH PRN ×3 (03:17→15:33)
[2019-03-23] MEDS: *HR* Heparin 5,000 UNIT/ML VIAL SQ SCH (05:23)
[2019-03-23] MEDS ORDERED: *HR* LORazepam 0.5 MG TABLET PO PRN (07:34)
[2019-03-23] MEDS ORDERED: hydrOXYzine pamoate 25 MG CAPSULE PO PRN (07:34)
[2019-03-23] MEDS: Budesonide/Formoterol 80/4.5 1 PUFF INH IH SCH (07:52)
[2019-03-23] MEDS: Aspirin Enteric Coated 81 MG Tablet PO SCH (08:53)
[2019-03-23] MEDS: Insulin LISPRO 300 UNITS/3 ML VIAL SQ SCH ×4 (08:54→11:52)
[2019-03-23] MEDS: *HR* Digoxin 0.125 MG TABLET PO SCH (08:54)
[2019-03-23] MEDS: predniSONE 20 MG TABLET PO SCH (08:54)
[2019-03-23 11:04] VITALS: BP 103/58
[2019-03-26] MEDS ORDERED: predniSONE 10 MG TABLET PO SCH (09:00)
== END 2019-03-23 15:50 | disposition home health service (06) ==
LOC: EMEROOARM 02:15 → 3ANU 02:15 → SUATTDRO 04:15 → 3ANU 05:19
PROVIDERS: ADMIT Internal Medicine; ATTEND Internal Medicine

== ENCOUNTER 2020-03-23 21:23 | Inpatient (IN) ==
[2020-03-24 00:16] LABS: Adenovirus Not Detected (Not Detect); Coronavirus 229E Not Detected (Not Detect); Coronavirus HKU1 Not Detected (Not Detect); Coronavirus NL63 Not Detected (Not Detect); Coronavirus OC43 Not Detected (Not Detect); Human Metapneumovirus Not Detected (Not Detect); SARS-CoV-2 Not Detected (Not Detect)
[2020-03-24 00:17] LABS: Bordetella Pertussis Not Detected (Not Detect); Chlamydophila pneumoniae Not Detected (Not Detect); Human Rhinovirus/Enterovirus DETECTED (Not Detect); Influenza A Subtype 2009 H1 Not Detected (Not Detect); Influenza B Not Detected (Not Detect); Mycoplasma pneumoniae Not Detected (Not Detect); Parainfluenza Virus 1 Not Detected (Not Detect); Parainfluenza Virus 2 Not Detected (Not Detect); Parainfluenza Virus 3 Not Detected (Not Detect); Parainfluenza Virus 4 Not Detected (Not Detect); Respiratory Syncytial Virus Not Detected (Not Detect)
[2020-03-24] MEDS ORDERED: Naloxone 0.4 MG/ML INJ IVP PRN (02:34)
[2020-03-24] MEDS ORDERED: Acetaminophen 325 MG TABLET PO PRN (02:34)
[2020-03-24] MEDS ORDERED: Perflutren Lipid Microsphere 1.3 ML in 0.9 % Sodium Chloride 8.7 ML IVP PRN (02:43)
[2020-03-24] MEDS ORDERED: Albuterol 2.5 MG/3 ML NEBULIZER IH PRN ×2 (02:49→10:18)
[2020-03-24] MEDS ORDERED: Dextrose Gel 15 GM/37.5 ML TUBE PO PRN ×2 (02:51)
[2020-03-24] MEDS ORDERED: D5% in Water 1,000 ML IVC PRN (02:51)
[2020-03-24] MEDS ORDERED: *HR* Dextrose 50 % in Water (Vial) 50 ML VIAL IVP PRN (02:51)
[2020-03-24] MEDS ORDERED: Azithromycin 250 MG TABLET PO ONE (03:00)
[2020-03-24] MEDS: Ipratropium/Albuterol Neb 3 ML IH SCH ×5 (03:38→21:44)
[2020-03-24] MEDS ORDERED: hydrOXYzine pamoate 25 MG CAPSULE PO STA (04:36)
[2020-03-24 05:03] LABS: INR 1.6; Prothrombin Time 18.1 Seconds (9.4-12.1)
[2020-03-24 05:13] LABS: Alanine Aminotransferase 12 Units/L (7-52); Albumin 3.6 g/dL (3.5-5.7); Albumin/Globulin Ratio 1.3 (1.1-2.2); Alkaline Phosphatase 126 Units/L (34-104); Aspartate Amino Transferase 17 Units/L (13-39); BUN/Creatinine Ratio 19 (6-26); Bilirubin,Total 2.7 mg/dL (0.3-1.0); Blood Urea Nitrogen 17 mg/dL (8-23); Calcium 9.5 mg/dL (8.6-10.3); Carbon Dioxide 32 mEq/L (23-29); Chloride 95 mEq/L (98-107); Globulin 2.7 g/dL (2.4-3.5); Glucose 319 mg/dL (70-105); Magnesium 1.5 mg/dL (1.6-2.6); Osmolality,Calculated 296 (280-300); Phosphorous 3.4 mg/dL (2.7-4.5); Potassium 4.3 mEq/L (3.5-5.1); Sodium 136 mEq/L (136-145); Total Protein 6.3 g/dL (6.4-8.9); Troponin I 0.06 ng/mL (< 0.04); eGFR For African Americans > 60 (> 60); eGFR For Non-African Americans > 60 (> 60)
[2020-03-24 05:16] LABS: Hepatitis B Surface Antibody < 3.10 mIU/mL
[2020-03-24 05:26] LABS: Hepatitis B Surface Antigen Nonreactive (Nonreactive)
[2020-03-24] MEDS: Furosemide 40 MG/4 ML VIAL IVP SCH ×3 (05:32→21:36)
[2020-03-24] MEDS: Insulin LISPRO 300 UNITS/3 ML VIAL SQ SCH ×5 (05:42→21:36)
[2020-03-24 05:55] LABS: Hepatitis B Core IgM Nonreactive (Nonreactive)
[2020-03-24 05:56] LABS: Hepatitis A Antibody IgM Nonreactive (Nonreactive); Hepatitis C Virus Antibody Nonreactive (Nonreactive)
[2020-03-24] MEDS: Budesonide/Formoterol 160/4.5 1 PUFF INH IH SCH ×2 (07:50→21:45)
[2020-03-24] MEDS ORDERED: MethylPREDNISolone 40 MG/ML VIAL IVP SCH ×2 (08:00→09:00)
[2020-03-24] MEDS: *HR* Heparin 5,000 UNIT/ML VIAL SQ SCH ×2 (08:42→17:18)
[2020-03-24] MEDS: Doxycycline 100 MG in 0.9 % Sodium Chloride Mini Bag 100 ML IVPB SCH ×2 (08:49→17:18)
[2020-03-24] MEDS: *HR* LORazepam 0.5 MG TABLET PO SCH ×3 (08:53→21:37)
[2020-03-24] MEDS ORDERED: cefTRIAXone 2,000 MG in Water for inj. (sterile) 20 ML IVP SCH (09:00)
[2020-03-24] MEDS ORDERED: NON-FORMULARY MEDICATION 1 EACH EACH (Umeclidinium Bromide [Incruse Ellipta] 62.5 MCG) IH SCH (09:00)
[2020-03-24] MEDS ORDERED: *HR* HYDROmorphone (PF) 1 MG/ML SYRINGE IVP ONE (09:24)
[2020-03-24] MEDS ORDERED: *HR* LORazepam 2 MG/ML VIAL IVP ONE (09:28)
[2020-03-24] MEDS: Piperacillin/Tazobactam 3.375 GM in 0.9 % Sodium Chloride Mini Bag 100 ML IVPB SCH ×3 (10:00→23:33)
[2020-03-24] MEDS ORDERED: Insulin DETEMIR 100 UNIT/ML X5UNITS SQ SCH (21:00)
[2020-03-24 23:58] LABS: Bilirubin,Urine Negative (Negative); Blood,Urine Negative (Negative); Clarity,Urine Turbid (Clear); Color,Urine Yellow (Yellow); Glucose,Urine (UA) Normal (Normal); Ketones,Urine Negative (Negative); Leukocyte Esterase,Urine Small (Negative); Mucus,Urine Few per lpf (None-Few); Nitrite,Urine Negative (Negative); PH,Urine 5.5 pH Units (5.0-8.0); Protein,Urine Trace mg/dL (Neg-Trace); Specific Gravity,Urine 1.022 (1.010-1.025); Squamous Epithelial Cell,Urine Few per hpf (None-Few); Urobilinogen,Urine Normal (Normal); WBC,Urine 0-3 per hpf (0-3)
[2020-03-25 02:30] LABS: Basophils % 0.1 %; Immature Granulocytes % 0.3 % (0-4); Mean Corpuscular HGB Conc 31.7 g/dL (31.6-35.5); Red Cell Distribution Width 16.1 % (11.5-14.5)
[2020-03-25 02:32] LABS: Hematocrit 43.9 % (35.3-44.9); Hemoglobin 13.9 g/dL (11.5-15.4); Immature Platelets 20.8 % (1.1-6.1); Lymphocytes # 0.5 K/mcL (0.6-4.6); Lymphocytes % 6.8 %; Mean Corpuscular Volume 88.3 fL (83.0-100.0); Monocytes # 0.5 K/mcL (0.0-1.3); Monocytes % 7.1 %; Neutrophils # 5.8 K/mcL (1.6-8.9); Platelet Count 127 K/mcL (140-400); Red Blood Count 4.97 M/mcL (3.82-4.97); Segmented Neutrophils % 85.7 %; White Blood Count 6.8 K/mcL (4.3-11.1)
[2020-03-25 02:39] LABS: Alanine Aminotransferase 12 Units/L (7-52); Albumin 3.1 g/dL (3.5-5.7); Albumin/Globulin Ratio 1.2 (1.1-2.2); Alkaline Phosphatase 106 Units/L (34-104); Aspartate Amino Transferase 16 Units/L (13-39); BUN/Creatinine Ratio 25 (6-26); Bilirubin,Total 1.9 mg/dL (0.3-1.0); Blood Urea Nitrogen 25 mg/dL (8-23); Calcium 9.2 mg/dL (8.6-10.3); Carbon Dioxide 35 mEq/L (23-29); Chloride 97 mEq/L (98-107); Globulin 2.6 g/dL (2.4-3.5); Glucose 317 mg/dL (70-105); Osmolality,Calculated 303 (280-300); Potassium 3.6 mEq/L (3.5-5.1); Sodium 138 mEq/L (136-145); Total Protein 5.7 g/dL (6.4-8.9); eGFR For African Americans > 60 (> 60); eGFR For Non-African Americans 57 (> 60)
[2020-03-25] MEDS: *HR* LORazepam 0.5 MG TABLET PO SCH ×5 (03:21→21:48)
[2020-03-25] MEDS: Ipratropium/Albuterol Neb 3 ML IH SCH ×5 (03:36→21:56)
[2020-03-25] MEDS ORDERED: MethylPREDNISolone 40 MG/ML VIAL IVP ONE (03:37)
[2020-03-25] MEDS ORDERED: Ipratropium/Albuterol Neb 3 ML IH PRN (03:38)
[2020-03-25 04:34] LABS: VBG HCO3 37 mEq/L (21-27); VBG PCO2 73 mmHg (41-51); VBG PH 7.31 pH Units (7.32-7.42); VBG PO2 63 mmHg (25-50)
[2020-03-25] MEDS: *HR* Heparin 5,000 UNIT/ML VIAL SQ SCH ×3 (05:20→16:11)
[2020-03-25] MEDS: Doxycycline 100 MG in 0.9 % Sodium Chloride Mini Bag 100 ML IVPB SCH (05:21)
[2020-03-25] MEDS: Insulin LISPRO 300 UNITS/3 ML VIAL SQ SCH ×4 (08:18→21:48)
[2020-03-25] MEDS: MethylPREDNISolone 40 MG/ML VIAL IVP SCH ×2 (08:20→21:48)
[2020-03-25] MEDS: Azithromycin 500 MG in 0.9 % Sodium Chloride 250 ML IVPB SCH (08:23)
[2020-03-25] MEDS: Piperacillin/Tazobactam 3.375 GM in 0.9 % Sodium Chloride Mini Bag 100 ML IVPB SCH ×3 (08:24→23:38)
[2020-03-25] MEDS: *HR* Digoxin 0.125 MG TABLET PO SCH (08:25)
[2020-03-25] MEDS: Furosemide 40 MG/4 ML VIAL IVP SCH (08:26)
[2020-03-25] MEDS: Aspirin Enteric Coated 81 MG Tablet PO SCH (08:26)
[2020-03-25] MEDS: Budesonide/Formoterol 160/4.5 1 PUFF INH IH SCH ×2 (08:49→21:56)
[2020-03-25] MEDS ORDERED: Azithromycin 250 MG TABLET PO SCH (09:00)
[2020-03-25] MEDS ORDERED: GuaiFENesin Liq 200 MG/10 ML UDC PO PRN (13:08)
[2020-03-25 13:18] LABS: VBG HCO3 30 mEq/L (21-27); VBG PCO2 49 mmHg (41-51); VBG PH 7.39 pH Units (7.32-7.42); VBG PO2 77 mmHg (25-50)
[2020-03-25] MEDS ORDERED: Insulin DETEMIR 100 UNIT/ML X5UNITS SQ SCH (21:00)
[2020-03-25] MEDS: Benzonatate 100 MG CAPSULE PO PRN (21:48)
[2020-03-26] MEDS: Ipratropium/Albuterol Neb 3 ML IH SCH ×3 (03:19→15:10)
[2020-03-26 04:00] LABS: Basophils % 0.1 %; Hematocrit 43.3 % (35.3-44.9); Hemoglobin 13.6 g/dL (11.5-15.4); Immature Granulocytes % 0.7 % (0-4); Lymphocytes # 0.3 K/mcL (0.6-4.6); Lymphocytes % 3.3 %; Mean Corpuscular HGB Conc 31.4 g/dL (31.6-35.5); Mean Corpuscular Volume 89.3 fL (83.0-100.0); Mean Platelet Volume 12.2 fL (9.4-12.4); Monocytes # 0.3 K/mcL (0.0-1.3); Neutrophils # 9.2 K/mcL (1.6-8.9); Platelet Count 138 K/mcL (140-400); Red Blood Count 4.85 M/mcL (3.82-4.97); Red Cell Distribution Width 16.3 % (11.5-14.5); Segmented Neutrophils % 92.9 %
[2020-03-26 04:19] LABS: Alanine Aminotransferase 15 Units/L (7-52); Albumin 3.2 g/dL (3.5-5.7); Albumin/Globulin Ratio 1.3 (1.1-2.2); Alkaline Phosphatase 135 Units/L (34-104); Aspartate Amino Transferase 18 Units/L (13-39); BUN/Creatinine Ratio 38 (6-26); Bilirubin,Total 1.2 mg/dL (0.3-1.0); Blood Urea Nitrogen 36 mg/dL (8-23); Calcium 9.3 mg/dL (8.6-10.3); Carbon Dioxide 37 mEq/L (23-29); Chloride 100 mEq/L (98-107); Globulin 2.5 g/dL (2.4-3.5); Glucose 251 mg/dL (70-105); Osmolality,Calculated 313 (280-300); Potassium 3.6 mEq/L (3.5-5.1); Sodium 143 mEq/L (136-145); Total Protein 5.7 g/dL (6.4-8.9); eGFR For African Americans > 60 (> 60); eGFR For Non-African Americans 60 (> 60)
[2020-03-26 04:24] LABS: VBG HCO3 38 mEq/L (21-27); VBG PCO2 71 mmHg (41-51); VBG PH 7.34 pH Units (7.32-7.42); VBG PO2 79 mmHg (25-50)
[2020-03-26] MEDS: *HR* Heparin 5,000 UNIT/ML VIAL SQ SCH ×2 (05:38→15:48)
[2020-03-26] MEDS: Insulin LISPRO 300 UNITS/3 ML VIAL SQ SCH ×4 (08:06→20:19)
[2020-03-26] MEDS: MethylPREDNISolone 40 MG/ML VIAL IVP SCH ×2 (08:07→20:12)
[2020-03-26] MEDS: Furosemide 40 MG/4 ML VIAL IVP SCH ×2 (08:09→20:12)
[2020-03-26] MEDS: Azithromycin 500 MG in 0.9 % Sodium Chloride 250 ML IVPB SCH (08:12)
[2020-03-26] MEDS: *HR* Digoxin 0.125 MG TABLET PO SCH (08:13)
[2020-03-26] MEDS: *HR* LORazepam 0.5 MG TABLET PO SCH ×3 (08:13→20:10)
[2020-03-26] MEDS: Aspirin Enteric Coated 81 MG Tablet PO SCH (08:13)
[2020-03-26 08:17] LABS: VBG HCO3 36 mEq/L (21-27); VBG PCO2 74 mmHg (41-51); VBG PH 7.29 pH Units (7.32-7.42); VBG PO2 74 mmHg (25-50)
[2020-03-26] MEDS: Budesonide/Formoterol 160/4.5 1 PUFF INH IH SCH ×2 (09:23→21:41)
[2020-03-26] MEDS: Piperacillin/Tazobactam 3.375 GM in 0.9 % Sodium Chloride Mini Bag 100 ML IVPB SCH ×3 (10:49→23:32)
[2020-03-26] MEDS: lisinopriL 5 MG TABLET PO SCH (13:06)
[2020-03-26 13:07] LABS: VBG HCO3 36 mEq/L (21-27); VBG PCO2 64 mmHg (41-51); VBG PH 7.36 pH Units (7.32-7.42); VBG PO2 87 mmHg (25-50)
[2020-03-26] MEDS ORDERED: Acetylcysteine 10% 2 ML INHSOL IH SCH (18:15)
[2020-03-26] MEDS ORDERED: Insulin DETEMIR 100 UNIT/ML X5UNITS SQ SCH (21:00)
[2020-03-26] MEDS: Acetylcysteine 10% 2 ML INHSOL IH SCH (21:41)
[2020-03-26] MEDS: Levalbuterol Neb 1.25 MG/3 ML IH SCH (21:41)
[2020-03-27] MEDS: Levalbuterol Neb 1.25 MG/3 ML IH SCH ×4 (03:18→22:19)
[2020-03-27] MEDS: Acetylcysteine 10% 2 ML INHSOL IH SCH ×4 (03:18→22:19)
[2020-03-27 04:17] LABS: Basophils % 0.1 %; Hematocrit 44.6 % (35.3-44.9); Hemoglobin 13.8 g/dL (11.5-15.4); Immature Granulocytes % 0.6 % (0-4); Lymphocytes # 0.4 K/mcL (0.6-4.6); Lymphocytes % 3.8 %; Mean Corpuscular HGB Conc 30.9 g/dL (31.6-35.5); Mean Corpuscular Hemoglobin 28.2 pg (28.0-33.3); Mean Corpuscular Volume 91.2 fL (83.0-100.0); Mean Platelet Volume 12.2 fL (9.4-12.4); Monocytes # 0.3 K/mcL (0.0-1.3); Monocytes % 2.8 %; Neutrophils # 9.9 K/mcL (1.6-8.9); Platelet Count 145 K/mcL (140-400); Red Blood Count 4.89 M/mcL (3.82-4.97); Red Cell Distribution Width 16.3 % (11.5-14.5); Segmented Neutrophils % 92.7 %; White Blood Count 10.7 K/mcL (4.3-11.1)
[2020-03-27 04:24] LABS: VBG HCO3 42 mEq/L (21-27); VBG PCO2 79 mmHg (41-51); VBG PH 7.34 pH Units (7.32-7.42); VBG PO2 61 mmHg (25-50)
[2020-03-27 04:39] LABS: Alanine Aminotransferase 14 Units/L (7-52); Albumin 3.1 g/dL (3.5-5.7); Albumin/Globulin Ratio 1.2 (1.1-2.2); Alkaline Phosphatase 127 Units/L (34-104); Aspartate Amino Transferase 16 Units/L (13-39); BUN/Creatinine Ratio 33 (6-26); Bilirubin,Total 0.9 mg/dL (0.3-1.0); Blood Urea Nitrogen 33 mg/dL (8-23); Calcium 9.1 mg/dL (8.6-10.3); Carbon Dioxide 41 mEq/L (23-29); Chloride 100 mEq/L (98-107); Globulin 2.5 g/dL (2.4-3.5); Glucose 220 mg/dL (70-105); Osmolality,Calculated 314 (280-300); Potassium 3.9 mEq/L (3.5-5.1); Sodium 145 mEq/L (136-145); Total Protein 5.6 g/dL (6.4-8.9); eGFR For African Americans > 60 (> 60); eGFR For Non-African Americans 56 (> 60)
[2020-03-27] MEDS: *HR* Heparin 5,000 UNIT/ML VIAL SQ SCH ×2 (05:43→16:59)
[2020-03-27] MEDS: Insulin LISPRO 300 UNITS/3 ML VIAL SQ SCH ×5 (07:19→21:59)
[2020-03-27] MEDS: Azithromycin 500 MG in 0.9 % Sodium Chloride 250 ML IVPB SCH (07:20)
[2020-03-27] MEDS: MethylPREDNISolone 40 MG/ML VIAL IVP SCH ×2 (07:22→22:02)
[2020-03-27] MEDS: Furosemide 40 MG/4 ML VIAL IVP SCH ×2 (07:23→22:01)
[2020-03-27] MEDS: lisinopriL 5 MG TABLET PO SCH (07:23)
[2020-03-27] MEDS: *HR* Digoxin 0.125 MG TABLET PO SCH (07:23)
[2020-03-27] MEDS: *HR* LORazepam 0.5 MG TABLET PO SCH ×3 (07:24→22:01)
[2020-03-27] MEDS: Aspirin Enteric Coated 81 MG Tablet PO SCH (07:24)
[2020-03-27] MEDS ORDERED: acetaZOLAMIDE 250 MG TABLET PO ONE (07:36)
[2020-03-27] MEDS: Piperacillin/Tazobactam 3.375 GM in 0.9 % Sodium Chloride Mini Bag 100 ML IVPB SCH ×3 (09:11→23:56)
[2020-03-27] MEDS: Budesonide/Formoterol 160/4.5 1 PUFF INH IH SCH ×2 (10:40→22:19)
[2020-03-27] MEDS: Metoprolol XL (24 HR) Succ 25 MG TAB.ER.24H PO SCH (13:57)
[2020-03-27] MEDS: Isosorbide MONOnitrate (24 HR) 30 MG TAB.ER.24H PO SCH (13:57)
[2020-03-27] MEDS: Insulin DETEMIR 100 UNIT/ML X5UNITS SQ SCH (22:02)
[2020-03-28] MEDS: Acetylcysteine 10% 2 ML INHSOL IH SCH ×4 (03:44→22:32)
[2020-03-28] MEDS: Levalbuterol Neb 1.25 MG/3 ML IH SCH ×4 (03:45→22:32)
[2020-03-28] MEDS: *HR* Heparin 5,000 UNIT/ML VIAL SQ SCH ×2 (05:00→17:07)
[2020-03-28 05:16] LABS: Hematocrit 42.4 % (35.3-44.9); Hemoglobin 13.5 g/dL (11.5-15.4); Mean Corpuscular HGB Conc 31.8 g/dL (31.6-35.5); Mean Corpuscular Hemoglobin 29.1 pg (28.0-33.3); Mean Corpuscular Volume 91.4 fL (83.0-100.0); Mean Platelet Volume 12.1 fL (9.4-12.4); Platelet Count 133 K/mcL (140-400); Red Blood Count 4.64 M/mcL (3.82-4.97); Red Cell Distribution Width 15.9 % (11.5-14.5); White Blood Count 11.7 K/mcL (4.3-11.1)
[2020-03-28 05:40] LABS: BUN/Creatinine Ratio 42 (6-26); Blood Urea Nitrogen 35 mg/dL (8-23); Calcium 9.2 mg/dL (8.6-10.3); Carbon Dioxide 43 mEq/L (23-29); Chloride 98 mEq/L (98-107); Glucose 204 mg/dL (70-105); Magnesium 1.5 mg/dL (1.6-2.6); Osmolality,Calculated 310 (280-300); Sodium 143 mEq/L (136-145); eGFR For African Americans > 60 (> 60); eGFR For Non-African Americans > 60 (> 60)
[2020-03-28] MEDS ORDERED: Magnesium Sulfate 1 GM/102 ML PIGGYBACK IVPB ONE (06:19)
[2020-03-28 07:00] LABS: VBG HCO3 40 mEq/L (21-27); VBG PCO2 72 mmHg (41-51); VBG PH 7.35 pH Units (7.32-7.42); VBG PO2 46 mmHg (25-50)
[2020-03-28] MEDS ORDERED: acetaZOLAMIDE 250 MG TABLET PO ONE (07:25)
[2020-03-28] MEDS: MethylPREDNISolone 40 MG/ML VIAL IVP SCH ×2 (08:56→20:21)
[2020-03-28] MEDS: Isosorbide MONOnitrate (24 HR) 30 MG TAB.ER.24H PO SCH (08:56)
[2020-03-28] MEDS: Furosemide 40 MG/4 ML VIAL IVP SCH ×2 (08:56→20:20)
[2020-03-28] MEDS: Metoprolol XL (24 HR) Succ 25 MG TAB.ER.24H PO SCH (08:57)
[2020-03-28] MEDS: *HR* LORazepam 0.5 MG TABLET PO SCH ×3 (08:57→20:21)
[2020-03-28] MEDS: *HR* Digoxin 0.125 MG TABLET PO SCH (08:57)
[2020-03-28] MEDS: Azithromycin 250 MG TABLET PO SCH (08:57)
[2020-03-28] MEDS: Piperacillin/Tazobactam 3.375 GM in 0.9 % Sodium Chloride Mini Bag 100 ML IVPB SCH ×3 (08:57→23:37)
[2020-03-28] MEDS: lisinopriL 5 MG TABLET PO SCH (08:57)
[2020-03-28] MEDS: Aspirin Enteric Coated 81 MG Tablet PO SCH (08:57)
[2020-03-28] MEDS: Insulin LISPRO 300 UNITS/3 ML VIAL SQ SCH ×7 (08:58→21:01)
[2020-03-28] MEDS: Budesonide/Formoterol 160/4.5 1 PUFF INH IH SCH ×2 (10:17→22:32)
[2020-03-28] MEDS: Ondansetron 4 MG/2 ML VIAL IVP PRN (18:02)
[2020-03-28] MEDS: Insulin DETEMIR 100 UNIT/ML X5UNITS SQ SCH (20:21)
[2020-03-28] MEDS: hydrOXYzine pamoate 25 MG CAPSULE PO PRN (23:37)
[2020-03-29] MEDS: Levalbuterol Neb 1.25 MG/3 ML IH SCH ×4 (03:54→21:31)
[2020-03-29] MEDS: Acetylcysteine 10% 2 ML INHSOL IH SCH ×4 (03:54→21:31)
[2020-03-29] MEDS: *HR* Heparin 5,000 UNIT/ML VIAL SQ SCH ×2 (04:43→17:21)
[2020-03-29 05:23] LABS: Hematocrit 44.4 % (35.3-44.9); Hemoglobin 14.2 g/dL (11.5-15.4); Mean Corpuscular Hemoglobin 28.9 pg (28.0-33.3); Mean Corpuscular Volume 90.4 fL (83.0-100.0); Mean Platelet Volume 12.8 fL (9.4-12.4); Platelet Count 146 K/mcL (140-400); Red Blood Count 4.91 M/mcL (3.82-4.97); Red Cell Distribution Width 15.7 % (11.5-14.5); White Blood Count 12.5 K/mcL (4.3-11.1)
[2020-03-29 05:43] LABS: BUN/Creatinine Ratio 44 (6-26); Blood Urea Nitrogen 41 mg/dL (8-23); Calcium 8.9 mg/dL (8.6-10.3); Carbon Dioxide 45 mEq/L (23-29); Chloride 95 mEq/L (98-107); Glucose 251 mg/dL (70-105); Magnesium 2.1 mg/dL (1.6-2.6); Osmolality,Calculated 313 (280-300); Potassium 4.2 mEq/L (3.5-5.1); Sodium 142 mEq/L (136-145); eGFR For African Americans > 60 (> 60); eGFR For Non-African Americans > 60 (> 60)
[2020-03-29 05:45] LABS: VBG HCO3 44 mEq/L (21-27); VBG PCO2 81 mmHg (41-51); VBG PH 7.34 pH Units (7.32-7.42); VBG PO2 54 mmHg (25-50)
[2020-03-29] MEDS: Metoprolol XL (24 HR) Succ 25 MG TAB.ER.24H PO SCH (07:47)
[2020-03-29] MEDS: Isosorbide MONOnitrate (24 HR) 30 MG TAB.ER.24H PO SCH (07:47)
[2020-03-29] MEDS: lisinopriL 5 MG TABLET PO SCH (07:47)
[2020-03-29] MEDS: Aspirin Enteric Coated 81 MG Tablet PO SCH (07:47)
[2020-03-29] MEDS: *HR* Digoxin 0.125 MG TABLET PO SCH (07:47)
[2020-03-29] MEDS: Azithromycin 250 MG TABLET PO SCH (07:47)
[2020-03-29] MEDS: *HR* LORazepam 0.5 MG TABLET PO SCH ×3 (07:47→21:02)
[2020-03-29] MEDS: MethylPREDNISolone 40 MG/ML VIAL IVP SCH ×2 (07:48→21:01)
[2020-03-29] MEDS: Insulin LISPRO 300 UNITS/3 ML VIAL SQ SCH ×7 (07:48→21:02)
[2020-03-29] MEDS: Piperacillin/Tazobactam 3.375 GM in 0.9 % Sodium Chloride Mini Bag 100 ML IVPB SCH (07:48)
[2020-03-29] MEDS: Furosemide 40 MG/4 ML VIAL IVP SCH ×2 (07:48→21:01)
[2020-03-29] MEDS: Budesonide/Formoterol 160/4.5 1 PUFF INH IH SCH ×2 (10:23→21:31)
[2020-03-29] MEDS: Insulin DETEMIR 100 UNIT/ML X5UNITS SQ SCH (21:01)
[2020-03-29] MEDS: Ondansetron 4 MG/2 ML VIAL IVP PRN (21:21)
[2020-03-30 03:51] LABS: Basophils % 0.2 %; Eosinophils % 0.1 %; Hematocrit 43.9 % (35.3-44.9); Hemoglobin 13.9 g/dL (11.5-15.4); Immature Granulocytes % 1.4 % (0-4); Lymphocytes # 0.5 K/mcL (0.6-4.6); Lymphocytes % 5.3 %; Mean Corpuscular HGB Conc 31.7 g/dL (31.6-35.5); Mean Corpuscular Hemoglobin 28.4 pg (28.0-33.3); Mean Corpuscular Volume 89.6 fL (83.0-100.0); Mean Platelet Volume 12.7 fL (9.4-12.4); Monocytes # 0.3 K/mcL (0.0-1.3); Monocytes % 3.4 %; Platelet Count 154 K/mcL (140-400); Red Cell Distribution Width 15.2 % (11.5-14.5); Segmented Neutrophils % 89.6 %
[2020-03-30] MEDS: Levalbuterol Neb 1.25 MG/3 ML IH SCH ×4 (04:00→21:35)
[2020-03-30] MEDS: Acetylcysteine 10% 2 ML INHSOL IH SCH ×4 (04:00→21:35)
[2020-03-30 04:11] LABS: BUN/Creatinine Ratio 49 (6-26); Blood Urea Nitrogen 42 mg/dL (8-23); Calcium 9.1 mg/dL (8.6-10.3); Carbon Dioxide 42 mEq/L (23-29); Chloride 94 mEq/L (98-107); Glucose 329 mg/dL (70-105); Osmolality,Calculated 311 (280-300); Phosphorous 3.8 mg/dL (2.7-4.5); Potassium 4.2 mEq/L (3.5-5.1); Sodium 139 mEq/L (136-145); eGFR For African Americans > 60 (> 60); eGFR For Non-African Americans > 60 (> 60)
[2020-03-30] MEDS: *HR* Heparin 5,000 UNIT/ML VIAL SQ SCH ×2 (05:53→16:27)
[2020-03-30] MEDS: Aspirin Enteric Coated 81 MG Tablet PO SCH (08:05)
[2020-03-30] MEDS: *HR* LORazepam 0.5 MG TABLET PO SCH ×3 (08:05→20:54)
[2020-03-30] MEDS: Metoprolol XL (24 HR) Succ 25 MG TAB.ER.24H PO SCH (08:05)
[2020-03-30] MEDS: lisinopriL 5 MG TABLET PO SCH (08:05)
[2020-03-30] MEDS: Isosorbide MONOnitrate (24 HR) 30 MG TAB.ER.24H PO SCH (08:05)
[2020-03-30] MEDS: *HR* Digoxin 0.125 MG TABLET PO SCH (08:06)
[2020-03-30] MEDS: Furosemide 40 MG/4 ML VIAL IVP SCH ×2 (08:06→20:54)
[2020-03-30] MEDS: MethylPREDNISolone 40 MG/ML VIAL IVP SCH ×2 (08:06→20:54)
[2020-03-30] MEDS: Insulin LISPRO 300 UNITS/3 ML VIAL SQ SCH ×7 (08:07→20:41)
[2020-03-30] MEDS ORDERED: Azithromycin 250 MG TABLET PO SCH (09:00)
[2020-03-30] MEDS: Budesonide/Formoterol 160/4.5 1 PUFF INH IH SCH ×2 (10:17→21:35)
[2020-03-30] MEDS ORDERED: Insulin DETEMIR 100 UNIT/ML X5UNITS SQ ONE (10:47)
[2020-03-30 12:57] LABS: Estimated Average Glucose 315 mg/dl
[2020-03-30 14:02] LABS: VBG HCO3 40 mEq/L (21-27); VBG PCO2 73 mmHg (41-51); VBG PH 7.35 pH Units (7.32-7.42); VBG PO2 60 mmHg (25-50)
[2020-03-30] MEDS: Ondansetron 4 MG/2 ML VIAL IVP PRN (16:30)
[2020-03-30] MEDS: Insulin DETEMIR 100 UNIT/ML X5UNITS SQ SCH (21:16)
[2020-03-31] MEDS: Acetylcysteine 10% 2 ML INHSOL IH SCH (03:25)
[2020-03-31] MEDS: Levalbuterol Neb 1.25 MG/3 ML IH SCH (03:25)
[2020-03-31 04:11] LABS: Basophils % 0.4 %; Hemoglobin 14.2 g/dL (11.5-15.4); Immature Granulocytes % 1.7 % (0-4); Lymphocytes # 0.4 K/mcL (0.6-4.6); Lymphocytes % 3.3 %; Mean Corpuscular HGB Conc 31.6 g/dL (31.6-35.5); Mean Corpuscular Hemoglobin 28.5 pg (28.0-33.3); Mean Corpuscular Volume 90.4 fL (83.0-100.0); Mean Platelet Volume 12.6 fL (9.4-12.4); Monocytes # 0.3 K/mcL (0.0-1.3); Monocytes % 2.4 %; Neutrophils # 10.2 K/mcL (1.6-8.9); Platelet Count 169 K/mcL (140-400); Red Blood Count 4.98 M/mcL (3.82-4.97); Red Cell Distribution Width 15.2 % (11.5-14.5); Segmented Neutrophils % 92.2 %
[2020-03-31 04:12] LABS: BUN/Creatinine Ratio 46 (6-26); Blood Urea Nitrogen 49 mg/dL (8-23); Calcium 9.1 mg/dL (8.6-10.3); Carbon Dioxide 44 mEq/L (23-29); Chloride 92 mEq/L (98-107); Glucose 498 mg/dL (70-105); Magnesium 1.9 mg/dL (1.6-2.6); Osmolality,Calculated 323 (280-300); Phosphorous 3.8 mg/dL (2.7-4.5); Potassium 4.7 mEq/L (3.5-5.1); Sodium 139 mEq/L (136-145); eGFR For African Americans > 60 (> 60); eGFR For Non-African Americans 53 (> 60)
[2020-03-31] MEDS: *HR* Heparin 5,000 UNIT/ML VIAL SQ SCH ×2 (05:19→17:20)
[2020-03-31] MEDS ORDERED: ACETAZOLAMIDE IVP ONE (07:34)
[2020-03-31] MEDS ORDERED: WATER FOR INJ IVP ONE (07:34)
[2020-03-31] MEDS ORDERED: Insulin Human Regular 20 UNIT in 0.9 % Sodium Chloride 10 ML IV ONE (08:51)
[2020-03-31] MEDS: predniSONE 20 MG TABLET PO SCH (08:55)
[2020-03-31] MEDS: Isosorbide MONOnitrate (24 HR) 30 MG TAB.ER.24H PO SCH (08:55)
[2020-03-31] MEDS: *HR* Digoxin 0.125 MG TABLET PO SCH (08:55)
[2020-03-31] MEDS: *HR* LORazepam 0.5 MG TABLET PO SCH ×3 (08:55→21:06)
[2020-03-31] MEDS: Aspirin Enteric Coated 81 MG Tablet PO SCH (08:55)
[2020-03-31] MEDS: Furosemide 40 MG/4 ML VIAL IVP SCH ×2 (08:56→21:06)
[2020-03-31] MEDS: Insulin LISPRO 300 UNITS/3 ML VIAL SQ SCH ×7 (08:56→20:50)
[2020-03-31] MEDS: Metoprolol XL (24 HR) Succ 25 MG TAB.ER.24H PO SCH (08:56)
[2020-03-31] MEDS: lisinopriL 5 MG TABLET PO SCH (08:56)
[2020-03-31] MEDS: Ipratropium/Albuterol Neb 3 ML IH SCH ×5 (09:54→23:41)
[2020-03-31] MEDS: Insulin DETEMIR 100 UNIT/ML X5UNITS SQ SCH ×2 (10:39→21:06)
[2020-03-31] MEDS: Budesonide/Formoterol 160/4.5 1 PUFF INH IH SCH ×2 (10:57→20:48)
[2020-04-01 02:59] LABS: Basophils % 0.2 %; Eosinophils # 0.1 K/mcL (0.0-0.6); Eosinophils % 0.3 %; Hematocrit 46.7 % (35.3-44.9); Hemoglobin 14.6 g/dL (11.5-15.4); Lymphocytes # 1.3 K/mcL (0.6-4.6); Lymphocytes % 8.2 %; Mean Corpuscular HGB Conc 31.3 g/dL (31.6-35.5); Mean Corpuscular Hemoglobin 27.7 pg (28.0-33.3); Mean Corpuscular Volume 88.4 fL (83.0-100.0); Mean Platelet Volume 12.7 fL (9.4-12.4); Monocytes % 6.2 %; Neutrophils # 13.2 K/mcL (1.6-8.9); Platelet Count 181 K/mcL (140-400); Red Blood Count 5.28 M/mcL (3.82-4.97); Red Cell Distribution Width 15.1 % (11.5-14.5); Segmented Neutrophils % 84.1 %; White Blood Count 15.8 K/mcL (4.3-11.1)
[2020-04-01 03:17] LABS: BUN/Creatinine Ratio 54 (6-26); Blood Urea Nitrogen 43 mg/dL (8-23); Carbon Dioxide 43 mEq/L (23-29); Chloride 97 mEq/L (98-107); Glucose 112 mg/dL (70-105); Magnesium 1.8 mg/dL (1.6-2.6); Osmolality,Calculated 308 (280-300); Phosphorous 2.9 mg/dL (2.7-4.5); Potassium 3.6 mEq/L (3.5-5.1); Sodium 143 mEq/L (136-145); eGFR For African Americans > 60 (> 60); eGFR For Non-African Americans > 60 (> 60)
[2020-04-01] MEDS: Ipratropium/Albuterol Neb 3 ML IH SCH ×5 (04:22→20:18)
[2020-04-01] MEDS: *HR* Heparin 5,000 UNIT/ML VIAL SQ SCH ×2 (05:43→18:50)
[2020-04-01] MEDS ORDERED: ACETAZOLAMIDE IVP ONE (07:18)
[2020-04-01] MEDS ORDERED: WATER FOR INJ IVP ONE (07:18)
[2020-04-01] MEDS: Budesonide/Formoterol 160/4.5 1 PUFF INH IH SCH ×2 (07:37→20:18)
[2020-04-01] MEDS: lisinopriL 5 MG TABLET PO SCH (08:53)
[2020-04-01] MEDS: Benzonatate 100 MG CAPSULE PO PRN (08:53)
[2020-04-01] MEDS: *HR* Digoxin 0.125 MG TABLET PO SCH (08:53)
[2020-04-01] MEDS: Aspirin Enteric Coated 81 MG Tablet PO SCH (08:53)
[2020-04-01] MEDS: Metoprolol XL (24 HR) Succ 25 MG TAB.ER.24H PO SCH (08:53)
[2020-04-01] MEDS: Isosorbide MONOnitrate (24 HR) 30 MG TAB.ER.24H PO SCH (08:53)
[2020-04-01] MEDS: Furosemide 40 MG/4 ML VIAL IVP SCH ×2 (08:54→20:08)
[2020-04-01] MEDS: *HR* LORazepam 0.5 MG TABLET PO SCH ×3 (08:54→20:08)
[2020-04-01] MEDS: predniSONE 20 MG TABLET PO SCH (08:56)
[2020-04-01] MEDS: hydrOXYzine pamoate 25 MG CAPSULE PO PRN (12:53)
[2020-04-01] MEDS: Insulin DETEMIR 100 UNIT/ML X5UNITS SQ SCH ×2 (12:56→20:09)
[2020-04-01] MEDS: Insulin LISPRO 300 UNITS/3 ML VIAL SQ SCH ×7 (12:56→20:12)
[2020-04-02] MEDS: Ipratropium/Albuterol Neb 3 ML IH SCH ×7 (00:05→23:57)
[2020-04-02 01:36] LABS: Basophils % 0.2 %; Eosinophils % 0.1 %; Hematocrit 46.6 % (35.3-44.9); Hemoglobin 14.5 g/dL (11.5-15.4); Immature Granulocytes % 1.2 % (0-4); Lymphocytes # 0.9 K/mcL (0.6-4.6); Lymphocytes % 6.3 %; Mean Corpuscular HGB Conc 31.1 g/dL (31.6-35.5); Mean Corpuscular Hemoglobin 27.8 pg (28.0-33.3); Mean Corpuscular Volume 89.4 fL (83.0-100.0); Mean Platelet Volume 12.3 fL (9.4-12.4); Monocytes # 0.7 K/mcL (0.0-1.3); Monocytes % 4.6 %; Neutrophils # 12.5 K/mcL (1.6-8.9); Platelet Count 159 K/mcL (140-400); Red Blood Count 5.21 M/mcL (3.82-4.97); Red Cell Distribution Width 15.1 % (11.5-14.5); Segmented Neutrophils % 87.6 %; White Blood Count 14.3 K/mcL (4.3-11.1)
[2020-04-02 01:59] LABS: BUN/Creatinine Ratio 54 (6-26); Blood Urea Nitrogen 53 mg/dL (8-23); Calcium 8.9 mg/dL (8.6-10.3); Carbon Dioxide 42 mEq/L (23-29); Chloride 94 mEq/L (98-107); Glucose 315 mg/dL (70-105); Magnesium 1.9 mg/dL (1.6-2.6); Osmolality,Calculated 314 (280-300); Phosphorous 3.1 mg/dL (2.7-4.5); Sodium 139 mEq/L (136-145); eGFR For African Americans > 60 (> 60); eGFR For Non-African Americans 57 (> 60)
[2020-04-02] MEDS: *HR* Heparin 5,000 UNIT/ML VIAL SQ SCH ×2 (06:12→16:12)
[2020-04-02] MEDS: Budesonide/Formoterol 160/4.5 1 PUFF INH IH SCH ×2 (07:25→20:03)
[2020-04-02] MEDS: hydrOXYzine pamoate 25 MG CAPSULE PO PRN (07:55)
[2020-04-02] MEDS: Benzonatate 100 MG CAPSULE PO PRN (07:55)
[2020-04-02] MEDS: predniSONE 20 MG TABLET PO SCH (07:55)
[2020-04-02] MEDS: Metoprolol XL (24 HR) Succ 25 MG TAB.ER.24H PO SCH (07:55)
[2020-04-02] MEDS: lisinopriL 5 MG TABLET PO SCH (07:56)
[2020-04-02] MEDS: Isosorbide MONOnitrate (24 HR) 30 MG TAB.ER.24H PO SCH (07:56)
[2020-04-02] MEDS: *HR* Digoxin 0.125 MG TABLET PO SCH (07:56)
[2020-04-02] MEDS: Aspirin Enteric Coated 81 MG Tablet PO SCH (07:56)
[2020-04-02] MEDS: Furosemide 40 MG/4 ML VIAL IVP SCH ×2 (07:56→21:25)
[2020-04-02] MEDS: Insulin LISPRO 300 UNITS/3 ML VIAL SQ SCH ×7 (07:56→21:23)
[2020-04-02] MEDS: *HR* LORazepam 0.5 MG TABLET PO SCH ×3 (07:56→21:25)
[2020-04-02] MEDS: Insulin DETEMIR 100 UNIT/ML X5UNITS SQ SCH ×2 (07:57→21:23)
[2020-04-03] MEDS: Ipratropium/Albuterol Neb 3 ML IH SCH ×4 (03:25→15:49)
[2020-04-03] MEDS: *HR* Heparin 5,000 UNIT/ML VIAL SQ SCH (04:47)
[2020-04-03 05:56] LABS: Basophils % 0.3 %; Eosinophils # 0.1 K/mcL (0.0-0.6); Eosinophils % 0.4 %; Hemoglobin 13.6 g/dL (11.5-15.4); Immature Granulocytes % 1.5 % (0-4); Lymphocytes # 1.3 K/mcL (0.6-4.6); Lymphocytes % 9.1 %; Mean Corpuscular HGB Conc 32.4 g/dL (31.6-35.5); Mean Corpuscular Hemoglobin 28.7 pg (28.0-33.3); Mean Corpuscular Volume 88.6 fL (83.0-100.0); Mean Platelet Volume 11.3 fL (9.4-12.4); Monocytes # 0.8 K/mcL (0.0-1.3); Monocytes % 5.3 %; Platelet Count 155 K/mcL (140-400); Red Blood Count 4.74 M/mcL (3.82-4.97); Red Cell Distribution Width 15.3 % (11.5-14.5); Segmented Neutrophils % 83.4 %; White Blood Count 14.4 K/mcL (4.3-11.1)
[2020-04-03 06:16] LABS: BUN/Creatinine Ratio 60 (6-26); Blood Urea Nitrogen 60 mg/dL (8-23); Calcium 9.1 mg/dL (8.6-10.3); Carbon Dioxide 37 mEq/L (23-29); Chloride 98 mEq/L (98-107); Glucose 241 mg/dL (70-105); Magnesium 1.8 mg/dL (1.6-2.6); Osmolality,Calculated 311 (280-300); Phosphorous 3.1 mg/dL (2.7-4.5); Potassium 4.6 mEq/L (3.5-5.1); Sodium 138 mEq/L (136-145); eGFR For African Americans > 60 (> 60); eGFR For Non-African Americans 56 (> 60)
[2020-04-03] MEDS: Budesonide/Formoterol 160/4.5 1 PUFF INH IH SCH (07:21)
[2020-04-03] MEDS: Isosorbide MONOnitrate (24 HR) 30 MG TAB.ER.24H PO SCH (08:48)
[2020-04-03] MEDS: predniSONE 20 MG TABLET PO SCH (08:48)
[2020-04-03] MEDS: *HR* Digoxin 0.125 MG TABLET PO SCH (08:48)
[2020-04-03] MEDS: *HR* LORazepam 0.5 MG TABLET PO SCH ×2 (08:48→16:01)
[2020-04-03] MEDS: lisinopriL 5 MG TABLET PO SCH (08:48)
[2020-04-03] MEDS: Metoprolol XL (24 HR) Succ 25 MG TAB.ER.24H PO SCH (08:48)
[2020-04-03] MEDS: Aspirin Enteric Coated 81 MG Tablet PO SCH (08:48)
[2020-04-03] MEDS: Furosemide 40 MG/4 ML VIAL IVP SCH (08:49)
[2020-04-03] MEDS: Benzonatate 100 MG CAPSULE PO PRN (09:01)
[2020-04-03] MEDS: Insulin DETEMIR 100 UNIT/ML X5UNITS SQ SCH (09:02)
[2020-04-03] MEDS: Insulin LISPRO 300 UNITS/3 ML VIAL SQ SCH ×6 (09:02→16:01)
[2020-04-03 13:39] LABS: Adenovirus Not Detected (Not Detect); Bordetella Pertussis Not Detected (Not Detect); Chlamydophila pneumoniae Not Detected (Not Detect); Coronavirus 229E Not Detected (Not Detect); Coronavirus HKU1 Not Detected (Not Detect); Coronavirus NL63 Not Detected (Not Detect); Coronavirus OC43 Not Detected (Not Detect); Human Metapneumovirus Not Detected (Not Detect); Human Rhinovirus/Enterovirus DETECTED (Not Detect); Influenza A Subtype 2009 H1 Not Detected (Not Detect); Influenza B Not Detected (Not Detect); Mycoplasma pneumoniae Not Detected (Not Detect); Parainfluenza Virus 1 Not Detected (Not Detect); Parainfluenza Virus 2 Not Detected (Not Detect); Parainfluenza Virus 3 Not Detected (Not Detect); Parainfluenza Virus 4 Not Detected (Not Detect); Respiratory Syncytial Virus Not Detected (Not Detect); SARS-CoV-2 Not Detected (Not Detect)
[2020-04-03 15:08] VITALS: BP 108/63
== END 2020-04-03 19:23 | disposition home or self-care (01) | DRG 720 ==
LOC: 2ANU → SUATTDRO 23:03
PROVIDERS: ADMIT Internal Medicine; ATTEND Internal Medicine